=== PATIENT | female | born 1940 | race Caucasian/White ===

== ENCOUNTER 2018-10-18 13:24 | Outpatient (REF) | payer MEDICARE, OTHER, SELFPAY ==
[2018-10-18 19:55] LABS: Anion Gap 10.1 mmol/L (3-11); BUN 14 mg/dL (7-18); CO2 25.9 mmol/L (21.0-32.0); CREATININE 0.93 mg/dL (0.55-1.02); Calcium 9.2 mg/dL (8.5-10.1); Chloride 104 mmol/L (98-107); Estimated GFR 58.61 (mL/min/1.73m2); Glucose 128 mg/dL (70-100); Potassium 4.9 mmol/L (3.5-5.1); Sodium 140 mmol/L (136-145)
== END 2018-10-18 13:44 ==
LOC: NCHCN 13:24
PROVIDERS: PCP Physician Assistant Medical; Visit Provider Physician Assistant Medical
DX: E11.9 Type 2 diabetes mellitus without complications (principal); I10 Essential (primary) hypertension
CPT/HCPCS: 80048

== ENCOUNTER 2019-06-13 08:47 | Outpatient (CLI) | payer MEDICARE, OTHER, SELFPAY | END 2019-06-13 09:07 | PROVIDERS: PCP Physician Assistant Medical; Visit Provider Internal Medicine Cardiovascular Disease | DX: I48.19 Other persistent atrial fibrillation (principal); I10 Essential (primary) hypertension; Z79.01 Long term (current) use of anticoagulants; E11.9 Type 2 diabetes mellitus without complications; Z79.84 Long term (current) use of oral hypoglycemic drugs | CPT/HCPCS: 99204; 93005; 93010 ==

== ENCOUNTER 2019-06-27 07:52 | Day surgery (SDC) | payer MEDICARE, OTHER, SELFPAY ==
[2019-06-27 08:00] VITALS: BP 121/72; PULSE 79; RESP 18; TEMP 36.5; O2SAT 97
[2019-06-27] MEDS: Normal Saline 1,000 ML 30 ML IV (08:33)
--- NOTE | 2019-06-27 10:25 | W.CARDVER ---
Date of service: 06/27/19 Time of Service: 10:26 Cardioversion The patient was brought into the operating room in preparation for cardioversion. ?Atrial fibrillation was confirmed prior to attempted cardioversion ?Patient was sedated with the help of anesthesia ?Patient was cardioverted x1 with 200 J. ?Confirmation of normal sinus rhythm was done with twelve-lead EKG ?There were no complications and patient went to recovery.
--- NOTE | 2019-06-27 10:54 | W.PM.DSUDISC ---
Discharge Plan Disposition Patient Disposition: HOME Condition: Good Discharge Details Reason For Visit: cardioversion Attending Provider: Shoaib Evans Primary Care Provider: Karley Blandon [place] Meds and New Rx's Prescriptions: No Action Xarelto 20 mg tablet 20 mg PO DAILY RF: 0 metoprolol succinate [Toprol XL] 50 mg tablet extended release 24 hr 75 mg PO DAILY RF: 0 celecoxib [Celebrex] 200 MG capsule 200 mg PO DAILY RF: 0 citalopram 20 MG tablet 20 mg PO DAILY RF: 0 metformin 1,000 MG tablet 1,000 mg PO BID RF: 0 lisinopril 10 MG tablet 10 mg PO DAILY RF: 0 lorazepam 1 MG tablet 1 mg PO TID PRN PRNRF: 0 rosuvastatin [Crestor] 20 MG tablet 20 mg PO DAILY RF: 0 Discharge Instructions Activity:: Activity as Tolerated Diet:: As Tolerated Discharge Data Discharge Date/Time-TO BE ENTERED AT DEPARTURE: 06/27/19 10:56 DS: Diagnosis Discharge Diagnosis (1) Atrial fibrillation: Status: Chronic
[2019-06-27 11:08] VITALS: BP 104/64; PULSE 57; RESP 16; TEMP 36.5; O2SAT 99
== END 2019-06-27 11:30 | disposition home or self-care (01) ==
LOC: SUR 07:53
PROVIDERS: PCP Physician Assistant Medical; Visit Provider Internal Medicine Cardiovascular Disease
PROC: 5A2204Z Restoration of Cardiac Rhythm, Single (ICD-10-PCS; CPT 92960; principal; 2019-06-27 09:30)
DX: I48.91 Unspecified atrial fibrillation (principal); I10 Essential (primary) hypertension; E78.5 Hyperlipidemia, unspecified; Z79.01 Long term (current) use of anticoagulants
CPT/HCPCS: 92960

== ENCOUNTER 2019-07-18 15:22 | Outpatient (REF) | payer MEDICARE, OTHER, SELFPAY ==
[2019-07-20 11:03] LABS: Campylobacter PCR Negative (Negative); Salmonella PCR Negative (Negative); Shiga Toxin PCR Negative (Negative); Shigella/Enteroinvasive Ecoli Negative (Negative)
== END 2019-07-18 15:42 ==
LOC: NCHCN 15:22
PROVIDERS: PCP Physician Assistant Medical; Visit Provider Nurse Practitioner Family
DX: R19.7 Diarrhea, unspecified (principal)
CPT/HCPCS: 87329; 87505; 87230; 87324

== ENCOUNTER 2019-09-23 08:22 | Outpatient (CLI) | payer MEDICARE, OTHER, SELFPAY | END 2019-09-23 08:42 | PROVIDERS: PCP Physician Assistant Medical; Visit Provider Internal Medicine Cardiovascular Disease | DX: I48.0 Paroxysmal atrial fibrillation (principal); Z79.899 Other long term (current) drug therapy; Z76.89 Persons encountering health services in other specified circumstances; I10 Essential (primary) hypertension; E11.9 Type 2 diabetes mellitus without complications | CPT/HCPCS: 36415; 80053; 99214; 84443; 93005; 93010 ==

== ENCOUNTER 2019-09-23 11:45 | Outpatient (CLI) | payer MEDICARE, OTHER, SELFPAY ==
[2019-09-23 13:50] LABS: ALT 25 U/L (14-59); AST 20 U/L (15-37); Albumin 3.8 g/dL (3.4-5.0); Alkaline Phosphatase 66 U/L (46-116); Anion Gap 10.1 mmol/L (3-11); BUN 14 mg/dL (7-18); Bilirubin, Total 0.3 mg/dL (0.2-1.0); CO2 26.9 mmol/L (21.0-32.0); CREATININE 1.06 mg/dL (0.55-1.02); Calcium 9.2 mg/dL (8.5-10.1); Chloride 104 mmol/L (98-107); Estimated GFR 50.27 (mL/min/1.73m2); Glucose 96 mg/dL (74-106); Potassium 4.5 mmol/L (3.5-5.1); Sodium 141 mmol/L (136-145); TSH 2.88 uIU/mL (0.36-3.74); Total Protein 6.7 g/dL (6.4-8.2)
== END 2019-09-23 12:05 ==
PROVIDERS: PCP Physician Assistant Medical; Visit Provider Internal Medicine Cardiovascular Disease
DX: I48.91 Unspecified atrial fibrillation (principal); I10 Essential (primary) hypertension; Z79.899 Other long term (current) drug therapy
CPT/HCPCS: 36415; 80053; 84443

== ENCOUNTER 2019-09-27 01:05 | Outpatient (CLI) | payer MEDICARE, OTHER, SELFPAY ==
--- NOTE | 2019-09-27 12:51 | PFT_ITS ---
PULMONARY FUNCTION TEST REPORT DATE OF SERVICE: September 27, 2019 REQUESTING PROVIDER: Dr. Evans Spirometry shows no evidence of obstructive airways disease, no bronchodilator response. Lung volumes show mild restriction. Diffusion capacity severely reduced, which is mildly reduced when corrected to alveolar volume. Airways resistance normal. IMPRESSION: Mild restrictive lung disease associated with severe diffusion defect. Differential diagnosis of this constellation of findings includes developing interstitial lung disease or pulmonary hypertension. Therefore clinical correlation and possible further workup is recommended. WILBER/chris D/
[2019-09-27] MEDS: Inhaler, Assist Device 1 EACH MC (14:07)
[2019-09-27] MEDS: Albuterol HFA 18 GM 200 PUFF INH IH (14:08)
== END 2019-09-27 01:25 ==
PROVIDERS: PCP Physician Assistant Medical; Visit Provider Internal Medicine Cardiovascular Disease
DX: R06.09 Other forms of dyspnea (principal); R06.02 Shortness of breath; J98.8 Other specified respiratory disorders; I48.91 Unspecified atrial fibrillation; Z79.899 Other long term (current) drug therapy
CPT/HCPCS: 94060; 94726; 94729; 93005; 93010

== ENCOUNTER → 2019-10-10 09:59 | Outpatient (BNVA) | payer MEDICARE, OTHER, SELFPAY | PROVIDERS: PCP Physician Assistant Medical; Referring Provider Physician Assistant Medical; Visit Provider Internal Medicine Cardiovascular Disease | DX: I48.92 Unspecified atrial flutter (principal); R06.02 Shortness of breath; I48.91 Unspecified atrial fibrillation; E11.9 Type 2 diabetes mellitus without complications; I10 Essential (primary) hypertension | CPT/HCPCS: 99214 ==

== ENCOUNTER 2019-10-10 10:02 | Outpatient (CLI) | payer MEDICARE, OTHER, SELFPAY | END 2019-10-10 10:22 | PROVIDERS: PCP Physician Assistant Medical; Visit Provider Internal Medicine Cardiovascular Disease | DX: I48.91 Unspecified atrial fibrillation (principal); I10 Essential (primary) hypertension; R06.02 Shortness of breath; I48.92 Unspecified atrial flutter; E11.9 Type 2 diabetes mellitus without complications | CPT/HCPCS: 99214; 93005; 93010 ==

== ENCOUNTER 2020-01-07 18:43 | Outpatient (REF) | payer MEDICARE, OTHER, SELFPAY ==
[2020-01-07 19:52] LABS: Abs Immature Grans 0.02 k/cumm (0.0-0.09); Absolute Basophil Count 0.02 k/cumm (0.0-0.2); Absolute Eosinophil Count 0.37 k/cumm (0.0-0.7); Absolute Monocyte Count 0.79 k/cumm (0.11-0.7); Absolute Neutrophil Count 5.31 k/cumm (1.2-6.7); Basophils % 0.2; Eosinophils % 4.3; HCT 41.4 % (36.0-46.0); HGB 13.6 g/dL (12.0-15.5); Immature Grans % 0.2 %; Lymphocytes % 23.5; Mean Corp. HGB Concentration 32.9 g/dL (32.0-36.0); Mean Corpuscular Hemoglobin 28.9 pg (27.0-33.0); Mean Corpuscular Volume 88.1 fL (80-95); Mean Platelet Volume 11.4 fL (8.0-11.0); Monocytes % 9.3; Neutrophils % 62.5; Platelet Count 255 x1000/uL (130-400); RBC Distribution Width 16.8 % (11.7-14.6); White Blood Cell Count 8.51 k/cumm (4.4-10.8)
[2020-01-07 20:07] LABS: ALT 39 U/L (14-59); AST 27 U/L (15-37); Albumin 3.9 g/dL (3.4-5.0); Alkaline Phosphatase 73 U/L (46-116); Anion Gap 7.5 mmol/L (3-11); BUN 20 mg/dL (7-18); Bilirubin, Total 0.2 mg/dL (0.2-1.0); CO2 28.5 mmol/L (21.0-32.0); CREATININE 1.63 mg/dL (0.55-1.02); Calcium 9.1 mg/dL (8.5-10.1); Chloride 100 mmol/L (98-107); Estimated GFR 30.59 (mL/min/1.73m2); Glucose 99 mg/dL (74-106); Potassium 4.2 mmol/L (3.5-5.1); Sodium 136 mmol/L (136-145); Total Protein 6.8 g/dL (6.4-8.2)
[2020-01-07 20:37] LABS: Hemoglobin A1C 6.3 % (3.8-5.6)
== END 2020-01-07 19:03 ==
LOC: NCHCN 18:43
PROVIDERS: PCP Physician Assistant Medical; Visit Provider Internal Medicine
DX: E11.9 Type 2 diabetes mellitus without complications (principal); C50.411 Malignant neoplasm of upper-outer quadrant of right female breast; Z17.0 Estrogen receptor positive status [ER+]
CPT/HCPCS: 80053; 83036; 85025

== ENCOUNTER 2020-03-25 04:32 | Outpatient (CLI) | payer MEDICARE, OTHER, SELFPAY ==
--- NOTE | 2020-03-25 10:29 | DI.US_ITS ---
APPROVED REPORT EXAM: Comprehensive 2D, Doppler, and color-flow Echocardiogram Patient Location: Out-Patient Recovery Specialist: Stephanie Almazan RDCS (AE) Indications: SOB, A Fib Other Information Study Quality: Adequate Conclusion Normal left ventricular chamber size and wall thickness. Estimated ejection fraction is 55 to 60%. There are no segmental wall motion abnormalities Normal right ventricular size and function Left atrium is moderately to severely dilated. The right atrium is mildly dilated. The aortic valve is trileaflet and sclerotic. There is no aortic stenosis. There is mild aortic reg urgitation Structurally normal mitral valve with moderate regurgitation Structurally normal tricuspid valve with moderate regurgitation. Estimated right ventricular systoli c pressure is 36 mmHg The pulmonic valve is structurally normal with trace to mild regurgitation Wall motion Left Ventricle The left ventricle is normal size. The left ventricular systolic function is normal. The left ventric ular ejection fraction is within the normal range. There is normal left ventricular wall thickness. T here is normal LV segmental wall motion. There is no ventricular septal defect visualized. LVEF is 55 -60%. Right Ventricle The right ventricle is normal size. The right ventricular systolic function is normal. The RVSP is 36 .1 mmHg. Atria Left atrium is moderately to severely dilated. Right atrium is mildly dilated. The interatrial septum is intact with no evidence for an atrial septal defect. Aortic Valve The Aortic valve is sclerotic. Aortic valve is trileaflet. There is no aortic valvular stenosis. Mild aortic regurgitation. Mitral Valve The mitral valve is normal in structure. No evidence of mitral valve stenosis. Moderate mitral regurg itation. Tricuspid Valve The tricuspid valve is normal in structure. There is no tricuspid valve stenosis. Moderate tricuspid regurgitation. Pulmonic Valve The pulmonary valve is normal in structure. There is no pulmonic valvular stenosis. Trace to mild pul melissa regurgitation. Great Vessels The aortic root is normal in size. The ascending aorta is mildly dilated. IVC is normal in size and c ollapses >50% with inspiration. Pericardium There is no pericardial effusion. 2D Dimensions IVSD d PLAX 0.93 cm F: 0.6-1.0 LV Vol A2C d MOD 86.2 mL LVPW d PLAX 0.94 cm F: 0.6 - 1.0 LV Vol A4C d MOD 95.0 mL LVID d PLAX 5.17 cm F: 3.8 - 5.2 LA vol/ BSA A2C s A-L 73.1 mL/m2 LVDs 3.55 cm F: 2.2 - 3.5 LA vol/ BSA A4C s A-L 69.1 mL/m2 Ao Root d 3.01 cm F: 2.7 - 3.3 LA Vol/ BSA Biplane s A-L 73.3 mL/m2 RA Area A4C 20.18 cm2 LA Area A4C s MOD 31.37 cm2 RA Vol/ BSA A4C s A-L 31.1 mL/m2 LA Area A2C s MOD 31.29 cm2 Ao Asc Diam d 3.43 cm F: 2.3 - 3.1 LV EF A4C MOD 53.0 % LV EF Teichholz 57.4 % LV EF A2C MOD 59.9 % LVEF (Sheppard's) 57.75 % F: 54 - 74 LV EF Biplane MOD 57.8 % LV Volume 73.06 mL F: 46 - 106 SV 53.70 mL LV Volume Index 41.74 mL/m2 F: 29 - 61 SV Index 30.69 mL/m2 LV Vol Biplane MOD 93.0 mL FS 30.35 % M-Mode TAPSE 2.56 cm (M/F) >1.7 LV Diastology MV E' medial 0.030 (>0.07 m/s) MV E Vmax 0.76 (0.4-1.3 m/s) LV E/e MED 25.10 (<14) MV E' lateral 0.035 (>0.1 m/s) LV E/e LAT 21.60 (<14) MV E/E' medial 25.14 MV E/E' lateral 21.63 Aortic Valve LVOT Area 3.04 cm2 AoV Area Vmax 1.82 cm2 LVOT Vmax 0.79 m/s AoV Area/ BSA (Vmax) 1.04 cm2/m2 LVOT Mean Fabian. 0.49 m/s FARTUN Mean Fabian. 1.74 cm2 LVOT Peak Grad 2.5 mmHg FARTUN Mean Fabian. Index 1.00 cm2/m2 LVOT Mean Grad 1.2 mmHg AR DT 2744 msec LVOT VTI 0.188 m AR PHT 796 msec LVOT Diam s 1.95 cm AoV Vmax 1.32 m/s Velocity Ratio 0.59 AoV Mean Fabian. 0.86 m/s AoV Peak Grad 7.0 mmHg LVOT SV 57.24 mL AoV Mean Grad 3.4 mmHg AoV VTI 0.318 m AoV Area VTI 1.80 cm2 AoV Area/ BSA (VTI) 1.03 cm/m2 Mitral Valve MV DT 118 (160-240 msec) MR Vmax 5.62 m/s MV PHT 34 msec MR VTI 2.142 m MV Area PHT 6.41 cm2 MR Peak Grad 126.4 mmHg MV VTI 0.164 m MR Mean Grad 88.6 mmHg MV VTI Annulus 0.177 m MR PISA Radius 0.42 cm MV Area VTI 3.77 (4.0-6.0 cm2) MR EROA 0.07 cm2 MR Aliasing Velocity 0.35 m/s MR PISA 1.08 cm2 Pulmonary Valve PV Vmax 0.80 (0.5-1.5 m/s) RVOT Peak Gr. 1.44 mmHg PV Peak Grad 2.6 mmHg RVOT Mean Gr. 0.75 mmHg PV Mean Grad 1.3 mmHg RVOT VTI 0.157 m PV VTI 0.195 m RVOT Vmax 0.60 m/s Tricuspid Valve TR Peak Grad 33.0 mmHg TR Vmax 2.87 m/s RA Pressure 3.00 mmHg RVSP (TR) 36.1 mmHg
== END 2020-03-25 04:52 ==
PROVIDERS: PCP Physician Assistant Medical; Visit Provider Internal Medicine Cardiovascular Disease
DX: I48.92 Unspecified atrial flutter (principal); I08.3 Combined rheumatic disorders of mitral, aortic and tricuspid valves
CPT/HCPCS: 93306

== ENCOUNTER → 2020-04-10 10:54 | Outpatient (BNVA) | payer MEDICARE, OTHER, SELFPAY | PROVIDERS: PCP Physician Assistant Medical; Referring Provider Physician Assistant Medical; Visit Provider Internal Medicine Cardiovascular Disease | DX: I48.91 Unspecified atrial fibrillation (principal); R06.02 Shortness of breath; E11.9 Type 2 diabetes mellitus without complications; I10 Essential (primary) hypertension; Z79.84 Long term (current) use of oral hypoglycemic drugs | CPT/HCPCS: 99214 ==

== ENCOUNTER → 2020-05-01 11:52 | Outpatient (BNVA) | payer MEDICARE, OTHER, SELFPAY | PROVIDERS: PCP Physician Assistant Medical; Referring Provider Physician Assistant Medical; Visit Provider Internal Medicine Cardiovascular Disease | DX: I49.3 Ventricular premature depolarization (principal); I48.92 Unspecified atrial flutter; I10 Essential (primary) hypertension; E11.9 Type 2 diabetes mellitus without complications; R53.82 Chronic fatigue, unspecified; R29.6 Repeated falls | CPT/HCPCS: 99214 ==

== ENCOUNTER 2020-05-01 13:11 | Emergency (ER) | payer MEDICARE, OTHER, SELFPAY ==
[2020-05-01] VITALS (21 sets, daily range): BP systolic 109–173; BP diastolic 66–99; PULSE 58–80; RESP 14–19; TEMP 36.8; O2SAT 96–100
--- NOTE | 2020-05-01 13:30 | RT.EKG_ITS ---
APPROVED REPORT Exam: Resting ECG Patient Location: E HR:57 bpm ECG Measurements Heart Rate 57 AXIS MA 219 P 85 QRSd 94 QRS 50 QT 475 T 57 QTc 465 Conclusion Sinus bradycardia...rate< 60 Borderline prolonged MA interval...MA >212, V-rate 50- 90 I have reviewed and interpreted ECG and agree with software generated interpretation.
--- NOTE | 2020-05-01 13:45 | DI.CT_ITS ---
EXAM: CT HEAD WO CLINICAL HISTORY: confusion, diff walking, writing, r/o acute cva TECHNIQUE: COMPARISON: No exams were available for comparison FINDINGS: Noncontrast cranial CT was performed. There is moderate generalized cerebral atrophy. There are pat karla areas of decreased attenuation in periventricular white matter consistent with microvascular isch emic change. There is no evidence of acute intracranial hemorrhage, mass effect, midline shift. The orbital and temporal bone structures appear intact. Visualized mastoid air cells paranasal sinuses appear clear. IMPRESSION: No evidence of acute intracranial process. RADIATION DOSE DELIVERED: 659.37mGy.cm Total DLP
[2020-05-01 14:04] LABS: Abs Immature Grans 0.02 10^3/uL (0.0-0.06); Absolute Basophil Count 0.03 10^3/uL (0.0-0.2); Absolute Eosinophil Count 0.07 10^3/uL (0.0-0.7); Absolute Lymphocyte Count 1.09 10^3/uL (1.2-3.4); Absolute Monocyte Count 0.48 10^3/uL (0.1-0.8); Absolute Neutrophil Count 4.39 10^3/uL (1.2-6.7); Basophils % 0.5; Eosinophils % 1.2; HGB 12.6 g/dL (11.2-15.7); Immature Grans % 0.3; Lymphocytes % 17.9; MCH 29.5 pg (27.0-33.0); MCHC 32.3 % (32.0-36.0); MCV 91.3 fL (80-95); MPV 10.3 fL (8.0-11.0); Monocytes % 7.9; Neutrophils % 72.2; Nucleated RBC 0 %; Platelet Count 209 10^3/uL (130-400); RBC 4.27 10^6/uL (3.93-5.22); RDW 13.9 % (11.7-14.6); RDW-SD 47.2 fL; WBC 6.08 10^3/uL (4.4-10.8)
--- NOTE | 2020-05-01 14:08 | ED.GENADUL_ITS ---
Discharge Plan Disposition Patient Disposition: HOME Condition: Stable Discharge Details Clinical Impression: Generalized weakness, Frequent falls, Confusion Primary Care Provider: Karley Blandon ED Provider: Brandi Laird Home Meds and New Rx's Prescriptions: Continued amiodarone 400 mg tablet 200 mg PO DAILY RF: 0 amiodarone 200 mg tablet 200 mg PO DAILY Qty: 90 RF: 6 Xarelto 20 mg tablet 20 mg PO DAILY RF: 0 celecoxib [Celebrex] 200 MG capsule 200 mg PO DAILY RF: 0 citalopram 20 MG tablet 20 mg PO DAILY RF: 0 metformin 1,000 MG tablet 1,000 mg PO BID RF: 0 lisinopril 10 MG tablet 10 mg PO DAILY RF: 0 lorazepam 1 MG tablet 1 mg PO TID PRN PRNRF: 0 rosuvastatin [Crestor] 20 MG tablet 20 mg PO DAILY RF: 0 Discharge Instructions Instructions: Fall Prevention for Older Adults (ED), Weakness (ED) Additional Instructions: Drink plenty of fluids and get plenty of rest. Be sure to go over your medication list to confirm that you are taking the correct medication as directed. Be careful upon standing. Be sure to stand up slowly and remain standing for a few minutes before you begin walking. You will be evaluated by home health this weekend, possibly as early as tomorrow. Call your primary care doctor's office on Monday to schedule a follow-up appointment for reevaluation. Return immediately to the emergency department if you develop any worsening or new concerning symptoms. Discharge Data Discharge Physician: Brandi Laird Medical Decision Making 79-year-old female with a history of anxiety, hypertension, hyperlipidemia, diabetes, breast cancer sent from hand tool filer Dr. Evans's office for confusion, difficulty walking and frequent falls over the last month. She lives alone and is normally independent with normal gait. There is concern about possible medication overdosing or CVA. Vitals within normal limits. We will send patient to CT for stat CT head. Also discussed with radiology and they have a small window open to obtain an MRI brain right after CT head to rule out any acute process. CT/MRI/MRA brain and neck negative for acute findings. Labs reviewed and unremarkable. Magnesium 1.5. Urinalysis negative. Patient reassessed and she feels like she would prefer to go home. Discussed with son in room and he feels that he is concerned about patient's medications and concern for another fall at home. Patient was able to ambulate around the ED without assistance. Son feels comfortable with patient going home and his other brother will be watching her tonight and his sister will be checking on her tomorrow to go over her medications. Discussed with care management who agree that there is no acute indication for admission. Plan will be for home health to evaluate as early as tomorrow to assess home safety, to review her medications, and for a physical therapy evaluation as she may need some strength training at home. Advised to follow up with the primary care doctor for re-evaluation. Usual and customary return precautions given prior to discharge. Medical Records Medical records reviewed: Yes I reviewed the patient's medical records. Imaging Data Radiologic Study: Radiologist's impression: XR CHEST 2V PA LATERAL CLINICAL HISTORY: increasing weakness, r/o acute disease TECHNIQUE: COMPARISON: No exams were available for comparison FINDINGS: Heart is enlarged. Lungs are grossly clear. No pleural effusion seen. Calcified left axillary lymph nodes and probable left intrathoracic calcification are noted. Findings are consistent with healed granulomatous disease. Mediastinal contour is grossly unremarkable. IMPRESSION: Cardiomegaly. No evidence of acute process. CT HEAD WO CLINICAL HISTORY: confusion, diff walking, writing, r/o acute cva TECHNIQUE: COMPARISON: No exams were available for comparison FINDINGS: Noncontrast cranial CT was performed. There is moderate generalized cerebral atrophy. There are patchy areas of decreased attenuation in periventricular white matter consistent with microvascular ischemic change. There is no evidence of acute intracranial hemorrhage, mass effect, midline shift. The orbital and temporal bone structures appear intact. Visualized mastoid air cells paranasal sinuses appear clear. IMPRESSION: No evidence of acute intracranial process. ECG Data Attestation: I personally reviewed and interpreted this ECG (s) as follows: Interpretation: Rate of 57, sinus, no acute ST elevation or depression. CA 219. QRS 94. QTc 465. HPI General Mode of arrival: ambulatory . Date/Time Provider Initiated Documentation: 05/01/20 13:42 . Limitations to Documentation: no limitations . Information obtained by: patient . HPI Narrative: Patient is a 79-year-old female with a history of anxiety, diabetes, hypertension, hyperlipidemia and breast cancer with right mastectomy who presents for concern for confusion, difficulty walking and frequent falls recently. Patient was sent from Dr. Guaman's office upstairs where she was seen for regular evaluation and was noted to have some confusion and son there admitted to patient's recent frequent falls and is concerned that she is not taking her medications properly. Dr. Machado had change the dose of her amiodarone and DC'd her metoprolol last month and son believes that she may be taking 2 different doses of amiodarone and may still be taking the metoprolol. He states that he thinks patient may be getting up quickly and then losing her balance possibly due to low blood pressure and then falling. He states patient also can seem confused at times but he is unclear if this may be due to her hearing. Patient states she does admit to feeling weak at times and does admit to falling when she is having difficulty getting up or stand up too quickly. She states she has been eating and sleeping normally. She denies any fever, chest pain, shortness of breath, abdominal pain, vomiting, diarrhea, urinary symptoms. Patient lives alone but son states that his other brother is staying with her this weekend. Related Data Home Medications Medication Instructions Recorded Confirmed celecoxib [Celebrex] 200 mg PO DAILY 10/03/17 05/01/20 citalopram 20 mg PO DAILY 10/03/17 05/01/20 lisinopril 10 mg PO DAILY 10/03/17 05/01/20 lorazepam 1 mg PO TID PRN PRN 10/03/17 05/01/20 metformin 1,000 mg PO BID 10/03/17 05/01/20 rosuvastatin [Crestor] 20 mg PO DAILY 10/03/17 05/01/20 rivaroxaban 20 mg tablet 20 mg PO DAILY 04/29/19 05/01/20 amiodarone 200 mg tablet 200 mg PO DAILY #90 tab 10/10/19 05/01/20 amiodarone 400 mg tablet 200 mg PO DAILY tab 10/10/19 05/01/20 Previous Rx's Medication Instructions Recorded amiodarone 200 mg tablet 200 mg PO DAILY #90 tab 10/10/19 Allergies Allergy/AdvReac Type Severity Reaction Status Date / Time No Known Allergies Allergy Verified 05/01/20 13:35 General Stated Complaint: GenMedical REKHA: 3 Review of Systems All systems reviewed & are unremarkable except as noted in HPI and below Constitutional Constitutional: Reports as per HPI, Denies chills, Denies fever(s) and Reports weakness Eyes Eyes: Denies blurry vision ENT Ears, Nose, Mouth, and Throat: Denies dizziness, Denies sore throat and Denies throat swelling Cardiovascular Cardiovascular: Denies chest pain and Denies dyspnea Respiratory Respiratory: Denies cough and Denies dyspnea Gastrointestinal Gastrointestinal: Denies abdominal pain, Denies diarrhea and Denies vomiting Genitourinary Genitourinary: Denies hematuria and Denies dysuria Musculoskeletal Musculoskeletal: Denies back pain and Denies numbness Integumentary/Breasts Skin/Breast: Denies lesions and Denies rash Neurologic Neurologic: Reports confusion, Denies dizziness, Denies localized weakness, Denies numbness and Reports weakness Psychiatric Psychiatric: Reports confusion Allergic/Immunologic Allergic/Immunologic: Denies throat swelling [facility] Medical History (Updated 05/01/20 @ 18:14 by Brandi Laird DO) Anxiety Atrial flutter Cataract Dyspnea on exertion Endometrial carcinoma Hyperlipidemia Hypertension Type 2 diabetes mellitus Ventricular ectopic activity Surgical History H/O: hysterectomy History of cataract surgery History of cholecystectomy History of colonoscopy Hx of appendectomy Social History Smoking/Tobacco Use Status: Former Tobacco Use Quit Date: 07/24/69 Tobacco: How many years used: 10 Alcohol Intake: never Drug use: Never Substance use type: does not use What type of physical activity do you participate in: none and independent ambulation Do you feel safe at home: Yes Exam Const General: cooperative and no acute distress Orientation: alert, awake and oriented x3 HENMT Head: normal to inspection Face and sinus: normal facial exam Mouth: mucous membranes dry Eyes General: appearance normal, both eyes and all related structures Pupils: PERRL EOM: EOM intact bilaterally Neck Neck: normal visual inspection and No submandibular swelling Lymphatic: no lymphadenopathy noted Chest Chest: normal inspection of the chest and no tenderness Resp Effort & Inspection: normal respiratory effort and able to speak in complete sentences Auscultation: clear to auscultation bilaterally Cardio Rate: regular rate Rhythm: regular rhythm GI Inspection: normal to inspection Palpation: soft, not firm, not rigid and nontender Auscultation: normal bowel sounds Back/Spine/Pelvis Thoracic/Lumbar Spine: thoracic and lumbar spine normal to inspection Pelvis: no pain with anterior-posterior compression Skin General skin exam: no rashes or lesions noted Neuro General: patient alert, patient awake and patient oriented x3 Cranial Nerves: CN's II-XI intact bilaterally Cognition: normal cognition Speech: speech normal Motor: muscle tone normal throughout and strength 5/5 throughout Sensory Exam: no sensory deficits noted Other: Noted to have mild shaking when moving from supine to sitting position while trying to pull herself up. Extrem General: normal to inspection, full ROM, capillary refill normal, no calf tenderness bilaterally and no edema Psych Appearance: grossly normal Mental Status: mental status grossly normal Speech and Movement: speech and movement normal Affect: normal affect Course Vital Signs Vital signs: Vital Signs Temperature 98.2 F 05/01/20 13:23 Pulse 59 L 05/01/20 13:23 Respiratory Rate 17 05/01/20 13:23 Blood Pressure 148/66 H 05/01/20 13:23 Pulse Oximetry 97 05/01/20 13:23 Temperature 98.2 F 05/01/20 13:23 Temperature Source Oral 05/01/20 13:23 Pulse 59 L 05/01/20 13:23 Respiratory Rate 17 05/01/20 13:23 Respiratory Effort Non-Labored 05/01/20 13:32 Blood Pressure 148/66 H 05/01/20 13:23 Blood Pressure Position Supine 05/01/20 13:23 Pulse Oximetry 97 05/01/20 13:23 Oxygen Delivery Method Room Air 05/01/20 13:23 Oxygen Flow Rate 0 05/01/20 13:23 Lab/Test Results Lab/Test Results: Laboratory Tests Range/Units 05/01/20 13:55 WBC (4.4-10.8) 10^3/uL 6.08 RBC (3.93-5.22) 10^6/uL 4.27 Hgb (11.2-15.7) g/dL 12.6 Hct (36.0-46.0) % 39.0 MCV (80-95) fL 91.3 MCH (27.0-33.0) pg 29.5 MCHC (32.0-36.0) % 32.3 RDW (11.7-14.6) % 13.9 Plt Count (130-400) 10^3/uL 209 MPV (8.0-11.0) fL 10.3 Immature Gran % 0.3 Neutrophils % 72.2 Lymphocytes % 17.9 Monocytes % 7.9 Eosinophils % 1.2 Basophils % 0.5 Nucleated RBC % % 0 Absolute Neutrophils (1.2-6.7) 10^3/uL 4.39 Absolute Lymphocytes (1.2-3.4) 10^3/uL 1.09 L Absolute Monocytes (0.1-0.8) 10^3/uL 0.48 Absolute Eosinophils (0.0-0.7) 10^3/uL 0.07 Absolute Basophils (0.0-0.2) 10^3/uL 0.03
--- NOTE | 2020-05-01 14:08 | DI.RAD_ITS ---
EXAM: XR CHEST 2V PA LATERAL CLINICAL HISTORY: increasing weakness, r/o acute disease TECHNIQUE: COMPARISON: No exams were available for comparison FINDINGS: Heart is enlarged. Lungs are grossly clear. No pleural effusion seen. Calcified left axillary lymp h nodes and probable left intrathoracic calcification are noted. Findings are consistent with healed granulomatous disease. Mediastinal contour is grossly unremarkable. IMPRESSION: Cardiomegaly. No evidence of acute process. RADIATION DOSE DELIVERED: Total DLP
--- NOTE | 2020-05-01 14:20 | DI.MRI_ITS ---
EXAM: MR BRAIN WO CLINICAL HISTORY: confusion, weakness, falls, r/o acute cva TECHNIQUE: Multiplanar multisequence MRI of the brain was performed. COMPARISON: No exams were available for comparison FINDINGS: The ventricular system is normal in appearance. There are predominantly periventricular white matter signal abnormalities sparing the corpus callosum consistent with microvascular ischemic change. No other significant signal abnormality identified i n the brain. The orbital and temporal bone structures appear intact as does the pituitary. Diffusion weighted imaging shows no evidence of infarction. Susceptibility weighted imaging is nondiagnostic due to motion. There is normal flow void in the [place] of [place] vasculature. IMPRESSION: Typical microvascular ischemic changes are noted, no other significant abnormality. No evidence of i nfarction. DATA REPOSITORY:
[2020-05-01 14:23] LABS: INR 1.5 (0.9-1.1); Prothrombin Time 15.3 sec (9.3-11.0)
[2020-05-01 14:34] LABS: ALT 35 U/L (14-59); AST 29 U/L (15-37); Albumin 3.8 g/dL (3.4-5.0); Alkaline Phosphatase 54 U/L (46-116); Anion Gap 9.3 mmol/L (3-11); BUN 12 mg/dL (7-18); Bilirubin, Total 0.4 mg/dL (0.2-1.0); CO2 25.7 mmol/L (21.0-32.0); CREATININE 1.02 mg/dL (0.55-1.02); Calcium 9.2 mg/dL (8.5-10.1); Chloride 105 mmol/L (98-107); Estimated GFR 52.55 (mL/min/1.73m2); Glucose 99 mg/dL (74-106); Magnesium 1.5 mg/dL (1.8-2.4); Potassium 4.2 mmol/L (3.5-5.1); Sodium 140 mmol/L (136-145); Troponin I < 0.05 ng/mL (<0.06)
--- NOTE | 2020-05-01 14:35 | DI.MRI_ITS ---
EXAM: MR ANGIO BRAIN WO INDICATION: confusion, diff walking, writing, r/o cva. COMPARISON: No exams were available for comparison TECHNIQUE: MR angiography of the [id number] region was performed utilizing 3D [id number]-wg-wymqlu i maging. FINDINGS: The visualized internal carotid arteries appear intact, no aneurysm, stenosis, or dissection. Visualized vertebral arteries appear intact, no aneurysm, stenosis or dissection. Basilar artery appears normal, no aneurysm, stenosis, or dissection. The anterior cerebral arteries and major branch vessels appear intact. No aneurysm, stenosis, or dis section. The middle cerebral arteries and major branch vessels appear intact. No aneurysm, stenosis, or disse ction. The posterior cerebral arteries and major branch vessels appear intact. No aneurysm, stenosis, or di ssection. IMPRESSION: Negative MR angiography, [id number] region.
--- NOTE | 2020-05-01 14:36 | NUR.NOTE ---
Nursing Note:Patients son requesting to talk with Case Management . Case Management here talking with son now.
--- NOTE | 2020-05-01 15:00 | DI.MRI_ITS ---
EXAM: MR ANGIO NECK WO CLINICAL HISTORY: confusion, diff writing/walking,r/o cva/dissection. TECHNIQUE: Multiplanar multisequence MRI was performed. COMPARISON: No exams were available for comparison FINDINGS: MR angiography the cervical region was performed utilizing 2D and 3D [id number] imaging. There i s right dominant vertebral circulation with unremarkable appearance of right vertebral arteries as vi sualized. The common and internal carotid arteries in the cervical region are unremarkable as visual ized not ideally seen. No major stenosis identified. IMPRESSION: Examination is somewhat limited technically but shows no significant lesion common or internal caroti d arteries. Right dominant unremarkable vertebral artery circulation noted. DATA REPOSITORY:
[2020-05-01 16:04] LABS: Bilirubin Negative (Negative); Blood Negative (Negative); Clarity Sl Cloudy (Clear); Glucose Negative (Negative); Ketones Trace mg/dL (Negative); Leukocyte Esterase Negative (Negative); Nitrite Negative (Negative); Specific Gravity >= 1.030 (1.005-1.025); Urobilinogen 0.2 EU/dL (Up TO 0.2); pH 5.5 (5-8)
[2020-05-01 16:21] LABS: WBC Negative HPF (0-5)
[2020-05-01 16:22] LABS: Bacteria Negative HPF (Negative); C & S Indicated? No; Casts 0-2 Hyaline LPF (Negative); Crystals Negative HPF (Negative); Epithelial Cells Moderate HPF (Negative); Mucus Moderate (Negative); RBC 0-2 HPF (0-2)
[2020-05-01] MEDS: Normal Saline 250 ML IV (18:07)
== END 2020-05-01 18:55 | disposition home or self-care (01) ==
PROVIDERS: Emergency Provider Physician Assistant; PCP Physician Assistant Medical
DX: R53.1 Weakness (principal); R41.0 Disorientation, unspecified; R26.2 Difficulty in walking, not elsewhere classified; R29.6 Repeated falls; E11.9 Type 2 diabetes mellitus without complications; Z79.84 Long term (current) use of oral hypoglycemic drugs; I10 Essential (primary) hypertension; Z60.2 Problems related to living alone
CPT/HCPCS: 36415; 51702; 70544; 70547; 80053; 93005; 96360; 99214; 99285; 70450; 70551; 71046; 81003; 81015; 83735; 84484; 85025; 85610; 85730; 93010

== ENCOUNTER 2020-06-16 15:06 | Outpatient (REF) | payer MEDICARE, OTHER, SELFPAY ==
[2020-06-16 20:50] LABS: Abs Immature Grans 0.02 10^3/uL (0.0-0.06); Absolute Basophil Count 0.04 10^3/uL (0.0-0.2); Absolute Eosinophil Count 0.12 10^3/uL (0.0-0.7); Absolute Monocyte Count 0.49 10^3/uL (0.1-0.8); Absolute Neutrophil Count 4.62 10^3/uL (1.2-6.7); Basophils % 0.6; Eosinophils % 1.9; HCT 40.9 % (36.0-46.0); HGB 12.9 g/dL (11.2-15.7); Immature Grans % 0.3; Lymphocytes % 17.2; MCH 28.7 pg (27.0-33.0); MCHC 31.5 % (32.0-36.0); MCV 90.9 fL (80-95); MPV 11.8 fL (8.0-11.0); Monocytes % 7.7; Neutrophils % 72.3; Nucleated RBC 0 %; Platelet Count 248 10^3/uL (130-400); RDW-SD 46.8 fL; WBC 6.39 10^3/uL (4.4-10.8)
[2020-06-16 21:05] LABS: ALT 49 U/L (14-59); AST 38 U/L (15-37); Alkaline Phosphatase 60 U/L (46-116); Anion Gap 6.7 mmol/L (3-11); BUN 15 mg/dL (7-18); Bilirubin, Total 0.4 mg/dL (0.2-1.0); CO2 30.3 mmol/L (21.0-32.0); CREATININE 1.17 mg/dL (0.55-1.02); Calcium 9.4 mg/dL (8.5-10.1); Chloride 103 mmol/L (98-107); Estimated GFR 44.85 (mL/min/1.73m2); Glucose 145 mg/dL (74-106); Potassium 4.5 mmol/L (3.5-5.1); Sodium 140 mmol/L (136-145); Total Protein 7.3 g/dL (6.4-8.2)
== END 2020-06-16 15:26 ==
LOC: LBN 15:06
PROVIDERS: PCP Physician Assistant Medical; Visit Provider Internal Medicine
DX: C50.411 Malignant neoplasm of upper-outer quadrant of right female breast (principal); Z17.0 Estrogen receptor positive status [ER+]
CPT/HCPCS: 80053; 85025

== ENCOUNTER → 2020-09-04 09:20 | Outpatient (BNVA) | payer MEDICARE, OTHER, SELFPAY | PROVIDERS: PCP Physician Assistant Medical; Referring Provider Physician Assistant Medical; Visit Provider Internal Medicine Cardiovascular Disease | DX: I48.91 Unspecified atrial fibrillation (principal); E11.9 Type 2 diabetes mellitus without complications | CPT/HCPCS: 99214; 99213 ==

== ENCOUNTER 2020-09-04 10:04 | Outpatient (REF) | payer MEDICARE, OTHER, SELFPAY ==
[2020-09-04 10:36] LABS: Abs Immature Grans 0.01 10^3/uL (0.0-0.06); Absolute Basophil Count 0.04 10^3/uL (0.0-0.2); Absolute Eosinophil Count 0.13 10^3/uL (0.0-0.7); Absolute Lymphocyte Count 1.28 10^3/uL (1.2-3.4); Absolute Monocyte Count 0.48 10^3/uL (0.1-0.8); Absolute Neutrophil Count 4.38 10^3/uL (1.2-6.7); Basophils % 0.6; Eosinophils % 2.1; HCT 39.6 % (36.0-46.0); HGB 12.3 g/dL (11.2-15.7); Immature Grans % 0.2; Lymphocytes % 20.3; MCH 27.7 pg (27.0-33.0); MCHC 31.1 % (32.0-36.0); MCV 89.2 fL (80-95); MPV 10.6 fL (8.0-11.0); Monocytes % 7.6; Neutrophils % 69.2; Nucleated RBC 0 %; Platelet Count 199 10^3/uL (130-400); RBC 4.44 10^6/uL (3.93-5.22); RDW 15.3 % (11.7-14.6); RDW-SD 50.5 fL; WBC 6.32 10^3/uL (4.4-10.8)
[2020-09-04 10:46] LABS: ALT 40 U/L (14-59); AST 41 U/L (15-37); Albumin 3.8 g/dL (3.4-5.0); Alkaline Phosphatase 56 U/L (46-116); Anion Gap 7.5 mmol/L (3-11); BUN 14 mg/dL (7-18); Bilirubin, Total 0.3 mg/dL (0.2-1.0); CO2 28.5 mmol/L (21.0-32.0); CREATININE 1.2 mg/dL (0.55-1.02); Calcium 9.5 mg/dL (8.5-10.1); Chloride 105 mmol/L (98-107); Estimated GFR 43.45 (mL/min/1.73m2); Glucose 149 mg/dL (74-106); Potassium 4.7 mmol/L (3.5-5.1); Sodium 141 mmol/L (136-145); Total Protein 7.4 g/dL (6.4-8.2)
== END 2020-09-04 10:05 | disposition home or self-care (01) ==
LOC: LBN 10:04
PROVIDERS: PCP Physician Assistant Medical; Visit Provider Internal Medicine
DX: C50.411 Malignant neoplasm of upper-outer quadrant of right female breast (principal); Z17.0 Estrogen receptor positive status [ER+]
CPT/HCPCS: 80053; 85025

== ENCOUNTER → 2021-03-11 11:10 | Outpatient (BNVA) | payer MEDICARE, OTHER, SELFPAY | PROVIDERS: PCP Internal Medicine; Referring Provider Physician Assistant Medical; Visit Provider Internal Medicine Cardiovascular Disease | DX: I48.91 Unspecified atrial fibrillation (principal); I10 Essential (primary) hypertension; E11.9 Type 2 diabetes mellitus without complications | CPT/HCPCS: 99213 ==

== ENCOUNTER 2021-03-31 14:39 | Outpatient (REF) | payer MEDICARE, OTHER, SELFPAY ==
[2021-03-31 20:39] LABS: Abs Immature Grans 0.01 10^3/uL (0.0-0.06); Absolute Basophil Count 0.04 10^3/uL (0.0-0.2); Absolute Eosinophil Count 0.26 10^3/uL (0.0-0.7); Absolute Lymphocyte Count 1.25 10^3/uL (1.2-3.4); Absolute Monocyte Count 0.54 10^3/uL (0.1-0.8); Absolute Neutrophil Count 3.31 10^3/uL (1.2-6.7); Basophils % 0.7; Eosinophils % 4.8; HCT 38.3 % (36.0-46.0); HGB 11.7 g/dL (11.2-15.7); Immature Grans % 0.2; Lymphocytes % 23.1; MCH 26.1 pg (27.0-33.0); MCHC 30.5 % (32.0-36.0); MCV 85.3 fL (80-95); MPV 11.8 fL (8.0-11.0); Neutrophils % 61.2; Nucleated RBC 0 %; Platelet Count 225 10^3/uL (130-400); RBC 4.49 10^6/uL (3.93-5.22); WBC 5.41 10^3/uL (4.4-10.8)
[2021-03-31 21:14] LABS: Hemoglobin A1C 6.4 % (<5.7)
== END 2021-03-31 14:40 | disposition home or self-care (01) ==
LOC: NCHCN 14:39
PROVIDERS: Referring Provider Physician Assistant; Visit Provider Physician Assistant
DX: C50.411 Malignant neoplasm of upper-outer quadrant of right female breast (principal); Z17.0 Estrogen receptor positive status [ER+]; E11.9 Type 2 diabetes mellitus without complications
CPT/HCPCS: 83036; 85025

== ENCOUNTER 2021-04-13 13:50 | Outpatient (RCR) | payer MEDICARE, OTHER, SELFPAY ==
[2021-04-13 14:36] LABS: Abs Immature Grans 0.03 10^3/uL (0.0-0.06); Absolute Basophil Count 0.03 10^3/uL (0.0-0.2); Absolute Eosinophil Count 0.22 10^3/uL (0.0-0.7); Absolute Lymphocyte Count 1.27 10^3/uL (1.2-3.4); Absolute Monocyte Count 0.66 10^3/uL (0.1-0.8); Absolute Neutrophil Count 4.28 10^3/uL (1.2-6.7); Basophils % 0.5; Eosinophils % 3.4; HCT 36.3 % (36.0-46.0); HGB 11.4 g/dL (11.2-15.7); Immature Grans % 0.5; Lymphocytes % 19.6; MCH 26.6 pg (27.0-33.0); MCHC 31.4 % (32.0-36.0); MCV 84.8 fL (80-95); MPV 10.9 fL (8.0-11.0); Monocytes % 10.2; Neutrophils % 65.8; Nucleated RBC 0 %; Platelet Count 247 10^3/uL (130-400); RBC 4.28 10^6/uL (3.93-5.22); RDW 15.1 % (11.7-14.6); RDW-SD 46.5 fL; WBC 6.49 10^3/uL (4.4-10.8)
[2021-04-13 14:56] LABS: ALT 46 U/L (14-59); AST 49 U/L (15-37); Albumin 3.6 g/dL (3.4-5.0); Alkaline Phosphatase 69 U/L (46-116); Anion Gap 8.8 mmol/L (3-11); BUN 16 mg/dL (7-18); Bilirubin, Total 0.2 mg/dL (0.2-1.0); CO2 27.2 mmol/L (21.0-32.0); CREATININE 1.1 mg/dL (0.55-1.02); Calcium 8.8 mg/dL (8.5-10.1); Chloride 105 mmol/L (98-107); Estimated GFR 48.04 (mL/min/1.73m2); Glucose 99 mg/dL (74-106); Potassium 4.6 mmol/L (3.5-5.1); Sodium 141 mmol/L (136-145); Total Protein 7.1 g/dL (6.4-8.2)
== END 2021-04-22 23:59 | disposition home or self-care (01) ==
LOC: INF 13:50
PROVIDERS: Visit Provider Internal Medicine
DX: C50.411 Malignant neoplasm of upper-outer quadrant of right female breast (principal); Z17.0 Estrogen receptor positive status [ER+]
CPT/HCPCS: 36415; 80053; 85025

== ENCOUNTER 2021-09-09 11:14 | Outpatient (CLI) | payer MEDICARE, OTHER, SELFPAY ==
--- NOTE | 2021-09-09 11:15 | RT.EKG_ITS ---
APPROVED REPORT Exam: Resting ECG Reason for Exam: checking QT interval due to medication Patient Location: O HR:64 bpm ECG Measurements Heart Rate 64 AXIS AR 53 P 57 QRSd 99 QRS 47 QT 412 T 91 QTc 425 Conclusion Sinus rhythm...normal P axis, V-rate 50- 99
== END 2021-09-09 11:15 | disposition home or self-care (01) ==
LOC: DI.CARD 11:19
PROVIDERS: PCP Internal Medicine; Referring Provider Internal Medicine; Visit Provider Internal Medicine Cardiovascular Disease
DX: I48.92 Unspecified atrial flutter (principal); R06.02 Shortness of breath
CPT/HCPCS: 93010

== ENCOUNTER → 2021-09-09 11:14 | Outpatient (BNVA) | payer MEDICARE, OTHER, SELFPAY | PROVIDERS: PCP Internal Medicine; Referring Provider Internal Medicine; Visit Provider Internal Medicine Cardiovascular Disease | DX: I48.91 Unspecified atrial fibrillation (principal); I48.92 Unspecified atrial flutter; R06.02 Shortness of breath; E78.5 Hyperlipidemia, unspecified; I10 Essential (primary) hypertension | CPT/HCPCS: 93005; 99214 ==

== ENCOUNTER 2021-10-19 02:45 | Outpatient (CLI) | payer MEDICARE, OTHER, SELFPAY ==
[2021-10-19 13:55] LABS: Abs Immature Grans 0.04 10^3/uL (0.0-0.06); Absolute Basophil Count 0.05 10^3/uL (0.0-0.2); Absolute Eosinophil Count 0.12 10^3/uL (0.0-0.7); Absolute Lymphocyte Count 1.33 10^3/uL (1.2-3.4); Absolute Monocyte Count 0.72 10^3/uL (0.1-0.8); Absolute Neutrophil Count 6.27 10^3/uL (1.2-6.7); Basophils % 0.6; Eosinophils % 1.4; HGB 10.2 g/dL (11.2-15.7); Immature Grans % 0.5; Lymphocytes % 15.6; MCH 24.5 pg (27.0-33.0); MCV 81.7 fL (80-95); MPV 10.5 fL (8.0-11.0); Monocytes % 8.4; Neutrophils % 73.5; Nucleated RBC 0 %; Platelet Count 304 10^3/uL (130-400); RBC 4.16 10^6/uL (3.93-5.22); RDW 16.9 % (11.7-14.6); RDW-SD 50.2 fL; WBC 8.53 10^3/uL (4.4-10.8)
[2021-10-19 14:08] LABS: ALT 54 U/L (14-59); AST 51 U/L (15-37); Albumin 3.7 g/dL (3.4-5.0); Alkaline Phosphatase 87 U/L (46-116); Anion Gap 10.5 mmol/L (3-11); BUN 13 mg/dL (7-18); Bilirubin, Total 0.3 mg/dL (0.2-1.0); CO2 22.5 mmol/L (21.0-32.0); CREATININE 1.3 mg/dL (0.55-1.02); Calcium 9.1 mg/dL (8.5-10.1); Chloride 107 mmol/L (98-107); Estimated GFR 39.51 (mL/min/1.73m2); Glucose 122 mg/dL (74-106); Potassium 4.6 mmol/L (3.5-5.1); Sodium 140 mmol/L (136-145); Total Protein 7.2 g/dL (6.4-8.2)
[2021-10-19 15:00] LABS: ALT 58 U/L (14-59); AST 58 U/L (15-37); Albumin 3.7 g/dL (3.4-5.0); Alkaline Phosphatase 86 U/L (46-116); Bilirubin, Direct 0.1 mg/dL (0.0-0.2); Bilirubin, Total 0.3 mg/dL (0.2-1.0); FREE T4 1.39 ng/dL (0.76-1.46); TSH (W/Ref FT4) 3.82 uIU/mL (0.36-3.74); Total Protein 6.9 g/dL (6.4-8.2)
[2021-10-19 17:27] LABS: Ferritin 15 ng/mL (8-252)
== END 2021-10-19 02:46 | disposition home or self-care (01) ==
LOC: LBO 02:45
PROVIDERS: Internal Medicine Cardiovascular Disease; Nurse Practitioner Adult Health; PCP Internal Medicine; Visit Provider Internal Medicine
DX: I10 Essential (primary) hypertension (principal); E78.5 Hyperlipidemia, unspecified; I48.91 Unspecified atrial fibrillation; R06.02 Shortness of breath; Z79.899 Other long term (current) drug therapy
CPT/HCPCS: 36415; 80053; 80076; 82728; 84439; 84443; 85025

== ENCOUNTER 2021-11-16 21:16 | Outpatient (REF) | payer MEDICARE, OTHER, SELFPAY ==
[2021-11-16 19:47] LABS: HCT 32.7 % (36.0-46.0); HGB 9.7 g/dL (11.2-15.7); MCH 23.8 pg (27.0-33.0); MCHC 29.7 % (32.0-36.0); MCV 80.3 fL (80-95); MPV 11.4 fL (8.0-11.0); Platelet Count 277 10^3/uL (130-400); RBC 4.07 10^6/uL (3.93-5.22); RDW 17.5 % (11.7-14.6); RDW-SD 51.1 fL; WBC 5.61 10^3/uL (4.4-10.8)
[2021-11-16 20:09] LABS: Iron 28 ug/dL (50-170); Total Iron Binding Capacity 458 ug/dL (250-450); Transferrin Sat 6 % (15-50)
== END 2021-11-16 21:17 | disposition home or self-care (01) ==
LOC: NCHCN 21:16
PROVIDERS: PCP Physician Assistant; Visit Provider Physician Assistant
DX: D64.9 Anemia, unspecified (principal); K92.1 Melena
CPT/HCPCS: 85027; 83540; 83550

== ENCOUNTER → 2021-11-29 13:57 | Outpatient (BNVA) | payer MEDICARE, OTHER, SELFPAY | PROVIDERS: PCP Physician Assistant; Referring Provider Physician Assistant; Visit Provider Surgery | DX: K92.1 Melena (principal); D64.9 Anemia, unspecified; K64.9 Unspecified hemorrhoids; I48.91 Unspecified atrial fibrillation; E11.9 Type 2 diabetes mellitus without complications; I49.3 Ventricular premature depolarization; I10 Essential (primary) hypertension; I48.92 Unspecified atrial flutter; C50.911 Malignant neoplasm of unspecified site of right female breast; C54.1 Malignant neoplasm of endometrium; M85.89 Other specified disorders of bone density and structure, multiple sites; E78.5 Hyperlipidemia, unspecified | CPT/HCPCS: 99214; 99243 ==

== ENCOUNTER 2021-12-14 07:13 | Day surgery (SDC) | payer MEDICARE, OTHER, SELFPAY ==
--- NOTE | 2021-12-13 16:53 | W.COLOREPORT ---
Colonoscopy Report Date of procedure: 12/14/21 Pre-op diagnosis general: rectal bleeding and anemia Post-op diagnosis procedure note: other (Severe diverticula confined to the sigmoid colon internal and external hemorrhoids//incomplete mucosal prolapse) Surgeon: Sada Castellano Anesthesia Type: General:No Airway Estimated blood loss (mL): 2 Pathology: none sent Complications: None Disposition: same day Prep: Miralax/Dulcolax Retraction Time: 8 Procedure Description: After informed consent was obtained the patient was taken to the procedure room and placed in a left decubitous position. Monitors were applied and a time out was done. The patients name, date of , procedure, allergies to medications and metal in their body was reviewed. The patient was then sedated. Once sedated and comfortable a rectal exam was done. She has external hemorrhoids that are not thrombosed. She has grade 1 internal hemorrhoids x2. She has also has prolapsing mucosa, incomplete. This appears very friable and irritated. She has a very patulant sphincter and poor rectal tone. The scope was then introduced and retrofelexed. The scope was then advanced to the cecum without difficulty. The TI and appendiceal orifice were identified. The prep was BB PS 3 in all segments for a total of 9. the scope was then slowly retracted over 9 minutes back into the rectum. There were no polyps or AVMs visualized today. She has severe diverticular disease confined to the sigmoid colon. There is no signs of active bleeding or infection. Mucosa appears pink and healthy with a normal vascular pattern, except as previously stated in the rectum. We did band 1 internal hemorrhoid today. I also did band the area of prolapse- maybe we can get this to scar up and stay in the rectum. the patient was woken up and taken back to Same day surgery in stable condition. The patient tolerated the procedure well and there were no immediate complications. Follow up: The patient does not require any further colonoscopies, unless they develop changes in bowel habits or other new gastrointestinal complaints.
--- NOTE | 2021-12-13 16:54 | PDOC.DSDIS_ITS ---
Discharge Plan Disposition Patient Disposition: HOME Condition: Good Discharge Details Reason For Visit: colon scope Attending Provider: Sada Castellano Primary Care Provider: Marilou Bass Home Meds and New Rx's Prescriptions: Continued lisinopril 10 mg tablet 10 mg PO DAILY letrozole [Femara] 2.5 mg tablet 2.5 mg PO DAILY acetaminophen [Tylenol Extra Strength] 500 mg tablet 500 mg PO Q6H PRN cholecalciferol (vitamin D3) 25 mcg (1,000 unit) capsule 25 mcg PO DAILY calcium carbonate-vitamin D3 [Calcium 600 with Vitamin D3] 600 mg(1,500mg) - 500 unit capsule 1 cap PO DAILY Xarelto 20 mg tablet 20 mg PO DAILY amiodarone 400 mg tablet 200 mg PO DAILY Qty: 90 3RF Prolia 60 mg/mL syringe 60 mg subcut [id number] citalopram 20 MG tablet 20 mg PO DAILY lorazepam 1 MG tablet 1 mg PO TID PRN PRN rosuvastatin [Crestor] 20 MG tablet 20 mg PO DAILY Discontinued polyethylene glycol 3350 17 gram/dose powder 238 g PO ONCE Qty: 238 0RF Rx Instructions: take per colonoscopy instructions bisacodyl [Dulcolax (bisacodyl)] 5 mg tablet,delayed release (DR/EC) 5 mg PO ONCE Qty: 4 0RF Rx Instructions: take per colonoscopy instructions Discharge Instructions Additional Instructions: [facility] Colonoscopy Post- Op Instructions Instructions for Everyone who is given Anesthesia: For your safety, please do the following for the next twenty-four (24) hours: *Do Not operate a motor vehicle (car, truck, motorcycle, etc.) *Do Not drink alcoholic beverages or use any recreational drugs for the first 24 hours or while taking pain medications. The medications in your body may have a reaction that can be dangerous. *Do Not make any important decisions or sign any important papers. Findings: Severe diverticular Dx Internal/external hemorrhoids Incomplete mucosal prolapse Follow up: 2wks No elliquis x 1 wk NO ibuprofen or ASA for 2 wks. Celebrex is fine. 1. No lifting over 20 pounds or strenuous activity for the first 24 hours after your procedure. After 24 hours there are no restrictions on your activity but you may feel fatigued for a few days. 2. After you arrive home you may have a light meal and return to your normal diet as you can tolerate it without feeling sick to your stomach. 3. You may have a bloated, gaseous feeling in your belly (abdomen) after a colonoscopy. Passing gas and belching will help. Walking or lying down on your left side with your knees flexed may relieve the discomfort. Call the office at [phone] (Office) or [phone] (Hospital) right away if you notice any of the following: a.Vomiting of blood or ?coffee ground stools?. b.Rectal bleeding 1Tbsp, blood clots or continuous bleeding. c.Severe belly (abdominal) pain. d.A hard distended belly (abdomen) and an inability to pass gas. 4. Please don?t expect to have a normal BM (bowel movement) for 2-3 days after your procedure. 5. If there are questions regarding the findings of your procedure, please contact your doctor 6. If you are unable to contact your doctor with a problem, contact the hospital at [phone]. 7. Continue all your regular medications unless directed otherwise. I understand the above instructions and have no questions. Signature of Patient or Adult Escort Name of Responsible Adult Escort Signature of Nurse Date/Time Stand Alone Forms: [facility] Post PHARMACY INTAKE TECHNICIAN Surgery Activity:: See above Diet:: See above Discharge Orders Discharge Orders: Discharge Order (Routine); Ordered 12/13/21 Ordered By: Sada Castellano
--- NOTE | 2021-12-14 07:07 | W.ANESPRE ---
General Info Date of Service Date Performed: 12/14/21 Height: 5 ft 6 in Weight: 73.936 kg Body Mass Index (BMI): 26.3 Surgical Procedure: Operation Date: 12/14/21 08:20 Proposed Procedure Side Surgeon p Colonoscopy Possible Hemorrhoid Banding Sada Castellano, DO Meds Allergies and Home Medications Allergies Allergy/AdvReac Type Severity Reaction Status Date / Time No Known Allergies Allergy Verified 12/14/21 07:35 Home Medication Medication Instructions Recorded citalopram 20 mg tablet 20 mg PO DAILY 10/03/17 lorazepam 1 mg tablet 1 mg PO TID PRN PRN 10/03/17 rosuvastatin 20 mg tablet (Crestor) 20 mg PO DAILY 10/03/17 rivaroxaban 20 mg tablet (Xarelto) 20 mg PO DAILY 04/29/19 lisinopril 10 mg tablet 10 mg PO DAILY 05/05/20 acetaminophen 500 mg tablet 500 mg PO Q6H PRN 09/04/20 (Tylenol Extra Strength) calcium carbonate 600 mg-vitamin 1 cap PO DAILY 09/04/20 D3 12.5 mcg (500 unit) capsule (Calcium 600 with Vitamin D3) cholecalciferol (vitamin D3) 25 25 mcg PO DAILY 09/04/20 mcg (1,000 unit) capsule letrozole 2.5 mg tablet (Femara) 2.5 mg PO DAILY 09/04/20 amiodarone 400 mg tablet 200 mg PO DAILY #90 tabs 11/01/21 denosumab 60 mg/mL subcutaneous 60 mg subcut [id number] 11/18/21 syringe (Prolia) Current Visit Medications: Current Medications Generic Name Dose Route Start Last Admin Trade Name Cristian PRN Reason Stop Dose Admin Hyoscyamine Sulfate 0.125 mg 12/13/21 16:52 Hyoscyamine 0.125 Mg Sl/Oral/Chew SL DIRECTED PRN Ringer's Solution 1,000 mls @ 80 mls/hr 12/14/21 06:00 IV 01/12/22 23:59 INFUSION SUGEY Iron Sucrose 200 mg/ Sodium 110 mls @ 440 mls/hr 12/14/21 06:00 Chloride IVPB 12/14/21 23:59 TODAY SUGEY IV Miscellaneous Supplies 1 each 12/14/21 06:00 Iv Access IV 01/12/22 23:59 DIRECTED SUGEY Ondansetron HCl 4 mg 12/13/21 16:52 Ondansetron 4 Mg/2 Ml Vial IVP Q4H PRN PRN Nausea / Vomiting Sodium Chloride 0 ml 12/14/21 06:00 Normal Saline Flush 10 Ml Syr IV 01/12/22 23:59 PRN PRN Sodium Chloride 0 ml 12/14/21 06:00 Normal Saline 10 Ml Vial IJ 01/12/22 23:59 DIRECTED PRN Sterile Water 0 ml 12/14/21 06:00 Water,Injection,Sterile 10 Ml Vial IJ 01/12/22 23:59 DIRECTED PRN PFSH Active Problems Active Problems: Problem Status Onset Code Atrial flutter I48.92 Hypertension I10 Hyperlipidemia E78.5 Ventricular ectopic activity I49.3 Cataract H26.9 Type 2 diabetes mellitus E11.9 Sleep disturbance G47.9 Dyspnea on exertion R06.09 Anxiety F41.9 Atrial fibrillation I48.91 Shortness of breath R06.02 High risk medication use Z79.899 Hematochezia K92.1 Anemia D64.9 Medical History Medical History Adenocarcinoma of right breast Endometrial carcinoma Osteopenia Surgical History Surgical History (Updated 12/10/21 @ 13:59 by Kwaku Murillo) H/O: hysterectomy History of cataract surgery History of cholecystectomy History of colonoscopy History of mastectomy (~12/22/20) (R) Hx of appendectomy Tobacco Smoking/Tobacco Use Status: Former Tobacco Use Alcohol Alcohol Intake: never Substance Use Substance use: Never Substance use type: does not use Vital Signs and Lab Results Lab Results Blood Type / Crossmatch: No Data to Display Complete Blood Count: White Blood Count 5.61 10^3/uL (4.4-10.8) 11/16/21 16:00 Red Blood Count 4.07 10^6/uL (3.93-5.22) 11/16/21 16:00 Hemoglobin 9.7 g/dL (11.2-15.7) L 11/16/21 16:00 Hematocrit 32.7 % (36.0-46.0) L 11/16/21 16:00 Platelet Count 277 10^3/uL (130-400) 11/16/21 16:00 Complete Metabolic Panel: No Data to Display Liver Function Panel: No Data to Display Coagulation Panel: No Data to Display Cardiac Panel: No Data to Display Arterial Blood Gas: No Data to Display Venous Blood Gas: No Data to Display Pancreas Panel: No Data to Display Thyroid Panel: No Data to Display Infectious Disease: No Data to Display Blood Cultures: No Data to Display Toxicology Panel: No Data to Display Imaging and Studies Imaging and Studies Study information below may be from another EMR and interpreted by another provider. Please see original notes in EMR for more complete details. EKG Summary: Conclusion Sinus rhythm...normal P axis, V-rate 50- 99 Echocardiogram Summary: Conclusion Normal left ventricular chamber size and wall thickness. Estimated ejection fraction is 55 to 60%. There are no segmental wall motion abnormalities Normal right ventricular size and function Left atrium is moderately to severely dilated. The right atrium is mildly dilated. The aortic valve is trileaflet and sclerotic. There is no aortic stenosis. There is mild aortic regurgitation Structurally normal mitral valve with moderate regurgitation Structurally normal tricuspid valve with moderate regurgitation. Estimated right ventricular systolic pressure is 36 mmHg The pulmonic valve is structurally normal with trace to mild regurgitation Pulmonary Function Summary: IMPRESSION: Mild restrictive lung disease associated with severe diffusion defect. Differential diagnosis of this constellation of findings includes developing interstitial lung disease or pulmonary hypertension. Therefore clinical correlation and possible further workup is recommended. Anesthesia Assessment and Plan Anesthesia History Personal History: No History of Anesthesia Complications Family History: No Family History of Anesthesia Complications Exercise Tolerance Exercise Tolerance: Metabolic Equivalents>4 Pertinent Negatives Pertinent Negatives: No Symptoms of GERD Cardiac & Pulmonary Exam Cardiac Exam: Normal S1/S2 Heart Sounds Pulmonary Exam: Clear Bilateral Breath Sounds Implantable Cardiac Device Does patient have a Pacemaker or an ICD?: No Airway Exam Known Difficult Airway: No Mallampati Class: 2 Mouth Opening: Normal (> 3cm) Thyromental Distance: Greater than 3 cm Neck Range of Motion: Full ROM Neck Circumference: Normal Teeth Condition: Removable Dentures/Plates Upper ASA Classification ASA Score: ASA 3 Emergency Case?: No NPO Status NPO Status: NPO Clears >2 hours, Solids >8 hours Anesthesia Plan Resuscitation Status: Full Code Anesthesia Technique: General Anesthesia Airway Planned: Natural Airway Monitors Used: Standard Monitors
[2021-12-14 07:08] VITALS: BMI 26.3
[2021-12-14 07:43] VITALS: BP 188/78; PULSE 60; RESP 17; TEMP 36.7; O2SAT 100
[2021-12-14] MEDS: Lactated Ringers 1,000 ML 80 ML IV (08:03)
[2021-12-14] MEDS: Normal Saline Flush 10 ML SYR IV ×2 (08:25→09:51)
[2021-12-14 08:26] LABS: HCT 32.6 % (36.0-46.0); HGB 9.9 g/dL (11.2-15.7)
[2021-12-14 09:28] VITALS: BP 161/81; PULSE 55; RESP 17; TEMP 36.4; O2SAT 97
[2021-12-14] MEDS: IRON SUCROSE COMPLEX 200 MG in Normal Saline 100 ML 440 MG IVPB (09:31)
--- NOTE | 2021-12-14 09:39 | W.ANESPOSTOP ---
Postoperative Evaluation Date, Time and Location Date Performed: 12/14/21 Time Performed: 08:39 Patient Location: Day Surgery Unit Vital Signs Most Recent Imported Vital Signs: Most Recent Vital Signs Temp Pulse Resp BP Pulse Ox 36.4 C L 55 L 17 161/81 H 97 12/14/21 09:28 12/14/21 09:28 12/14/21 09:28 12/14/21 09:28 12/14/21 09:28 Assessment Mental Status: Arousable with meaningful communication Airway and Respiratory Function: Patent airway with normal (patient baseline) respiratory exam Cardiovascular Function: Hemodynamically Stable Hydration Status: Adequately Hydrated Nausea & Vomiting: No Nausea or Vomiting Pain: Pt. Denies Any Pain Peripheral Nerve Block: Patient did not receive a nerve block
[2021-12-14 09:58] VITALS: BP 179/80; PULSE 57; RESP 17; TEMP 36.7; O2SAT 98
== END 2021-12-14 10:30 | disposition home or self-care (01) ==
PROVIDERS: PCP Physician Assistant; Visit Provider Surgery
PROC: 0DJD8ZZ Inspection of Lower Intestinal Tract, Via Natural or Artificial Opening Endoscopic (ICD-10-PCS; CPT 45378; principal; 2021-12-14 08:15)
DX: K62.5 Hemorrhage of anus and rectum (principal); D64.9 Anemia, unspecified; K57.30 Diverticulosis of large intestine without perforation or abscess without bleeding; K64.0 First degree hemorrhoids; K64.4 Residual hemorrhoidal skin tags; K62.2 Anal prolapse
CPT/HCPCS: 45378; 46221; 36415; 96365; 85014; 85018; J1756

== ENCOUNTER → 2022-01-06 08:49 | Outpatient (BNVA) | payer MEDICARE, OTHER, SELFPAY | PROVIDERS: PCP Physician Assistant; Referring Provider Physician Assistant; Visit Provider Surgery | DX: K62.3 Rectal prolapse (principal); K57.30 Diverticulosis of large intestine without perforation or abscess without bleeding | CPT/HCPCS: 99212 ==

== ENCOUNTER 2022-01-31 17:05 | Outpatient (REF) | payer MEDICARE, OTHER, SELFPAY ==
[2022-01-31 19:16] LABS: HCT 40.7 % (36.0-46.0); HGB 12.8 g/dL (11.2-15.7); MCH 27.1 pg (27.0-33.0); MCHC 31.4 % (32.0-36.0); MCV 86 fL (80-95); MPV 11.6 fL (8.0-11.0); Platelet Count 182 10^3/uL (130-400); RBC 4.72 10^6/uL (3.93-5.22); RDW 22.1 % (11.7-14.6); RDW-SD 68.4 fL; WBC 5.11 10^3/uL (4.4-10.8)
[2022-01-31 19:46] LABS: Ferritin 76 ng/mL (8-252)
== END 2022-01-31 17:06 | disposition home or self-care (01) ==
LOC: NCHCN 17:05
PROVIDERS: PCP Physician Assistant; Visit Provider Physician Assistant
DX: D64.9 Anemia, unspecified (principal)
CPT/HCPCS: 85027; 82728; 83540; 83550

== ENCOUNTER → 2022-03-10 10:53 | Outpatient (BNVA) | payer MEDICARE, OTHER, SELFPAY | PROVIDERS: PCP Physician Assistant; Visit Provider Internal Medicine Cardiovascular Disease | DX: I48.0 Paroxysmal atrial fibrillation (principal); I48.92 Unspecified atrial flutter; R06.02 Shortness of breath; I10 Essential (primary) hypertension; E78.5 Hyperlipidemia, unspecified; R07.9 Chest pain, unspecified; Z79.899 Other long term (current) drug therapy | CPT/HCPCS: 99214 ==

== ENCOUNTER 2022-03-14 04:14 | Outpatient (CLI) | payer MEDICARE, OTHER, SELFPAY ==
[2022-03-14] MEDS: Inhaler, Assist Device 1 EACH MC (14:21)
[2022-03-14] MEDS: Albuterol HFA 18 GM 200 PUFF INH IH (14:21)
--- NOTE | 2022-03-16 15:52 | W.PFT ---
Date of service: 03/14/22 Time of Service: 12:59 Pulmonary Function Test Result Requesting Provider Jenna Elaine Indications: Amiodarone Monitoring Interpretation Spirometry: There is restrictive appearing spirometry with a low FVC. There is not a significant bronchodilator response. Lung Volumes: There is mild restrictive lung disease. Diffusion Capacity: The diffusion is normal. Airway Pressure: Normal airways resistance. Impression Mild restrictive lung disease with a normal diffusion. Note: When compared to 09/27/19, the total lung capacity and diffusion are both improved. Clinical Correlation therefore is recommended.
== END 2022-03-14 04:15 | disposition home or self-care (01) ==
LOC: RT 04:14
PROVIDERS: PCP Physician Assistant; Visit Provider Internal Medicine Cardiovascular Disease
DX: R94.2 Abnormal results of pulmonary function studies (principal); R06.09 Other forms of dyspnea; R05.9 Cough, unspecified; Z87.891 Personal history of nicotine dependence
CPT/HCPCS: 94060; 94726; 94729

== ENCOUNTER 2022-06-23 16:59 | Outpatient (REF) | payer MEDICARE, OTHER, SELFPAY ==
[2022-06-23 19:19] LABS: ALT 69 U/L (14-59); AST 101 U/L (15-37); Albumin 3.5 g/dL (3.4-5.0); Alkaline Phosphatase 123 U/L (46-116); Anion Gap 5.4 mmol/L (3-11); BUN 17 mg/dL (7-18); Bilirubin, Total 0.5 mg/dL (0.2-1.0); CO2 28.6 mmol/L (21.0-32.0); CREATININE 1.3 mg/dL (0.55-1.02); Chloride 103 mmol/L (98-107); Estimated GFR 41.83 (mL/min/1.73m2); Glucose 169 mg/dL (74-106); Sodium 137 mmol/L (136-145); Total Protein 7.3 g/dL (6.4-8.2)
== END 2022-06-23 17:00 | disposition home or self-care (01) ==
LOC: NCHCN 16:59
PROVIDERS: PCP Physician Assistant; Visit Provider Physician Assistant
DX: D64.9 Anemia, unspecified (principal); Z79.811 Long term (current) use of aromatase inhibitors
CPT/HCPCS: 80053

== ENCOUNTER 2022-07-01 16:33 | Outpatient (REF) | payer MEDICARE, OTHER, SELFPAY | END 2022-07-01 16:34 | disposition home or self-care (01) | LOC: NCHCN 16:33 | PROVIDERS: PCP Physician Assistant; Visit Provider Physician Assistant | DX: N39.0 Urinary tract infection, site not specified (principal) | CPT/HCPCS: 87077; 87086; 87186 ==

== ENCOUNTER 2022-07-14 16:48 | Outpatient (REF) | payer MEDICARE, OTHER, SELFPAY ==
[2022-07-14 20:30] LABS: ALT 78 U/L (14-59); AST 97 U/L (15-37); Albumin 3.3 g/dL (3.4-5.0); Alkaline Phosphatase 130 U/L (46-116); Anion Gap 7.1 mmol/L (3-11); BUN 18 mg/dL (7-18); Bilirubin, Total 0.4 mg/dL (0.2-1.0); CO2 26.9 mmol/L (21.0-32.0); CREATININE 1.3 mg/dL (0.55-1.02); Chloride 106 mmol/L (98-107); Estimated GFR 41.83 (mL/min/1.73m2); Glucose 133 mg/dL (74-106); Potassium 4.3 mmol/L (3.5-5.1); Sodium 140 mmol/L (136-145); Total Protein 6.9 g/dL (6.4-8.2)
== END 2022-07-14 16:49 | disposition home or self-care (01) ==
LOC: LBN 16:48
PROVIDERS: PCP Physician Assistant; Visit Provider Nurse Practitioner Adult Health
DX: D64.9 Anemia, unspecified (principal); Z79.811 Long term (current) use of aromatase inhibitors
CPT/HCPCS: 80053

== ENCOUNTER 2022-07-29 16:54 | Outpatient (REF) | payer MEDICARE, OTHER, SELFPAY ==
[2022-07-29 19:07] LABS: Abs Immature Grans 0.02 10^3/uL (0.0-0.06); Absolute Basophil Count 0.06 10^3/uL (0.0-0.2); Absolute Eosinophil Count 0.13 10^3/uL (0.0-0.7); Absolute Lymphocyte Count 1.06 10^3/uL (1.2-3.4); Absolute Monocyte Count 0.62 10^3/uL (0.1-0.8); Absolute Neutrophil Count 4.68 10^3/uL (1.2-6.7); Basophils % 0.9; HCT 43.2 % (36.0-46.0); Immature Grans % 0.3; Lymphocytes % 16.1; MCH 30.2 pg (27.0-33.0); MCHC 32.4 % (32.0-36.0); MCV 93 fL (80-95); MPV 11.3 fL (8.0-11.0); Monocytes % 9.4; Neutrophils % 71.3; Platelet Count 194 10^3/uL (130-400); RBC 4.63 10^6/uL (3.93-5.22); RDW-SD 48.2 fL; WBC 6.57 10^3/uL (4.4-10.8)
[2022-07-29 19:25] LABS: ALT 64 U/L (14-59); AST 92 U/L (15-37); Albumin 3.5 g/dL (3.4-5.0); Alkaline Phosphatase 130 U/L (46-116); Anion Gap 7.1 mmol/L (3-11); BUN 17 mg/dL (7-18); Bilirubin, Total 0.6 mg/dL (0.2-1.0); CO2 28.9 mmol/L (21.0-32.0); CREATININE 1.3 mg/dL (0.55-1.02); Calcium 9.2 mg/dL (8.5-10.1); Chloride 103 mmol/L (98-107); Estimated GFR 41.83 (mL/min/1.73m2); Glucose 254 mg/dL (74-106); Potassium 4.4 mmol/L (3.5-5.1); Sodium 139 mmol/L (136-145); Total Protein 7.3 g/dL (6.4-8.2)
== END 2022-07-29 16:55 | disposition home or self-care (01) ==
LOC: NCHCN 16:54
PROVIDERS: PCP Physician Assistant; Visit Provider Physician Assistant
DX: D64.9 Anemia, unspecified (principal); Z17.0 Estrogen receptor positive status [ER+]; Z79.811 Long term (current) use of aromatase inhibitors; C50.411 Malignant neoplasm of upper-outer quadrant of right female breast
CPT/HCPCS: 80053; 85025

== ENCOUNTER 2022-11-21 10:40 | Observation (INO) | payer MEDICARE, OTHER, SELFPAY ==
[2022-11-21] VITALS (14 sets, daily range): BP systolic 130–193; BP diastolic 65–91; PULSE 52–65; RESP 16–20; TEMP 36.7; O2SAT 93–97
[2022-11-21] MEDS: HYDROmorphone 2 MG/ML SYR 0.5 MG IVP (11:39)
[2022-11-21] MEDS: Ketorolac 30 MG/ML VIAL IVP (11:39)
[2022-11-21 11:40] LABS: Abs Immature Grans 0.07 10^3/uL (0.0-0.06); Absolute Basophil Count 0.01 10^3/uL (0.0-0.2); Absolute Lymphocyte Count 0.62 10^3/uL (1.2-3.4); Absolute Monocyte Count 0.48 10^3/uL (0.1-0.8); Absolute Neutrophil Count 8.59 10^3/uL (1.2-6.7); Basophils % 0.1; HCT 42.3 % (36.0-46.0); Immature Grans % 0.7; Lymphocytes % 6.3; MCH 28.9 pg (27.0-33.0); MCHC 33.1 % (32.0-36.0); MCV 87 fL (80-95); MPV 10.8 fL (8.0-11.0); Monocytes % 4.9; Platelet Count 202 10^3/uL (130-400); RBC 4.85 10^6/uL (3.93-5.22); RDW 15.4 % (11.7-14.6); RDW-SD 49.2 fL; WBC 9.77 10^3/uL (4.4-10.8)
--- NOTE | 2022-11-21 11:45 | DI.MRI_ITS ---
Exam(s) MR LOWER JOINT LT WO EXAM: MR LOWER JOINT LT WO CLINICAL HISTORY: left hip pain, h/o breast ca TECHNIQUE: Multiplanar multisequence MRI of hip was performed COMPARISON: CR XR HIP LT MIN 2V AND PELVIS from 10/12/2022 FINDINGS: Bones: There is no evidence of a fracture or avascular necrosis. There is narrowing of the joint sp dulce maria. The labrum appears grossly unremarkable on this noncontrast examination. No bone marrow edema is seen. The SI joints and symphysis pubis are well maintained. Musculotendinous structures: There is hyperintense signal seen adjacent to the greater tuberosity. The muscles show normal signal and size. Intrapelvic structures demonstrate no significant abnormali ty. IMPRESSION: 1. No evidence to suggest metastatic disease. 2. Hyperintense signal seen adjacent to greater tuberosity in the region of the gluteus medius tendon suspicious for strain/trochanteric bursitis. 3. Findings were discussed with Dr. Moreau at 2:20 p.m. on 11/21/2022. DATA REPOSITORY:
--- NOTE | 2022-11-21 11:45 | DI.MRI_ITS ---
Exam(s) MR LUMBAR SPINE WO EXAM: MR LUMBAR SPINE WO CLINICAL HISTORY: low back pain, urinary incontinence, h/o breast ca. TECHNIQUE: Multiplanar multisequence MRI of the Lumbar spine was performed. COMPARISON: No exams were available for comparison FINDINGS: The examination is limited due to patient motion artifact. Bones: The last intervertebral disc space is designated the L5/S1 level for the numbering purpose of this examination. The vertebral body heights are well maintained. There is grade 1 spondylolisthesi s of L4 on L5. Mild degenerative endplate signal changes are noted in the lumbar spine. Cord: The conus tip ends at the L1 level. It is of normal size and signal intensity. T12-L1: No disc herniations or bulges are present. No central spinal canal or neural foraminal stenos is. L1-2: No disc herniations or bulges are present. No central spinal canal or neural foraminal stenosis . L2-3: There is a diffuse disc bulge. There is a small central disc herniation. Facet hypertrophy is present. There is very mild narrowing of the central spinal canal. No significant neural foraminal stenosis is present. L3-4: There are degenerative changes of the facets seen. There is a diffuse disc bulge. The finding s cause [id number] central spinal canal stenosis. No significant neural foraminal stenosis is present. L4-5: There are degenerative changes of the facets and hypertrophy of the ligamentum flavum. There i s a diffuse disc bulge. These all contribute to cause moderately severe central spinal canal stenosi s. No significant neural foraminal stenosis is present. L5-S1: No disc herniations or bulges are present. No central spinal canal or neural foraminal stenosi s. Soft tissues: The visualized SI joints and sacrum are well maintained. The paraspinal soft tissues ar e unremarkable. IMPRESSION: 1. Examination limited by patient motion artifact. 2. 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 3. Degenerative changes seen at L2-3 and L3-L4 resulting in central spinal canal stenosis. 4. Findings were discussed with Dr. Moreau at 2:20 p.m. on 10/22/2022. DATA REPOSITORY:
--- NOTE | 2022-11-21 11:47 | ED.GENADUL_ITS ---
Discharge Plan Disposition Patient Disposition: Admit to [facility] Condition: Stable Discharge Details Clinical Impression: Trochanteric bursitis, left hip, Central stenosis of spinal canal Admit Date/Time: 11/21/22 15:49 Admit Provider: Andrew Lara Attending Provider: Andrew Lara Primary Care Provider: Marilou Bass ED Provider: Gallo Moreau Discharge Data Discharge Date/Time-TO BE ENTERED AT DEPARTURE: 11/21/22 16:35 Medical Decision Making 82-year-old female here with 6 weeks of low back pain, also with left hip pain, incontinence of urine trying to get to the bathroom last night. Symptoms persistent despite Tylenol and steroid course. Patient not able to ambulate at home secondary to pain today. Patient initially very uncomfortable, writhing in pain with any movement. Patient received Dilaudid 0.5 mg IV. Toradol 30 mg IV. Patient received 1 mg IV pre-MRI for anxiety. Patient was unable to hold still secondary to pain and MRI. Additional Dilaudid 1 mg IV was given for pain. MRI of the lumbar spine interpreted by radiology:1. Examination limited by patient motion artifact. 2. Degenerative changes and spondylolisthesis at L4-5 resulting in moderately severe central spinal canal stenosis. 3. Degenerative changes seen at L2-3 and L3-L4 resulting in central spinal canal stenosis. 4. Findings were discussed with Dr. Moreau at 2:20 p.m. on 10/22/2022. MRI of the left hip interpreted by radiology: 1. No evidence to suggest metastatic disease. 2. Hyperintense signal seen adjacent to greater tuberosity in the region of the gluteus medius tendon suspicious for strain/trochanteric bursitis.? 3. Findings were discussed with Dr. Moreau at 2:20 p.m. on 11/21/2022.? Given ambulatory dysfunction and significant pain, plan to hospitalize for pain management. Concern for potential urinary tract infection given 5-10 white blood cells, many bacteria. Will initiate coverage with Keflex. -- Of note, after initial dose of Dilaudid, patient required 2 person full assist to transition to the commode. Pain has improved since second Dilaudid but I am concerned with ongoing pain needs. Lab Data Lab results reviewed: Yes I reviewed the patient's lab results. Labs: Laboratory Tests Range/Units 11/21/22 11/21/2211/21/23 11:25 11:25 14:38 WBC (4.4-10.8) 10^3/uL 9.77 RBC (3.93-5.22) 10^6/uL 4.85 Hgb (11.2-15.7) g/dL 14.0 Hct (36.0-46.0) % 42.3 MCV (80-95) fL 87 MCH (27.0-33.0) pg 28.9 MCHC (32.0-36.0) % 33.1 RDW (11.7-14.6) % 15.4 H Plt Count (130-400) 10^3/uL 202 MPV (8.0-11.0) fL 10.8 Immature Gran % 0.7 Neutrophils % 88.0 Lymphocytes % 6.3 Monocytes % 4.9 Eosinophils % 0.0 Basophils % 0.1 Nucleated RBC % (0.0-0.3) % 0.0 Absolute Neutrophils (1.2-6.7) 10^3/uL 8.59 H Absolute Lymphocytes (1.2-3.4) 10^3/uL 0.62 L Absolute Monocytes (0.1-0.8) 10^3/uL 0.48 Absolute Eosinophils (0.0-0.7) 10^3/uL 0.00 Absolute Basophils (0.0-0.2) 10^3/uL 0.01 Sodium (136-145) mmol/L 137 Potassium (3.5-5.1) mmol/L 4.5 Chloride (98-107) mmol/L 102 Carbon Dioxide (21.0-32.0) mmol/L 27.7 Anion Gap (3-11) mmol/L 7.3 BUN (7-18) mg/dL 15 Creatinine (0.55-1.02) mg/dL 1.1 H Est GFR (CKD-EPI 2020) (mL/min/1.73m2) 50.80 Glucose (74-106) mg/dL 317 H Calcium (8.5-10.1) mg/dL 9.2 Magnesium (1.8-2.4) mg/dL 1.8 Total Bilirubin (0.2-1.0) mg/dL 0.8 AST (15-37) U/L 86 H ALT (14-59) U/L 115 H Alkaline Phosphatase (46-116) U/L 136 H Total Protein (6.4-8.2) g/dL 7.4 Albumin (3.4-5.0) g/dL 3.5 Urine Color (Yellow) Yellow Urine Clarity (Clear) Cloudy Urine pH (5-8) 6.5 Ur Specific [place] (1.005-1.025) 1.025 Urine Protein (Negative) mg/dL 100 H Urine Ketones (Negative) mg/dL Negative Urine Blood (Negative) Negative Urine Nitrite (Negative) Negative Urine Bilirubin (Negative) Negative Urine Urobilinogen (Up to 0.2) mg/dL 0.2 Ur Leukocyte Esterase (Negative) Negative Urine Glucose (Negative) mg/dL 500 H HPI General Date/Time Provider Initiated Documentation: 11/21/22 11:12 . Limitations to Documentation: no limitations . Information obtained by: patient . HPI Narrative: 82-year-old female here with 6 weeks of low back pain, also with left hip pain, now with incontinence of urine trying to get to the bathroom last night. Pain is severe and persistent despite Tylenol and steroid course. Patient not able to ambulate at home secondary to pain today. Symptoms worese with movement. No known trauma. Related Data Home Medications Medication Instructions Recorded Confirmed citalopram 20 mg tablet 20 mg PO DAILY 10/03/17 11/21/22 rosuvastatin 20 mg tablet (Crestor) 20 mg PO DAILY 10/03/17 11/21/22 rivaroxaban 20 mg tablet (Xarelto) 20 mg PO DAILY 04/29/19 11/21/22 lisinopril 10 mg tablet 10 mg PO DAILY 05/05/20 11/21/22 acetaminophen 500 mg tablet 500 mg PO Q6H PRN 09/04/20 11/21/22 (Tylenol Extra Strength) calcium carbonate 600 mg-vitamin 1 cap PO DAILY 09/04/20 11/21/22 D3 12.5 mcg (500 unit) capsule (Calcium 600 with Vitamin D3) cholecalciferol (vitamin D3) 25 25 mcg PO DAILY 09/04/20 11/21/22 mcg (1,000 unit) capsule letrozole 2.5 mg tablet (Femara) 2.5 mg PO DAILY 09/04/20 11/21/22 amiodarone 400 mg tablet 200 mg PO DAILY #90 tabs 11/01/21 11/21/22 denosumab 60 mg/mL subcutaneous 60 mg subcut [id number] 11/18/21 11/21/22 syringe (Prolia) ferrous sulfate 325 mg (65 mg 325 mg PO DAILY 01/06/22 11/21/22 iron) tablet meloxicam 7.5 mg tablet 7.5 mg PO DAILY 11/02/22 11/21/22 lorazepam 0.5 mg tablet 0.5 mg PO TID PRN 11/23/22 11/23/22 Previous Rx's Medication Instructions Recorded amiodarone 400 mg tablet 200 mg PO DAILY #90 tabs 11/01/21 Allergies Allergy/AdvReac Type Severity Reaction Status Date / Time No Known Allergies Allergy Verified 12/14/21 07:35 General Stated Complaint: Nk/Back Pain REKHA: 3 Review of Systems All systems reviewed & are unremarkable except as noted in HPI and below Constitutional Constitutional: Denies fever(s) PFSH All Active Problems Lumbar spinal stenosis (Acute) Trochanteric bursitis, left hip (Acute) Central stenosis of spinal canal (Acute) Chest pain at rest (Acute) Diverticula of colon (Acute) Incomplete rectal prolapse (Acute) Normal colonoscopy (Acute ~12/14/21) hemorrhoid banding severe diverticula Atrial flutter (Acute) Hypertension (Chronic) Hyperlipidemia (Acute) Ventricular ectopic activity (Acute) Cataract (Chronic) Type 2 diabetes mellitus (Acute) Sleep disturbance (Acute) Dyspnea on exertion (Acute) Anxiety (Chronic) Atrial fibrillation (Chronic) Shortness of breath (Acute) High risk medication use (Acute) Hematochezia (Acute) Anemia (Chronic) Medical History Adenocarcinoma of right breast Endometrial carcinoma History of diverticulitis Osteopenia Urinary incontinence Urinary tract infection Surgical History H/O: hysterectomy History of cataract surgery History of cholecystectomy History of colonoscopy (~12/14/21) History of mastectomy (~12/22/20) (R) Hx of appendectomy Social History Smoking/Tobacco Use Status: Former Tobacco Use Quit Date: 03/31/69 Tobacco: How many years used: 10 Smoking risk assessment performed?: Yes Alcohol Intake: never Drug use: Never Substance use type: does not use What type of physical activity do you participate in: none and independent ambulation Do you feel safe at home: Yes Do you feel safe in your relationship?: Yes Exam Const General: cooperative [facility] Head: normocephalic and atraumatic Mouth: moist mucous membranes Eyes Conjunctivae: normal conjunctivae Sclera: normal sclerae Resp Auscultation: clear to auscultation bilaterally, no rales, no rhonchi and no wheezes Cardio Rate: regular rate and not tachycardic Rhythm: regular rhythm GI Palpation: soft, not firm, no guarding, no masses, not rigid and nontender Back/Spine/Pelvis Back: No erythema, No warmth and No ecchymosis Thoracic/Lumbar Spine: paraspinal tenderness, No thoracic spinal tenderness and lumbar spinal tenderness Skin General skin exam: no rashes or lesions noted Neuro General: patient alert, patient awake and tone normal Speech: speech normal Motor: strength not 5/5 throughout Other: no saddle anesth, 3-4/5 strength all extremities Extrem General: no edema Left lower extremity: hip/thigh (ttp posterio hip and gluteus, able to range hip with pain on ext rotation) Details: tenderness; no swelling, no ecchymosis and no unusual warmth Course Vital Signs Vital signs: Vital Signs Pulse 65 11/21/22 10:48 Respiratory Rate 20 11/21/22 10:48 Blood Pressure 141/91 H 11/21/22 10:48 Pulse Oximetry 96 11/21/22 10:48 Pulse 61 11/21/22 11:45 Respiratory Rate 20 11/21/22 11:45 Blood Pressure 193/72 H 11/21/22 11:45 Blood Pressure Position Sitting 11/21/22 10:48 Pulse Oximetry 96 11/21/22 11:45 Oxygen Delivery Method Room Air 11/21/22 11:45 Oxygen Flow Rate 0 11/21/22 11:45 Pain Level 9 11/21/22 11:39 Lab/Test Results Lab/Test Results: Laboratory Tests Range/Units 11/21/22 11:25 WBC (4.4-10.8) 10^3/uL 9.77 RBC (3.93-5.22) 10^6/uL 4.85 Hgb (11.2-15.7) g/dL 14.0 Hct (36.0-46.0) % 42.3 MCV (80-95) fL 87 MCH (27.0-33.0) pg 28.9 MCHC (32.0-36.0) % 33.1 RDW (11.7-14.6) % 15.4 H Plt Count (130-400) 10^3/uL 202 MPV (8.0-11.0) fL 10.8 Immature Gran % 0.7 Neutrophils % 88.0 Lymphocytes % 6.3 Monocytes % 4.9 Eosinophils % 0.0 Basophils % 0.1 Nucleated RBC % (0.0-0.3) % 0.0 Absolute Neutrophils (1.2-6.7) 10^3/uL 8.59 H Absolute Lymphocytes (1.2-3.4) 10^3/uL 0.62 L Absolute Monocytes (0.1-0.8) 10^3/uL 0.48 Absolute Eosinophils (0.0-0.7) 10^3/uL 0.00 Absolute Basophils (0.0-0.2) 10^3/uL 0.01
[2022-11-21 11:55] LABS: ALT 115 U/L (14-59); AST 86 U/L (15-37); Albumin 3.5 g/dL (3.4-5.0); Alkaline Phosphatase 136 U/L (46-116); Anion Gap 7.3 mmol/L (3-11); BUN 15 mg/dL (7-18); Bilirubin, Total 0.8 mg/dL (0.2-1.0); CO2 27.7 mmol/L (21.0-32.0); CREATININE 1.1 mg/dL (0.55-1.02); Calcium 9.2 mg/dL (8.5-10.1); Chloride 102 mmol/L (98-107); Glucose 317 mg/dL (74-106); Magnesium 1.8 mg/dL (1.8-2.4); Potassium 4.5 mmol/L (3.5-5.1); Sodium 137 mmol/L (136-145); Total Protein 7.4 g/dL (6.4-8.2)
[2022-11-21] MEDS: LORazepam 2 MG/ML VIAL (12:22)
[2022-11-21] MEDS: HYDROmorphone 2 MG/ML SYR 1 MG IVP (12:58)
[2022-11-21 15:11] LABS: Bilirubin Negative (Negative); Blood Negative (Negative); Clarity Cloudy (Clear); Glucose 500 mg/dL (Negative); Ketones Negative (Negative); Leukocyte Esterase Negative (Negative); Nitrite Negative (Negative); Specific Gravity 1.025 (1.005-1.025); Urobilinogen 0.2 mg/dL (Up to 0.2); pH 6.5 (5-8)
[2022-11-21 15:23] LABS: RBC 0-2 HPF (0-2)
[2022-11-21 15:24] LABS: Bacteria Many HPF (Negative); C & S Indicated? Yes; Casts Negative LPF (Negative); Crystals Negative HPF (Negative); Epithelial Cells Few HPF (Negative); Mucus Trace (Negative)
--- NOTE | 2022-11-21 15:52 | W.PM.HP.N ---
Date of service: 11/21/22 Time of Service: 15:52 Assessment and Plan Assessment and plan (1) Trochanteric bursitis, left hip: Status: Acute Assessment and plan: referred to observation for pain management schedule apap, short course of toradol prn, lidocaine patch, oxycodone prn awaiting ortho consult outpatient scheduled in january, will place consult here. had seen pcp who placed her on a prednsione taper which ended today. she was off her meloxicam while on prednisone (thinks this contributed to her worsening pain) will place on famotidine for gi prophylaxis as she is anticoagulated and recent steroid use PT consult (2) Central stenosis of spinal canal: Status: Acute Assessment and plan: with no evidence of cord compression. continue pain management, PT consulted. (3) Hypertension: Status: Chronic Assessment and plan: blood pressure controlled with lisinopril. continue home dosing, adjust as needed. (4) Type 2 diabetes mellitus: Status: Acute Assessment and plan: poorly controlled on admission with bs in the 300, last A1C mar 2021 was 6.4. she completed a prednisone taper for her pain which ended today, so likely why elevated will check blood sugars and give ss insulin while hospitalized. recheck A1C\ carb controlled diet (5) Atrial fibrillation: Status: Chronic Assessment and plan: rate controlled on amiodarone anticoagulated on xarelto continue home medicaiton (6) Urinary tract infection: Status: Acute Assessment and plan: suspected to be causing her urinary incontinence started on keflex while cultures pending. bladder scan for retention. (7) Sleep disturbance: Status: Acute Assessment and plan: secondary to uncontrolled pain for past 6 weeks, will add melatonin, she takes lorazapam prn please no interruptions of sleep discussed with DR Lara History of Present Illness History of Present Illness Chief Complaint: hip and back pain Narrative: this is an 82 year old female who has had 6 weeks of left hip and low back pain. previously she suffered from right hip shingles, which left her sleeping on left side only, now left sided hip hurting significantly. she saw her pcp who scheduled an outpatient MRI and orthopedic consult (scheduled in January) and placed her on a steroid taper which she completed today. she presents to the ED today for worsening symptoms and now urinary incontinence. her work up in the ED included an MRI to rule out cord compression with urinary symptoms. it showed left hip bursitis and no evidence of cord compression. she was positive for UTI, which is likely etiology for her incontinence. she was started on keflex. she was unable to be safely re-ambulated so hospitalist services requested to observer her overnight. Review of Systems All systems reviewed & are unremarkable except as noted in HPI and below Constitutional Constitutional: Denies chills, Denies fever(s) and Reports weakness Gastrointestinal Gastrointestinal: Denies abdominal pain Musculoskeletal Musculoskeletal: Denies back pain and Denies numbness Integumentary/Breasts Skin/Breast: Denies lesions and Denies rash Neurologic Neurologic: Denies localized weakness, Denies numbness and Reports weakness PFSH All Active Problems (Updated 11/21/22 @ 16:07 by Kathia Claros NP) Urinary tract infection (Acute) Trochanteric bursitis, left hip (Acute) Central stenosis of spinal canal (Acute) Chest pain at rest (Acute) Diverticula of colon (Acute) Incomplete rectal prolapse (Acute) Normal colonoscopy (Acute ~12/14/21) hemorrhoid banding severe diverticula Atrial flutter (Acute) Hypertension (Chronic) Hyperlipidemia (Acute) Ventricular ectopic activity (Acute) Cataract (Chronic) Type 2 diabetes mellitus (Acute) Sleep disturbance (Acute) Dyspnea on exertion (Acute) Anxiety (Chronic) Atrial fibrillation (Chronic) Shortness of breath (Acute) High risk medication use (Acute) Hematochezia (Acute) Anemia (Chronic) Medical History (Updated 11/21/22 @ 16:07 by Kathia Claros NP) Adenocarcinoma of right breast Endometrial carcinoma History of diverticulitis Osteopenia Urinary incontinence Surgical History H/O: hysterectomy History of cataract surgery History of cholecystectomy History of colonoscopy (~12/14/21) History of mastectomy (~12/22/20) (R) Hx of appendectomy Social History Smoking/Tobacco Use Status: Former Tobacco Use Quit Date: 03/31/69 Tobacco: How many years used: 10 Smoking risk assessment performed?: Yes Alcohol Intake: never Drug use: Never Substance use type: does not use What type of physical activity do you participate in: none and independent ambulation Do you feel safe at home: Yes Do you feel safe in your relationship?: Yes Meds Allergies and Home Medications Allergies Allergy/AdvReac Type Severity Reaction Status Date / Time No Known Allergies Allergy Verified 12/14/21 07:35 Home Medications Medication Instructions Recorded Confirmed Type citalopram 20 mg tablet 20 mg PO DAILY 10/03/17 11/21/22 History lorazepam 1 mg tablet 1 mg PO TID PRN PRN 10/03/17 11/21/22 History rosuvastatin 20 mg tablet (Crestor) 20 mg PO DAILY 10/03/17 11/21/22 History rivaroxaban 20 mg tablet (Xarelto) 20 mg PO DAILY 04/29/19 11/21/22 History lisinopril 10 mg tablet 10 mg PO DAILY 05/05/20 11/21/22 History acetaminophen 500 mg tablet 500 mg PO Q6H PRN 09/04/20 11/21/22 History (Tylenol Extra Strength) calcium carbonate 600 mg-vitamin 1 cap PO DAILY 09/04/20 11/21/22 History D3 12.5 mcg (500 unit) capsule (Calcium 600 with Vitamin D3) cholecalciferol (vitamin D3) 25 25 mcg PO DAILY 09/04/20 11/21/22 History mcg (1,000 unit) capsule letrozole 2.5 mg tablet (Femara) 2.5 mg PO DAILY 09/04/20 11/21/22 History amiodarone 400 mg tablet 200 mg PO DAILY #90 tabs 11/01/21 11/21/22 Rx denosumab 60 mg/mL subcutaneous 60 mg subcut [id number] 11/18/21 11/21/22 History syringe (Prolia) ferrous sulfate 325 mg (65 mg 325 mg PO DAILY 01/06/22 11/21/22 History iron) tablet meloxicam 7.5 mg tablet 7.5 mg PO DAILY 11/02/22 11/21/22 History Exam Const General: cooperative, comfortable and no acute distress Nutritional Appearance: average body habitus Orientation: alert, awake and oriented x3 HENMT Head: normal to inspection, normocephalic and atraumatic Mouth: oral mucosae normal Neck Neck: normal visual inspection and full ROM Chest Chest: normal inspection of the chest Resp Effort & Inspection: normal respiratory effort Cardio Rate: regular rate Back/Spine/Pelvis Back: no CVA tenderness Cervical Spine: normal cervical lordosis Skin General skin exam: no rashes or lesions noted Neuro General: patient alert, patient awake, patient oriented x3 and no focal motor deficits Extrem General: normal to inspection Left lower extremity: hip/thigh Details: normal to inspection and tenderness Psych Appearance: grossly normal Mental Status: mental status grossly normal Results Labs 11/21/22 11:25 11/21/22 11:25 Labs: Laboratory Results - last 24 hr 11/21/22 11/21/22 11/21/22 11:25 11:25 14:38 WBC 9.77 RBC 4.85 Hgb 14.0 Hct 42.3 MCV 87 MCH 28.9 MCHC 33.1 RDW 15.4 H Plt Count 202 MPV 10.8 Immature Gran % 0.7 Neutrophils % 88.0 Lymphocytes % 6.3 Monocytes % 4.9 Eosinophils % 0.0 Basophils % 0.1 Nucleated RBC % 0.0 Absolute Neutrophils 8.59 H Absolute Lymphocytes 0.62 L Absolute Monocytes 0.48 Absolute Eosinophils 0.00 Absolute Basophils 0.01 Sodium 137 Potassium 4.5 Chloride 102 Carbon Dioxide 27.7 Anion Gap 7.3 BUN 15 Creatinine 1.1 H Est GFR (CKD-EPI 2020) 50.80 Glucose 317 H Calcium 9.2 Magnesium 1.8 Total Bilirubin 0.8 AST 86 H ALT 115 H Alkaline Phosphatase 136 H Total Protein 7.4 Albumin 3.5 Urine Color Yellow Urine Clarity Cloudy Urine pH 6.5 Ur Specific [place] 1.025 Urine Protein 100 H Urine Ketones Negative Urine Blood Negative Urine Nitrite Negative Urine Bilirubin Negative Urine Urobilinogen 0.2 Ur Leukocyte Esterase Negative Urine RBC 0-2 Urine WBC 5-10 Ur Epithelial Cells Few Urine Crystals Negative Urine Bacteria Many Urine Casts Negative Urine Mucus Trace Ur Culture Indicated? Yes Urine Glucose 500 H Last Vital Signs Pulse 61 11/21/22 11:45 Resp 20 11/21/22 11:45 BP 193/72 H 11/21/22 11:45 Pulse Ox 96 11/21/22 11:45 Time Spent Time spent with Patient: 40-54 minutes Time was spent: preparing to see the patient(eg.review tests), obtaining and/or reviewing separately otained hiistory, ordering medications,tests, procedures, referring, communicating with other health childcare center director and indepentently interpreting results
--- NOTE | 2022-11-21 15:55 | NUR.NOTE ---
Nursing Note: Patient was heavy 2 assist transfer to commode after pain medication. Difficulty bearing weight without significant pain. unable to transfer more than one step.
[2022-11-21 16:27] LABS: Hemoglobin A1C 7.8 % (<5.7)
[2022-11-21] MEDS: Acetaminophen 325 MG TAB 650 MG PO ×2 (17:14→19:39)
[2022-11-21] MEDS: Cephalexin 500 MG CAP PO ×2 (17:14→19:39)
[2022-11-21] MEDS: Famotidine 20 MG TAB PO (19:39)
[2022-11-21] MEDS: LORazepam 1 MG TAB PO (21:49)
[2022-11-21] MEDS: Melatonin 3 MG TAB PO (21:49)
--- NOTE | 2022-11-22 05:41 | OCONE_ITS ---
Date of service: 11/22/22 Time of Service: 07:20 History of Present Illness History of Present Illness Chief Complaint: Low back and left hip pain Narrative: Drea is an 82-year-old female who presented to the emergency department yesterda y for debilitating pain about the low back and left hip. She reports having a history of shingles affecting the right hip which resulted in her sleeping on the left side, about 6 to 8 weeks ago. During that time she also was diagnosed with urinary tract infection which did cause some urinary incontinence which improved with antibiotic treatment. However, now she reports increasing left hip pain such that she has difficulty with any ambulation without significant pain. Pain is worse with any weightbearing activity. It is worse with trying to lay on the left side. She points to an area about the posterior lateral left hip. Occasion she also has reported debilitating pain down the lateral aspect of the left leg towards the lateral aspect of the left knee. She does report numbness and tingling of her toes. She is unable to truly state that she has heaviness to her legs when she walks that improves with leaning forward however, she does have significant limitation with any ambulatory distance. She denies any radicular type symptoms although she does vaguely report numbness from the thigh down towards the foot but is unable to demonstrate a particular dermatomal pattern. She completed a steroid taper yesterday with minimal improvements. She also once again developed increasing urinary incontinence throughout the day today and presented to the emergency department. She did have an MRI of the lumbar spine as well as the left hip performed. She is on rivaroxaban for atrial fibrillation. She has a history of osteoporosis.? She uses a walker at baseline. Consults Consult date: 11/21/22 Requesting physician: Kathia Claros Consult Reason Low back and left hip pain Assessment and Plan Assessment and plan (1) Trochanteric bursitis, left hip: Status: Acute Assessment and plan: Drea is an 82-year-old who symptomatically has trochanteric bursitis about the left hip. The severity of her symptoms seem to be somewhat out of proportion to the examination today. While she does have trochanteric bursitis on exam she does not seem to be terribly limited. My suspicion is that it portion of her pain is coming from spinal stenosis. However, she is very clear that this pain that is limiting her ability to ambulate is the posterior lateral hip. Therefore, I offered an injection to the left hip, trochanteric bursa. I am hopeful that this will decrease some of the pain. Physical therapy will be beneficial. This injection will likely raise her glucose levels and with an A1c of 7.8 is imperative that her diabetes is managed more aggressively. I recommend physical therapy to start today with hopeful discharge to home with home health services after the injection. (2) Lumbar spinal stenosis: Status: Acute Assessment and plan: Some of her symptoms seem to be coming from lumbar spinal stenosis. She does have severe stenosis at the L4-5 segment, seen on the MRI today. However, I do not think this is a cauda equina syndrome. She does not have perineal anes thesia and her urinary incontinence seems to happen with UTIs. She is also aware that she needs to urinate but she is unable to get to the bathroom in time. I do think urgent referral to the pain clinic could be beneficial for lumbar epidural steroid injection. If her weakness with ambulation worsens then a referral to the spine surgical team. Continuing physical therapy will be essential. Review of Systems All systems reviewed & are unremarkable except as noted in HPI and below PFSH All Active Problems (Updated 11/22/22 @ 12:47 by Ashlie Duenas NP) Discharge planning issues (Acute) Lumbar spinal stenosis (Acute) Urinary tract infection (Acute) Trochanteric bursitis, left hip (Acute) Central stenosis of spinal canal (Acute) Chest pain at rest (Acute) Diverticula of colon (Acute) Incomplete rectal prolapse (Acute) Normal colonoscopy (Acute ~12/14/21) hemorrhoid banding severe diverticula Atrial flutter (Acute) Hypertension (Chronic) Hyperlipidemia (Acute) Ventricular ectopic activity (Acute) Cataract (Chronic) Type 2 diabetes mellitus (Acute) Sleep disturbance (Acute) Dyspnea on exertion (Acute) Anxiety (Chronic) Atrial fibrillation (Chronic) Shortness of breath (Acute) High risk medication use (Acute) Hematochezia (Acute) Anemia (Chronic) Medical History Adenocarcinoma of right breast Endometrial carcinoma History of diverticulitis Osteopenia Urinary incontinence Surgical History H/O: hysterectomy History of cataract surgery History of cholecystectomy History of colonoscopy (~12/14/21) History of mastectomy (~12/22/20) (R) Hx of appendectomy Social History Smoking/Tobacco Use Status: Former Tobacco Use Quit Date: 03/31/69 Tobacco: How many years used: 10 Smoking risk assessment performed?: Yes Alcohol Intake: never Drug use: Never Substance use type: does not use What type of physical activity do you participate in: none and independent ambulation Do you feel safe at home: Yes Do you feel safe in your relationship?: Yes Exam Const General: cooperative, healthy appearing, comfortable and no acute distress Nutritional Appearance: average body habitus Orientation: alert, awake and oriented x3 Extrem Other: Resting in the bed. Sleeping soundly upon entrance into the room. Awakens with appropriate stimuli. Alert and oriented x3. Bilateral lower extremities show minimal edema. She endorses some decrease sensation to the tips of the toes. However, she denies any particular decree sensation in any dermatomal pattern, L3-S1. And gross examination of the lower extremities the left foot has a slightly plantarflexed resting position when compared to the right side. She is able to actively demonstrate ankle dorsiflexion and great toe extension on the left side but there is weakness when compared to the right side, 4 out of 5. Palpable DP and PT pulse. Medial thigh and perineal sensation is reported to be intact. Evaluation the left lower extremity shows grossly normal appearance. She is able to straight leg raise without significant limitation. She has some very mild pain with resisted straight leg raise test, globally around the hip, mostly posterior. She has pain to palpation of the greater trochanter, particular is posterior edge. She has pain along the IT band. No significant pain about the medial joint line. Pain along the lateral aspect of the knee, overlying the iliotibial band and its insertion. Range of motion of the left hip shows flexion to 95 degrees, internal rotation of 25 degrees and external rotation of 45 degrees. Some recreation of posterior pain with maximal internal rotation of the left hip. Results Last Vital Signs Temp 36.7 C 11/21/22 17:03 Pulse 60 11/21/22 17:03 Resp 16 11/21/22 17:03 BP 172/77 H 11/21/22 17:03 Pulse Ox 96 11/21/22 17:03 Labs 11/21/22 11:25 11/21/22 11:25 Labs: Laboratory Results - last 24 hr 11/21/22 11/21/22 11/21/22 11:25 11:25 11:25 WBC 9.77 RBC 4.85 Hgb 14.0 Hct 42.3 MCV 87 MCH 28.9 MCHC 33.1 RDW 15.4 H Plt Count 202 MPV 10.8 Immature Gran % 0.7 Neutrophils % 88.0 Lymphocytes % 6.3 Monocytes % 4.9 Eosinophils % 0.0 Basophils % 0.1 Nucleated RBC % 0.0 Absolute Neutrophils 8.59 H Absolute Lymphocytes 0.62 L Absolute Monocytes 0.48 Absolute Eosinophils 0.00 Absolute Basophils 0.01 Sodium 137 Potassium 4.5 Chloride 102 Carbon Dioxide 27.7 Anion Gap 7.3 BUN 15 Creatinine 1.1 H Est GFR (CKD-EPI 2020) 50.80 Glucose 317 H Hemoglobin A1c 7.8 H Calcium 9.2 Magnesium 1.8 Total Bilirubin 0.8 AST 86 H ALT 115 H Alkaline Phosphatase 136 H Total Protein 7.4 Albumin 3.5 Urine Color Urine Clarity Urine pH Ur Specific [place] Urine Protein Urine Ketones Urine Blood Urine Nitrite Urine Bilirubin Urine Urobilinogen Ur Leukocyte Esterase Urine RBC Urine WBC Ur Epithelial Cells Urine Crystals Urine Bacteria Urine Casts Urine Mucus Ur Culture Indicated? Urine Glucose 11/21/22 14:38 WBC RBC Hgb Hct MCV MCH MCHC RDW Plt Count MPV Immature Gran % Neutrophils % Lymphocytes % Monocytes % Eosinophils % Basophils % Nucleated RBC % Absolute Neutrophils Absolute Lymphocytes Absolute Monocytes Absolute Eosinophils Absolute Basophils Sodium Potassium Chloride Carbon Dioxide Anion Gap BUN Creatinine Est GFR (CKD-EPI 2020) Glucose Hemoglobin A1c Calcium Magnesium Total Bilirubin AST ALT Alkaline Phosphatase Total Protein Albumin Urine Color Yellow Urine Clarity Cloudy Urine pH 6.5 Ur Specific [place] 1.025 Urine Protein 100 H Urine Ketones Negative Urine Blood Negative Urine Nitrite Negative Urine Bilirubin Negative Urine Urobilinogen 0.2 Ur Leukocyte Esterase Negative Urine RBC 0-2 Urine WBC 5-10 Ur Epithelial Cells Few Urine Crystals Negative Urine Bacteria Many Urine Casts Negative Urine Mucus Trace Ur Culture Indicated? Yes Urine Glucose 500 H Imaging Imaging Studies: MRI of the lumbar spine performed yesterday was reviewed. This image quality is somewhat subpar due to patient motion. However, essential elements of the MRI are appreciable. Of note, there is severe stenosis at the L4-5 segment. This does nearly completely obliterate any spinal fluid within that space. However, there still seems to be some slight room for the nerve roots at this level, thus making it severe rather than critical. There is a slightly eccentric posturing of the disc elements at the L4-5 level which may be affecting the left side slightly more than the right. There is a slight disc bulge eccentric to the left side at the L3-4 segment which may be causing some mild lateral recess stenosis but no significant foraminal stenosis is appreciable at either level. Facet arthropathy is notable at the L4-5 segment. MRI of the left hip was also reviewed. This shows notable fluid around the greater trochanter, primarily on the left side. There is some signal seen within the distal aspect of the gluteus medius tendon which could represent either partial tearing or insertional tendinitis. There are some similar findings on the right side although not quite as severe. There is generalized thinning of the cartilage surface about the femoral head and acetabulum. No significant effusion. No bone marrow edema appreciable within the left hip joint. 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 There is also some calcific disease seen adjacent to the ischium, likely associated with the hamstring insertion. Mild arthritic change of the left SI joint. Procedures Bursa Procedures Site of procedure: trochanteric bursa Antisepsis used: Chlorhexidine Local anesthetic used: other anesthetic (Ethyl chloride) Amount of anesthesia used (ml): 8 Medication injected: methylprednisolone acetate Amount of medication used (mg): 80 Patient tolerated procedure: well
[2022-11-22 06:21] VITALS: BP 160/89; PULSE 85; RESP 16; TEMP 36.7; O2SAT 97
[2022-11-22] MEDS: Amiodarone 200 MG TAB PO (08:00)
[2022-11-22] MEDS: Cephalexin 500 MG CAP PO ×2 (08:01→20:26)
[2022-11-22] MEDS: MELOXICAM 7.5 MG TAB PO (08:01)
[2022-11-22] MEDS: Lisinopril 10 MG TAB PO (08:01)
[2022-11-22] MEDS: Acetaminophen 325 MG TAB 650 MG PO ×4 (08:01→20:26)
[2022-11-22] MEDS: Ferrous Sulfate 325 MG TAB PO (08:01)
[2022-11-22] MEDS: Citalopram 20 MG TAB PO (08:01)
[2022-11-22] MEDS: Famotidine 20 MG TAB PO ×2 (08:01→20:27)
--- NOTE | 2022-11-22 10:08 | PGE_ITS ---
Date of Service Date of service: 11/22/22 Time of Service: 10:08 Assessment and Plan Assessment and plan (1) Trochanteric bursitis, left hip: Status: Acute Assessment and plan: referred to observation for pain management schedule apap, short course of toradol prn, lidocaine patch, oxycodone prn ortho consult - seen by Dr Winkler today - he is going to do a trochanteric bu rsa injection to the left hip she was off her meloxicam while on prednisone (thinks this contributed to her worsening pain) will place on famotidine for gi prophylaxis as she is anticoagulated and recent steroid use PT consult (2) Central stenosis of spinal canal: Status: Acute Assessment and plan: with no evidence of cord compression. continue pain management, PT consulted. (3) Hypertension: Status: Chronic Assessment and plan: blood pressure controlled with lisinopril. continue home dosing, adjust as needed. (4) Type 2 diabetes mellitus: Status: Acute Assessment and plan: poorly controlled on admission with bs in the 300, last A1C mar 2021 was 6.4. she completed a prednisone taper for her pain which ended today, so likely why elevated will check blood sugars and give ss insulin while hospitalized. recheck A1C 7.8 up from 6.4 03/2021 carb controlled diet (5) Atrial fibrillation: Status: Chronic Assessment and plan: rate controlled on amiodarone anticoagulated on xarelto continue home medicaiton (6) Urinary tract infection: Status: Acute Assessment and plan: suspected to be causing her urinary incontinence started on keflex while cultures pending. bladder scan for retention. (7) Sleep disturbance: Status: Acute Assessment and plan: secondary to uncontrolled pain for past 6 weeks, will add melatonin, she takes lorazapam prn please no interruptions of sleep discussed with dr Gonzalez (8) Discharge planning issues: Status: Acute Assessment and plan: Home with PT when stable Subjective Subjective Patient reports: no new complaints, feels better and afebrile; denies diarrhea, nausea or vomiting Interval history since last seen: Alert, sitting in bed stating Exam Const General: cooperative, comfortable and no acute distress Nutritional Appearance: average body habitus Orientation: alert, awake and oriented x3 HENMT Head: normal to inspection, normocephalic and atraumatic Mouth: oral mucosae normal Neck Neck: normal visual inspection and full ROM Chest Chest: normal inspection of the chest Resp Effort & Inspection: normal respiratory effort Cardio Rate: regular rate Back/Spine/Pelvis Back: no CVA tenderness Cervical Spine: normal cervical lordosis Skin General skin exam: no rashes or lesions noted Neuro General: patient alert, patient awake, patient oriented x3 and no focal motor deficits Extrem General: normal to inspection Left lower extremity: hip/thigh Details: normal to inspection and tenderness Psych Appearance: grossly normal Mental Status: mental status grossly normal Objective Last Vital Signs Temp 36.7 C 11/22/22 06:21 Pulse 85 11/22/22 06:21 Resp 16 11/22/22 06:21 BP 160/89 H 11/22/22 06:21 Pulse Ox 97 11/22/22 06:21 Laboratory Results - last 24 hr 11/21/22 11/21/22 11/21/22 11:25 11:25 11:25 WBC 9.77 RBC 4.85 Hgb 14.0 Hct 42.3 MCV 87 MCH 28.9 MCHC 33.1 RDW 15.4 H Plt Count 202 MPV 10.8 Immature Gran % 0.7 Neutrophils % 88.0 Lymphocytes % 6.3 Monocytes % 4.9 Eosinophils % 0.0 Basophils % 0.1 Nucleated RBC % 0.0 Absolute Neutrophils 8.59 H Absolute Lymphocytes 0.62 L Absolute Monocytes 0.48 Absolute Eosinophils 0.00 Absolute Basophils 0.01 Sodium 137 Potassium 4.5 Chloride 102 Carbon Dioxide 27.7 Anion Gap 7.3 BUN 15 Creatinine 1.1 H Est GFR (CKD-EPI 2020) 50.80 Glucose 317 H Hemoglobin A1c 7.8 H Calcium 9.2 Magnesium 1.8 Total Bilirubin 0.8 AST 86 H ALT 115 H Alkaline Phosphatase 136 H Total Protein 7.4 Albumin 3.5 Urine Color Urine Clarity Urine pH Ur Specific [place] Urine Protein Urine Ketones Urine Blood Urine Nitrite Urine Bilirubin Urine Urobilinogen Ur Leukocyte Esterase Urine RBC Urine WBC Ur Epithelial Cells Urine Crystals Urine Bacteria Urine Casts Urine Mucus Ur Culture Indicated? Urine Glucose 11/21/22 14:38 WBC RBC Hgb Hct MCV MCH MCHC RDW Plt Count MPV Immature Gran % Neutrophils % Lymphocytes % Monocytes % Eosinophils % Basophils % Nucleated RBC % Absolute Neutrophils Absolute Lymphocytes Absolute Monocytes Absolute Eosinophils Absolute Basophils Sodium Potassium Chloride Carbon Dioxide Anion Gap BUN Creatinine Est GFR (CKD-EPI 2020) Glucose Hemoglobin A1c Calcium Magnesium Total Bilirubin AST ALT Alkaline Phosphatase Total Protein Albumin Urine Color Yellow Urine Clarity Cloudy Urine pH 6.5 Ur Specific [place] 1.025 Urine Protein 100 H Urine Ketones Negative Urine Blood Negative Urine Nitrite Negative Urine Bilirubin Negative Urine Urobilinogen 0.2 Ur Leukocyte Esterase Negative Urine RBC 0-2 Urine WBC 5-10 Ur Epithelial Cells Few Urine Crystals Negative Urine Bacteria Many Urine Casts Negative Urine Mucus Trace Ur Culture Indicated? Yes Urine Glucose 500 H Time Spent with Patient Time Spent with Patient: 25-34 minutes Time was spent: preparing to see the patient(eg.review tests), ordering medications,tests, procedures, referring, communicating with other health care provider, indepentently interpreting results, counseling the patient and care coordination
--- NOTE | 2022-11-22 10:16 | INITIAL_ITS ---
- If Service Date Differs Date of service: 11/22/22 Time of Service: 10:16 Care Management Initial Assess REASON FOR HOSPITALIZATION:: trochanteric bursitis PAST MEDICAL HISTORY/PAST SURGICAL HISTORY:: All Active Problems (Updated 11/21/22 @ 16:07 by Kathia Claros NP). Urinary tract infection (Acute). Trochanteric bursitis, left hip (Acute). Central stenosis of spinal canal (Acute). Chest pain at rest (Acute). Diverticula of colon (Acute). Incomplete rectal prolapse (Acute). Normal colonoscopy (Acute ~12/14/21). hemorrhoid banding. severe diverticula. Atrial flutter (Acute). Hypertension (Chronic). Hyperlipidemia (Acute). Ventricular ectopic activity (Acute). Cataract (Chronic). Type 2 diabetes mellitus (Acute). Sleep disturbance (Acute). Dyspnea on exertion (Acute). Anxiety (Chronic). Atrial fibrillation (Chronic). Shortness of breath (Acute). High risk medication use (Acute). Hematochezia (Acute). Anemia (Chronic). Medical History (Updated 11/21/22 @ 16:07 by Kathia Claros NP). Adenocarcinoma of right breast. Endometrial carcinoma. History of diverticulitis. Osteopenia. Urinary incontinence. Surgical History . H/O: hysterectomy. History of cataract surgery. History of cholecystectomy. History of colonoscopy (~12/14/21). History of mastectomy (~12/22/20). (R). Hx of appendectomy PREVIOUS FUNCTIONAL STATUS/SOCIAL/FAMILY SUPPORTS:: Drea lives alone in a single family home in [place], [place]. She has 3 children who all live in different parts of [facility] [place]note 2[place] and are about 100 miles away from her. 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 She is and cared for her for 3 years before he . Drea is independent with ADLs and was independent with ambulation until she began having problems with her back about 6 weeks ago. CURRENT FUNCTIONAL STATUS:: Drea was sitting up in bed when CM met with her. She was pleasnat and agreeable to conversation. Drea talked about her work as a caregiver and the many settings she was able to work in. She currently does not receive any community services. She did share that she used to enjoy going to the meal sites and visiting with others during mealtimes. ADVANCE DIRECTIVES:: On file. Patti Harris [facility] Has patient been provided with info about the portal/API?: Yes Did the patient sign up for the portal?: No CODE STATUS:: DNR/DNI INSURANCE COVERAGE / FINANCIAL ISSUES:: Devonte Vernon (not [facility] secondary) PRIMARY CARE PHYSICIAN:: Marilou Bass POTENTIAL DISCHARGE NEEDS:: follow up with PCP an plan of care PATIENT/FAMILY EDUCATION NEEDS:: Review of discharge instructions, activity, limitations, follow up plan, discuss [employer] TRANSPORTATION:: via private vehicle with family PLAN:: Anticipate Drea will discharge home with new home health services for PT. She will follow up with her community providers and plan of care as prrescribed and transport with family. CM will follow and assess for discharge needs.
[2022-11-22] MEDS: Bupivacaine 0.5% Pres-Free 10 ML VIAL IJ (12:53)
[2022-11-22] MEDS: methylPREDNISolone ACETATE 80 MG/ML VIAL IJ (12:54)
[2022-11-22 15:31] VITALS: BP 128/73; PULSE 55; RESP 16; TEMP 36.7; O2SAT 97
--- NOTE | 2022-11-22 16:04 | IN_ITS ---
PT Notes Visit Reasons: Low Back Pain Physical Therapy Inpatient Initial Evaluation Date: 11/22/2022 Referring Doctor: Yasmany Winkler MD PT Orders: PT CONSULT: Safety consult for D/C. Left troch bursitis s/p injection, severe spinal stenosis. Precautions: Fall. Standard. Activity as tolerated. Patient Profile/Admitting Diagnosis: Drea is an 82-year-old female who presented to the ED with 6 week's worth of worsening low back pain left hip pain, incontinence of urine, and inability to ambulate secondary to pain. Patient is admitted for management of trochanteric bursitis of left hip, lumbar spinal stenosis at L4-L5, hypertension, type 2 diabetes mellitus, atrial fibrillation, UTI, and sleep disturbance. PMHX: All Active Problems?(Updated 11/21/22 @ 16:07 by Kathia Claros NP) Urinary tract infection (Acute) Trochanteric bursitis, left hip (Acute) Central stenosis of spinal canal (Acute) Chest pain at rest (Acute) Diverticula of colon (Acute) Incomplete rectal prolapse (Acute) Normal colonoscopy (Acute ~12/14/21) hemorrhoid banding severe diverticulaAtrial flutter (Acute) Hypertension (Chronic) Hyperlipidemia (Acute) Ventricular ectopic activity (Acute) Cataract (Chronic) Type 2 diabetes mellitus (Acute) Sleep disturbance (Acute) Dyspnea on exertion (Acute) Anxiety (Chronic) Atrial fibrillation (Chronic) Shortness of breath (Acute) High risk medication use (Acute) Hematochezia (Acute) Anemia (Chronic) Medical History?(Updated 11/21/22 @ 16:07 by Kathia Claros NP) Adenocarcinoma of right breast Endometrial carcinoma History of diverticulitis Osteopenia Urinary incontinence Surgical History? H/O: hysterectomy History of cataract surgery History of cholecystectomy History of colonoscopy (~12/14/21) History of mastectomy (~12/22/20) (R) Hx of appendectomy Social History/Home Situation: Lives alone in a private home with 2-3 steps to enter with rails on both sides. Daughter and son live very far from her. Independent with all aspects of ADLs prior to surgery. Still drives. Equipment Owned/DME: [facility] Subjective: Continues to report of pain in her low back area in the left hip but too much lesser intensity. Also reports pain in the L knee of same intensity. Thankful for the injections she just got which helped with her ability to move a lot better and with less pain. Reports aggravation of pain with sit to stand movement transition to about 4-5/10. Preferred to sit on the R edge of bed. Objective: General Observation: Supine in bed. Cautious about moving. Flexion bias in trunk while walking. Mental Status: Alert and oriented as to person, place, time, and purpose. Able to pay attention, focus, and respond appropriately. Pain: 4-5/10 in low back and the L hip Vital Signs: WNL as closley monitored by nursing staff ROM: Trunk: Able to assume neutral position while seated but assumes a bent position for comfort in standing. Able to laterally bend about 10 degrees on each side before onset of pain. Unable to extend past 20 degrees while in standing. Right Lower Extremity: Hip flexion WFL. Hip abduction WFL. Knee flexion WFL. Ankle dorsiflexion WFL. Ankle plantarflexion WFL. Left Lower Extremity: Hip flexion lacks the last 75% of available AROM. Hip abduction about 10 degrees. Knee flexion lacks 50% of available range. Ankle dorsiflexion WFL. Ankle plantarflexion WFL. SLR only up to 25 deg due to pain and weakness. Strength: Right Lower Extremity: Hip flexors 4/5. Hip abductors 4/5. Knee flexors 4/5. Knee extensors 4/5. Ankle dorsiflexors 44/5. Ankle plantarflexors /5. Left Lower Extremity: Hip flexors 3-/5. Hip abductors 3-/5. Knee flexors 3-/5. Knee extensors 4-/5. Ankle dorsiflexors 4/5. Ankle plantarflexors 4/5. Bed Mobility/Transfers: Supine to sit with contact guard assist with HOB at 30 degrees Sit to stand with contact guard assist Stand to sit with contact guard assist Bed to reclining chair contact guard assist Sensation: Denies numbness in B LE; Intact as to pain and light pressure in B LE Gait: Instructed patient with level surface ambulation of 40 feet requiring conatct guard assist. Gait antalgic. Lavern decreased. Steps cautious. Step height decreased. Step length decreased. Needed to sit down due to increasing pain in back, resolved with seated rest. Balance: Static Sitting: Normal Dynamic Sitting: Normal Static Standing: Fair Dynamic Standing: Fair Special Tests: Mobility Limitations Standardized Measure [facility] AM-PAC 6 clicks Basic Mobility Inpatient Short Form: Raw Score: 18 CMS Score: 47% deficit SLR: L SLR Painful beginning at about 25 degrees; R SLR WNL FABERE: Painful on the L Trunk flexion bias: Positive Informed Consent/Education: Patient was instructed in purpose of PT consult and plan of care. Agreeable to proceed with established PT POC to achieve personal goals. Assessment: Improved functional performance for today's evalaution. may go home with resumptiotn of PT for continued back rehab, functional mobility program, and B LE strengthening. Sit<>stand movement transitions can aggravate pain level. Patient presents with clinical signs and symptoms consistent with current/admitting diagnoses that have resulted to mobility limitations, gait instability, generalized weakness, and overall ADL decline as demonstrated by the following impairment level findings: 1. Decreased strength to L LE major muscle groups 2. Impaired sitting/standing balance 3. Impaired activity tolerance 4. Limitation of joint range of motion in trunk and L LE Impairments are contributing to the following functional limitations: 1. Decline in bed mobility skills 2. Decline in transfer skills 3. Difficulty with ambulation without assistive device and physical assistance 4. Increased completion time for mobility ADL performance 5. Increased risk for falls 6. Difficulty with managing steps alone safely Patient is assessed as a 39231 moderate complexity based on the following: History: 82-year-old female with past medical history as indicated above Examination: Demonstrable impairment in strength, balance, and mobility level with underlying impairments and functional limitations as exhibited above as well as deficit score of 47% utilizing the [facility] Mobility Inpatient Short Form Presentation: Evolving Decision Makin moderate complexity Goals: Goals X1 week 1. Supine-Sit independent 2. Sit-Supine independent 3. Sit-Stand independent 4. Stand-Sit independent with FWW 5. Bed-Chair independent with FWW 6. Chair-Bed independent with FWW 7. Independent gait on level surface with use FWW for at least 300 feet without report of pain nor dyspnea 8. Independent stair negotiation while holding onto B rails for at least 5 steps without report of pain nor dyspnea 9. Independent with home exercise program 10. Good static and dynamic standing balance/tolerance PLAN OF CARE/TREATMENT PLAN: 1-2x/day, 7 days/week x 1 week. Plan of care has been reviewed with the LUMBER CHAIN OFFBEARER providing the service under Physical Therapy direction. Pre-medicate for pain. Initiate Physical Therapy intervention for pain management as needed, strengthening, bed mobility, transfers, gait, stairs, balance training, and use of assistive device. DISCHARGE RECOMMENDATIONS: [] Home with no services [] [X] Home with services. Patient will benefit from home health PT services in order to progress mobility level using least restrictive assistive ambulatory device, assess home safety, identify additional equipment needs, and establish a functional maintenance program that will increase ability of patient to remain at home. [] Home with outpatient PT [] [] SNF for continued rehabilitation [] [] Custodial Care [] [] SNF versus LTC based on ability to participate and progress [] TREATMENT CODE/TIME: 09269 x 20 minutes, 75572 x 28 minutes beginning at 16:15 PM. Thank you for the opportunity to participate in the care of this patient. Marie Swartz PT, DPT, CLT [facility] [place], [place]
--- NOTE | 2022-11-22 17:01 | CHAPLAIN ---
Drea was in bed when I visited. She was very pleasant. She told me that she is from [place] and may be discharged today and is worried about getting a ride home as no family members are available to pick her up and drive her home. I told her I would let her Maintenance Scheduler know that she had a concern about transportation and I spoke with Marcy Garcia.
[2022-11-22] MEDS: Rivaroxaban 10 MG TABLET 20 MG PO (17:23)
[2022-11-22] MEDS: Insulin Aspart 300 UNITS/3 ML PEN SC (17:23)
[2022-11-22] MEDS: Rosuvastatin 10 MG TAB 20 MG PO (20:26)
[2022-11-22] MEDS: Melatonin 3 MG TAB PO (21:35)
[2022-11-22] MEDS: LORazepam 1 MG TAB PO (21:35)
[2022-11-23 04:20] VITALS: BP 152/78; PULSE 56; RESP 16; TEMP 36.8; O2SAT 98
[2022-11-23 07:11] LABS: Abs Immature Grans 0.04 10^3/uL (0.0-0.06); Absolute Basophil Count 0.01 10^3/uL (0.0-0.2); Absolute Eosinophil Count 0.01 10^3/uL (0.0-0.7); Absolute Lymphocyte Count 0.64 10^3/uL (1.2-3.4); Absolute Monocyte Count 0.42 10^3/uL (0.1-0.8); Absolute Neutrophil Count 7.87 10^3/uL (1.2-6.7); Basophils % 0.1; Eosinophils % 0.1; HGB 13.7 g/dL (11.2-15.7); Immature Grans % 0.4; Lymphocytes % 7.1; MCH 28.9 pg (27.0-33.0); MCHC 33.4 % (32.0-36.0); MCV 87 fL (80-95); MPV 11.3 fL (8.0-11.0); Monocytes % 4.7; Neutrophils % 87.6; Platelet Count 171 10^3/uL (130-400); RBC 4.74 10^6/uL (3.93-5.22); RDW 15.5 % (11.7-14.6); RDW-SD 49.1 fL; WBC 8.99 10^3/uL (4.4-10.8)
[2022-11-23 07:30] LABS: Anion Gap 7.7 mmol/L (3-11); BUN 23 mg/dL (7-18); C-Reactive Protein 0.39 mg/dL (0.0-0.3); CO2 28.3 mmol/L (21.0-32.0); CREATININE 1.3 mg/dL (0.55-1.02); Calcium 9.2 mg/dL (8.5-10.1); Chloride 105 mmol/L (98-107); Estimated GFR 41.57 (mL/min/1.73m2); Glucose 214 mg/dL (74-106); Magnesium 1.8 mg/dL (1.8-2.4); Potassium 4.2 mmol/L (3.5-5.1); Sodium 141 mmol/L (136-145)
[2022-11-23 08:45] VITALS: BP 185/87; PULSE 55; RESP 16; TEMP 35.7; O2SAT 95
[2022-11-23] MEDS: Amiodarone 200 MG TAB PO (09:04)
[2022-11-23] MEDS: Famotidine 20 MG TAB PO (09:04)
[2022-11-23] MEDS: MELOXICAM 7.5 MG TAB PO (09:05)
[2022-11-23] MEDS: Acetaminophen 325 MG TAB 650 MG PO ×2 (09:05→12:20)
[2022-11-23] MEDS: Cephalexin 500 MG CAP PO (09:05)
[2022-11-23] MEDS: Lisinopril 10 MG TAB PO (09:06)
[2022-11-23] MEDS: Ferrous Sulfate 325 MG TAB PO (09:06)
[2022-11-23] MEDS: Insulin Aspart 300 UNITS/3 ML PEN SC ×2 (09:07→12:15)
[2022-11-23] MEDS: Citalopram 20 MG TAB PO (09:07)
[2022-11-23] MEDS: Normal Saline Flush 10 ML SYR IVP (09:08)
[2022-11-23 10:25] VITALS: BP 173/95; PULSE 53; RESP 16; O2SAT 98
--- NOTE | 2022-11-23 10:42 | PDOC.CMPRO ---
- If Service Date Differs Date of service: 11/23/22 Time of Service: 10:42 Care Management Progress Note S/O: A: Drea is an 82 year old woman admitted on 11/21/22 with low back pain P:Anticipate Drea will discharge home with new home health services for PT. She will follow up with her community providers and plan of care as prescribed and transport with family. CM will follow and assess for discharge needs.
--- NOTE | 2022-11-23 12:26 | W.PM.DS.N ---
Date of service: 11/23/22 Time of Service: 12:26 DS: Diagnosis Discharge Diagnosis (1) Trochanteric bursitis, left hip: Status: Acute (2) Lumbar spinal stenosis: Status: Acute Discharge Plan Disposition Patient Disposition: Home W/Home Health Services Condition: Improving Discharge Details Reason For Visit: Low Back Pain Admit Date/Time: 11/21/22 15:49 Admit Provider: Andrew Lara Attending Provider: Andrew Lara Primary Care Provider: Marilou Bass Hospital Course Hospital Course: This is an 82-year-old female who presented to the [facility] emergency department on 11/21/2022 for urinary incontinence and debilitating pain about the low back and left hip.? She reported having a history of shingles affecting the right hip which resulted in her sleeping on the left side, about 6 to 8 weeks ago.? During that time she also was diagnosed with urinary tract infection which did cause some urinary incontinence which improved with antibiotic treatment.? However, now she reports increasing left hip pain such that she has difficulty with any ambulation without significant pain.? Pain is worse with any weight bearing activity.? It is worse with trying to lay on the left side.? She points to an area about the posterior lateral left hip.? Occasion she also has reported debilitating pain down the lateral aspect of the left leg towards the lateral aspect of the left knee.? She does report numbness and tingling of her toes.? She completed a steroid taper 11/20/22 with minimal improvements.?She did have an MRI of the lumbar spine as well as the left hip performed.? Hyperintense signal seen adjacent to greater tuberosity in the region of the gluteus medius tendon suspicious for strain/trochanteric bursitis.?Orthopedics was consulted and she received an injection on 11/22/2022 with moderate success.? She was evaluated by PT and did well. They are recommending she is discharged with home health PT. She agrees with this plan and is motivated to go home. She is also being referred to the Pain clinic per recommendation of orthopedics. Her blood pressure has been elevated, but at her baseline and should be evaluated by her PCP. We are told on discharge her daughter, who lives elsewhere has Drea?s medications in her possession.? We will send her home with three days worth of medications until her daughter can bring her medications to her on Monday.? She is discharged to home, stable with home health PT ordered. Discussed with Dr Gonzalez Home Meds and New Rx's Prescriptions: Continued lisinopril 10 mg tablet 10 mg PO DAILY letrozole [Femara] 2.5 mg tablet 2.5 mg PO DAILY acetaminophen [Tylenol Extra Strength] 500 mg tablet 500 mg PO Q6H PRN cholecalciferol (vitamin D3) 25 mcg (1,000 unit) capsule 25 mcg PO DAILY calcium carbonate-vitamin D3 [Calcium 600 with Vitamin D3] 600 mg(1,500mg) -500 unit capsule 1 cap PO DAILY ferrous sulfate 325 mg (65 mg iron) tablet 325 mg PO DAILY Xarelto 20 mg tablet 20 mg PO DAILY amiodarone 400 mg tablet 200 mg PO DAILY Qty: 90 3RF Prolia 60 mg/mL syringe 60 mg subcut [id number] meloxicam 7.5 mg tablet 7.5 mg PO DAILY citalopram 20 MG tablet 20 mg PO DAILY rosuvastatin [Crestor] 20 MG tablet 20 mg PO DAILY Discontinued lorazepam 1 MG tablet 1 mg PO TID PRN PRN No Action lorazepam 0.5 mg Tablet 0.5 mg PO TID PRN Discharge Instructions Instructions: Hip Bursitis (GEN) Stand Alone Forms: Nursing Discharge Form Referrals: Shoaib Way DO [OSTEOPATHIC DOCTOR] - (Please call the pain clinic to make an appointment in 1-2 weeks) Yasmany Winkler MD [ [facility] STAFF PHYSICIAN] - 01/02/23 2:15 pm () Marilou Bass [Primary Care Provider] - 12/02/22 8:15 am Activity:: Activity as Tolerated Equipment/Supplies:: No Equipment Needed Diet:: As Tolerated Discharge Orders Discharge Orders: Discharge Order (Routine); Ordered 11/23/22 Ordered By: Ashlie Duenas DS: Summary Time Spent with Patient providing and/or coordinating discharge services: Greater than 30 minutes Status at Discharge Functional status at discharge: uses cane/walker Overall status at discharge: patient is progressing back to baseline Mental Status: mental status grossly normal Speech and Movement: speech and movement normal Mood: congruent mood Affect: normal affect Exam Const General: cooperative, comfortable and no acute distress Nutritional Appearance: average body habitus Orientation: alert, awake and oriented x3 HENMT Head: normal to inspection, normocephalic and atraumatic Mouth: oral mucosae normal Neck Neck: normal visual inspection and full ROM Chest Chest: normal inspection of the chest Resp Effort & Inspection: normal respiratory effort Cardio Rate: regular rate Back/Spine/Pelvis Back: no CVA tenderness Cervical Spine: normal cervical lordosis Skin General skin exam: no rashes or lesions noted Neuro General: patient alert, patient awake, patient oriented x3 and no focal motor deficits Extrem General: normal to inspection Left lower extremity: hip/thigh Details: normal to inspection and tenderness Psych Appearance: grossly normal Mental Status: mental status grossly normal Speech and Movement: speech and movement normal Mood: congruent mood Affect: normal affect DS: Data Vitals/I&O Vitals and I&O: Vital Signs Temperature 35.7 C L 11/23/22 08:45 Temperature Source Tympanic 11/23/22 08:45 Pulse 53 L 11/23/22 10:25 Pulse Rhythm Regular 11/22/22 23:31 Respiratory Rate 16 11/23/22 10:25 Respiratory Effort Normal 11/23/22 10:40 Respiratory Depth Normal 11/23/22 10:40 Respiratory Pattern Normal 11/23/22 10:40 Blood Pressure 173/95 H 11/23/22 10:25 Blood Pressure Mean 87 11/21/22 16:16 Blood Pressure Position Sitting 11/21/22 10:48 Pulse Oximetry 98 11/23/22 10:25 Oxygen Delivery Method Room Air 11/23/22 10:25 Oxygen Flow Rate 0 11/23/22 10:25 Pain Level 2 11/23/22 08:45 Intake & Output 11/22/22 11/23/22 11/23/22 23:59 11:59 23:59 Intake Total 120 / 120 Output Total 200 / 450 200 / 200 Balance -200 / -210 -80 / -80 Intake: Oral 120 / 120 Output: Urine 200 / 450 200 / 200 Other: Urine Color Yellow Yellow Urine Appearance Clear Clear Urine Odor Normal Normal Comment unclear amount or color, didn't make it in hat. Voiding Methods Bedside Commode Bedside Commode Data Completed and Pending Labs on day of discharge: Labs from last 24 hours 11/23/22 11/23/22 06:23 06:23 WBC 8.99 RBC 4.74 Hgb 13.7 Hct 41.0 MCV 87 MCH 28.9 MCHC 33.4 RDW 15.5 H Plt Count 171 MPV 11.3 H Immature Gran % 0.4 Neutrophils % 87.6 Lymphocytes % 7.1 Monocytes % 4.7 Eosinophils % 0.1 Basophils % 0.1 Nucleated RBC % 0.0 Absolute Neutrophils 7.87 H Absolute Lymphocytes 0.64 L Absolute Monocytes 0.42 Absolute Eosinophils 0.01 Absolute Basophils 0.01 Sodium 141 Potassium 4.2 Chloride 105 Carbon Dioxide 28.3 Anion Gap 7.7 BUN 23 H Creatinine 1.3 H Est GFR (CKD-EPI 2020) 41.57 Glucose 214 H Calcium 9.2 Magnesium 1.8 C-Reactive Protein 0.39 H PFSH All Active Problems (Updated 11/22/22 @ 12:47 by Ashlie Duenas NP) Discharge planning issues (Acute) Lumbar spinal stenosis (Acute) Urinary tract infection (Acute) Trochanteric bursitis, left hip (Acute) Central stenosis of spinal canal (Acute) Chest pain at rest (Acute) Diverticula of colon (Acute) Incomplete rectal prolapse (Acute) Normal colonoscopy (Acute ~12/14/21) hemorrhoid banding severe diverticula Atrial flutter (Acute) Hypertension (Chronic) Hyperlipidemia (Acute) Ventricular ectopic activity (Acute) Cataract (Chronic) Type 2 diabetes mellitus (Acute) Sleep disturbance (Acute) Dyspnea on exertion (Acute) Anxiety (Chronic) Atrial fibrillation (Chronic) Shortness of breath (Acute) High risk medication use (Acute) Hematochezia (Acute) Anemia (Chronic) Medical History Adenocarcinoma of right breast Endometrial carcinoma History of diverticulitis Osteopenia Urinary incontinence Surgical History H/O: hysterectomy History of cataract surgery History of cholecystectomy History of colonoscopy (~12/14/21) History of mastectomy (~12/22/20) (R) Hx of appendectomy Social History Smoking/Tobacco Use Status: Former Tobacco Use Quit Date: 03/31/69 Tobacco: How many years used: 10 Smoking risk assessment performed?: Yes Alcohol Intake: never Drug use: Never Substance use type: does not use What type of physical activity do you participate in: none and independent ambulation Do you feel safe at home: Yes Do you feel safe in your relationship?: Yes Time Spent with Patient Time Spent with Patient: 45-69 minutes Time was spent: preparing to see the patient(eg.review tests), ordering medications,tests, procedures, referring, communicating with other health acute care occupational therapist, indepentently interpreting results, counseling the patient and care coordination
--- NOTE | 2022-11-23 13:59 | PDOC.HHF2F_ITS ---
Home Health Referral Home Health Orders Clinical synopsis of why skilled professionals are needed: This is an 82-year-old female who presented to the [facility] emergency department on 11/21/2022 for urinary incontinence and debilitating pain about the low back and left hip.? She reported having a history of shingles affecting the right hip which resulted in her sleeping on the left side, about 6 to 8 weeks ago.? During that time she also was diagnosed with urinary tract infection which did cause some urinary incontinence which improved with antibiotic treatment.? However, now she reports increasing left hip pain such that she has difficulty with any ambulation without significant pain.? Pain is worse with any weight bearing activity.? It is worse with trying to lay on the left side.? She points to an area about the posterior lateral left hip.? Occasion she also has reported debilitating pain down the lateral aspect of the left leg towards the lateral aspect of the left knee.? She does report numbness and tingling of her toes.? She completed a steroid taper 11/20/22 with minimal improvements.?She did have an MRI of the lumbar spine as well as the left hip performed.? Hyperintense signal seen adjacent to greater tuberosity in the region of the gluteus medius tendon suspicious for strain/trochanteric bursitis.?Orthopedics was consulted and she received an injection on 11/22/2022 with moderate success.? She was evaluated by PT and did well. They are recommending she is discharged with home health PT. She agrees with this plan and is motivated to go home. She is also being referred to the Pain clinic per recommendation of orthopedics. We are told on discharge her daughter, who lives elsewhere has Drea?s medications in her possession.? We will send her home with three days worth of medications until her daughter can bring her medications to her on Monday.? She is discharged to home, stable with home health PT ordered. Medical diagnosis necessitation home health referral: Trochanteric bursitis Registered Nurse: Check all that apply Instruct on new or changed medication(s)/assess compliance: Ordered Other: Hypertensive in hospital; recommend trending and follow up with PCP for medication recommendations. Physical Therapist: Check all that apply Increase strength & endurance for safe mobility at home: Ordered To design/establish home maintenance program: Ordered Fall reduction therapy program for patient with history of frequent falls: Ordered Home safety evaluation and teaching/gait training including stair management (if applicable): Ordered Quencher Operator: Assist with community resources: Ordered Assist with retirement care planning: Ordered Other: Daughter would like assistance finder her retirement care. Home Bound Status Requires the aid of supportive device (check all that apply): Walker Assistance of another person (Describe assistance and medical necessity): Drea needs supervision of at least one person or a walker to safely ambulate. Describe why leaving home would require a considerable and taxing effort: Requires frequent rest periods, Incontinence and Safety Concerns: describe (uneven ground) Encounter Date and Reason: I certify that a FTF encounter for this patient was performed on November 23, 2022 and that such encounter was related to the primary reason the patient requires home health services. The encounter was conducted in the following manner: * By me as the certifying physician, LIVESTOCK EXHIBITOR, PA or * By an inpatient physician, LIVESTOCK EXHIBITOR or PA during an inpatient stay who communicated findings to me, Certification And Authentication I certify that I composed the above information based on my clinical judgment relating to this patient's medical condition and, if applicable, clinical findings communicated to me by the NPP or inpatient physician who performed the FTF encounter. Name of Provider that will be monitoring home health services: Marilou Bass
--- NOTE | 2022-11-23 16:03 | CMDISCH_ITS ---
- If Service Date Differs Date of service: 11/23/22 Time of Service: 16:03 LACE Index Scoring Tool - Questions: Length of Stay (in days): 2 Acuity (Admit via E.D.?): Yes Comorbidities: Diabetes w/o Complication E.D. Visits: 1 - Answers: Total Score: 7 Risk of Readmission: Low Risk Care Management Discharge Reason for Hospitalization: trochanteric bursitis Discharge Plan: Drea will discharge home with a resumption of home health services for PT, RN and ot with new REALTY LOAN SPECIALIST. She will follow up with her community providers and plan of care as prescribed and transport via [facility] coordinated by CM. Patient/Family Education Needs: Review of discharge instructions, activity, limitations, follow up plan, discuss Ask Me Three Services Needed at Discharge: Home Health Care Services, Transportation
--- NOTE | 2022-11-26 12:27 | PT.INDS ---
Date of service: 11/22/22 PT Notes Visit Reasons: Low Back Pain Physical Therapy Inpatient Discharge Summary Date: 11/22/2022 Dates of service: 11/22/2022 only This is a clinical summary of care provided for the duration of dates listed above. No charge was made in the completion of this documentation. Referring Doctor: Yasmany Winkler MD PT Orders: PT CONSULT: Safety consult for D/C.? Left troch bursitis s/p injection, severe spinal stenosis. Precautions: Fall. Standard. Activity as tolerated. Patient Profile/Admitting Diagnosis:? Drea is an 82-year-old female who presented to the ED with 6 week's worth of worsening low back pain left hip pain, incontinence of urine, and inability to ambulate secondary to pain.? Patient is admitted for management of trochanteric bursitis of left hip, lumbar spinal stenosis at L4-L5, hypertension, type 2 diabetes mellitus, atrial fibrillation, UTI, and sleep disturbance. PMHX: All Active Problems?(Updated 11/21/22 @ 16:07 by Kathia Claros NP) Urinary tract infection (Acute) Trochanteric bursitis, left hip (Acute) Central stenosis of spinal canal (Acute) Chest pain at rest (Acute) Diverticula of colon (Acute) Incomplete rectal prolapse (Acute) Normal colonoscopy (Acute ~12/14/21) hemorrhoid banding severe diverticulaAtrial flutter (Acute) Hypertension (Chronic) Hyperlipidemia (Acute) Ventricular ectopic activity (Acute) Cataract (Chronic) Type 2 diabetes mellitus (Acute) Sleep disturbance (Acute) Dyspnea on exertion (Acute) Anxiety (Chronic) Atrial fibrillation (Chronic) Shortness of breath (Acute) High risk medication use (Acute) Hematochezia (Acute) Anemia (Chronic) Medical History?(Updated 11/21/22 @ 16:07 by Kathia Claros NP) Adenocarcinoma of right breast Endometrial carcinoma History of diverticulitis Osteopenia Urinary incontinence Surgical History? H/O: hysterectomy History of cataract surgery History of cholecystectomy History of colonoscopy (~12/14/21) History of mastectomy (~12/22/20) (R) Hx of appendectomy Social History/Home Situation: Lives alone in a private home with 2-3 steps to enter with rails on both sides.? Daughter and son live very far from her.? Independent with all aspects of ADLs prior to surgery.? Still drives. Equipment Owned/DME: FWW Subjective: NT. See most recent PROJECT MANAGEMENT SPECIALIST notes. Objective: General Observation: NT. See most recent PROJECT MANAGEMENT SPECIALIST notes. Mental Status: NT. See most recent PROJECT MANAGEMENT SPECIALIST notes. Pain: NT. See most recent PROJECT MANAGEMENT SPECIALIST notes. Vital Signs: NT. See most recent PROJECT MANAGEMENT SPECIALIST notes. ROM: Trunk:? Able to assume neutral position while seated but assumes a bent position for comfort in standing.? Able to laterally bend about 10 degrees on each side before onset of pain.? Unable to extend past 20 degrees while in standing. Right Lower Extremity: Hip flexion WFL. Hip abduction WFL. Knee flexion WFL. Ankle dorsiflexion WFL. Ankle plantarflexion WFL. Left Lower Extremity: Hip flexion lacks the last 75% of available AROM. Hip abduction about 10 degrees. Knee flexion lacks 50% of available range. Ankle dorsiflexion WFL. Ankle plantarflexion WFL.? SLR only up to 25 deg due to pain and weakness. Strength: Right Lower Extremity: Hip flexors 4/5. Hip abductors 4/5. Knee flexors 4/5. Knee extensors 4/5. Ankle dorsiflexors 44/5. Ankle plantarflexors /5. Left Lower Extremity: Hip flexors 3-/5. Hip abductors 3-/5. Knee flexors 3-/5. Knee extensors 4-/5. Ankle dorsiflexors 4/5. Ankle plantarflexors 4/5. Bed Mobility/Transfers: Supine to sit with contact guard assist with HOB at 30 degrees Sit to stand with contact guard assist Stand to sit with contact guard assist Bed to reclining chair contact guard assist Sensation: Denies numbness in B LE;? Intact as to pain and light pressure in B LE Gait: Instructed patient with level surface ambulation of 40 feet requiring contact guard assist.? Gait antalgic.? Lavern decreased.? Steps cautious. Step height decreased. Step length decreased. Needed to sit down due to increasing pain in back,? resolved with seated rest. Balance: Static Sitting: Normal Dynamic Sitting: Normal Static Standing: Fair Dynamic Standing: Fair Special Tests: Mobility Limitations Standardized Measure [facility] 6 clicks Basic Mobility Inpatient Short Form: Raw Score: 18? CMS Score: 47% deficit? ? ? SLR:? L SLR Painful beginning at about 25 degrees;? R SLR WNL FABERE: Painful on the L Trunk flexion bias: Positive Assessment: Improved functional performance for today's evalaution.? may go home with resumptiotn of PT for continued back rehab,? functional mobility program,? and B LE strengthening.? Sit<>stand movement transitions can aggravate pain level.? Patient presents with clinical signs and symptoms consistent with current/admitting diagnoses that have resulted to mobility limitations, gait instability, generalized weakness, and overall ADL decline as demonstrated by the following impairment level findings: 1.? Decreased strength to L LE major muscle groups 2.? Impaired sitting/standing balance 3.? Impaired activity tolerance 4.? Limitation of joint range of motion in trunk and L LE Impairments are contributing to the following functional limitations: 1.? Decline in bed mobility skills 2.? Decline in transfer skills 3.? Difficulty with ambulation without assistive device and physical assistance 4.? Increased completion time for mobility ADL performance 5.? Increased risk for falls 6.? Difficulty with managing steps alone safely Goals: Goals X1 week 1. Supine-Sit independent NOT MET 2. Sit-Supine independent NOT MET 3. Sit-Stand independent NOT MET 4. Stand-Sit independent with FWW NOT MET 5. Bed-Chair independent with FWW NOT MET 6. Chair-Bed independent with FWW NOT MET 7. Independent gait on level surface with use FWW for at least 300 feet without report of pain nor dyspnea NOT MET 8. Independent stair negotiation while holding onto B rails for at least 5 steps without report of pain nor dyspnea NOT MET 9. Independent with home exercise program NOT MET 10. Good static and dynamic standing balance/tolerance NOT MET PLAN OF CARE/TREATMENT PLAN: 1-2x/day, 7 days/week x 1 week. Plan of care has been reviewed with the PROJECT MANAGEMENT SPECIALIST providing the service under Physical Therapy direction. Pre-medicate for pain. Initiate Physical Therapy intervention for pain management as needed, strengthening, bed mobility, transfers, gait, stairs, balance training, and use of assistive device. DISCHARGE RECOMMENDATIONS: [] ? Home with no services [] [X] ? Home with services. ? Patient will benefit from home health PT services in order to progress mobility level using least restrictive assistive ambulatory device, assess home safety, identify additional equipment needs, and establish a functional maintenance program that will increase ability of patient to remain at home. [] ? Home with outpatient PT [] [] ? SNF for continued rehabilitation [] [] ? Agency Director Care [] [] ? SNF versus LTC based on ability to participate and progress [] TREATMENT CODE/TIME: NC Thank you for the opportunity to participate in the care of this patient. Marie Swartz PT, DPT, CLT [facility] [place], [place]
== END 2022-11-23 14:06 | disposition home health service (06) ==
LOC: ER 15:51 → MS 16:45
PROVIDERS: Nurse Practitioner Acute Care; Nurse Practitioner Family; Admitting Provider Internal Medicine; Emergency Provider Student in an Organized Health Care Education/Training Program; PCP Physician Assistant; Visit Provider Internal Medicine
DX: M70.62 Trochanteric bursitis, left hip (principal); N39.0 Urinary tract infection, site not specified; M48.061 Spinal stenosis, lumbar region without neurogenic claudication; I10 Essential (primary) hypertension; E11.65 Type 2 diabetes mellitus with hyperglycemia; I48.20 Chronic atrial fibrillation, unspecified; R32 Unspecified urinary incontinence; M54.50 Low back pain, unspecified; I48.92 Unspecified atrial flutter; E78.5 Hyperlipidemia, unspecified; K57.30 Diverticulosis of large intestine without perforation or abscess without bleeding; G47.8 Other sleep disorders; F41.9 Anxiety disorder, unspecified; D64.9 Anemia, unspecified; Z79.899 Other long term (current) drug therapy; Z85.3 Personal history of malignant neoplasm of breast; Z85.42 Personal history of malignant neoplasm of other parts of uterus; M81.0 Age-related osteoporosis without current pathological fracture; B96.20 Unspecified Escherichia coli [E. coli] as the cause of diseases classified elsewhere
CPT/HCPCS: 20610; 36415; 73721; 80048; 80053; 87077; 96372; 96374; 96375; 96376; 97162; 97530; 99223; 99285; 72148; 81003; 81015; 83036; 83735; 85025; 86140; 87086; 87186; 99232; 99239; G0378; J1040; J1170; J1885; J2060

== ENCOUNTER → 2023-01-02 14:02 | Outpatient (BNVA) | payer MEDICARE, OTHER, SELFPAY | PROVIDERS: PCP Physician Assistant; Referring Provider Physician Assistant; Visit Provider Student in an Organized Health Care Education/Training Program | DX: M70.62 Trochanteric bursitis, left hip (principal) | CPT/HCPCS: 99213 ==

== ENCOUNTER 2023-01-03 17:52 | Outpatient (REF) | payer MEDICARE, OTHER, SELFPAY ==
[2023-01-03 20:01] LABS: COMMENT (LAB VIEW ONLY) 131.06 mg/dL; Microalb ug/mg Crea 32.3 ug/mg Cr
== END 2023-01-03 17:53 | disposition home or self-care (01) ==
LOC: NCHCN 17:52
PROVIDERS: PCP Physician Assistant; Visit Provider Physician Assistant
DX: E11.9 Type 2 diabetes mellitus without complications (principal)
CPT/HCPCS: 82043; 82570

== ENCOUNTER 2023-02-01 17:03 | Outpatient (REF) | payer MEDICARE, OTHER, SELFPAY ==
[2023-02-01 20:09] LABS: Abs Immature Grans 0.02 10^3/uL (0.0-0.06); Absolute Basophil Count 0.06 10^3/uL (0.0-0.2); Absolute Eosinophil Count 0.09 10^3/uL (0.0-0.7); Absolute Lymphocyte Count 1.03 10^3/uL (1.2-3.4); Absolute Monocyte Count 0.65 10^3/uL (0.1-0.8); Basophils % 0.8; Eosinophils % 1.2; HCT 41.3 % (36.0-46.0); HGB 13.3 g/dL (11.2-15.7); Immature Grans % 0.3; Lymphocytes % 13.6; MCH 29.4 pg (27.0-33.0); MCHC 32.2 % (32.0-36.0); MCV 91 fL (80-95); MPV 11.8 fL (8.0-11.0); Monocytes % 8.6; Neutrophils % 75.5; Platelet Count 206 10^3/uL (130-400); RBC 4.53 10^6/uL (3.93-5.22); RDW 15.4 % (11.7-14.6); RDW-SD 51.8 fL; WBC 7.55 10^3/uL (4.4-10.8)
[2023-02-01 20:42] LABS: ALT 48 U/L (14-59); AST 61 U/L (15-37); Albumin 3.4 g/dL (3.4-5.0); Alkaline Phosphatase 140 U/L (46-116); Anion Gap 5.6 mmol/L (3-11); BUN 15 mg/dL (7-18); Bilirubin, Total 0.6 mg/dL (0.2-1.0); CO2 29.4 mmol/L (21.0-32.0); CREATININE 1.4 mg/dL (0.55-1.02); Calcium 9.4 mg/dL (8.5-10.1); Chloride 106 mmol/L (98-107); Estimated GFR 38.03 (mL/min/1.73m2); Glucose 242 mg/dL (74-106); Potassium 4.6 mmol/L (3.5-5.1); Sodium 141 mmol/L (136-145); Total Protein 6.9 g/dL (6.4-8.2)
== END 2023-02-01 17:04 | disposition home or self-care (01) ==
LOC: LBN 17:03
PROVIDERS: PCP Physician Assistant; Visit Provider Nurse Practitioner Adult Health
DX: D64.9 Anemia, unspecified (principal); Z17.0 Estrogen receptor positive status [ER+]; Z79.811 Long term (current) use of aromatase inhibitors; Z85.3 Personal history of malignant neoplasm of breast
CPT/HCPCS: 80053; 85025

== ENCOUNTER 2023-02-20 13:49 | Outpatient (CLI) | payer MEDICARE, OTHER, SELFPAY ==
--- NOTE | 2023-02-20 13:45 | RT.EKG_ITS ---
APPROVED REPORT Exam: Resting ECG Reason for Exam: medication monitoring amio Patient Location: O HR:63 bpm ECG Measurements Heart Rate 63 AXIS IN [id number] P [id number] QRSd 97 QRS 28 QT 584 T 63 QTc 599 Conclusion Junctional rhythm...absent P waves, slow V-rate Prolonged QT interval...QTc >500mS Baseline wander in lead(s) V1
== END 2023-02-20 13:50 | disposition home or self-care (01) ==
LOC: DI.CARD 13:50
PROVIDERS: PCP Physician Assistant; Referring Provider Physician Assistant; Visit Provider Internal Medicine Cardiovascular Disease
DX: I48.92 Unspecified atrial flutter (principal); Z51.81 Encounter for therapeutic drug level monitoring
CPT/HCPCS: 93010

== ENCOUNTER → 2023-02-20 13:49 | Outpatient (BNVA) | payer MEDICARE, OTHER, SELFPAY | PROVIDERS: PCP Physician Assistant; Referring Provider Physician Assistant; Visit Provider Internal Medicine Cardiovascular Disease | DX: Z79.01 Long term (current) use of anticoagulants (principal); I48.91 Unspecified atrial fibrillation | CPT/HCPCS: 93005; 99214 ==

== ENCOUNTER 2023-05-01 08:54 | Outpatient (CLI) | payer MEDICARE, OTHER, SELFPAY ==
--- NOTE | 2023-05-01 08:45 | RT.EKG_ITS ---
APPROVED REPORT Exam: Resting ECG Reason for Exam: afib Patient Location: O HR:61 bpm ECG Measurements Heart Rate 61 AXIS PA 192 P 69 QRSd 94 QRS 33 QT 583 T 60 QTc 588 Conclusion Sinus rhythm...normal P axis, V-rate 50- 99 Prolonged QT interval...QTc >500mS Baseline wander in lead(s) V2
== END 2023-05-01 08:55 | disposition home or self-care (01) ==
LOC: DI.CARD 08:54
PROVIDERS: PCP Physician Assistant; Visit Provider Internal Medicine Cardiovascular Disease
DX: I48.91 Unspecified atrial fibrillation (principal)
CPT/HCPCS: 93010

== ENCOUNTER → 2023-05-01 13:47 | Outpatient (BNVA) | payer MEDICARE, OTHER, SELFPAY | PROVIDERS: PCP Physician Assistant; Referring Provider Physician Assistant; Visit Provider Internal Medicine Cardiovascular Disease | DX: Z79.01 Long term (current) use of anticoagulants (principal); I10 Essential (primary) hypertension; E11.9 Type 2 diabetes mellitus without complications; I48.91 Unspecified atrial fibrillation | CPT/HCPCS: 93005; 99214 ==

== ENCOUNTER 2023-06-06 19:26 | Outpatient (REF) | payer MEDICARE, OTHER, SELFPAY | END 2023-06-06 19:27 | disposition home or self-care (01) | LOC: NCHCN 19:26 | PROVIDERS: PCP Physician Assistant; Visit Provider Physician Assistant | DX: R35.0 Frequency of micturition (principal) | CPT/HCPCS: 87077; 87086; 87186 ==

== ENCOUNTER 2023-07-27 11:49 | Outpatient (REF) | payer MEDICARE, OTHER, SELFPAY ==
[2023-07-27 18:53] LABS: Abs Immature Grans 0.01 10^3/uL (0.0-0.06); Absolute Basophil Count 0.07 10^3/uL (0.0-0.2); Absolute Eosinophil Count 0.14 10^3/uL (0.0-0.7); Absolute Lymphocyte Count 1.19 10^3/uL (1.2-3.4); Absolute Monocyte Count 0.57 10^3/uL (0.1-0.8); Absolute Neutrophil Count 5.14 10^3/uL (1.2-6.7); HCT 40.2 % (36.0-46.0); HGB 12.7 g/dL (11.2-15.7); Immature Grans % 0.1; Lymphocytes % 16.7; MCHC 31.6 % (32.0-36.0); MCV 89 fL (80-95); MPV 10.8 fL (8.0-11.0); Neutrophils % 72.2; Platelet Count 186 10^3/uL (130-400); RBC 4.54 10^6/uL (3.93-5.22); RDW 15.8 % (11.7-14.6); RDW-SD 51.6 fL; WBC 7.12 10^3/uL (4.4-10.8)
[2023-07-27 19:14] LABS: ALT 40 U/L (14-59); AST 37 U/L (15-37); Albumin 3.4 g/dL (3.4-5.0); Alkaline Phosphatase 128 U/L (46-116); Anion Gap 9.5 mmol/L (3-11); BUN 18 mg/dL (7-18); Bilirubin, Total 0.6 mg/dL (0.2-1.0); CO2 25.5 mmol/L (21.0-32.0); CREATININE 1.4 mg/dL (0.55-1.02); Calcium 9.3 mg/dL (8.5-10.1); Chloride 106 mmol/L (98-107); Estimated GFR 38.03 (mL/min/1.73m2); Glucose 243 mg/dL (74-106); Sodium 141 mmol/L (136-145); Total Protein 7.3 g/dL (6.4-8.2)
== END 2023-07-27 11:50 | disposition home or self-care (01) ==
LOC: LBN 11:49
PROVIDERS: PCP Physician Assistant; Visit Provider Internal Medicine
DX: C50.411 Malignant neoplasm of upper-outer quadrant of right female breast (principal); Z17.0 Estrogen receptor positive status [ER+]
CPT/HCPCS: 80053; 85025

== ENCOUNTER 2023-10-06 14:58 | Outpatient (CLI) | payer MEDICARE, OTHER, SELFPAY | END 2023-10-06 14:59 | disposition home or self-care (01) | PROVIDERS: PCP Physician Assistant; Visit Provider Nurse Practitioner Family | DX: I48.91 Unspecified atrial fibrillation (principal) | CPT/HCPCS: 93246 ==

== ENCOUNTER 2023-10-30 08:23 | Outpatient (CLI) | payer MEDICARE, OTHER, SELFPAY ==
--- NOTE | 2023-10-30 10:17 | CER_ITS ---
Date of service: 10/30/23 Time of Service: 10:17 Cardiac Event Recorder Referring Provider:: Jana Pandey Indications:: Atrial fibrillation Cardiac Event Note: This is a cardiac event monitor. Patient was monitored for 13 days and 1 hour Predominant rhythm was sinus with an average heart rate of 62. Minimum was 34, maximum 143 There were rare ventricular ectopic beats Atrial premature beats were noted. There was possibly atrial flutter rate 1 25- 1 35, though sinus tachycardia could not be excluded. Poor baseline with artifact made rhythm determination difficult. The majority of patient's symptoms seem to be related to artifact, sometimes to sinus rhythm Longest pause was 3.1 seconds
== END 2023-10-30 08:24 | disposition home or self-care (01) ==
LOC: CARDOPNVT 08:23
PROVIDERS: PCP Physician Assistant; Visit Provider Internal Medicine Cardiovascular Disease
DX: I48.91 Unspecified atrial fibrillation (principal); I49.1 Atrial premature depolarization
CPT/HCPCS: 93248

== ENCOUNTER 2023-11-09 20:12 | Inpatient (IN) | payer MEDICARE, OTHER, SELFPAY ==
[2023-11-09] VITALS (55 sets, daily range): BP systolic 85–130; BP diastolic 37–91; PULSE 48–150; RESP 12–28; TEMP 36.4–37; O2SAT 92–98
--- NOTE | 2023-11-09 20:00 | RT.EKG_ITS ---
APPROVED REPORT Exam: Resting ECG Reason for Exam: sob Patient Location: E HR:151 bpm ECG Measurements Heart Rate 151 AXIS MT 77 P 0 QRSd 93 QRS 42 QT 314 T 255 QTc 496 Conclusion Supraventricular tachycardia...V-rate>(220-age), QRSd<120 Probable LVH with secondary repol abnrm...multiple LVH criteria
--- NOTE | 2023-11-09 20:29 | ED.GENADUL_ITS ---
Discharge Plan Disposition Patient Disposition: Admit to [facility] Condition: Stable Discharge Details Clinical Impression: Atrial fibrillation with rapid ventricular response Primary Care Provider: Marilou Bass ED Provider: Hemanth Swain [place] Meds and New Rx's Prescriptions: No Action lisinopril 10 mg tablet 10 mg PO DAILY letrozole [Femara] 2.5 mg tablet 2.5 mg PO DAILY Hold Instructions: Changed by Provider acetaminophen [Tylenol Extra Strength] 500 mg tablet 500 mg PO Q6H PRN cholecalciferol (vitamin D3) 25 mcg (1,000 unit) capsule 25 mcg PO DAILY calcium carbonate-vitamin D3 [Calcium 600 with Vitamin D3] 600 mg(1,500mg) - 500 unit capsule 1 cap PO DAILY Januvia 50 mg tablet 50 mg PO DAILY Xarelto 20 mg tablet 20 mg PO DAILY Prolia 60 mg/mL syringe 60 mg subcut [id number] meloxicam 7.5 mg tablet 7.5 mg PO DAILY lorazepam 1 mg tablet 1 mg PO QHS PRN Rx Instructions: take 1-2 hs prn citalopram 20 MG tablet 20 mg PO DAILY rosuvastatin [Crestor] 20 MG tablet 20 mg PO DAILY metoprolol succinate 50 mg tablet extended release 24 hr 50 mg PO DAILY HPI General Mode of arrival: ambulatory . Date/Time Provider Initiated Documentation: 11/09/23 20:15 . Limitations to Documentation: no limitations . Information obtained by: patient . History of Present Illness 83 year old F presents to the emergency department with the chief complaint of General weakness, described as moderate, Patient started experiencing this day(s) (2 days) and it has been constant. No relieving factors improve symptom(s), No exacerbating factors reported . Patient notes cough and fever/chills; denies chest pain. Patient did receive the following treatments prior to arr ival, none Related Data Home Medications Medication Instructions Recorded Confirmed citalopram 20 mg tablet 20 mg PO DAILY 10/03/17 11/09/23 rosuvastatin 20 mg tablet (Crestor) 20 mg PO DAILY 10/03/17 11/09/23 rivaroxaban 20 mg tablet (Xarelto) 20 mg PO DAILY 04/29/19 11/09/23 lisinopril 10 mg tablet 10 mg PO DAILY 05/05/20 11/09/23 acetaminophen 500 mg tablet 500 mg PO Q6H PRN 09/04/20 11/09/23 (Tylenol Extra Strength) calcium carbonate 600 mg-vitamin 1 cap PO DAILY 09/04/20 11/09/23 D3 12.5 mcg (500 unit) capsule (Calcium 600 with Vitamin D3) cholecalciferol (vitamin D3) 25 25 mcg PO DAILY 09/04/20 11/09/23 mcg (1,000 unit) capsule letrozole 2.5 mg tablet (Femara) 2.5 mg PO DAILY 09/04/20 11/09/23 denosumab 60 mg/mL subcutaneous 60 mg subcut [id number] 11/18/21 11/09/23 syringe (Prolia) meloxicam 7.5 mg tablet 7.5 mg PO DAILY 11/02/22 11/09/23 lorazepam 1 mg tablet 1 mg PO QHS PRN 04/03/23 11/09/23 sitagliptin phosphate 50 mg tablet 50 mg PO DAILY 05/01/23 11/09/23 (Januvia) metoprolol succinate 50 mg 50 mg PO DAILY 11/09/23 11/09/23 tablet,extended release 24 hr Allergies Allergy/AdvReac Type Severity Reaction Status Date / Time No Known Allergies Allergy Verified 11/09/23 20:24 General Stated Complaint: Arrhythmia REKHA: 2 Review of Systems All systems reviewed & are unremarkable except as noted in HPI and below Constitutional Constitutional: Reports chills, Reports fever(s) and Reports weakness ENT Ears, Nose, Mouth, and Throat: Denies change in voice Cardiovascular Cardiovascular: Denies chest pain and Denies dyspnea Respiratory Respiratory: Denies dyspnea Gastrointestinal Gastrointestinal: Denies abdominal pain, Denies nausea and Denies vomiting Musculoskeletal Musculoskeletal: Denies joint swelling Integumentary/Breasts Skin/Breast: Denies rash Neurologic Neurologic: Reports weakness Exam Const General: frail appearing Orientation: alert Course Vital Signs Vital signs: Vital Signs Temperature 36.4 C 11/09/23 20:15 Pulse 121 H 11/09/23 20:15 Respiratory Rate 11/09/23 20:15 Blood Pressure 130/91 H 11/09/23 20:15 Temperature 36.4 C 11/09/23 20:15 Temperature Source Oral 11/09/23 20:15 Pulse 121 H 11/09/23 20:15 Respiratory Rate 18 11/09/23 20:15 Respiratory Effort Normal 04/18/24 20:23 Blood Pressure 130/91 H 11/09/23 20:15 Pain Level 10 11/09/23 20:15 Medical Decision Making 3-year-old female who has a history of hypertension, hyperlipidemia, A- fib/flutter on rivaroxaban, who comes in with her daughter with 2 days of general malaise, cough and today her heart rates have been elevated. She also had a low-grade fever earlier with home health nursing per the daughter. Patient arrives with a heart rate of 150 and suspect she is in a flutter with 2 1 conduction, is alert but does appear fatigued. She has clear lungs, no murmur, no JVD, no leg swelling or calf tenderness. Given her elevated heart rate will initiate IV diltiazem, given her complaints of cough and general malaise can obtain Fluvid, chest x-ray, CBC, CMP, EKG/troponin. Labs show mildly low mag, renal function at baseline, no significant concerning other findings. mild increase in her bilirubin, has no abdominal tenderness on exam so do not feel acute imaging of her liver/gallbladder indicated. She feels much better now that her heart rate in the 90s and low 100s on a dilt drip, Fluvid pending, x-ray negative. Will discuss with hospitalist about admission for continued rate control. Differential Diagnosis Differential Diagnosis: Pneumonia, A-fib with RVR, COVID, electrolyte abnormality Medical Records Medical records reviewed: Yes I reviewed the patient's medical records. Imaging Data Radiologic Study: Attestation: I personally reviewed and interpreted this imaging study as follows: Imaging: X-Ray Radiologist's impression: IMPRESSION: 1. No acute findings. 2. No lung consolidation. 3. No acute pleural change. 4. Degenerative thoracic spine and bilateral shoulders. 5. Mild cardiomegaly. Lab Data Lab results reviewed: Yes I reviewed the patient's lab results. ECG Data Attestation: I personally reviewed and interpreted this ECG (s) as follows: Prior ECG tracings: available for review Interpretation: Suspect a flutter with 2-1 conduction, rate of 151, RI 77, no STEMI Quality:SDOH Health Related Social Needs: No Data to Display Critical Care Time Critical Care Time Critical Care Time: Yes Total Critical Care Time: 45 (minutes) Attestation: Time spent administering IV diazepam in a patient with A-fib with rapid ventricular response with the potential to deteriorate at any time, frequent reassessments and hemodynamic monitoring, lab review. PFSH All Active Problems (Updated 11/09/23 @ 21:13 by Hemanth Swain MD) Atrial fibrillation with rapid ventricular response (Acute) Encounter for medication monitoring (Acute) Lumbar spinal stenosis (Acute) Trochanteric bursitis, left hip (Acute) Central stenosis of spinal canal (Acute) Chest pain at rest (Acute) Diverticula of colon (Acute) Incomplete rectal prolapse (Acute) Normal colonoscopy (Acute ~12/14/21) hemorrhoid banding severe diverticula Atrial flutter (Acute) Hypertension (Chronic) Hyperlipidemia (Acute) Ventricular ectopic activity (Acute) Cataract (Chronic) Type 2 diabetes mellitus (Acute) Sleep disturbance (Acute) Dyspnea on exertion (Acute) Anxiety (Chronic) Atrial fibrillation (Chronic) Shortness of breath (Acute) High risk medication use (Acute) Hematochezia (Acute) Anemia (Chronic) Medical History Adenocarcinoma of right breast Adenocarcinoma, breast Cataracts, bilateral Diverticular disease Endometrial carcinoma Gait disturbance, post-stroke History of diverticulitis HX: anticoagulation Osteoarthritis Osteopenia Recurrent UTI Sinus bradycardia Tremor Urinary incontinence Urinary tract infection Surgical History H/O: hysterectomy History of cataract surgery History of cholecystectomy History of colonoscopy (~12/14/21) History of mastectomy (~12/22/20) (R) Hx of appendectomy Family History Maternal Aunt Breast cancer Niece Breast cancer Niece Lung cancer Social History Smoking/Tobacco Use Status: Former Tobacco Use Quit Date: 03/31/69 Tobacco: How many years used: 10 Smoking risk assessment performed?: Yes Alcohol Intake: never Drug use: Never Substance use type: does not use What type of physical activity do you participate in: none and independent ambulation Do you feel safe at home: Yes Do you feel safe in your relationship?: Yes
[2023-11-09] MEDS: dilTIAZem 25 MG/5 ML VIAL 15 MG IVP (20:30)
[2023-11-09] MEDS: dilTIAZem 125 MG in Normal Saline 100 ML IV (20:31)
[2023-11-09] MEDS: Normal Saline 1,000 ML 125 ML IV (20:34)
--- NOTE | 2023-11-09 20:39 | DI.RAD_ITS ---
Exam(s) XR PORTABLE CHEST AP EXAM: XR PORTABLE CHEST AP CLINICAL HISTORY: ?pneumonia TECHNIQUE: 2D digital imaging was performed. COMPARISON: No exams were available for comparison FINDINGS: LUNGS: Clear. No pleural abnormality seen. HEART: Mildly enlarged. AORTA: Normal diameter. Mild calcification. BONES: Degenerative changes in the spine and shoulders. Soft tissues: Unremarkable. IMPRESSION: No acute findings. DATA REPOSITORY: RADIATION DOSE DELIVERED:
[2023-11-09 20:47] LABS: Abs Immature Grans 0.06 10^3/uL (0.0-0.06); Absolute Basophil Count 0.05 10^3/uL (0.0-0.2); Absolute Eosinophil Count 0.02 10^3/uL (0.0-0.7); Absolute Lymphocyte Count 1.34 10^3/uL (1.2-3.4); Absolute Monocyte Count 1.68 10^3/uL (0.1-0.8); Absolute Neutrophil Count 8.84 10^3/uL (1.2-6.7); Basophils % 0.4; Eosinophils % 0.2; HCT 37.5 % (36.0-46.0); HGB 12.3 g/dL (11.2-15.7); Immature Grans % 0.5; Lymphocytes % 11.2; MCH 28.4 pg (27.0-33.0); MCHC 32.8 % (32.0-36.0); MCV 87 fL (80-95); MPV 11.4 fL (8.0-11.0); Neutrophils % 73.7; Platelet Count 224 10^3/uL (130-400); RBC 4.33 10^6/uL (3.93-5.22); RDW 14.7 % (11.7-14.6); RDW-SD 46.7 fL; WBC 11.99 10^3/uL (4.4-10.8)
[2023-11-09 20:52] LABS: INR 1.5 (0.9-1.1); PTT Activated 37.2 sec (23.6-32.8); Prothrombin Time 14.9 sec (9.1-11.1)
--- NOTE | 2023-11-09 20:59 | DI.VRAD_ITS ---
PROCEDURE INFORMATION: Exam: XR Chest Exam date and time: 11/09/2023 8:34 PM Age: 83 years old Clinical indication: Other: ? Pneumonia TECHNIQUE: Imaging protocol: Radiologic exam of the chest. Views: 1 view. COMPARISON: CR XR CHEST 1 VW 08/07/2023 8:10 PM FINDINGS: Lungs: Nonspecific bilateral [id number] hyperinflation. No consolidation. Pleural spaces: Unremarkable. No pleural effusion. No pneumothorax. Heart/Mediastinum: Mild cardiomegaly. Bones/joints: Degenerative thoracic spine and bilateral shoulder changes.. IMPRESSION: 1. No acute findings. 2. No lung consolidation. 3. No acute pleural change. 4. Degenerative thoracic spine and bilateral shoulders. 5. Mild cardiomegaly. Dictated and Authenticated by: Bharathi Collado MD. Ordering:ZANDER Saxena MD
[2023-11-09 21:03] LABS: Diff Comment Diff Reviewed; RBC Morphology Normal
[2023-11-09 21:04] LABS: ALT 39 U/L (14-59); AST 48 U/L (15-37); Albumin 3.4 g/dL (3.4-5.0); Alkaline Phosphatase 130 U/L (46-116); Anion Gap 11.9 mmol/L (3-11); BUN 22 mg/dL (7-18); Bilirubin, Total 1.2 mg/dL (0.2-1.0); CO2 24.1 mmol/L (21.0-32.0); CREATININE 1.2 mg/dL (0.55-1.02); Calcium 9.2 mg/dL (8.5-10.1); Chloride 101 mmol/L (98-107); Estimated GFR 45.48 (mL/min/1.73m2); Glucose 222 mg/dL (74-106); Magnesium 1.7 mg/dL (1.8-2.4); NT-proBNP 6117 pg/mL (<300); Potassium 4.1 mmol/L (3.5-5.1); Sodium 137 mmol/L (136-145); Total Protein 7.4 g/dL (6.4-8.2); Troponin I < 50 ng/L (< or =60)
[2023-11-09 21:11] LABS: Procalcitonin 0.1 ng/mL
[2023-11-09 21:17] LABS: COVID-19 PCR Negative (Negative); Influenza A PCR Negative (Negative); Influenza B PCR Negative (Negative); RSV PCR Negative (Negative)
[2023-11-09 21:19] LABS: Source NASOPHARYNX
--- NOTE | 2023-11-09 21:24 | W.PM.HP.N ---
Date of service: 11/09/23 Time of Service: 21:24 Assessment and Plan Assessment and plan (1) Atrial fibrillation with rapid ventricular response: Start date: 11/09/23 Status: Acute Assessment and plan: This is an 83-year-old lady with a history of chronic atrial fibrillation having been off her metoprolol in the fall 2022 because of patient reporting bradycardia and was in sinus rhythm at the time with a recorded heart rate just above 65 review of cardiology notes. She was on amiodarone previously having been discontinued before April when metoprolol was discontinued. Patient had a fall with right hip fracture in July 2023 when she was found to be in atrial fibrillation again and metoprolol succinate 50 mg daily was initiated. She never stopped her Xarelto treatment. He appears to have a chronically elevated PT/INR with some liver function abnormalities. She has a history of diabetes with CKD with slight hyperglycemia upon presentation this hospitalization. She recently has had cough with fever and chills and has been uncomfortable with palpitations and racing heart. This prompted her visit to the ED where she was initiated on IV diltiazem with better rate control. Her heart rate continues to have intermittent tachycardia especially with coughing and activity. Her blood pressure was slightly low but the MAP was always above 65. The patient received IV fluids in the ED and for short time in the ICU. This was discontinued with concerns for fluid overload. She does have CKD chronically and this appears stable. Her BNP was slightly elevated she will have an updated echocardiogram with reevaluation of medical therapy for her atrial fibrillation with rapid ventricular response. She appears uncomfortable from her acute upper respiratory infection which may have prompted some of her tachycardia. She does have left jaw pain which appears to be separate from the cardiac issue. She gives a history of a fall with bruising over her left jaw but she is vague about the timing of this injury and did not seem to associate with her fall right hip fracture July 2023. Patient is a DNR/DNI. (2) TMJ arthritis: Start date: 11/09/23 Status: Acute Assessment and plan: Patient reports a remote injury with bruising over her left had exquisite pain. She also may have some dental pathology according to the ED physician and has difficulty opening her mouth for me to examine her teeth. I will cover her with Unasyn with her fever and image the TMJ because of possible trauma. Does have a history of breast cancer but no history of metastases. 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 Symptomatic treatment and as stated will start Unasyn with blood cultures performed because of fever and exquisite pain over left jaw. (4) Hypomagnesemia: Start date: 11/09/23 Status: Acute Assessment and plan: Mildly decreased the patient receiving magnesium IV repletion in the ED. Follow-up magnesium daily (5) Type 2 diabetes mellitus: Status: Chronic Assessment and plan: Not on insulin at home but elevated glucose measurements in the ED. Patient will have glucometer measurements before meals and bedtime with moderate sliding scale short acting insulin coverage. Qualifiers: Chronic kidney disease stage: stage 3 (moderate) Chronic kidney disease stage 3 subtype: stage 3a (GFR 45-59) Diabetes mellitus complication detail: with chronic kidney disease Diabetes mellitus complication status: with kidney complications Diabetes mellitus automobile mechanic assistant insulin use: without automobile mechanic assistant use Qualified Code(s): E11.22 - Type 2 diabetes mellitus with diabetic chronic kidney disease; N18.31 - Chronic kidney disease, stage 3a (6) Hypertension: Status: Chronic Assessment and plan: Slightly low blood pressure with lisinopril held for now but metoprolol will be reinitiated at 12.5 mg every 6 hours for tachycardia with her atrial fibrillation. Her blood pressure did respond to IV fluids. Qualifiers: Hypertension type: primary hypertension Qualified Code(s): I10 - Essential (primary) hypertension (7) Hyperlipidemia: Status: Chronic Assessment and plan: Continue statin without change. Qualifiers: Hyperlipidemia type: mixed hyperlipidemia Qualified Code(s): E78.2 - Mixed hyperlipidemia (8) Acquired hypoprothrombinemia: Status: Chronic Assessment and plan: Reviewing chart, patient has elevated INR chronically with slightly elevated liver function test and elevated bilirubin today. Consider imaging liver or DUMAS. I am unsure whether her PT/INR elevation is associate with Xarelto. This will be reviewed with pharmacy. History of Present Illness History of Present Illness Chief Complaint: Palpitations with malaise and cough with low-grade fever for 2 days Narrative: This is an 83-year-old female patient who reported to the ED with a 2-day history of generalized malaise, cough and fast heart rate with palpitations. She denies any chest pain but did have some jaw pain with some dental abnormalities seen in the ED. she also has a history of falling and having bruising over her left jaw and TMJ area with the patient vague as to when this occurred. She did fall in July fracturing her right hip which did require repair. She had been off metoprolol since the fall 2022 because of bradycardia. She never stopped her Xarelto. She does see Dr. Elaine locally. She does have a slightly elevated WBC as well. She was noted to be an atrial fibrillation with rapid ventricular response which has responded to IV diltiazem infusion. As stated she had been off her metoprolol but this was restarted at a low dose after her surgery and this year. In the ED she was also found to be in a 2:1 flutter. Her heart rate was around 150 and as stated, she did respond to IV diltiazem which will be continued. Her initial troponins are negative though her BNP is elevated and her last echocardiogram was in 2019 which showed preserved left ventricular ejection fraction with moderately dilated left atrium. She is on Xarelto and has no signs or symptoms of DVT. Her PT/INR is chronically elevated on Xarelto but she also appears to have some underlying liver disease with elevated liver function test chronically and elevated bilirubin today. During my interview the patient was continued to have paroxysms of a slightly moist cough and appeared uncomfortable with her left TMJ pain. This has been the area which was bruised previously and was not x-rayed in the ED. She states she does have some decreased hearing on that side as well. She did have blood cultures x 2 and I think did report some fever and chills before presentation. Imaging of the chest and viral screening was negative in the ED. Patient denies any production of purulent sputum. She had no measured fever in the ED or in the ICU and her procalcitonin was negative though she did have slightly elevated WBC. She was not initiated on IV antibiotics and thought to have a possible viral URI. As stated she appears very uncomfortable with her cough. She denies any chest pain. She is status post right mastectomy for breast cancer which history is not active on treatment. Patient is a DNR/DNI. Review of Systems Narrative: 13 point review of systems otherwise unrevealing or stable. PFSH All Active Problems (Updated 11/10/23 @ 05:50 by Shoaib Dozier) Hypomagnesemia (Acute) URI, acute (Acute) TMJ arthritis (Acute) Acquired hypoprothrombinemia (Chronic) Atrial fibrillation with rapid ventricular response (Acute) Encounter for medication monitoring (Acute) Lumbar spinal stenosis (Acute) Trochanteric bursitis, left hip (Acute) Central stenosis of spinal canal (Acute) Chest pain at rest (Acute) Diverticula of colon (Acute) Incomplete rectal prolapse (Acute) Normal colonoscopy (Acute ~12/14/21) hemorrhoid banding severe diverticula Atrial flutter (Acute) Hypertension (Chronic) Hyperlipidemia (Chronic) Ventricular ectopic activity (Acute) Cataract (Chronic) Type 2 diabetes mellitus (Chronic) Sleep disturbance (Acute) Dyspnea on exertion (Acute) Anxiety (Chronic) Atrial fibrillation (Chronic) Shortness of breath (Acute) High risk medication use (Acute) Hematochezia (Acute) Anemia (Chronic) Medical History (Updated 11/10/23 @ 05:50 by Shoaib Dozier) Cataracts, bilateral Adenocarcinoma, breast HX: anticoagulation Diverticular disease Recurrent UTI Sinus bradycardia Osteoarthritis Tremor Gait disturbance, post-stroke Urinary tract infection History of diverticulitis Urinary incontinence Adenocarcinoma of right breast Osteopenia Endometrial carcinoma Surgical History History of mastectomy (~12/22/20) (R) History of colonoscopy (~12/14/21) History of cataract surgery History of cholecystectomy Hx of appendectomy H/O: hysterectomy Family History Maternal Aunt Breast cancer Niece Breast cancer Niece Lung cancer Social History Smoking/Tobacco Use Status: Former Tobacco Use Quit Date: 03/31/69 Tobacco: How many years used: 10 Smoking risk assessment performed?: Yes Alcohol Intake: never Drug use: Never Substance use type: does not use Housing: house What type of physical activity do you participate in: none and independent ambulation Do you feel safe at home: Yes Do you feel safe in your relationship?: Yes Meds Allergies and Home Medications Allergies Allergy/AdvReac Type Severity Reaction Status Date / Time No Known Allergies Allergy Verified 11/09/23 20:24 Home Medications Medication Instructions Recorded Confirmed Type citalopram 20 mg tablet 20 mg PO DAILY 10/03/17 11/09/23 History rosuvastatin 20 mg tablet (Crestor) 20 mg PO DAILY 10/03/17 11/09/23 History rivaroxaban 20 mg tablet (Xarelto) 20 mg PO DAILY 04/29/19 11/09/23 History lisinopril 10 mg tablet 10 mg PO DAILY 05/05/20 11/09/23 History acetaminophen 500 mg tablet 500 mg PO Q6H PRN 09/04/20 11/09/23 History (Tylenol Extra Strength) calcium carbonate 600 mg-vitamin 1 cap PO DAILY 09/04/20 11/09/23 History D3 12.5 mcg (500 unit) capsule (Calcium 600 with Vitamin D3) cholecalciferol (vitamin D3) 25 25 mcg PO DAILY 09/04/20 11/09/23 History mcg (1,000 unit) capsule letrozole 2.5 mg tablet (Femara) 2.5 mg PO DAILY 09/04/20 11/09/23 History denosumab 60 mg/mL subcutaneous 60 mg subcut [id number] 11/18/21 11/09/23 History syringe (Prolia) meloxicam 7.5 mg tablet 7.5 mg PO DAILY 11/02/22 11/09/23 History lorazepam 1 mg tablet 1 mg PO QHS PRN 04/03/23 11/09/23 History sitagliptin phosphate 50 mg tablet 50 mg PO DAILY 05/01/23 11/09/23 History (Januvia) metoprolol succinate 50 mg 50 mg PO DAILY 11/09/23 11/09/23 History tablet,extended release 24 hr Exam Narrative Exam Narrative: General: Patient appears older than stated age, alert and oriented x 3 but wanders in conversation and appears uncomfortable with paroxysms of cough which is moist and slightly productive. She is uncomfortable with her left jaw pain. HEENT: Normocephalic, eyes with pupils equal and reactive to light symmetrically, extraocular movement intact and sclera anicteric. Oropharynx with poor dentition of the left but no swelling, exquisitely tender over left TMJ with some crepitus but no bruising or swelling. No swelling of left ear. Neck: Supple without JVD. Back: Kyphotic without CVA tenderness. Lungs: Decreased aeration right base without focalizing rales or rhonchi, otherwise fair aeration with normal expiratory phase with no expiratory wheeze. Occasional coarse rhonchi with cough. This appears to be high upper airways. Breast: Status post right mastectomy with left breast without gross masses. Heart: Irregularly irregular rhythm with tachycardia intermittently, no murmurs or gallops appreciated. Abdomen: Obese contour, soft and nontender to palpation with no palpable hepatosplenomegaly. Bowel sounds positive all quadrants. Genitalia/rectal: Exam deferred. Extremities: Without clubbing, cyanosis or grossly pitting edema with patient having SCDs in place of her legs. Fair capillary refill. Skin: Normal color, warm and dry. Neuro: Cranial nerves II through XII grossly intact, no focalizing motor deficits. No tremor. Psych: Flattened affect with depressed mood. Patient appears uncomfortable. No abnormal thought processes. Remote and recent memory grossly intact. Results Imaging Imaging Studies: Exam: XR Chest Exam date and time: 11/09/2023 8:34 PM Age: 83 years old Clinical indication: Other: ? Pneumonia TECHNIQUE: Imaging protocol: Radiologic exam of the chest. Views: 1 view. COMPARISON: CR XR CHEST 1 VW 08/07/2023 8:10 PM FINDINGS: Lungs: Nonspecific bilateral [id number] hyperinflation. No consolidation. Pleural spaces: Unremarkable. No pleural effusion. No pneumothorax. Heart/Mediastinum: Mild cardiomegaly. Bones/joints: Degenerative thoracic spine and bilateral shoulder changes.. IMPRESSION: 1. No acute findings. 2. No lung consolidation. 3. No acute pleural change. 4. Degenerative thoracic spine and bilateral shoulders. 5. Mild cardiomegaly. Labs 11/09/23 20:30 11/09/23 20:30 Labs: Laboratory Results - last 24 hr 11/09/23 20:30 WBC 11.99 H RBC 4.33 Hgb 12.3 Hct 37.5 MCV 87 MCH 28.4 MCHC 32.8 RDW 14.7 H Plt Count 224 MPV 11.4 H Immature Gran % 0.5 Neutrophils % 73.7 Lymphocytes % 11.2 Monocytes % 14.0 Eosinophils % 0.2 Basophils % 0.4 Nucleated RBC % 0.0 Absolute Neutrophils 8.84 H Absolute Lymphocytes 1.34 Absolute Monocytes 1.68 H Absolute Eosinophils 0.02 Absolute Basophils 0.05 RBC Morphology Normal PT 14.9 H INR 1.5 H APTT 37.2 H Sodium 137 Potassium 4.1 Chloride 101 Carbon Dioxide 24.1 Anion Gap 11.9 H BUN 22 H Creatinine 1.2 H Est GFR (CKD-EPI 2020) 45.48 Glucose 222 H Calcium 9.2 Magnesium 1.7 L Total Bilirubin 1.2 H AST 48 H ALT 39 Alkaline Phosphatase 130 H Troponin I < 50 NT-Pro-B Natriuret Pep 6117 H Total Protein 7.4 Albumin 3.4 Procalcitonin 0.1 COVID-19 Source NASOPHARYNX SARS-CoV-2 (PCR) Negative Influenza Type A (PCR) Negative Influenza Type B (PCR) Negative RSV (PCR) Negative Last Vital Signs Temp 36.4 C 11/09/23 20:15 Pulse 93 H 11/09/23 21:11 Resp 16 11/09/23 21:11 BP 99/76 L 11/09/23 21:11 Pulse Ox 97 11/09/23 21:11 Time Spent Time spent with Patient: >75 minutes Time was spent: preparing to see the patient(eg.review tests), obtaining and/or reviewing separately otained hiistory, ordering medications,tests, procedures, referring, communicating with other health care professional, indepentently interpreting results and care coordination
[2023-11-09] MEDS: MAGNESIUM SULFATE 1 GM/100 ML BAG IVINF (21:31)
[2023-11-09 22:25] LABS: TSH 2.13 uIU/Ml (0.36-3.74)
--- NOTE | 2023-11-09 22:57 | W.PC.ACHO ---
Registration Status: REG ER Primary Language: Preferred Language: Korean ED Information & Data Chief Complaint Arrhythmia 11/09/23 20:30 Triage Note Pt c/o afib w HR 150s, fever 11/09/23 20:15 , SOB, nasal congestion, clogged ears, L jaw pain. Pt received Mucinex sinus at 1800. 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 Pt has partial R hip replacement. Daughter states pt is not really eating or drinking. Pt is seen by home health. Denies urinary s/s but states she had a UTI 6 weeks ago. Medical / Surgical History (Last Reviewed 11/09/23 @ 21:30 by Shoaib Dozier) Cataracts, bilateral Adenocarcinoma, breast HX: anticoagulation Diverticular disease Recurrent UTI Sinus bradycardia Osteoarthritis Tremor Gait disturbance, post-stroke Urinary tract infection History of diverticulitis Urinary incontinence Adenocarcinoma of right breast Osteopenia Endometrial carcinoma (Last Reviewed 11/09/23 @ 21:30 by Shoaib Dozier) History of mastectomy (~12/22/20) History of colonoscopy (~12/14/21) History of cataract surgery History of cholecystectomy Hx of appendectomy H/O: hysterectomy Most Recent Vital Signs Temperature 36.4 C 11/09/23 20:15 Temperature Source Oral 11/09/23 20:15 Pulse 75 11/09/23 22:51 Pulse 92 H 11/09/23 22:51 Respiratory Rate 23 11/09/23 22:51 Respiratory Effort Normal 11/09/23 20:23 Blood Pressure 85/57 L 11/09/23 22:51 Blood Pressure Mean 60 11/09/23 22:51 Pulse Oximetry 96 11/09/23 22:51 Pain Level 10 11/09/23 20:15 Allergies No Known Allergies Allergy (Verified 11/09/23 20:24) Active Medications Generic Name Dose Route Start Last Admin Trade Name Freq PRN Reason Stop Dose Admin Diltiazem HCl 125 mg/ Sodium 125 mls @ 5 mls/hr 11/09/23 20:30 11/09/23 20:31 Chloride IV 5 mg/hr INFUSION SUGEY 5 mls/hr Administration Protocol 5 MG/HR Sodium Chloride 1,000 mls @ 125 mls/hr 11/09/23 20:30 11/09/23 20:34 Saline 1000ml Bag IV 125 mls/hr INFUSION SUGEY Administration IV IV Catheter Type [Left Saline Lock Antecubital] IV Catheter Gauge [Left 18 Antecubital] Diet Orders Category Date Time Status Diabetes Consistent CHO/Heart Healthy [DIET] Nutrition 11/10/23 Breakfast Ordered Diagnostics 11/09/23 11/09/23 Range/Units 23:17 20:30 WBC 11.99 H (4.4-10.8) 10^3/uL RBC 4.33 (3.93-5.22) 10^6/uL Hgb 12.3 (11.2-15.7) g/dL Hct 37.5 (36.0-46.0) % MCV 87 (80-95) fL MCH 28.4 (27.0-33.0) pg MCHC 32.8 (32.0-36.0) % RDW 14.7 H (11.7-14.6) % Plt Count 224 (130-400) 10^3/uL MPV 11.4 H (8.0-11.0) fL Immature Gran % 0.5 Neutrophils % 73.7 Lymphocytes % 11.2 Monocytes % 14.0 Eosinophils % 0.2 Basophils % 0.4 Nucleated RBC % 0.0 (0.0-0.3) % Absolute Neutrophils 8.84 H (1.2-6.7) 10^3/uL Absolute Lymphocytes 1.34 (1.2-3.4) 10^3/uL Absolute Monocytes 1.68 H (0.1-0.8) 10^3/uL Absolute Eosinophils 0.02 (0.0-0.7) 10^3/uL Absolute Basophils 0.05 (0.0-0.2) 10^3/uL RBC Morphology Normal PT 14.9 H (9.1-11.1) sec INR 1.5 H (0.9-1.1) APTT 37.2 H (23.6-32.8) sec Sodium 137 (136-145) mmol/L Potassium 4.1 (3.5-5.1) mmol/L Chloride 101 (98-107) mmol/L Carbon Dioxide 24.1 (21.0-32.0) mmol/L Anion Gap 11.9 H (3-11) mmol/L BUN 22 H (7-18) mg/dL Creatinine 1.2 H (0.55-1.02) mg/dL Est GFR (CKD-EPI 2020) 45.48 (mL/min/1.73m2) Glucose 222 H (74-106) mg/dL Calcium 9.2 (8.5-10.1) mg/dL Magnesium 1.7 L (1.8-2.4) mg/dL Total Bilirubin 1.2 H (0.2-1.0) mg/dL AST 48 H (15-37) U/L ALT 39 (14-59) U/L Alkaline Phosphatase 130 H (46-116) U/L Troponin I Pending < 50 (< or =60) ng/L NT-Pro-B Natriuret Pep 6117 H (<300) pg/mL Total Protein 7.4 (6.4-8.2) g/dL Albumin 3.4 (3.4-5.0) g/dL Procalcitonin 0.1 ng/mL TSH 2.13 (0.36-3.74) uIU/Ml COVID-19 Source NASOPHARYNX SARS-CoV-2 (PCR) Negative (Negative) Influenza Type A (PCR) Negative (Negative) Influenza Type B (PCR) Negative (Negative) RSV (PCR) Negative (Negative) 11/09/23 21:52 Blood Culture - Pending Blood 11/09/23 20:30 Blood Culture - Pending Blood Intake and Output - 24 Hour Total 11/09/23 20:12 thru 11/09/23 22:36 Intake Total 100 Balance 100 Weight 718.944 kg Intake: IV 100 Falls Risk Assessment History of Falls Previous History 11/09/23 20:23 Contributing Factors Unstable,Impairments 11/09/23 20:23 Ambulatory Aids Uses ambulatory device + 11/09/23 20:23 Tubes/Lines With any additional score 11/09/23 20:23 Gait Evaluation W/any additional score 11/09/23 20:23 Cognition No cognitive impairment 11/09/23 20:23 Fall Total Score 91 11/09/23 20:23 Level of Risk Maximum Risk 11/09/23 20:23 Problems (Last Reviewed 11/09/23 @ 21:30 by Shoaib Dozier) Acquired hypoprothrombinemia (Acute) Atrial fibrillation with rapid ventricular response (Acute) Hypertension (Chronic) Hyperlipidemia (Acute) Type 2 diabetes mellitus (Acute) v v v v v v v v v Sending and/or Receiving Nurses: Please use comment section below to note any information pertinent to the patient hand-off not included above. Information / Comments: Report received from: Rohan davidson RN
[2023-11-10] VITALS (174 sets, daily range): BP systolic 89–142; BP diastolic 55–129; PULSE 64–156; RESP 15–40; TEMP 36.7–37.6; O2SAT 85–98
--- NOTE | 2023-11-10 | DI.CT_ITS ---
Exam(s) CT FACIAL WO EXAM: CT FACIAL WO CLINICAL HISTORY: TMJ. TECHNIQUE: Imaging Protocol: Axial computed tomography images with coronal and sagittal reformatted images were created and reviewed CONTRAST MATERIAL: Intravenous: Omnipaque 350 Contrast volume:100 ml contrast route:IV - COMPARISON: CT CT FACIAL BONES WO CONTRAST from 08/07/[address] HEAD/BRAIN WO CONTRAST from 08/07/2023 FINDINGS: Facial Bones: No fracture is noted in the facial bones. Sinuses and Mastoids: Mild ethmoid sinus mucosal thickening. Globes, extraocular muscles, optic nerves and retrobulbar fat: Normal. Upper aerodigestive tract: Normal. Mandible and bilateral temporomandibular joints: Degenerative changes of the temporomandibular joint s. There is flattening of the mandibular condyles bilaterally. Some bony fragmentation is noted adj acent to the mandibular condyles which was present previously. The left temporomandibular joint spac es now widened. There is an interposed bony fragment which is previously noted posterior to the long ibular condyle. The right temporomandibular joint space is not widened. There are adjacent bony fra gments. The appearance is unchanged from the prior exam. Cerumen is noted in the left external danyel tory canal. Soft tissues: Normal. IMPRESSION: No evidence of fracture/dislocation in facial bones. Severe degenerative changes of both temporomandibular joints with flattening of the mandibular condyl es and adjacent bony fragments. There is now mild widening of the left temporomandibular joint but n o luis dislocation. RADIATION DOSE DELIVERED: 301.38mGy.cm Total DLP DATA REPOSITORY: All CT scans at this facility are submitted to the National Radiology Data Registry (NRDR) Dose Index Registry (DIR) with the [employer] ([employer]). RADIATION OPTIMIZATION: All CT scans at this facility use at least one of these dose optimization te chniques: automated exposure control; mA and/or kV adjustment per patient size (includes targeted exa ms where dose is matched to clinical indication); or iterative reconstruction.
[2023-11-10 01:20] LABS: Troponin I < 50 ng/L (< or =60)
[2023-11-10] MEDS: Metoprolol 12.5 MG TAB PO ×2 (06:05→11:46)
[2023-11-10] MEDS: Normal Saline Flush 10 ML SYR IVP ×2 (06:11→20:31)
[2023-11-10] MEDS: AMPICILLIN/SULBACTAM 1.5 GM in Normal Saline 50 ML IVPB ×3 (06:28→18:55)
[2023-11-10 06:40] LABS: HCT 36.2 % (36.0-46.0); HGB 11.6 g/dL (11.2-15.7); MCV 87 fL (80-95); MPV 11.7 fL (8.0-11.0); Platelet Count 178 10^3/uL (130-400); RBC 4.14 10^6/uL (3.93-5.22); RDW 14.9 % (11.7-14.6); RDW-SD 47.2 fL; WBC 10.48 10^3/uL (4.4-10.8)
[2023-11-10 06:51] LABS: INR 1.3 (0.9-1.1); Prothrombin Time 12.7 sec (9.1-11.1)
[2023-11-10 06:52] LABS: Magnesium 1.8 mg/dL (1.8-2.4)
[2023-11-10 07:02] LABS: ALT 34 U/L (14-59); AST 30 U/L (15-37); Albumin 3.1 g/dL (3.4-5.0); Alkaline Phosphatase 115 U/L (46-116); Anion Gap 12.9 mmol/L (3-11); BUN 20 mg/dL (7-18); CO2 23.1 mmol/L (21.0-32.0); Calcium 8.7 mg/dL (8.5-10.1); Chloride 103 mmol/L (98-107); Glucose 173 mg/dL (74-106); Sodium 139 mmol/L (136-145); Total Protein 6.9 g/dL (6.4-8.2); Troponin I < 50 ng/L (< or =60)
[2023-11-10] MEDS: Meloxicam 15 MG TAB 7.5 MG PO (07:35)
[2023-11-10] MEDS: Calcium 600mg/Vit D 200U TAB 1 TAB PO (07:35)
[2023-11-10] MEDS: Citalopram 20 MG TAB PO (07:35)
[2023-11-10] MEDS: Rivaroxaban 10 MG TABLET 20 MG PO (07:35)
[2023-11-10] MEDS: Rosuvastatin 20 MG TAB PO (07:35)
[2023-11-10] MEDS: Cholecalciferol (Vitamin D3) 1,000 UNIT TAB 1000 UNITS PO (07:36)
[2023-11-10] MEDS: Insulin Aspart 300 UNITS/3 ML PEN SC ×4 (07:36→21:56)
--- NOTE | 2023-11-10 08:40 | PDOC.CMIN ---
Date of service: 11/10/23 Care Management Initial Assmt Initial Assessment REASON FOR HOSPITALIZATION:: Atrial fibrillation with rapid ventricular PREVIOUS FUNCTIONAL STATUS/SOCIAL/FAMILY SUPPORTS:: Drea lives alone in [place]. She is independent at baseline and is able to perform all of her ADLs on her own. CURRENT FUNCTIONAL STATUS:: Drea was lying in bed talking with CM. Drea reports feeling out of sorts and remembers she had jaw pain yesterday and then was in the hospital. Today she reports her jaw still does hurt, her ears are plugged, and her eyes are sticking together making it hard to open them. She has reported this to RN. Drea was looking forward to a visit from her daughter. ADVANCE DIRECTIVES:: None on file with [facility] Has patient been provided with info about the portal/API?: Yes Did the patient sign up for the portal?: No CODE STATUS:: DNR/DNI INSURANCE COVERAGE / FINANCIAL ISSUES:: [place] [employer] CURRENT HOME/COMMUNITY SERVICES/EQUIPMENT:: [facility] services- RN,PT,OT,SEAFOOD PROCESS WORKER PRIMARY CARE PHYSICIAN:: Marilou Bass POTENTIAL DISCHARGE NEEDS:: Follow up providers PATIENT/FAMILY EDUCATION NEEDS:: Discussion of discharge instructions, discussion of Ask Me Three ANTICIPATED BARRIERS TO DISCHARGE:: None identified TRANSPORTATION:: Via RCT coordinated from RADHIKA DANGELO PLAN:: Drea will discharge home when medically cleared. She will transport via RCT coordinated by RADHIKA AA. She will follow up with her PCP and discharge plan of care. She will attend her scheduled cardiac appointment 11/15/23 at [facility]. CM following. [facility] All Active Problems (Updated 11/10/23 @ 05:50 by Shoaib Dozier) Hypomagnesemia (Acute) URI, acute (Acute) TMJ arthritis (Acute) Acquired hypoprothrombinemia (Chronic) Atrial fibrillation with rapid ventricular response (Acute) Encounter for medication monitoring (Acute) Lumbar spinal stenosis (Acute) Trochanteric bursitis, left hip (Acute) Central stenosis of spinal canal (Acute) Chest pain at rest (Acute) Diverticula of colon (Acute) Incomplete rectal prolapse (Acute) Normal colonoscopy (Acute ~12/14/21) hemorrhoid banding severe diverticula Atrial flutter (Acute) Hypertension (Chronic) Hyperlipidemia (Chronic) Ventricular ectopic activity (Acute) Cataract (Chronic) Type 2 diabetes mellitus (Chronic) Sleep disturbance (Acute) Dyspnea on exertion (Acute) Anxiety (Chronic) Atrial fibrillation (Chronic) Shortness of breath (Acute) High risk medication use (Acute) Hematochezia (Acute) Anemia (Chronic) Medical History (Updated 11/10/23 @ 05:50 by Shoaib Dozier) Cataracts, bilateral Adenocarcinoma, breast HX: anticoagulation Diverticular disease Recurrent UTI Sinus bradycardia Osteoarthritis Tremor Gait disturbance, post-stroke Urinary tract infection History of diverticulitis Urinary incontinence Adenocarcinoma of right breast Osteopenia Endometrial carcinoma Surgical History History of mastectomy (~12/22/20) (R) History of colonoscopy (~12/14/21) History of cataract surgery History of cholecystectomy Hx of appendectomy H/O: hysterectomy Family History Maternal Aunt Breast cancer Niece Breast cancer Niece Lung cancer Social History Smoking/Tobacco Use Status: Former Tobacco Use Quit Date: 03/31/69 Tobacco: How many years used: 10 Smoking risk assessment performed?: Yes Alcohol Intake: never Drug use: Never Substance use type: does not use Housing: house What type of physical activity do you participate in: none and independent ambulation Do you feel safe at home: Yes Do you feel safe in your relationship?: Yes SDOH(Care Management) Screening Will the Patient Participate in the Screening?: Yes Do you worry about having a steady place to live?: yes In the past 12 months, have you had to go without electric, gas, oil or water in your home?: no Have you or anyone in your house had to go without enough food to eat?: no Has lack of transportation kept you from medical appointments or from doing things needed for daily living?: no Has anyone in your support network made you feel unsafe for any reason?: no Health Related Social Needs Health related social needs: housing instability, housed, with risk of homelessness(Z59.811)
--- NOTE | 2023-11-10 09:23 | PHA.REVIEW2 ---
Pharmacy Admission Review Admission Clinical Review Admission Pharmacy Review: Hypomagnesemia (Acute) URI, acute (Acute) TMJ arthritis (Acute) Atrial fibrillation with rapid ventricular response (Acute) No Known Allergies Allergy (Verified 11/09/23 20:24) Resuscitation Status DNR/DNI Height 5 ft 7 in Weight 69.2 kg Comments Comments/Follow Ups: A-fib, Chest Xray negative for Pneumonia, some oral/dental/jaw pain-treating w/Unasyn, BC pending, Afebrile Will get an updated EKG Pharmacy Admission Review Renal Dosing Renal Dosing: BUN 20 mg/dL (7-18) H 11/10/23 06:00 Creatinine 1.0 mg/dL (0.55-1.02) 11/10/23 06:00 CrCl~47ml/min Anticoagulation Anticoagulation: Hgb 11.6 g/dL (11.2-15.7) 11/10/23 06:00 Hct 36.2 % (36.0-46.0) 11/10/23 06:00 Plt Count 178 10^3/uL (130-400) 11/10/23 06:00 INR 1.3 (0.9-1.1) H 11/10/23 06:00 Creatinine 1.0 mg/dL (0.55-1.02) 11/10/23 06:00 Therapeutic Anticoagulation: Reviewed Medications: Rivaroxaban Relevant Labs Relevant Labs: Sodium 139 mmol/L (136-145) 11/10/23 06:00 Potassium 4.0 mmol/L (3.5-5.1) 11/10/23 06:00 Chloride 103 mmol/L (98-107) 11/10/23 06:00 Magnesium 1.8 mg/dL (1.8-2.4) 11/10/23 06:00 Probnp elevated (6117) DM Control DM Control: Reviewed (HgA1c 7.8 (11/2022), Aspart scale ordered, FSBS 192, BG 173) Cardiac Review Cardiac Review: Troponin I < 50 ng/L (< or =60) 11/10/23 06:00 NT-Pro-B Natriuret Pep 6117 pg/mL (<300) H 11/09/23 20:30 Diltiazem, Metoprolol BP, HR, EF%: Reviewed (BP 131/58 currently;varies, HR 70-120's) QTc Review QTc: N/A (no EKG) IV to PO Switch IV Medications: Reviewed (Diltiazem infusion, IV Anbx) Home Meds Home Med List reviewed: Reviewed (Combination of Xarelto, Meloxicam and Citalopram increases risk of bleeding, Xarelto ADR does mention potential increased Liver transaminases > 3x UNL) Relevent Home Meds Not ordered & why?: Toprol XL-currently on IR Metoprolol tartrate, Letrozole-states not taking, on hold, Lisinopril not ordered at this time Current Meds Current Medication Order Review: Reviewed Comments: Watch for transition to oral Diltiazem Pharmacy Antibiotic Review Relevant Labs: Relevant Labs 11/09/23 20:30 Procalcitonin 0.1 Pharmacy Antibiotic Activity: C/S review (Blood cultures pending) and Reviewed, no change (Empiric Unasyn for oral/jaw pain) Comments Comments/Follow Ups: A-fib, Chest Xray negative for Pneumonia, some oral/dental/jaw pain-treating w/Unasyn, BC pending, Afebrile Will get an updated EKG
[2023-11-10] MEDS: Acetaminophen 325 MG TAB PO ×3 (10:17→22:12)
--- NOTE | 2023-11-10 11:31 | PGE_ITS ---
Date of Service Date of service: 11/10/23 Time of Service: 11:32 Assessment and Plan Assessment and plan (1) Atrial fibrillation with rapid ventricular response: Start date: 11/09/23 Status: Acute Assessment and plan: -was on amiodarone previously having been discontinued before April when metoprolol was discontinued. -Patient had a fall with right hip fracture in July 2023 when she was found to be in atrial fibrillation again and metoprolol succinate 50 mg daily was initiated. -She never stopped her Xarelto treatment. -in ED was initiated on IV diltiazem with better rate control, remains tachy especially when coughing -also started on PO metoprolol 12.5mg Q6h -dilt drip off late AM 11/09, changed metoprolol to 25mg BID -could potentially be discharged AM 11/10 if remains rate controlled on PO metoprolol overnight (2) TMJ arthritis: Start date: 11/09/23 Status: Acute Assessment and plan: Patient reports a remote injury with bruising over her left had exquisite pain. She also may have some dental pathology according to the ED physician and has difficulty opening her mouth for me to examine her teeth. I will cover her with Unasyn with her fever and image the TMJ because of possible trauma. Does have a history of breast cancer but no history of metastases. 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 Symptomatic treatment and as stated will start Unasyn with blood cultures performed because of fever and exquisite pain over left jaw. (4) Hypomagnesemia: Start date: 11/09/23 Status: Acute Assessment and plan: -Mildly decreased the patient receiving magnesium IV repletion in the ED. -Follow-up magnesium daily (5) Type 2 diabetes mellitus: Status: Chronic Assessment and plan: Not on insulin at home but elevated glucose measurements in the ED. Patient will have glucometer measurements before meals and bedtime with moderate sliding scale short acting insulin coverage. Qualifiers: Chronic kidney disease stage: stage 3 (moderate) Chronic kidney disease stage 3 subtype: stage 3a (GFR 45-59) Diabetes mellitus complication detail: with chronic kidney disease Diabetes mellitus complication status: with kidney complications Diabetes mellitus mcfp insulin use: without training development specialist use Qualified Code(s): E11.22 - Type 2 diabetes mellitus with diabetic chronic kidney disease; N18.31 - Chronic kidney disease, stage 3a (6) Hypertension: Status: Chronic Assessment and plan: Slightly low blood pressure with lisinopril held for now but metoprolol will be reinitiated at 12.5 mg every 6 hours for tachycardia with her atrial fibrillation. Her blood pressure did respond to IV fluids. Qualifiers: Hypertension type: primary hypertension Qualified Code(s): I10 - Essential (primary) hypertension (7) Hyperlipidemia: Status: Chronic Assessment and plan: Continue statin without change. Qualifiers: Hyperlipidemia type: mixed hyperlipidemia Qualified Code(s): E78.2 - Mixed hyperlipidemia (8) Acquired hypoprothrombinemia: Status: Chronic Assessment and plan: Reviewing chart, patient has elevated INR chronically with slightly elevated liver function test and elevated bilirubin today. Consider imaging liver or DUMAS. I am unsure whether her PT/INR elevation is associate with Xarelto. This will be reviewed with pharmacy. Subjective Subjective Interval history since last seen: Patient states that she is doing well this morning. She was encouraged by the fact that she is no longer on her diltiazem drip and is being transitioned to p.o. Lopressor. She also understands again plan to monitor her heart rate overnight with likely discharge tomorrow morning assuming that she remains rate controlled. She has no other complaints or concerns at this time. Exam Narrative Exam Narrative: Well-appearing older female laying in bed in no acute distress, ANO x 4, heart irregularly irregular rate controlled about 80, lungs clear to auscultation jonnathan aterally, abdomen soft, nontender, nondistended Objective Last Vital Signs Temp 99.3 F 11/10/23 07:48 Pulse 76 11/10/23 07:46 Resp 21 11/10/23 07:50 BP 130/58 L 11/10/23 07:46 Pulse Ox 93 11/10/23 08:57 Laboratory Results - last 24 hr 11/09/23 11/10/23 11/10/23 20:30 00:51 06:00 WBC 11.99 H 10.48 RBC 4.33 4.14 Hgb 12.3 11.6 Hct 37.5 36.2 MCV 87 87 MCH 28.4 28.0 MCHC 32.8 32.0 RDW 14.7 H 14.9 H Plt Count 224 178 MPV 11.4 H 11.7 H Immature Gran % 0.5 Neutrophils % 73.7 Lymphocytes % 11.2 Monocytes % 14.0 Eosinophils % 0.2 Basophils % 0.4 Nucleated RBC % 0.0 Absolute Neutrophils 8.84 H Absolute Lymphocytes 1.34 Absolute Monocytes 1.68 H Absolute Eosinophils 0.02 Absolute Basophils 0.05 RBC Morphology Normal PT 14.9 H 12.7 H INR 1.5 H 1.3 H APTT 37.2 H Sodium 137 139 Potassium 4.1 4.0 Chloride 101 103 Carbon Dioxide 24.1 23.1 Anion Gap 11.9 H 12.9 H BUN 22 H 20 H Creatinine 1.2 H 1.0 Est GFR (CKD-EPI 2020) 45.48 56.60 Glucose 222 H 173 H Calcium 9.2 8.7 Magnesium 1.7 L 1.8 Total Bilirubin 1.2 H 1.0 AST 48 H 30 ALT 39 34 Alkaline Phosphatase 130 H 115 Troponin I < 50 < 50 < 50 NT-Pro-B Natriuret Pep 6117 H Total Protein 7.4 6.9 Albumin 3.4 3.1 L Procalcitonin 0.1 TSH 2.13 COVID-19 Source NASOPHARYNX SARS-CoV-2 (PCR) Negative Influenza Type A (PCR) Negative Influenza Type B (PCR) Negative RSV (PCR) Negative Time Spent with Patient Time Spent with Patient: >50 minutes Time was spent: preparing to see the patient(eg.review tests), obtaining and/or reviewing separately otained hiistory, ordering medications,tests, procedures, referring, communicating with other health grounds caretaker, indepentently interpreting results, counseling the patient and care coordination
[2023-11-10] MEDS: Metoprolol 25 MG TAB PO (18:55)
[2023-11-10] MEDS: LORazepam 1 MG TAB PO (21:44)
[2023-11-11] VITALS (43 sets, daily range): BP systolic 85–141; BP diastolic 56–114; PULSE 73–156; RESP 16–34; TEMP 36.9–37.5; O2SAT 92–97
[2023-11-11] MEDS: AMPICILLIN/SULBACTAM 1.5 GM in Normal Saline 50 ML IVPB ×5 (00:39→23:48)
[2023-11-11] MEDS: Normal Saline Flush 10 ML SYR IVP ×2 (05:23→19:08)
[2023-11-11] MEDS: Metoprolol 25 MG TAB PO ×3 (06:25→19:08)
[2023-11-11 06:52] LABS: Anion Gap 10.3 mmol/L (3-11); BUN 21 mg/dL (7-18); CO2 22.7 mmol/L (21.0-32.0); CREATININE 0.9 mg/dL (0.55-1.02); Calcium 8.6 mg/dL (8.5-10.1); Chloride 102 mmol/L (98-107); Estimated GFR 64.23 (mL/min/1.73m2); Glucose 151 mg/dL (74-106); Potassium 3.8 mmol/L (3.5-5.1); Sodium 135 mmol/L (136-145)
[2023-11-11 06:53] LABS: Magnesium 1.7 mg/dL (1.8-2.4)
[2023-11-11] MEDS: Meloxicam 15 MG TAB 7.5 MG PO (08:23)
[2023-11-11] MEDS: Rosuvastatin 20 MG TAB PO (08:24)
[2023-11-11] MEDS: Citalopram 20 MG TAB PO (08:25)
[2023-11-11] MEDS: Rivaroxaban 10 MG TABLET 20 MG PO (08:25)
[2023-11-11] MEDS: Calcium 600mg/Vit D 200U TAB 1 TAB PO (08:25)
[2023-11-11] MEDS: Insulin Aspart 300 UNITS/3 ML PEN SC ×3 (08:32→20:52)
[2023-11-11] MEDS: Cholecalciferol (Vitamin D3) 1,000 UNIT TAB 1000 UNITS PO (09:00)
--- NOTE | 2023-11-11 10:20 | PGE_ITS ---
Date of Service Date of service: 11/11/23 Time of Service: 10:20 Assessment and Plan Assessment and plan (1) Atrial fibrillation with rapid ventricular response: Status: Acute Assessment and plan: -was on amiodarone previously having been discontinued before April when metoprolol was discontinued. -Patient had a fall with right hip fracture in July 2023 when she was found to be in atrial fibrillation again and metoprolol succinate 50 mg daily was re- initiated. This was being held, however, due to some concern for low blood pressures perior to this admission, we still need to clarfiy this history. -She never stopped her Xarelto treatment. -in ED was initiated on IV diltiazem with better rate control -also started on PO metoprolol 12.5mg Q6h -dilt drip off late AM 11/09, changed metoprolol to 25mg BID -echocardiogram 11/09 showed LVEF 55-60%, normal function. Moderate TR and MR, RVSP 28, dilated LA -Rate high this morning so given another dose of 25mg metoprolol tartrate, changed to q6 and will titrate. -Home once rate controlled. -consider digoxin as another option if metoprolol not sufficient. (2) TMJ arthritis: Status: Acute Assessment and plan: Patient reports a remote injury, pain on admission, no change in XR. Improved today. Qualifiers: Laterality: left Qualified Code(s): M26.642 - Arthritis of left t emporomandibular joint (3) Pneumonia: Status: Acute Assessment and plan: Fever and new thick sputum with cough on admission. Seems to be responding to Amp/sulbactam, so I think she had a community acquired pneumonia on admission that contributed to her afib with RVR, even though the admission CXR was negative. Sputum culture still pending. - continue amp/sulbactam day #3 Qualifiers: Lung location: unspecified part of lung (4) Hypomagnesemia: Status: Acute Assessment and plan: -Mildly decreased the patient receiving magnesium IV repletion in the ED. -slightly low again today, give additional 1g IV (5) Type 2 diabetes mellitus: Status: Chronic Assessment and plan: Not on insulin at home but elevated glucose measurements in the ED. - monitoring fingersticks before meals and bedtime with moderate sliding scale short acting insulin coverage. Qualifiers: Diabetes mellitus remote computer terminal operator insulin use: without remote computer terminal operator use Diabetes mellitus complication status: with kidney complications Diabetes mellitus complication detail: with chronic kidney disease Chronic kidney disease stage: stage 3 (moderate) Chronic kidney disease stage 3 subtype: stage 3a (GFR 45-59) Qualified Code(s): E11.22 - Type 2 diabetes mellitus with diabetic chronic kidney disease; N18.31 - Chronic kidney disease, stage 3a (6) Hypertension: Status: Chronic Assessment and plan: - BP back in mildly elevated range this morning, room to titrate metoprolol - consider resuming lisinopril once metoprolol dose at target Qualifiers: Hypertension type: primary hypertension Qualified Code(s): I10 - Essential (primary) hypertension (7) Hyperlipidemia: Status: Chronic Assessment and plan: Continue statin without change. Qualifiers: Hyperlipidemia type: mixed hyperlipidemia Qualified Code(s): E78.2 - Mixed hyperlipidemia (8) Acquired hypoprothrombinemia: Status: Chronic Assessment and plan: Reviewing chart, patient has elevated INR chronically with slightly elevated, at these levels this is likely the rivaroxaban. However she has some chronic borderline albumin and AST elevation raising concern for liver dysfunction and fibrosis. This doesn't seem to be evolving so can be addressed as an outpatient. Subjective Subjective Interval history since last seen: Drea is anxious to go home, states her daughter and son can help take care of her. She admits she is still short of breath and a little lightheaded, can feel her heart going fast. She denies chest pain. She has been eating some but less than usual. Exam Narrative Exam Narrative: Well-appearing older female sitting on bed in no acute distress, ANO x 4, stands up with walker and walks to chair to sit down, some purse-lipped breathing after this effor. heart irregularly irregular rate about 120, lungs clear to auscultation bilaterally, abdomen soft, nontender, nondistended. Legs not tender and without edema. Objective Last Vital Signs Temp 37.5 C 11/11/23 08:43 Pulse 73 11/11/23 08:01 Resp 22 11/11/23 08:01 BP 141/94 H 11/11/23 08:01 Pulse Ox 95 11/11/23 08:01 Laboratory Results - last 24 hr 11/11/23 05:55 Sodium 135 L Potassium 3.8 Chloride 102 Carbon Dioxide 22.7 Anion Gap 10.3 BUN 21 H Creatinine 0.9 Est GFR (CKD-EPI 2020) 64.23 Glucose 151 H Calcium 8.6 Magnesium 1.7 L Reviewed Pertinent PMH: Yes Objective Narrative Objective Narrative: echocardiogram 11/09 showed LVEF 55-60%, normal function. Moderate TR and MR, RVSP 28, dilated LA Time Spent with Patient Time Spent with Patient: 35-49 minutes Time was spent: preparing to see the patient(eg.review tests), obtaining and/or reviewing separately otained hiistory, ordering medications,tests, procedures, referring, communicating with other health childcare attendant, indepentently interpreting results, counseling the patient and care coordination
[2023-11-11] MEDS: MAGNESIUM SULFATE 1 GM/100 ML BAG IVINF (11:57)
[2023-11-11] MEDS: Acetaminophen 325 MG TAB PO (19:08)
[2023-11-11] MEDS: LORazepam 1 MG TAB PO (20:52)
[2023-11-12] VITALS (29 sets, daily range): BP systolic 113–136; BP diastolic 71–92; PULSE 63–123; RESP 14–33; TEMP 36.3–37.1; O2SAT 83–97
[2023-11-12] MEDS: Normal Saline Flush 10 ML SYR IVP ×2 (00:24→23:54)
[2023-11-12] MEDS: Metoprolol 25 MG TAB PO (02:11)
--- NOTE | 2023-11-12 02:19 | NUR.NOTE ---
Nursing Note: Patient has scheduled oral Lopressor due at this time, noted to have increased heart rate into the 130's just paroxysmal prior to scheduled dose. Offered toileting and HOB elevated for patient to take medication.
[2023-11-12] MEDS: Acetaminophen 325 MG TAB PO (03:33)
[2023-11-12] MEDS: AMPICILLIN/SULBACTAM 1.5 GM in Normal Saline 50 ML IVPB ×4 (05:30→23:55)
[2023-11-12 07:06] LABS: Anion Gap 8.9 mmol/L (3-11); BUN 18 mg/dL (7-18); CO2 25.1 mmol/L (21.0-32.0); Calcium 8.7 mg/dL (8.5-10.1); Chloride 103 mmol/L (98-107); Glucose 150 mg/dL (74-106); Magnesium 1.9 mg/dL (1.8-2.4); Potassium 3.8 mmol/L (3.5-5.1); Sodium 137 mmol/L (136-145)
[2023-11-12] MEDS: Rivaroxaban 10 MG TABLET 20 MG PO (08:42)
[2023-11-12] MEDS: Calcium 600mg/Vit D 200U TAB 1 TAB PO (08:43)
[2023-11-12] MEDS: Citalopram 20 MG TAB PO (08:43)
[2023-11-12] MEDS: Cholecalciferol (Vitamin D3) 1,000 UNIT TAB 1000 UNITS PO (08:43)
[2023-11-12] MEDS: Meloxicam 15 MG TAB 7.5 MG PO (08:43)
[2023-11-12] MEDS: Rosuvastatin 20 MG TAB PO (08:43)
[2023-11-12] MEDS: Insulin Aspart 300 UNITS/3 ML PEN SC ×4 (08:44→21:13)
--- NOTE | 2023-11-12 10:04 | PGE_ITS ---
Date of Service Date of service: 11/12/23 Time of Service: 08:30 Assessment and Plan Assessment and plan (1) Atrial fibrillation with rapid ventricular response: Status: Acute Assessment and plan: -was on amiodarone previously having been discontinued before April when metoprolol was discontinued. -Patient had a fall with right hip fracture in July 2023 when she was found to be in atrial fibrillation again and metoprolol succinate 50 mg daily was re- initiated. Per outpatient record she felt better on this, but was getting HR into the 50s and this was being held at least some doses prior to this admission.. -She never stopped her Xarelto treatment. -in ED was initiated on IV diltiazem with better rate control -also started on PO metoprolol 12.5mg Q6h -dilt drip off late AM 11/09, changed metoprolol to 25mg BID -echocardiogram 11/09 showed LVEF 55-60%, normal function. Moderate TR and MR, RVSP 28, dilated LA -Rate high 11/10 morning so given another dose of 25mg metoprolol tartrate, changed to q6, but missed afternoon dose due to SBP <100 -HR has stablized in 80-110 range, will change to long acting metoprolol at 37.5mg dose (2) TMJ arthritis: Status: Acute Assessment and plan: Patient reports a remote injury, pain on admission, no change in XR. Improved. Qualifiers: Laterality: left Qualified Code(s): M26.642 - Arthritis of left temporomandibular joint (3) Pneumonia: Status: Acute Assessment and plan: Fever and new thick sputum with cough on admission. Seems to be responding to Amp/sulbactam, so I think she had a community acquired pneumonia on admission that contributed to her afib with RVR, even though the admission CXR was negative. Sputum culture pending. - continue amp/sulbactam day #4, plan 5 day course and stop tomorrow. Qualifiers: Lung location: unspecified part of lung (4) Hypomagnesemia: Status: Acute Assessment and plan: -Mildly decreased the patient received magnesium IV repletion in the ED and again 11/10. -normal today (5) Type 2 diabetes mellitus: Status: Chronic Assessment and plan: Not on insulin at home but elevated glucose measurements in the ED. - monitoring fingersticks before meals and bedtime with moderate sliding scale short acting insulin coverage, has been stable in mid 100s Qualifiers: Diabetes mellitus termite control technician insulin use: without termite control technician use Diabetes mellitus complication status: with kidney complications Diabetes mellitus complication detail: with chronic kidney disease Chronic kidney disease stage: stage 3 (moderate) Chronic kidney disease stage 3 subtype: stage 3a (GFR 45-59) Qualified Code(s): E11.22 - Type 2 diabetes mellitus with diabetic chronic kidney disease; N18.31 - Chronic kidney disease, stage 3a (6) Hypertension: Status: Chronic Assessment and plan: - At goal range this morning, transitioning to metoprolol succinate (long acting) - consider resuming lisinopril once metoprolol dose at target, even at very low dose like 2.5mg for renal protection Qualifiers: Hypertension type: primary hypertension Qualified Code(s): I10 - Essential (primary) hypertension (7) Hyperlipidemia: Status: Chronic Assessment and plan: Continue statin without change. Qualifiers: Hyperlipidemia type: mixed hyperlipidemia Qualified Code(s): E78.2 - Mixed hyperlipidemia (8) Acquired hypoprothrombinemia: Status: Chronic Assessment and plan: Reviewing chart, patient has elevated INR chronically with slightly elevated, at these levels this is likely the rivaroxaban. However she has some chronic borderline albumin and AST elevation raising concern for liver dysfunction and fibrosis. This doesn't seem to be evolving so can be addressed as an outpatient. (9) Discharge planning issues: Status: Acute Assessment and plan: To med/surg status today. Concern for deconditioning living along, get PT help to prepare for discharge. Plan to touch base with daughter today. Subjective Subjective Patient reports: tolerating a regular diet; denies diarrhea, nausea or vomiting Interval history since last seen: Events: Second dose of QID metoprolol held due to SBP <100. Got 75mg tartrate Feeling well this morning. No chest pain or shortness of breath. Not dizzy with standing, but she is a little tired. Jaw/face isn't hurting. Isn't coughing any more today or making sputum. Exam Narrative Exam Narrative: Well-appearing older female sitting on bed in no acute distress, ANO x 4. heart irregularly irregular rate about 80, lungs clear to auscultation bilaterally, abdomen soft, nontender, nondistended. Legs not tender and without edema. Objective Last Vital Signs Temp 37.1 C 11/12/23 03:38 Pulse 63 11/12/23 07:18 Resp 27 H 11/12/23 07:18 BP 127/72 11/12/23 07:18 Pulse Ox 83 L 11/12/23 07:18 Laboratory Results - last 24 hr 11/12/23 06:10 Sodium 137 Potassium 3.8 Chloride 103 Carbon Dioxide 25.1 Anion Gap 8.9 BUN 18 Creatinine 1.0 Est GFR (CKD-EPI 2020) 56.60 Glucose 150 H Calcium 8.7 Magnesium 1.9 Time Spent with Patient Time Spent with Patient: 35-49 minutes Time was spent: preparing to see the patient(eg.review tests), obtaining and/or reviewing separately otained hiistory, ordering medications,tests, procedures, referring, communicating with other health hospice care consultant, indepentently interpreting results and counseling the patient
[2023-11-12] MEDS: Metoprolol CR 25 MG TABCR 37.5 MG PO (11:02)
[2023-11-12] MEDS: LORazepam 1 MG TAB PO (21:12)
[2023-11-13] MEDS: Normal Saline Flush 10 ML SYR IVP ×2 (05:47→07:36)
[2023-11-13] MEDS: AMPICILLIN/SULBACTAM 1.5 GM in Normal Saline 50 ML IVPB ×2 (05:47→12:03)
[2023-11-13] MEDS: Cholecalciferol (Vitamin D3) 1,000 UNIT TAB 1000 UNITS PO (07:37)
[2023-11-13] MEDS: Meloxicam 15 MG TAB 7.5 MG PO (07:37)
[2023-11-13] MEDS: Metoprolol CR 25 MG TABCR 37.5 MG PO (07:37)
[2023-11-13] MEDS: Insulin Aspart 300 UNITS/3 ML PEN SC ×2 (07:37→12:11)
[2023-11-13] MEDS: Rosuvastatin 20 MG TAB PO (07:37)
[2023-11-13] MEDS: Calcium 600mg/Vit D 200U TAB 1 TAB PO (07:37)
[2023-11-13] MEDS: Rivaroxaban 10 MG TABLET 20 MG PO (07:38)
[2023-11-13] MEDS: Acetaminophen 325 MG TAB PO (07:38)
[2023-11-13] MEDS: Citalopram 20 MG TAB PO (07:38)
[2023-11-13 07:41] VITALS: BP 107/91; PULSE 100; RESP 14; TEMP 36.8; O2SAT 96
--- NOTE | 2023-11-13 11:33 | PT.INIE ---
PT Notes Visit Reasons: Atrial Fibrillation with Rapid Ventricular Respons Physical Therapy Inpatient Initial Evaluation Date: 11/13/2023 Referring Doctor: Wyatt Chatterjee MD PT Orders: PT CONSULT: Safety Consult for D/C. Lives alone, concern for mobility/fall risk, pending discharge 11/12 Precautions: Fall. Standard. Activity as tolerated. Patient Profile/Admitting Diagnosis: Drea is an 83-year-old female who presented to the ED on 11/08/2022 due to 2 days of progressive worsening generalized weakness, cough, and low-grade fever. Patient is admitted [facility] of care for management of AF with RVR, TMJ arthritis, URI, hypomagnesemia, and hyperlipidemia. PMHX: All Active Problems (Updated 11/10/23 @ 05:50 by Shoaib Dozier) Hypomagnesemia (Acute) URI, acute (Acute) TMJ arthritis (Acute) Acquired hypoprothrombinemia (Chronic) Atrial fibrillation with rapid ventricular response (Acute) Encounter for medication monitoring (Acute) Lumbar spinal stenosis (Acute) Trochanteric bursitis, left hip (Acute) Central stenosis of spinal canal (Acute) Chest pain at rest (Acute) Diverticula of colon (Acute) Incomplete rectal prolapse (Acute) Normal colonoscopy (Acute ~12/14/21) hemorrhoid banding severe diverticula Atrial flutter (Acute) Hypertension (Chronic) Hyperlipidemia (Chronic) Ventricular ectopic activity (Acute) Cataract (Chronic) Type 2 diabetes mellitus (Chronic) Sleep disturbance (Acute) Dyspnea on exertion (Acute) Anxiety (Chronic) Atrial fibrillation (Chronic) Shortness of breath (Acute) High risk medication use (Acute) Hematochezia (Acute) Anemia (Chronic) Medical History (Updated 11/10/23 @ 05:50 by Shoaib Dozier) Cataracts, bilateral Adenocarcinoma, breast HX: anticoagulation Diverticular disease Recurrent UTI Sinus bradycardia Osteoarthritis Tremor Gait disturbance, post-stroke Urinary tract infection History of diverticulitis Urinary incontinence Adenocarcinoma of right breast Osteopenia Endometrial carcinoma Surgical History History of mastectomy (~12/22/20) (R)History of colonoscopy (~12/14/21) History of cataract surgery History of cholecystectomy Hx of appendectomy H/O: hysterectomy Social History/Home Situation: Lives alone in a private home. Modified independent with mobility ADL performance using 4 wheeled walker. Son lives 2 hours away and is very much involved with patient's care. Other kids have been very good support offering help with housekeeping, grocery shopping, and laundry. Eddie passed 4 years ago. Equipment Owned/DME: [employer] Subjective: Did not sleep well last night as she needed to be woken up regularly for her pills. Does not feel unsafe with walking this morning. On arrival to hospital, patient was so week to do anything. Denied headache, chest pain, and lightheadedness throughout session. Added that she has already fallen three times in the past year because of a balance issue. Objective: General Observation: Genu vara. IV through L UE. mastetomy scar on R intact and well-healed. Mental Status: Alert and oriented as to person, place, time, and purpose. Able to pay attention, focus, and respond appropriately. Pain: None Vital Signs: BP 132/72 mmHg, SAO2 96% on RA, HR 78 bpm after waling about 125 feet ROM: Right Upper Extremity: Shoulder Flexion WFL. Shoulder abduction WFL. Elbow flexion WFL. Wrist flexion WFL. Functional opening and closing of hand WFL. Left Upper Extremity: Shoulder Flexion WFL. Shoulder abduction WFL. Elbow flexion WFL. Wrist flexion WFL. Functional opening and closing of hand WFL. Right Lower Extremity: Hip flexion WFL. Hip abduction WFL. Knee flexion WFL. Ankle dorsiflexion WFL. Ankle plantarflexion WFL. Left Lower Extremity: Hip flexion WFL. Hip abduction WFL. Knee flexion WFL. Ankle dorsiflexion WFL. Ankle plantarflexion WFL. Strength: Right Upper Extremity: Shoulder flexors 4-/5. Shoulder abductors 4-/5. Elbow flexors 4-/5. Elbow extensors 4-/5. Books Binder strong. Left Upper Extremity: Shoulder flexors 4-/5. Shoulder abductors 4-/5. Elbow flexors 4-/5. Elbow extensors 4-/5. Books Binder strong. Right Lower Extremity: Hip flexors 4-/5. Hip abductors 4-/5. Knee flexors 4-/5. Knee extensors 4-/5. Ankle dorsiflexors 4-/5. Ankle plantarflexors 4-/5. Left Lower Extremity: Hip flexors 4-/5. Hip abductors 4-/5. Knee flexors 4-/5. Knee extensors 4-/5. Ankle dorsiflexors 4-/5. Ankle plantarflexors 4-/5. Bed Mobility/Transfers: Minimal cueing provided for use of B hands as needed for support, movement sequence, AD management, and posture to reduce fall risk and minimize pain report Rolling independent Supine to sit stand by assist Sit to supine stand by assist Sit to stand stand by assist with FWW Stand to sit stand by assist with FWW Bed to toilet seat stand by assist with FWW Toilet seat to bedside chair stand by assist with FWW Gait: Facilitated safe and correct performance of level surface ambulation covering a distance of 150 feet +100 feet using front wheeled walker with decreased gait speed, step to gait pattern, and decreased B hip and knee extension as well as internal rotation due to pre-existing genu vara. Balance: Static Sitting: Normal Dynamic Sitting: Normal Static Standing: Fair Dynamic Standing: Fair Special Tests: Mobility Limitations Standardized Measure [facility] 6 clicks Basic Mobility Inpatient Short Form: Raw Score: 23 CMS Score: 11% deficit Informed Consent/Education: Patient was instructed in purpose of PT consult and plan of care. Agreeable to proceed with established PT POC to achieve personal goals. 4-Stage Balance Test: Feet together 10 seconds Semi-tandem <10 seconds Full tandem unable One-legged stance unable Assessment: Patient presents with clinical signs and symptoms consistent with current/admitting diagnoses that have resulted to mobility limitations, gait instability, generalized weakness, and overall ADL decline as demonstrated by the following impairment level findings: 1. Decreased strength to B UE/LE major muscle groups 2. Impaired standing balance 3. Impaired activity tolerance 4. 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 Decline in bed mobility skills 2. Decline in transfer skills 3. Difficulty with ambulation without assistive device 4. Increased completion time for mobility ADL performance 5. Increased risk for falls 6. Difficulty with managing steps alone safely Patient is assessed as a 9762 moderate complexity based on the following: History: 83-year-old femae with past medical history as indicated above Examination: Demonstrable impairment in strength, balance, and mobility level with underlying impairments and functional limitations as exhibited above as well as deficit score of 11% utilizing the [facility] Mobility Inpatient Short Form Presentation: Stable Decision Makin moderate complexity Goals: Goals X1 week 1. Supine-Sit independent 2. Sit-Supine independent 3. Sit-Stand independent 4. Stand-Sit independent with FWW 5. Bed-Chair independent with FWW 6. Chair-Bed independent with FWW 7. Independent gait on level surface with use of FWW for at least 300 feet without report of pain nor dyspnea 8. Independent stair negotiation while holding onto B rails for at least 2 steps without report of pain nor dyspnea 9. Independent with home exercise program 10. Good static and dynamic standing balance/tolerance Plan of Care/Treatment Plan: 1-2x/day, 7 days/week x 1 week. Plan of care has been reviewed with the POISON INFORMATION SPECIALIST providing the service under Physical Therapy direction. Initiate Physical Therapy intervention for pain management as needed, strengthening, bed mobility, transfers, gait, stairs, balance training, and use of assistive device. DISCHARGE RECOMMENDATIONS: Home with no services [] [X] Home with services. Patient will benefit from home health PT services in order to progress mobility level using least restrictive assistive ambulatory device, assess home safety, identify additional equipment needs, and establish a functional maintenance program that will increase ability of patient to remain at home. [] Home with outpatient PT [] [] SNF for continued rehabilitation [] [] [facility] Taker Care [] [] SNF versus LTC based on ability to participate and progress [] TREATMENT CODE/TIME: 9716 2 x 20 minutes for 1 unit, 9753 0 x 10 minutes for 1 unit (11:33-12:03). Thank you for the opportunity to participate in the care of this patient. Marie Swartz PT, DPT, CLT [facility] [place], [place]
--- NOTE | 2023-11-13 11:42 | CMPROGNOTE_ITS ---
Date of service: 11/13/23 Care Management Progress Note Progress Note Text Progress Note Text: S/O: Drea was sitting up in bed when talking with CM. Drea reported she would like to go home but she is still being monitored. Per MD anticipated discharge would be for 11/14/23. Drea shared her son has taken some time from work to see her and provide transportation when needed. She shares both her son and daughter are very supportive and visit often. She shares she has lives 40+ years in [facility] and likes it there very much. CM following. A: Drea is an 83 year old admitted to [facility] for atrial fibrillation with rapid ventricular. P: Drea will discharge home when medically cleared. She will transport via private vehicle by family. She will follow up with her PCP and discharge plan of care. She will attend her scheduled cardiac appointment 11/15/23 at [facility]. CM following. SDOH(Care Management) Screening Will the Patient Participate in the Screening?: Yes Do you worry about having a steady place to live?: yes In the past 12 months, have you had to go without electric, gas, oil or water in your home?: no Have you or anyone in your house had to go without enough food to eat?: no Has lack of transportation kept you from medical appointments or from doing things needed for daily living?: no Has anyone in your support network made you feel unsafe for any reason?: no Health Related Social Needs Health related social needs: housing instability, housed, with risk of homelessness(Z59.811)
[2023-11-13 12:05] VITALS: BP 130/88; PULSE 89; RESP 16; TEMP 36.5; O2SAT 98
--- NOTE | 2023-11-13 15:04 | PT.INTREAT ---
PT Notes Visit Reasons: Atrial Fibrillation with Rapid Ventricular Respons Physical Therapy Inpatient Treatment Note Date: 11/13/2023 Precautions: Fall. Standard. Activity as tolerated. Subjective: Happy about being able to go home home tomorrow morning. Agreeable to doing bed level and seated exercises before doing the walk. Objective: General Observation: Genu vara. IV through L UE. mastetomy scar on R intact and well-healed. Mental Status: Alert and oriented as to person, place, time, and purpose. Able to pay attention, focus, and respond appropriately. Pain: None Vital Signs: BP 132/72 mmHg, SAO2 96% on RA, HR 78 bpm after waling about 125 feet THERA EX: Trained patient with correct performance of exercises below to maximize motor control, joint flexibility, soft tissue extensibility of the B LE musculature to facilitate return to independent functional mobility performance. Access Code: [email or web address] URL: [email or web address] Date: 11/13/2023 Prepared by: Marie Swartz Exercises - Gluteal Sets - 1 x daily - 7 x weekly - 1 sets - 10 reps - 5 hold - Supine Heel Slide - 1 x daily - 7 x weekly - 1 sets - 10 reps - 5 hold - Supine Ankle Pumps - 1 x daily - 7 x weekly - 1 sets - 10 reps - 5 hold - Seated March - 1 x daily - 7 x weekly - 1 sets - 10 reps - 5 hold - Seated Long Arc Quad - 1 x daily - 7 x weekly - 1 sets - 10 reps - 5 hold Bed Mobility/Transfers: Minimal cueing provided for use of B hands as needed for support, movement sequence, AD management, and posture to reduce fall risk and minimize pain report Supine to sit stand by assist Sit to stand stand by assist with FWW Stand to sit stand by assist with FWW Bed to toilet seat stand by assist with FWW Toilet seat to bedside chair stand by assist with FWW Gait: Facilitated safe and correct performance of level surface ambulation covering a distance of 250 feet using front wheeled walker with increased gait speed compared to this morning. Stand by assist only. Balance: Static Sitting: Normal Dynamic Sitting: Normal Static Standing: Fair Dynamic Standing: Fair Assessment: Covered a longer distance without needing to sit down compared to this morning, just two brief 30 second standing rests for deeep breathing. No pain report nor chest discomfort. Performed safe bed level and seated exerecises without undue discomfort. Plan of Care/Treatment Plan: 1-2x/day, 7 days/week x 1 week. Plan of care has been reviewed with the SHUTTLE FINAL INSPECTOR providing the service under Physical Therapy direction. Initiate Physical Therapy intervention for pain management as needed, strengthening, bed mobility, transfers, gait, stairs, balance training, and use of assistive device. DISCHARGE RECOMMENDATIONS: Home with no services [] [X] Home with services. Patient will benefit from home health PT services in order to progress mobility level using least restrictive assistive ambulatory device, assess home safety, identify additional equipment needs, and establish a functional maintenance program that will increase ability of patient to remain at home. [] Home with outpatient PT [] [] SNF for continued rehabilitation [] [] Group Home Care [] [] SNF versus LTC based on ability to participate and progress [] TREATMENT CODE/TIME: 18997 x 14 minutes for 1 unit, 08614 x 10 minutes for 1 unit (11:33-12:03).
[2023-11-13 15:20] VITALS: BP 123/81; PULSE 78; RESP 17; TEMP 36.1; O2SAT 97
--- NOTE | 2023-11-13 15:59 | W.PM.DS.N ---
Date of service: 11/13/23 Time of Service: 03:30 DS: Diagnosis Discharge Diagnosis (1) Atrial fibrillation with rapid ventricular response: Status: Acute Asessment and Plan: -was on amiodarone previously having been discontinued before April when metoprolol was discontinued. -Patient had a fall with right hip fracture in July 2023 when she was found to be in atrial fibrillation again and metoprolol succinate 50 mg daily was re-initiated. Per outpatient record she felt better on this, but was getting HR into the 50s and this was being held at least some doses prior to this admission.. -She never stopped her Xarelto treatment. -in ED was initiated on IV diltiazem with better rate control -also started on PO metoprolol 12.5mg Q6h -dilt drip off late AM 11/09, changed metoprolol to 25mg BID -echocardiogram 11/09 showed LVEF 55-60%, normal function. Moderate TR and MR, RVSP 28, dilated LA -Rate high 11/10 morning so given another dose of 25mg metoprolol tartrate, changed to q6h, but missed afternoon dose due to SBP <100 so got total of 75mg tatrate. -HR has stablized in 80-110 range, will change to long acting metoprolol at 37.5mg dose. Tolerated this well with good exercise tolerance. (2) TMJ arthritis: Status: Acute Asessment and Plan: Patient reports a remote injury, pain on admission, no change in XR. Improved. (3) Pneumonia: Status: Acute Asessment and Plan: Fever and new thick sputum with cough on admission. Seems to be responding to Amp/sulbactam, so I think she had a community acquired pneumonia on admission that contributed to her afib with RVR, even though the admission CXR was negative. Sputum culture pending. - s/p amp/sulbactam day 5, can stop upon discharge (4) Hypomagnesemia: Status: Acute Asessment and Plan: normalized after IV mag (5) Type 2 diabetes mellitus: Status: Chronic Asessment and Plan: stable (6) Acquired hypoprothrombinemia: Status: Chronic Asessment and Plan: Reviewing chart, patient has elevated INR chronically with slightly elevated, at these levels this is likely the rivaroxaban. However she has some chronic borderline albumin and AST elevation raising concern for liver dysfunction and fibrosis. This doesn't seem to be evolving so can be addressed as an outpatient. Discharge Plan Disposition Patient Disposition: Home W/Home Health Services Condition: Improving Discharge Details Reason For Visit: Atrial Fibrillation with Rapid Ventricular Respons Admit Date/Time: 11/09/23 21:36 Admit Provider: Wyatt Chatterjee Attending Provider: Wyatt Chatterjee Primary Care Provider: Marilou Bass Hospital Course Hospital Course: 83 yo F with history of atrial fibrillation on rivaroxaban and metoprolol who presented with atrial fibrillation with RVR in the setting of cough and chest congestion. She was admitted and rate controlled with IV diltiazem, though BP was low on this medicatoin. She was transitioned back to metoprolol. Reviewing the record, she had difficult tolerating 50mg metoprolol succinate due to low pulses and some orthostatic symptoms. She ended up on 37.5mg metoprolol succinate daily with good rate control. She walked around the floor with PT without difficulty on day of discharge, recommendations for ongoing home health made by PT. She has follow up with cardiology. She had some dental/jaw pain on admission and had an XR of the TMJ which was unchanged from previous. She was started on amp/sulbactam intially over concern for dental vs sinsu infection with the facial pain. The pain resolved and her sputum cleared so this was continued. These symtpoms were improved x 48 hours by the time of discharge, so the antibiotic was stopped at discharge. Home Meds and New Rx's Prescriptions: New metoprolol succinate 25 mg Tablet Extended Release 24 Hr 37.5 mg PO DAILY Qty: 45 0RF Continued lisinopril 10 mg tablet 10 mg PO DAILY letrozole [Femara] 2.5 mg tablet 2.5 mg PO DAILY Hold Instructions: Changed by Provider acetaminophen [Tylenol Extra Strength] 500 mg tablet 500 mg PO Q6H PRN cholecalciferol (vitamin D3) 25 mcg (1,000 unit) capsule 25 mcg PO DAILY calcium carbonate-vitamin D3 [Calcium 600 with Vitamin D3] 600 mg(1,500mg) -500 unit capsule 1 cap PO DAILY Januvia 50 mg tablet 50 mg PO DAILY Xarelto 20 mg tablet 20 mg PO DAILY Prolia 60 mg/mL syringe 60 mg subcut [id number] meloxicam 7.5 mg tablet 7.5 mg PO DAILY lorazepam 1 mg tablet 1 mg PO QHS PRN Rx Instructions: take 1-2 hs prn citalopram 20 MG tablet 20 mg PO DAILY rosuvastatin [Crestor] 20 MG tablet 20 mg PO DAILY Discontinued metoprolol succinate 50 mg tablet extended release 24 hr 50 mg PO DAILY Discharge Instructions Instructions: A-fib (Atrial Fibrillation) (DC) Stand Alone Forms: Nursing Discharge Form Referrals: Marilou Bass [Primary Care Provider] - 11/22/23 11:00 am Activity:: Activity as Tolerated Equipment/Supplies:: Walker Diet:: As Tolerated Discharge Orders Discharge Orders: Discharge Order (Routine); Ordered 11/13/23 Ordered By: Wyatt Chatterjee DS: Summary Time Spent with Patient providing and/or coordinating discharge services: Greater than 30 minutes Status at Discharge Functional status at discharge: uses cane/walker Overall status at discharge: patient is back to baseline Mental Status: mental status grossly normal Speech and Movement: speech and movement normal Mood: congruent mood Affect: normal affect Quality:SDOH Health Related Social Needs: Health related social needs risk of homeless Exam Narrative Exam Narrative: Well-appearing older female sitting on bed in no acute distress, ANO x 4. heart irregularly irregular rate about 80, lungs clear to auscultation bilaterally, abdomen soft, nontender, nondistended. Legs not tender and without edema. Psych Mental Status: mental status grossly normal Speech and Movement: speech and movement normal Mood: congruent mood Affect: normal affect DS: Data Vitals/I&O Vitals and I&O: Vital Signs Temperature 36.1 C L 11/13/23 15:20 Temperature Source Tympanic 11/13/23 15:20 Pulse 78 11/13/23 15:20 Pulse Rhythm Irregular 11/13/23 07:40 Pulse 94 H 11/12/23 12:30 Respiratory Rate 17 11/13/23 15:20 Respiratory Effort Normal, Non-Labored 11/13/23 07:40 Respiratory Depth Normal 11/13/23 07:40 Respiratory Pattern Normal 11/13/23 07:40 Blood Pressure 123/81 11/13/23 15:20 Blood Pressure Mean 88 11/12/23 07:18 Blood Pressure Position Supine 11/12/23 03:49 Pulse Oximetry 97 11/13/23 15:20 Oxygen Delivery Method Room Air 11/13/23 15:20 Oxygen Flow Rate 0 11/13/23 15:20 Pain Level 0 11/13/23 15:20 Comment Scheduled Metoprolol given 25mg 11/12/23 02:14 Intake & Output 11/12/23 11/13/23 11/13/23 23:59 11:59 23:59 Intake Total 1367.5 / 1907.5 350 / 350 Output Total 300 / 1050 Balance 1067.5 / 857.5 350 / 350 Weight 66.27 kg Intake: IV 637.5 / 737.5 100 / 100 Oral 730 / 1170 250 / 250 Output: Urine 300 / 1050 Other: Urine Color Yellow Yellow Urine Appearance Clear Clear Urine Odor None Normal Comment Patient urinated in toilet pt voided, no hat. Stool Size Small Stool Characteristics Formed Hard Taylor Voiding Methods Bedside Commode Toilet Data Completed and Pending Labs on day of discharge: Preliminary micro results at discharge 11/11/23 17:00 Sputum Culture - Preliminary Sputum Gram Negative [place] 11/09/23 21:52 Blood Culture - Preliminary Blood NO GROWTH 72 HOURS 11/09/23 20:30 Blood Culture - Preliminary Blood NO GROWTH 72 HOURS PFSH All Active Problems (Updated 11/13/23 @ 15:27 by Wyatt Chatterjee) Discharge planning issues (Acute) Pneumonia (Acute) Hypomagnesemia (Acute) TMJ arthritis (Acute) Acquired hypoprothrombinemia (Chronic) Atrial fibrillation with rapid ventricular response (Acute) Encounter for medication monitoring (Acute) Lumbar spinal stenosis (Acute) Trochanteric bursitis, left hip (Acute) Central stenosis of spinal canal (Acute) Chest pain at rest (Acute) Diverticula of colon (Acute) Incomplete rectal prolapse (Acute) Normal colonoscopy (Acute ~12/14/21) hemorrhoid banding severe diverticula Atrial flutter (Acute) Hypertension (Chronic) Hyperlipidemia (Chronic) Ventricular ectopic activity (Acute) Cataract (Chronic) Type 2 diabetes mellitus (Chronic) Sleep disturbance (Acute) Dyspnea on exertion (Acute) Anxiety (Chronic) Atrial fibrillation (Chronic) Shortness of breath (Acute) High risk medication use (Acute) Hematochezia (Acute) Anemia (Chronic) Medical History (Updated 11/13/23 @ 15:27 by Wyatt Chatterjee) Cataracts, bilateral Adenocarcinoma, breast HX: anticoagulation Diverticular disease Recurrent UTI Sinus bradycardia Osteoarthritis Tremor Gait disturbance, post-stroke Urinary tract infection History of diverticulitis Urinary incontinence Adenocarcinoma of right breast Osteopenia Endometrial carcinoma Surgical History History of mastectomy (~12/22/20) (R) History of colonoscopy (~12/14/21) History of cataract surgery History of cholecystectomy Hx of appendectomy H/O: hysterectomy Family History Maternal Aunt Breast cancer Niece Breast cancer Niece Lung cancer Social History Smoking/Tobacco Use Status: Former Tobacco Use Quit Date: 03/31/69 Tobacco: How many years used: 10 Smoking risk assessment performed?: Yes Alcohol Intake: never Drug use: Never Substance use type: does not use Housing: house What type of physical activity do you participate in: none and independent ambulation Do you feel safe at home: Yes Do you feel safe in your relationship?: Yes Time Spent with Patient Time Spent with Patient: <45 minutes Time was spent: preparing to see the patient(eg.review tests), obtaining and/or reviewing separately otained hiistory, ordering medications,tests, procedures, referring, communicating with other health regular senior care provider, indepentently interpreting results, counseling the patient and care coordination
--- NOTE | 2023-11-13 16:02 | CCONE_ITS ---
Date of service: 11/13/23 Time of Service: 12:15 History of Present Illness Narrative: This is an 83-year-old woman who has atrial fibrillation/flutter. Her hospital course has been notable for elevated heart rates difficult to control. For quite some time she was on amiodarone but in the fall 2022 had junctional rhythm (asymptomatic) and amiodarone was discontinued. Apparently also her beta- clovis was discontinued that when she was hospitalized in July with a fractured hip she had recurrent atrial fibrillation My impression at this point is that if she remains tachycardic on metoprolol, to restart amiodarone 200 mg daily, and reduce the beta-clovis but not necessarily discontinue it. She has outpatient follow-up scheduled. At the time of my interview today she said she was able to walk around the halls without undue shortness of breath PFSH All Active Problems (Updated 11/13/23 @ 15:27 by Wyatt Chatterjee) Discharge planning issues (Acute) Pneumonia (Acute) Hypomagnesemia (Acute) TMJ arthritis (Acute) Acquired hypoprothrombinemia (Chronic) Atrial fibrillation with rapid ventricular response (Acute) Encounter for medication monitoring (Acute) Lumbar spinal stenosis (Acute) Trochanteric bursitis, left hip (Acute) Central stenosis of spinal canal (Acute) Chest pain at rest (Acute) Diverticula of colon (Acute) Incomplete rectal prolapse (Acute) Normal colonoscopy (Acute ~12/14/21) hemorrhoid banding severe diverticula Atrial flutter (Acute) Hypertension (Chronic) Hyperlipidemia (Chronic) Ventricular ectopic activity (Acute) Cataract (Chronic) Type 2 diabetes mellitus (Chronic) Sleep disturbance (Acute) Dyspnea on exertion (Acute) Anxiety (Chronic) Atrial fibrillation (Chronic) Shortness of breath (Acute) High risk medication use (Acute) Hematochezia (Acute) Anemia (Chronic) Medical History (Updated 11/13/23 @ 15:27 by Wyatt Chatterjee) Cataracts, bilateral Adenocarcinoma, breast HX: anticoagulation Diverticular disease Recurrent UTI Sinus bradycardia Osteoarthritis Tremor Gait disturbance, post-stroke Urinary tract infection History of diverticulitis Urinary incontinence Adenocarcinoma of right breast Osteopenia Endometrial carcinoma Surgical History History of mastectomy (~12/22/20) (R) History of colonoscopy (~12/14/21) History of cataract surgery History of cholecystectomy Hx of appendectomy H/O: hysterectomy Family History Maternal Aunt Breast cancer Niece Breast cancer Niece Lung cancer Social History Smoking/Tobacco Use Status: Former Tobacco Use Quit Date: 03/31/69 Tobacco: How many years used: 10 Smoking risk assessment performed?: Yes Alcohol Intake: never Drug use: Never Substance use type: does not use Housing: house What type of physical activity do you participate in: none and independent ambulation Do you feel safe at home: Yes Do you feel safe in your relationship?: Yes Results Last Vital Signs Temp 36.1 C L 11/13/23 15:20 Pulse 78 11/13/23 15:20 Resp 17 11/13/23 15:20 BP 123/81 11/13/23 15:20 Pulse Ox 97 11/13/23 15:20 Labs 11/10/23 06:00 11/12/23 06:10
--- NOTE | 2023-11-13 16:07 | PDOC.HHF2F ---
Home Health Referral Home Health Orders Clinical synopsis of why skilled professionals are needed: 83 yo F who lives alone, with history of lumbar stenosis, admitted with respiratory infection with atrial fibrillation. History of falls. Medical diagnosis necessitation home health referral: atrial fibrillation, pneumonia, fall risk Registered Nurse: Check all that apply Instruct on new or changed medication(s)/assess compliance: Ordered Other: Hypertensive in hospital; recommend trending and follow up with PCP for medication recommendations. Physical Therapist: Check all that apply Increase strength & endurance for safe mobility at home: Ordered To design/establish home maintenance program: Ordered Fall reduction therapy program for patient with history of frequent falls: Ordered Home safety evaluation and teaching/gait training including stair management (if applicable): Ordered Upset Operator: Assist with community resources: Ordered Assist with termite helper care planning: Ordered Other: Daughter would like assistance finder her residential care. Home Bound Status Requires the aid of supportive device (check all that apply): Walker Assistance of another person (Describe assistance and medical necessity): dependent on family for transportation Describe why leaving home would require a considerable and taxing effort: Requires frequent rest periods Encounter Date and Reason: I certify that a FTF encounter for this patient was performed on November 13, 2023 and that such encounter was related to the primary reason the patient requires home health services. The encounter was conducted in the following manner: By me as the certifying physician, SOAP DRIER OPERATOR, PA or By an inpatient physician, SOAP DRIER OPERATOR or PA during an inpatient stay who communicated findings to me, Certification And Authentication I certify that I composed the above information based on my clinical judgment relating to this patient's medical condition and, if applicable, clinical findings communicated to me by the NPP or inpatient physician who performed the FTF encounter. Name of Provider that will be monitoring home health services: Marilou Bass
== END 2023-11-13 20:15 | disposition home health service (06) | DRG 308 ==
LOC: ER 21:57 → ICU 23:29 → MS 11-12 12:57
PROVIDERS: Family Medicine; Admitting Provider Family Medicine; Emergency Provider Emergency Medicine; PCP Physician Assistant; Visit Provider Family Medicine
DX: I48.91 Unspecified atrial fibrillation (principal); J18.9 Pneumonia, unspecified organism; D68.4 Acquired coagulation factor deficiency; M26.642 Arthritis of left temporomandibular joint; E11.22 Type 2 diabetes mellitus with diabetic chronic kidney disease; E83.42 Hypomagnesemia; I12.9 Hypertensive chronic kidney disease with stage 1 through stage 4 chronic kidney disease, or unspecified chronic kidney disease; N18.31 Chronic kidney disease, stage 3a; E78.2 Mixed hyperlipidemia; I48.92 Unspecified atrial flutter; M48.00 Spinal stenosis, site unspecified; M70.62 Trochanteric bursitis, left hip; K57.30 Diverticulosis of large intestine without perforation or abscess without bleeding; D64.9 Anemia, unspecified; F41.9 Anxiety disorder, unspecified; Z79.899 Other long term (current) drug therapy; Z85.3 Personal history of malignant neoplasm of breast; Z66 Do not resuscitate; Z79.01 Long term (current) use of anticoagulants; E11.65 Type 2 diabetes mellitus with hyperglycemia
CPT/HCPCS: 00123; 36415; 80048; 80053; 84145; 85027; 87040; 87077; 87637; 93005; 96365; 96366; 96367; 97110; 97162; 97530; 99221; 99291; 70486; 71045; 83735; 83880; 84443; 84484; 85025; 85610; 85730; 87070; 87186; 87205; 93010; 93306; 99223; 99232; 99233; 99238; J0295; J1815; J3475; J3490

== ENCOUNTER → 2023-11-13 11:07 | Outpatient (BNVA) | payer MEDICARE, OTHER, SELFPAY | PROVIDERS: PCP Physician Assistant; Referring Provider Physician Assistant; Visit Provider Internal Medicine Cardiovascular Disease ==

== ENCOUNTER 2023-11-21 02:31 | Inpatient (IN) | payer MEDICARE, OTHER, SELFPAY ==
[2023-11-21] VITALS (93 sets, daily range): BP systolic 64–173; BP diastolic 17–146; PULSE 49–139; RESP 0–30; TEMP 36.8–37.8; O2SAT 90–100
--- NOTE | 2023-11-21 02:45 | DI.RAD_ITS ---
Exam(s) XR CHEST 2V PA LATERAL EXAM: XR CHEST 2V PA LATERAL CLINICAL HISTORY: short of breath TECHNIQUE: 2D digital imaging was performed. Two views. COMPARISON: CR,XR XR PORTABLE CHEST AP from 11/09/2023 FINDINGS: HEART: Enlarged, unchanged. Aorta: Not dilated. PULMONARY VASCULATURE: Normal. LUNGS: Clear. PLEURAL SPACE: No pleural effusion or pneumothorax. BONE:Unremarkable for age. Soft tissues: Unremarkable. IMPRESSION: No acute abnormality. DATA REPOSITORY: RADIATION DOSE DELIVERED:
--- NOTE | 2023-11-21 02:45 | RT.EKG_ITS ---
APPROVED REPORT Exam: Resting ECG Reason for Exam: short of breath Patient Location: E HR:57 bpm ECG Measurements Heart Rate 57 AXIS AZ 190 P 65 QRSd 90 QRS 58 QT 464 T 47 QTc 452 Conclusion Sinus bradycardia...rate< 60 Probable LVH with secondary repol abnrm...multiple LVH criteria appropriate intervals no st segment or t wave abnormalities to suggest occlusive mi
--- NOTE | 2023-11-21 03:29 | W.ED.GENAD ---
Discharge Plan Discharge Details Chief Complaint: SOB Primary Care Provider: Marilou Bass ED Provider: Brenda Bueno Home Meds and New Rx's Prescriptions: No Action lisinopril 10 mg tablet 10 mg PO DAILY letrozole [Femara] 2.5 mg tablet 2.5 mg PO DAILY Hold Instructions: Changed by Provider acetaminophen [Tylenol Extra Strength] 500 mg tablet 500 mg PO Q6H PRN cholecalciferol (vitamin D3) 25 mcg (1,000 unit) capsule 25 mcg PO DAILY calcium carbonate-vitamin D3 [Calcium 600 with Vitamin D3] 600 mg(1,500mg) -500 unit capsule 1 cap PO DAILY Januvia 50 mg tablet 50 mg PO DAILY Xarelto 20 mg tablet 20 mg PO DAILY Prolia 60 mg/mL syringe 60 mg subcut [id number] meloxicam 7.5 mg tablet 7.5 mg PO DAILY lorazepam 1 mg tablet 1 mg PO QHS PRN Rx Instructions: take 1-2 hs prn citalopram 20 MG tablet 20 mg PO DAILY rosuvastatin [Crestor] 20 MG tablet 20 mg PO DAILY metoprolol succinate 25 mg Tablet Extended Release 24 Hr 37.5 mg PO DAILY Qty: 45 0RF HPI General Mode of arrival: ambulatory. Date/Time Provider Initiated Documentation: 11/21/23 02:46. Limitations to Documentation: no limitations. Information obtained by: patient and old records reviewed. HPI Narrative: 83yo F with hx afib, T2DM, HTN, HLD, anemia, presenting for shortness of breath. Reports feeling chronically short of breath, intermittent, for many years. Recent [facility] admission for this with lots of tests but they never find anything. Also feels generally weak all over. Tonight when trying to get out of bed slid off the bed onto the floor and landed on her buttocks. Denies pain or injury from the fall. Did not strike her head. Required assistance from family to get back up. Shortness of breath not acutely worse today, she reports that her daughter is concerned that she might have pneumonia and so this prompted her presenation to the ED tonight. Does have a persistent cough x many weeks. Some mild nausea, no vomiting. No chest pain, abdominal pain, dysuria, hematuria, constipation, diarrhea, or melena. No fevers, chills, rash, lightheadedness, presycnope, vertigo, numbness, tingling, focal weakness, or other concerns. Related Data Home Medications Medication Instructions Recorded Confirmed citalopram 20 mg tablet 20 mg PO DAILY 10/03/17 11/21/23 rosuvastatin 20 mg tablet (Crestor) 20 mg PO DAILY 10/03/17 11/21/23 rivaroxaban 20 mg tablet (Xarelto) 20 mg PO DAILY 04/29/19 11/21/23 lisinopril 10 mg tablet 10 mg PO DAILY 05/05/20 11/21/23 acetaminophen 500 mg tablet 500 mg PO Q6H PRN 09/04/20 11/21/23 (Tylenol Extra Strength) calcium carbonate 600 mg-vitamin 1 cap PO DAILY 09/04/20 11/21/23 D3 12.5 mcg (500 unit) capsule (Calcium 600 with Vitamin D3) cholecalciferol (vitamin D3) 25 25 mcg PO DAILY 09/04/20 11/21/23 mcg (1,000 unit) capsule letrozole 2.5 mg tablet (Femara) 2.5 mg PO DAILY 09/04/20 11/21/23 denosumab 60 mg/mL subcutaneous 60 mg subcut [id number] 11/18/21 11/21/23 syringe (Prolia) meloxicam 7.5 mg tablet 7.5 mg PO DAILY 11/02/22 11/21/23 lorazepam 1 mg tablet 1 mg PO QHS PRN 04/03/23 11/21/23 sitagliptin phosphate 50 mg tablet 50 mg PO DAILY 05/01/23 11/21/23 (Januvia) metoprolol succinate 25 mg 37.5 mg (1.5 x 25 mg) PO DAILY #45 11/13/23 11/21/23 tablet,extended release 24 hr tabs Previous Rx's Medication Instructions Recorded metoprolol succinate 25 mg 37.5 mg (1.5 x 25 mg) PO DAILY #45 11/13/23 tablet,extended release 24 hr tabs Allergies Allergy/AdvReac Type Severity Reaction Status Date / Time No Known Allergies Allergy Verified 11/21/23 02:46 General Stated Complaint: SOB REKHA: 3 Review of Systems Narrative: see HPI Exam Narrative Exam Narrative: GENERAL: Alert, no acute distress. SKIN: Warm and well perfused. No rashes, bruises, discolorations or abrasions. HEAD: Atraumatic, normocephalic without edema, discoloration or evidence of trauma. EYES: PERRL. No scleral icterus or conjunctival injection. MOUTH: Moist mucus membranes without blood. NECK: Trachea midline. No discolorations or edema. CV: Regular rate and rhythm, Normal s1 and s2. No murmurs, rubs, or gallops. PV: Radial pulses 2+ bilaterally and symmetric. Dorsalis pedis pulses 2+ bilaterally and symmetric. 2+ capillary refill. Symmetric +1 pitting BLE. CHEST: No abrasions or ecchymosis. Chest symmetric with respirations. No chest wall tenderness. Lungs are clear to auscultation bilaterally. ABDOMEN: No ecchymosis or abrasions. Soft, nondistended, nontender. BACK: No abrasions, skin openings, or ecchymosis. Spine without bony tenderness, no step offs. PELVIC: Pelvis stable, nontender to lateral compression Brief in place. Blanchable erythema to low buttocks. MSK: No gross deformities or discolorations or lesions. Tolerates full range of motion of extremities without tenderness. Neuro: ? GCS 15.? PERRL.? EOMI.? Fluent speech, no dysarthria. Motor- 4+/5 strength symmetric bilateral upper and lower extremities Sensation- ?Intact to light touch and symmetric multiple dermatomes including upper and lower extremities Coordination- No dysmetria on finger to nose CRANIAL NERVES: II: Pupils equal and reactive, III, IV, : EOM intact, no gaze preference or deviation, no nystagmus. V: normal sensation in V1, V2, and V3 segments bilaterally VII: no asymmetry, no nasolabial fold flattening VIII: normal hearing to speech IX, X: normal palatal elevation, no uvular deviation XI: 5/5 head turn and 5/5 shoulder shrug bilaterally XII: midline tongue protrusion Course Vital Signs Vital signs: Vital Signs Temperature 36.8 C 11/21/23 02:40 Pulse 58 L 11/21/23 02:40 Respiratory Rate 18 11/21/23 02:40 Blood Pressure 108/67 11/21/23 02:40 Pulse Oximetry 98 11/21/23 02:40 Temperature 36.8 C 11/21/23 02:40 Pulse 58 L 11/21/23 02:40 Respiratory Rate 20 11/21/23 02:44 Respiratory Effort Normal, Non-Labored, Short of Breath 11/21/23 02:44 Blood Pressure 108/67 11/21/23 02:40 Pulse Oximetry 98 11/21/23 02:40 Oxygen Delivery Method Room Air 11/21/23 02:40 Oxygen Flow Rate 0 11/21/23 02:40 Pain Level 0 11/21/23 02:40 Medical Decision Making 83yo F with hx afib, T2DM, HTN, HLD, anemia, presenting for shortness of breath. Reports feeling chronically short of breath, intermittent, for many years. Cough x several weeks with no improvement. Tonight when trying to get out of bed slid off the bed onto the floor and landed on her buttocks; denies pain or injury from the fall. Shortness of breath not acutely worse today, she reports that her daughter is concerned that she might have pneumonia and so this prompted her presentation to the ED tonight. Recent hospital admission 11/08-11/12 for afib with RVR, treated for pneumonia at that time. Family subsequently to bedside, report that since her hospital admission she has not been acting like her usual self, 'out of it', sometimes talking to no-one. Vital signs reassuring on arrival, afebrile, no tachycardia, not septic. No pleuritic pain, hypoxia, or tachycardia to suggest pulmonary embolism; would not pursue further. Does not seem to have any significant new or acute symptoms on history; will evaluate broadly for shortness of breath with EKG, CXR, labs. - EKG sinus bradycardia, appropriate intervals, no ST segment or T wave abnormalities to suggest occlusive NM. -CXR independently reviewed, no focal pneumonia or pneumothorax on my view, agree with radiology read below. -Labs reviewed as below, CBC with marked leukocytes to 18 increased from 11 on hospital discharge, CMP with no actionable abnormalities (mildly elevated Cr at 1.3, not SHAILESH), BNP ~1000 (decreased from most recent prior of around ~6000), troponin negative, respiratory viral swab negative. -Attempted to get urine for UA however patient unable to successfully void into hat. Will give small fluid bolus to facilitate urine and plan for straight cath. - UA obtained and not suggestive of infection. On reassessment patient does report feeling improved. Exam remains non-toxic and reassuring with normal vital signs, clear lungs, and no abdominal tenderness and no complaints of pain or GI distress to suggest intrabdominal process or need for CT scan. I am unsure of the etiology however white count is somewhat concerning, though I have no indication or an infectious source on history or exam (may have stage 1 pressure ulcer vs contact dermatitis on buttocks bu does not explain white count). Repeat CBC after small fluid bolus earlier with white count decreased to 15; lactate normal at 0.9. No clear indication for admission. Unsteady on her feet here in the ED; PT consult placed. Attempted to reach family to further clarify their concerns/additional history however unsuccessful. If able to ambulate safely with walker (uses walker at baseline) would consider discharge home with family if they are able to take her back. Signed out to physician, plan to followup PT reccs. Medical Records Medical records reviewed: Yes I reviewed the patient's medical records. Medical records narrative: H&P and Discharge summary admission 11/08-11/12. Quality:SDOH Health Related Social Needs: Health related social needs risk of homeless PFSH All Active Problems (Updated 11/14/23 @ 00:08 by DOMINIC CARPENTER) TMJ arthritis (Acute) Acquired hypoprothrombinemia (Chronic) Atrial fibrillation with rapid ventricular response (Acute) Encounter for medication monitoring (Acute) Lumbar spinal stenosis (Acute) Trochanteric bursitis, left hip (Acute) Central stenosis of spinal canal (Acute) Chest pain at rest (Acute) Diverticula of colon (Acute) Incomplete rectal prolapse (Acute) Normal colonoscopy (Acute ~12/14/21) hemorrhoid banding severe diverticula Atrial flutter (Acute) Hypertension (Chronic) Hyperlipidemia (Chronic) Ventricular ectopic activity (Acute) Cataract (Chronic) Type 2 diabetes mellitus (Chronic) Sleep disturbance (Acute) Dyspnea on exertion (Acute) Anxiety (Chronic) Atrial fibrillation (Chronic) Shortness of breath (Acute) High risk medication use (Acute) Hematochezia (Acute) Anemia (Chronic) Medical History (Updated 11/14/23 @ 00:08 by DOMINIC CARPENTER) Cataracts, bilateral Adenocarcinoma, breast HX: anticoagulation Diverticular disease Recurrent UTI Sinus bradycardia Osteoarthritis Tremor Gait disturbance, post-stroke Urinary tract infection History of diverticulitis Urinary incontinence Adenocarcinoma of right breast Osteopenia Endometrial carcinoma Surgical History History of mastectomy (~12/22/20) (R) History of colonoscopy (~12/14/21) History of cataract surgery History of cholecystectomy Hx of appendectomy H/O: hysterectomy Family History Maternal Aunt Breast cancer Niece Breast cancer Niece Lung cancer Social History Smoking/Tobacco Use Status: Former Tobacco Use Quit Date: 03/31/69 Tobacco: How many years used: 10 Smoking risk assessment performed?: Yes Alcohol Intake: never Drug use: Never Substance use type: does not use Housing: house What type of physical activity do you participate in: none and independent ambulation Do you feel safe at home: Yes Do you feel safe in your relationship?: Yes
[2023-11-21 03:44] LABS: COVID-19 PCR Negative (Negative); Influenza A PCR Negative (Negative); Influenza B PCR Negative (Negative); RSV PCR Negative (Negative)
[2023-11-21 03:45] LABS: Source Nasopharynx
[2023-11-21 03:51] LABS: Absolute Basophil Count 0.02 10^3/uL (0.0-0.2); Absolute Monocyte Count 0.77 10^3/uL (0.1-0.8); Absolute Neutrophil Count 16.23 10^3/uL (1.2-6.7); Basophils % 0.1; HCT 36.8 % (36.0-46.0); HGB 11.8 g/dL (11.2-15.7); Immature Grans % 0.6; Lymphocytes % 3.9; MCH 28.4 pg (27.0-33.0); MCHC 32.1 % (32.0-36.0); MCV 89 fL (80-95); MPV 10.4 fL (8.0-11.0); Monocytes % 4.3; Neutrophils % 91.1; Platelet Count 215 10^3/uL (130-400); RBC 4.16 10^6/uL (3.93-5.22); RDW 15.7 % (11.7-14.6); RDW-SD 50.4 fL; WBC 17.82 10^3/uL (4.4-10.8)
[2023-11-21 03:53] LABS: Absolute Lymphocyte Count 0.69 10^3/uL (1.2-3.4)
[2023-11-21 04:14] LABS: ALT 29 U/L (14-59); AST 25 U/L (15-37); Albumin 3.2 g/dL (3.4-5.0); Alkaline Phosphatase 124 U/L (46-116); Anion Gap 12.3 mmol/L (3-11); BUN 14 mg/dL (7-18); Bilirubin, Total 0.7 mg/dL (0.2-1.0); CO2 23.7 mmol/L (21.0-32.0); CREATININE 1.3 mg/dL (0.55-1.02); Calcium 9.1 mg/dL (8.5-10.1); Chloride 99 mmol/L (98-107); Estimated GFR 41.31 (mL/min/1.73m2); Glucose 204 mg/dL (74-106); NT-proBNP 1039 pg/mL (<300); Potassium 4.7 mmol/L (3.5-5.1); Sodium 135 mmol/L (136-145); Total Protein 7.1 g/dL (6.4-8.2); Troponin I < 50 ng/L (< or =60)
[2023-11-21] MEDS: Normal Saline 250 ML 500 ML IV (05:01)
--- NOTE | 2023-11-21 05:21 | DI.VRAD_ITS ---
PROCEDURE INFORMATION: Exam: XR Chest Exam date and time: 11/21/2023 4:01 AM Age: 83 years old Clinical indication: Cough and shortness of breath; Patient HX: Cough, SOB TECHNIQUE: Imaging protocol: Radiologic exam of the chest. Views: 2 views. COMPARISON: CR XR PORTABLE CHEST AP 11/09/2023 8:34 PM FINDINGS: Lungs: Mildly hyperinflated lungs. Pleural spaces: No large pleural effusion seen. Heart/Mediastinum: Enlarged cardiac silhouette. Bones/joints: Grossly unremarkable. IMPRESSION: Enlarged cardiac silhouette. Dictated and Authenticated by: Eloisa Avelar MD. Ordering:RENETTA Gutierrez MD
--- NOTE | 2023-11-21 05:40 | NUR.NOTE ---
Pt went to the bathroom but missed the hat and we were unable to obtain urine, will try again post IV Fluids, WES
[2023-11-21 06:28] LABS: Bilirubin Negative (Negative); Blood Negative (Negative); Clarity Clear (Clear); Glucose Negative (Negative); Ketones Trace mg/dL (Negative); Leukocyte Esterase Negative (Negative); Nitrite Negative (Negative); Specific Gravity 1.015 (1.005-1.025); Urobilinogen 0.2 mg/dL (Up to 0.2); pH 5.5 (5-8)
[2023-11-21 06:58] LABS: Abs Immature Grans 0.08 10^3/uL (0.0-0.06); Absolute Lymphocyte Count 0.83 10^3/uL (1.2-3.4); Absolute Monocyte Count 0.71 10^3/uL (0.1-0.8); Basophils % 0.3; HCT 35.6 % (36.0-46.0); HGB 11.5 g/dL (11.2-15.7); Immature Grans % 0.5; Lymphocytes % 5.4; MCH 28.4 pg (27.0-33.0); MCHC 32.3 % (32.0-36.0); MCV 88 fL (80-95); MPV 10.1 fL (8.0-11.0); Monocytes % 4.6; Neutrophils % 89.2; Platelet Count 198 10^3/uL (130-400); RBC 4.05 10^6/uL (3.93-5.22); RDW 15.7 % (11.7-14.6); WBC 15.46 10^3/uL (4.4-10.8)
[2023-11-21 07:01] LABS: Absolute Basophil Count 0.05 10^3/uL (0.0-0.2); Absolute Neutrophil Count 13.79 10^3/uL (1.2-6.7); Lactate 0.9 mmol/L (0.9-1.7)
[2023-11-21 08:46] LABS: Procalcitonin 0.2 ng/mL
--- NOTE | 2023-11-21 09:00 | DI.CT_ITS ---
Exam(s) CT CHEST/ABD/PEL W EXAM: CT CHEST/ABD/PEL W CLINICAL HISTORY: high inflamitory markers, eval for chest/abd path. TECHNIQUE: Imaging Protocol: Axial computed tomography images with coronal and sagittal reformatted images were created and reviewed CONTRAST MATERIAL: Intravenous: Omnipaque 350 Contrast volume:100 ml Oral: / no COMPARISON: CR,XR XR CHEST 2V PA LATERAL from 11/21/2023 FINDINGS: CHEST: Tracheobronchial tree: Patent where visualized. Pulmonary parenchyma: Infiltrate seen in the right lower lobe. Bronchial thickening. Mild distal mu cous plugging. Pleura: No effusion or pneumothorax. Lymph nodes: Within normal limits. Aorta: Thoracic portion non-dilated. Heart: Enlarged. No pericardial effusion. Bones: Unremarkable for age. No lytic or blastic lesions mild T8 compression fracture. Soft tissues: Unremarkable. ABDOMEN and PELVIS: Liver: Normal density. No measurable mass. Gallbladder and biliary tract: Gallbladder not seen. No evidence of stones or wall thickening. No b iliary dilatation. Pancreas: Somewhat atrophic. No abnormal calcifications or inflammatory process. Spleen: Normal. Kidneys: Normal size, contour and axis. No radiodense stones. No obstructive uropathy. No suspicious masses seen. Adrenal glands: No masses seen. Aorta: Abdominal portion non-dilated. Lymph nodes: Within normal limits. Soft tissues: Small fatty containing lower anterior abdominal wall hernias. Bladder: Unremarkable. Bowel: No obstruction or bowel wall thickening. Diverticulosis. Normal quantity of stool. Peritoneal cavity: No ascites. No focal collection. No mesenteric inflammatory response. Bones: Right hip prosthesis. Reproductive organs: Status post hysterectomy IMPRESSION: Right lower lobe pneumonia with bronchial thickening and mild distal mucous plugging. No acute abnormality in the abdomen or pelvis.. RADIATION DOSE DELIVERED: 1,053.6mGy.cm Total DLP DATA REPOSITORY: All CT scans at this facility are submitted to the National Radiology Data Registry (NRDR) Dose Index Registry (DIR) with the [employer] (A[employer]). RADIATION OPTIMIZATION: All CT scans at this facility use at least one of these dose optimization te chniques: automated exposure control; mA and/or kV adjustment per patient size (includes targeted exa ms where dose is matched to clinical indication); or iterative reconstruction.
[2023-11-21] MEDS: Metoprolol 25 MG TAB PO (09:05)
[2023-11-21] MEDS: Normal Saline - Diluent 50 ML VIAL IJ (09:46)
[2023-11-21] MEDS: Normal Saline Flush 10 ML SYR IJ ×2 (09:47→21:05)
[2023-11-21] MEDS: Omnipaque 350 MG/ML 100 ML BTL IJ (09:48)
--- NOTE | 2023-11-21 10:06 | ED.PROG_ITS ---
Date of service: 11/21/23 Time of Service: 11:29 Medical Decision Making Patient was signed out pending PT OT eval. Please refer to HPI, physical exam, assessment and plan. Procalcitonin was ordered by myself, it was elevated at 0.2. Concern for potential underlying etiology. Decision was made to get a CT scan of the chest abdomen pelvis, chest CT scan shows evidence of right-sided lower lobe pneumonia. Suspect this is the source of the elevated white count. Ceftriaxone 2 g and doxycycline 100 mg were administered. Physical therapy came and assessed the patient and they recommend direct 1 person assist at minimum, and they do not feel that the patient is safe to go home at this time because she lives alone. With the patient's pneumonia and her weakness I do feel that she would benefit from admission. Discussed case with the hospitalist Dr. Lara, he agrees with the assessment and plan. I have extensively reviewed the treatment plan with the patient. I have addressed all patient concerns at this time. I have also discussed the plan with the admitting physician and they agree with the current assessment and plan and have agreed to assume responsibility for the patient. All parties demonstrate verbal understanding and agreement with our assessment and plan at this time. The documentation in this chart was dictated using [employer] dictation software. Please excuse any dictation errors. FINDINGS: CHEST: Tracheobronchial tree: Patent where visualized. Pulmonary parenchyma: Infiltrate seen in the right lower lobe. Bronchial thickening. Mild distal mucous plugging. Pleura: No effusion or pneumothorax. Lymph nodes: Within normal limits. Aorta: Thoracic portion non-dilated. Heart: Enlarged. No pericardial effusion. Bones: Unremarkable for age. No lytic or blastic lesions mild T8 compression fracture. Soft tissues: Unremarkable. ABDOMEN and PELVIS: Liver: Normal density. No measurable mass. Gallbladder and biliary tract: Gallbladder not seen. No evidence of stones or wall thickening. No biliary dilatation. Pancreas: Somewhat atrophic. No abnormal calcifications or inflammatory process. Spleen: Normal. Kidneys: Normal size, contour and axis. No radiodense stones. No obstructive uropathy. No suspicious masses seen. Adrenal glands: No masses seen. Aorta: Abdominal portion non-dilated. Lymph nodes: Within normal limits. Soft tissues: Small fatty containing lower anterior abdominal wall hernias. Bladder: Unremarkable. Bowel: No obstruction or bowel wall thickening. Diverticulosis. Normal quantity of stool. Peritoneal cavity: No ascites. No focal collection. No mesenteric inflammatory response. Bones: Right hip prosthesis. Reproductive organs: Status post hysterectomy IMPRESSION: Right lower lobe pneumonia with bronchial thickening and mild distal mucous plugging. No acute abnormality in the abdomen or pelvis.. Quality:SDOH Health Related Social Needs: Health related social needs risk of homeless Sign Out Sign Out Data: Sign Out Comment: Pending PT/OT Last updated by Brenda Bueno MD at 11/21/23 07:36 Discharge Plan Disposition Patient Disposition: Admit to [facility] Condition: Stable Discharge Details Chief Complaint: SOB Clinical Impression: Pneumonia involving right lung Primary Care Provider: Marilou Bass ED Provider: Hipolito Marcos Home Meds and New Rx's Prescriptions: No Action lisinopril 10 mg tablet 10 mg PO DAILY letrozole [Femara] 2.5 mg tablet 2.5 mg PO DAILY Hold Instructions: Changed by Provider acetaminophen [Tylenol Extra Strength] 500 mg tablet 500 mg PO Q6H PRN cholecalciferol (vitamin D3) 25 mcg (1,000 unit) capsule 25 mcg PO DAILY calcium carbonate-vitamin D3 [Calcium 600 with Vitamin D3] 600 mg(1,500mg) - 500 unit capsule 1 cap PO DAILY Januvia 50 mg tablet 50 mg PO DAILY Xarelto 20 mg tablet 20 mg PO DAILY Prolia 60 mg/mL syringe 60 mg subcut [id number] meloxicam 7.5 mg tablet 7.5 mg PO DAILY lorazepam 1 mg tablet 1 mg PO QHS PRN Rx Instructions: take 1-2 hs prn citalopram 20 MG tablet 20 mg PO DAILY rosuvastatin [Crestor] 20 MG tablet 20 mg PO DAILY metoprolol succinate 25 mg Tablet Extended Release 24 Hr 37.5 mg PO DAILY Qty: 45 0RF
--- NOTE | 2023-11-21 10:09 | IN_ITS ---
PT Notes Visit Reasons: septic? Physical Therapy Emergency Department Initial Evaluation Date: 11/21/2023 Referring Doctor: Brenda Bueno MD PT Orders: PT CONSULT: Safety Consult for D/C Precautions: Fall. Standard. Activity as tolerated. Patient Profile/Admitting Diagnosis: Drea is an 83-year-old female who recently was recently discharged from hospital who presented again to the ED today due to progressive worsening generalized weakness, cough, and sliding off bed onto floor. Referral to PT was sent to a ssess for safety and discharge recommendations. PMHX: All Active Problems (Updated 11/14/23 @ 00:08 by SwapdomSERGE) TMJ arthritis (Acute) Acquired hypoprothrombinemia (Chronic) Atrial fibrillation with rapid ventricular response (Acute) Encounter for medication monitoring (Acute) Lumbar spinal stenosis (Acute) Trochanteric bursitis, left hip (Acute) Central stenosis of spinal canal (Acute) Chest pain at rest (Acute) Diverticula of colon (Acute) Incomplete rectal prolapse (Acute) Normal colonoscopy (Acute ~12/14/21) hemorrhoid banding severe diverticulaAtrial flutter (Acute) Hypertension (Chronic) Hyperlipidemia (Chronic) Ventricular ectopic activity (Acute) Cataract (Chronic) Type 2 diabetes mellitus (Chronic) Sleep disturbance (Acute) Dyspnea on exertion (Acute) Anxiety (Chronic) Atrial fibrillation (Chronic) Shortness of breath (Acute) High risk medication use (Acute) Hematochezia (Acute) Anemia (Chronic) Medical History (Updated 11/14/23 @ 00:08 by C2 MicrosystemsChanda CARPENTER) Cataracts, bilateral Adenocarcinoma, breast HX: anticoagulation Diverticular disease Recurrent UTI Sinus bradycardia Osteoarthritis Tremor Gait disturbance, post-stroke Urinary tract infection History of diverticulitis Urinary incontinence Adenocarcinoma of right breast Osteopenia Endometrial carcinoma Surgical History History of mastectomy (~12/22/20) (R) History of colonoscopy (~12/14/21) History of cataract surgery History of cholecystectomy Hx of appendectomy H/O: hysterectomy Social History/Home Situation: Lives alone in a private home. Modified independent with mobility ADL performance using 4 wheeled walker. Son lives 2 hours away and is very much involved with patient's care. Other kids have been very good support offering help with housekeeping, grocery shopping, and laundry. Osmanbadn passed 4 years ago. Equipment Owned/DME: [employer] Subjective: Feels so weak. Only willing to walk a shirt distance as she did not feel up to it. Objective: General Observation: Genu vara. IV through L UE. Mastetomy scar on R intact and well-healed. On telemetry. Mental Status: Alert and oriented as to person, place, time, and purpose. Able to pay attention, focus, and respond appropriately. Pain: None Vital Signs: Closely monitored by nursing staff ROM: Right Upper Extremity: Shoulder Flexion WFL. Shoulder abduction WFL. Elbow flexion WFL. Wrist flexion WFL. Functional opening and closing of hand WFL. Left Upper Extremity: Shoulder Flexion WFL. Shoulder abduction WFL. Elbow flexion WFL. Wrist flexion WFL. Functional opening and closing of hand WFL. Right Lower Extremity: Hip flexion WFL. Hip abduction WFL. Knee flexion WFL. Ankle dorsiflexion WFL. Ankle plantarflexion WFL. Left Lower Extremity: Hip flexion WFL. Hip abduction WFL. Knee flexion WFL. Ankle dorsiflexion WFL. Ankle plantarflexion WFL. Strength: Right Upper Extremity: Shoulder flexors 4-/5. Shoulder abductors 4-/5. Elbow flexors 4-/5. Elbow extensors 4-/5. Fire Sprinkler Installer strong. Left Upper Extremity: Shoulder flexors 4-/5. Shoulder abductors 4-/5. Elbow flexors 4-/5. Elbow extensors 4-/5. Fire Sprinkler Installer strong. Right Lower Extremity: Hip flexors 4-/5. Hip abductors 4-/5. Knee flexors 4-/5. Knee extensors 4-/5. Ankle dorsiflexors 4-/5. Ankle plantarflexors 4-/5. Left Lower Extremity: Hip flexors 4-/5. Hip abductors 4-/5. Knee flexors 4-/5. Knee extensors 4-/5. Ankle dorsiflexors 4-/5. Ankle plantarflexors 4-/5. Bed Mobility/Transfers: Minimal cueing provided for use of B hands as needed for support, movement sequence, AD management, and posture to reduce fall risk and minimize pain report Rolling independent Supine to sit moderatel assist Sit to supine moderateassist with FWW Sit to stand minimal assist with FWW Stand to sit minimal assist with FWW Gait: Facilitated safe and correct performance of level surface ambulation covering a short distance of 20 feet using front wheeled walker with decreased gait speed, step to gait pattern, and decreased B hip and knee extension as well as internal rotation due to pre-existing genu vara. Unable to go farther due to weakness and fatigue. Patient had a coughing paroxysm after activity. Balance: Static Sitting: Normal Dynamic Sitting: Normal Static Standing: Fair Dynamic Standing: Fair Special Tests: Mobility Limitations Standardized Measure [facility] AM-PAC 6 clicks Basic Mobility Inpatient Short Form: Raw Score: 23 CMS Score: 11% deficit Informed Consent/Education: Patient was instructed in purpose of PT consult and plan of care. Agreeable to proceed with established PT POC to achieve personal goals. 4-Stage Balance Test: Feet together unable to test Semi-tandem unable to test Full tandem unable to test One-legged stance unable to test Assessment: Requires assiatnce of one for all mobility ADL performance due weakness and extreme fatigue. Unable to thrve safely alone at home at this time. Patient presents with clinical signs and symptoms consistent with current/admitting diagnoses that have resulted to mobility limitations, gait instability, generalized weakness, and overall ADL decline as demonstrated by the following impairment level findings: 1. Decreased strength to B UE/LE major muscle groups 2. Impaired standing balance 3. Impaired activity tolerance 4. 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 Decline in bed mobility skills 2. Decline in transfer skills 3. Difficulty with ambulation without assistive device 4. Increased completion time for mobility ADL performance 5. Increased risk for falls 6. Difficulty with managing steps alone safely Patient is assessed as a 9762 moderate complexity based on the following: History: 83-year-old femae with past medical history as indicated above Examination: Demonstrable impairment in strength, balance, and mobility level wi th underlying impairments and functional limitations as exhibited above as well as deficit score of 11% utilizing the [facility] Mobility Inpatient Short Form Presentation: Stable Decision Makin moderate complexity Goals: Should patient require med surg level of care, goals below are applicable Goals X1 week 1. Supine-Sit independent 2. Sit-Supine independent 3. Sit-Stand independent 4. Stand-Sit independent with FWW 5. Bed-Chair independent with FWW 6. Chair-Bed independent with FWW 7. Independent gait on level surface with use of FWW for at least 300 feet without report of pain nor dyspnea 8. Independent stair negotiation while holding onto B rails for at least 2 steps without report of pain nor dyspnea 9. Independent with home exercise program 10. Good static and dynamic standing balance/tolerance Plan of Care/Treatment Plan: Should patient require med surg level of care, goals below are applicable 1-2x/day, 7 days/week x 1 week. Plan of care has been reviewed with the HUSKER OPERATOR providing the service under Physical Therapy direction. Initiate Physical Therapy intervention for pain management as needed, strengthening, bed mobility, transfers, gait, stairs, balance training, and use of assistive device. DISCHARGE RECOMMENDATIONS: [] Home with no services [] [] Home with services [] Home with outpatient PT [] [] SNF for continued rehabilitation [] [] Sustainability Consultant Care [] [] SNF versus LTC based on ability to participate and progress [] [X] SNF vs Pt based on progress towards goals/trajectory of care TREATMENT CODE/TIME: 9716 2 x 21 minutes for 1 unit (10:09-10:40). Thank you for the opportunity to participate in the care of this patient. Please sign an return this page within 30 days if you agree with the above POC. Thank you! Physician Signature Date [facility] Marie Swartz PT, DPT, CLT [facility] [place], [place]
[2023-11-21] MEDS: DOXYCYCLINE 100 MG in Normal Saline 100 ML IVPB (10:54)
--- NOTE | 2023-11-21 11:48 | W.PM.HP.N ---
Date of service: 11/21/23 Time of Service: 11:48 Assessment and Plan Assessment and plan (1) Pneumonia involving right lung: Status: Acute Assessment and plan: continue ceftriaxone and doxycycline day 1/5 scheduled duonebs, albuterol prn mucinex acapella, I/S cultures pending. (2) Central stenosis of spinal canal: Status: Acute Assessment and plan: recent falls at home with no evidence of cord compression. continue pain management, PT consulted. (3) Hypertension: Status: Chronic Assessment and plan: blood pressure controlled with lisinopril. continue home dosing, adjust as needed. Qualifiers: Hypertension type: primary hypertension Qualified Code(s): I10 - Essential (primary) hypertension (4) Type 2 diabetes mellitus: Status: Chronic Assessment and plan: last A1C November 2022 was 7.8 will check blood sugars and give ss insulin while hospitalized. recheck A1C continue Januvia carb controlled diet Qualifiers: Chronic kidney disease stage: stage 3 (moderate) Chronic kidney disease stage 3 subtype: stage 3a (GFR 45-59) Diabetes mellitus complication detail: with chronic kidney disease Diabetes mellitus complication status: with kidney complications Diabetes mellitus regional intermodal truck driver insulin use: without detention use Qualified Code(s): E11.22 - Type 2 diabetes mellitus with diabetic chronic kidney disease; N18.31 - Chronic kidney disease, stage 3a (5) Atrial fibrillation: Status: Chronic Assessment and plan: rate controlled on metoprolol anticoagulated on xarelto continue home medication (6) Discharge planning issues: Status: Acute Assessment and plan: DVT prophylaxis: fully anticoagulated on rivaroxaban PT consultation, evaluate and treat. discussed with Dr Lara History of Present Illness History of Present Illness Chief Complaint: shortness of breath Narrative: This is an 83 year old with multiple chronic medical illness including afib anticoagulated on rivaroxaban, diabetes mellitus type 2, hypertension, anemia, dyslipidemia who presented to the ED after falling at home, rather sliding off the bed, there was no injury. Family reported that she has had persistent cough for many weeks and seems more short of breath than baseline. work up concerning for pneumonia, she was started on doxycycline and ceftriaxone and hospitalist admission requested. Review of Systems All systems reviewed & are unremarkable except as noted in HPI and below PFSH All Active Problems (Updated 11/21/23 @ 12:10 by Kathia Claros NP) Discharge planning issues (Acute) Pneumonia involving right lung (Acute) TMJ arthritis (Acute) Acquired hypoprothrombinemia (Chronic) Atrial fibrillation with rapid ventricular response (Acute) Encounter for medication monitoring (Acute) Lumbar spinal stenosis (Acute) Trochanteric bursitis, left hip (Acute) Central stenosis of spinal canal (Acute) Chest pain at rest (Acute) Diverticula of colon (Acute) Incomplete rectal prolapse (Acute) Normal colonoscopy (Acute ~12/14/21) hemorrhoid banding severe diverticula Atrial flutter (Acute) Hypertension (Chronic) Hyperlipidemia (Chronic) Ventricular ectopic activity (Acute) Cataract (Chronic) Type 2 diabetes mellitus (Chronic) Sleep disturbance (Acute) Dyspnea on exertion (Acute) Anxiety (Chronic) Atrial fibrillation (Chronic) Shortness of breath (Acute) High risk medication use (Acute) Hematochezia (Acute) Anemia (Chronic) Medical History (Updated 11/21/23 @ 12:10 by Kathia lCaros NP) Cataracts, bilateral Adenocarcinoma, breast HX: anticoagulation Diverticular disease Recurrent UTI Sinus bradycardia Osteoarthritis Tremor Gait disturbance, post-stroke Urinary tract infection History of diverticulitis Urinary incontinence Adenocarcinoma of right breast Osteopenia Endometrial carcinoma Surgical History History of mastectomy (~12/22/20) (R) History of colonoscopy (~12/14/21) History of cataract surgery History of cholecystectomy Hx of appendectomy H/O: hysterectomy Family History Maternal Aunt Breast cancer Niece Breast cancer Niece Lung cancer Social History Smoking/Tobacco Use Status: Former Tobacco Use Quit Date: 03/31/69 Tobacco: How many years used: 10 Smoking risk assessment performed?: Yes Alcohol Intake: never Drug use: Never Substance use type: does not use Housing: house What type of physical activity do you participate in: none and independent ambulation Do you feel safe at home: Yes Do you feel safe in your relationship?: Yes Meds Allergies and Home Medications Allergies Allergy/AdvReac Type Severity Reaction Status Date / Time No Known Allergies Allergy Verified 11/21/23 02:46 Home Medications Medication Instructions Recorded Confirmed Type citalopram 20 mg tablet 20 mg PO DAILY 10/03/17 11/21/23 History rosuvastatin 20 mg tablet (Crestor) 20 mg PO DAILY 10/03/17 11/21/23 History rivaroxaban 20 mg tablet (Xarelto) 20 mg PO DAILY 04/29/19 11/21/23 History lisinopril 10 mg tablet 10 mg PO DAILY 05/05/20 11/21/23 History acetaminophen 500 mg tablet 500 mg PO Q6H PRN 09/04/20 11/21/23 History (Tylenol Extra Strength) calcium carbonate 600 mg-vitamin 1 cap PO DAILY 09/04/20 11/21/23 History D3 12.5 mcg (500 unit) capsule (Calcium 600 with Vitamin D3) cholecalciferol (vitamin D3) 25 25 mcg PO DAILY 09/04/20 11/21/23 History mcg (1,000 unit) capsule letrozole 2.5 mg tablet (Femara) 2.5 mg PO DAILY 09/04/20 11/21/23 History denosumab 60 mg/mL subcutaneous 60 mg subcut [id number] 11/18/21 11/21/23 History syringe (Prolia) meloxicam 7.5 mg tablet 7.5 mg PO DAILY 11/02/22 11/21/23 History lorazepam 1 mg tablet 1 mg PO QHS PRN 04/03/23 11/21/23 History sitagliptin phosphate 50 mg tablet 50 mg PO DAILY 05/01/23 11/21/23 History (Januvia) metoprolol succinate 25 mg 37.5 mg (1.5 x 25 mg) PO DAILY #45 11/13/23 11/21/23 Rx tablet,extended release 24 hr tabs Exam Const General: cooperative, comfortable and no acute distress Nutritional Appearance: average body habitus Orientation: alert, awake and oriented x3 [facility] Head: normal to inspection, normocephalic and atraumatic Mouth: oral mucosae normal Neck Neck: normal visual inspection and full ROM Chest Chest: normal inspection of the chest Resp Effort & Inspection: normal respiratory effort Cardio Rate: regular rate Skin General skin exam: no rashes or lesions noted Neuro General: patient alert, patient awake, patient oriented x3 and no focal motor deficits Extrem General: normal to inspection Psych Appearance: grossly normal Mental Status: mental status grossly normal Results Labs 11/22/23 06:00 11/22/23 06:00 Labs: Laboratory Results - last 24 hr 0411/21/23 11/21/23 03:00 03:25 06:15 WBC 17.82 H RBC 4.16 Hgb 11.8 Hct 36.8 MCV 89 MCH 28.4 MCHC 32.1 RDW 15.7 H Plt Count 215 MPV 10.4 Immature Gran % 0.6 Neutrophils % 91.1 Lymphocytes % 3.9 Monocytes % 4.3 Eosinophils % 0.0 Basophils % 0.1 Nucleated RBC % 0.0 Absolute Neutrophils 16.23 H Absolute Lymphocytes 0.69 L Absolute Monocytes 0.77 Absolute Eosinophils 0.00 Absolute Basophils 0.02 VBG Lactate Sodium 135 L Potassium 4.7 Chloride 99 Carbon Dioxide 23.7 Anion Gap 12.3 H BUN 14 Creatinine 1.3 H Est GFR (CKD-EPI 2020) 41.31 Glucose 204 H Calcium 9.1 Total Bilirubin 0.7 AST 25 ALT 29 Alkaline Phosphatase 124 H Troponin I < 50 NT-Pro-B Natriuret Pep 1039 H Total Protein 7.1 Albumin 3.2 L Procalcitonin Urine Color Yellow Urine Clarity Clear Urine pH 5.5 Ur Specific [place] 1.015 Urine Protein Negative Urine Ketones Trace H Urine Blood Negative Urine Nitrite Negative Urine Bilirubin Negative Urine Urobilinogen 0.2 Ur Leukocyte Esterase Negative Urine Glucose Negative COVID-19 Source Nasopharynx SARS-CoV-2 (PCR) Negative Influenza Type A (PCR) Negative Influenza Type B (PCR) Negative RSV (PCR) Negative 11/21/23 06:50 WBC 15.46 H RBC 4.05 Hgb 11.5 Hct 35.6 L MCV 88 MCH 28.4 MCHC 32.3 RDW 15.7 H Plt Count 198 MPV 10.1 Immature Gran % 0.5 Neutrophils % 89.2 Lymphocytes % 5.4 Monocytes % 4.6 Eosinophils % 0.0 Basophils % 0.3 Nucleated RBC % 0.0 Absolute Neutrophils 13.79 H Absolute Lymphocytes 0.83 L Absolute Monocytes 0.71 Absolute Eosinophils 0.00 Absolute Basophils 0.05 VBG Lactate 0.9 Sodium Potassium Chloride Carbon Dioxide Anion Gap BUN Creatinine Est GFR (CKD-EPI 2020) Glucose Calcium Total Bilirubin AST ALT Alkaline Phosphatase Troponin I NT-Pro-B Natriuret Pep Total Protein Albumin Procalcitonin 0.2 Urine Color Urine Clarity Urine pH Ur Specific [place] Urine Protein Urine Ketones Urine Blood Urine Nitrite Urine Bilirubin Urine Urobilinogen Ur Leukocyte Esterase Urine Glucose COVID-19 Source SARS-CoV-2 (PCR) Influenza Type A (PCR) Influenza Type B (PCR) RSV (PCR) Last Vital Signs Temp 36.8 C 11/21/23 02:40 Pulse 58 L 11/21/23 09:31 Resp 26 H 11/21/23 09:31 BP 105/70 11/21/23 09:31 Pulse Ox 98 11/21/23 02:40 Time Spent Time spent with Patient: 40-54 minutes Time was spent: preparing to see the patient(eg.review tests), obtaining and/or reviewing separately otained hiistory, ordering medications,tests, procedures, indepentently interpreting results and counseling the patient
[2023-11-21] MEDS: cefTRIAXone 2 GM/50 ML BAG IVPB (12:03)
--- NOTE | 2023-11-21 12:09 | W.PC.ACHO ---
Registration Status: REG ER Primary Language: Preferred Language: Albanian ED Information & Data Chief Complaint SOB 11/21/23 03:31 Triage Note PT states that she has had 11/21/23 02:40 SOB, cough, and fever for 1 week. Medical / Surgical History (Last Updated 11/10/23 @ 05:48 by Shoaib Dozier) Cataracts, bilateral Adenocarcinoma, breast HX: anticoagulation Diverticular disease Recurrent UTI Sinus bradycardia Osteoarthritis Tremor Gait disturbance, post-stroke Urinary tract infection History of diverticulitis Urinary incontinence Adenocarcinoma of right breast Osteopenia Endometrial carcinoma (Last Reviewed 11/09/23 @ 21:30 by Shoaib Dozier) History of mastectomy (~12/22/20) History of colonoscopy (~12/14/21) History of cataract surgery History of cholecystectomy Hx of appendectomy H/O: hysterectomy Most Recent Vital Signs Temperature 36.8 C 11/21/23 02:40 Pulse 58 L 11/21/23 09:31 Pulse 108 H 11/21/23 09:31 Respiratory Rate 26 H 11/21/23 09:31 Respiratory Effort Normal, Non-Labored, Short of Breath 11/21/23 02:44 Blood Pressure 105/70 11/21/23 09:31 Blood Pressure Mean 79 11/21/23 09:31 Pulse Oximetry 98 11/21/23 02:40 Oxygen Delivery Method Room Air 11/21/23 02:40 Oxygen Flow Rate 0 11/21/23 02:40 Pain Level 0 11/21/23 02:40 Allergies No Known Allergies Allergy (Verified 11/21/23 02:46) Active Medications Generic Name Dose Route Start Last Admin Trade Name Freq PRN Reason Stop Dose Admin Ceftriaxone Sodium/Dextrose 2 gm in 50 mls @ 100 mls/hr 11/21/23 11:00 11/21/23 12:03 Rocephin IVPB 100 mls/hr Q24H SUGEY Administration Iohexol 100 ml 11/21/23 10:00 11/21/23 09:48 Omnipaque 350 Mg/Ml 100 Ml Btl IJ 12/21/23 23:59 100 ml DIRECTED SUGEY Administration Sodium Chloride 50 ml 11/21/23 10:00 11/21/23 09:46 Normal Saline - Diluent 50 Ml Vial IJ 50 ml .FOR DI USE SUGEY Administration Sodium Chloride 0 ml 11/21/23 09:47 11/21/23 09:47 Normal Saline Flush 10 Ml Syr IJ 10 ml PRN PRN Administration IV IV Catheter Type [Left Peripheral IV Antecubital] IV Catheter Gauge [Left 20 Antecubital] Diet Orders Category Date Time Status Regular/Normal [DIET] Nutrition 11/21/23 Lunch Active Diagnostics 11/21/23 11/21/23 11/21/23 Range/Units 07:05 06:50 06:15 WBC 15.46 H (4.4-10.8) 10^3/uL RBC 4.05 (3.93-5.22) 10^6/uL Hgb 11.5 (11.2-15.7) g/dL Hct 35.6 L (36.0-46.0) % MCV 88 (80-95) fL MCH 28.4 (27.0-33.0) pg MCHC 32.3 (32.0-36.0) % RDW 15.7 H (11.7-14.6) % Plt Count 198 (130-400) 10^3/uL MPV 10.1 (8.0-11.0) fL Immature Gran % 0.5 Neutrophils % 89.2 Lymphocytes % 5.4 Monocytes % 4.6 Eosinophils % 0.0 Basophils % 0.3 Nucleated RBC % 0.0 (0.0-0.3) % Absolute Neutrophils 13.79 H (1.2-6.7) 10^3/uL Absolute Lymphocytes 0.83 L (1.2-3.4) 10^3/uL Absolute Monocytes 0.71 (0.1-0.8) 10^3/uL Absolute Eosinophils 0.00 (0.0-0.7) 10^3/uL Absolute Basophils 0.05 (0.0-0.2) 10^3/uL VBG Lactate Pending 0.9 (0.9-1.7) mmol/L Sodium (136-145) mmol/L Potassium (3.5-5.1) mmol/L Chloride (98-107) mmol/L Carbon Dioxide (21.0-32.0) mmol/L Anion Gap (3-11) mmol/L BUN (7-18) mg/dL Creatinine (0.55-1.02) mg/dL Est GFR (CKD-EPI 2020) (mL/min/1.73m2) Glucose (74-106) mg/dL Calcium (8.5-10.1) mg/dL Total Bilirubin (0.2-1.0) mg/dL AST (15-37) U/L ALT (14-59) U/L Alkaline Phosphatase (46-116) U/L Troponin I (< or =60) ng/L NT-Pro-B Natriuret Pep (<300) pg/mL Total Protein (6.4-8.2) g/dL Albumin (3.4-5.0) g/dL Procalcitonin 0.2 ng/mL Urine Color Yellow (Yellow) Urine Clarity Clear (Clear) Urine pH 5.5 (5-8) Ur Specific [place] 1.015 (1.005-1.025) Urine Protein Negative (Neg-Trace) mg/dL Urine Ketones Trace H (Negative) mg/dL Urine Blood Negative (Negative) Urine Nitrite Negative (Negative) Urine Bilirubin Negative (Negative) Urine Urobilinogen 0.2 (Up to 0.2) mg/dL Ur Leukocyte Esterase Negative (Negative) Urine Glucose Negative (Negative) mg/dL COVID-19 Source SARS-CoV-2 (PCR) (Negative) Influenza Type A (PCR) (Negative) Influenza Type B (PCR) (Negative) RSV (PCR) (Negative) 11/21/23 11/21/23 Range/Units 03:25 03:00 WBC 17.82 H (4.4-10.8) 10^3/uL RBC 4.16 (3.93-5.22) 10^6/uL Hgb 11.8 (11.2-15.7) g/dL Hct 36.8 (36.0-46.0) % MCV 89 (80-95) fL MCH 28.4 (27.0-33.0) pg MCHC 32.1 (32.0-36.0) % RDW 15.7 H (11.7-14.6) % Plt Count 215 (130-400) 10^3/uL MPV 10.4 (8.0-11.0) fL Immature Gran % 0.6 Neutrophils % 91.1 Lymphocytes % 3.9 Monocytes % 4.3 Eosinophils % 0.0 Basophils % 0.1 Nucleated RBC % 0.0 (0.0-0.3) % Absolute Neutrophils 16.23 H (1.2-6.7) 10^3/uL Absolute Lymphocytes 0.69 L (1.2-3.4) 10^3/uL Absolute Monocytes 0.77 (0.1-0.8) 10^3/uL Absolute Eosinophils 0.00 (0.0-0.7) 10^3/uL Absolute Basophils 0.02 (0.0-0.2) 10^3/uL VBG Lactate (0.9-1.7) mmol/L Sodium 135 L (136-145) mmol/L Potassium 4.7 (3.5-5.1) mmol/L Chloride 99 (98-107) mmol/L Carbon Dioxide 23.7 (21.0-32.0) mmol/L Anion Gap 12.3 H (3-11) mmol/L BUN 14 (7-18) mg/dL Creatinine 1.3 H (0.55-1.02) mg/dL Est GFR (CKD-EPI 2020) 41.31 (mL/min/1.73m2) Glucose 204 H (74-106) mg/dL Calcium 9.1 (8.5-10.1) mg/dL Total Bilirubin 0.7 (0.2-1.0) mg/dL AST 25 (15-37) U/L ALT 29 (14-59) U/L Alkaline Phosphatase 124 H (46-116) U/L Troponin I < 50 (< or =60) ng/L NT-Pro-B Natriuret Pep 1039 H (<300) pg/mL Total Protein 7.1 (6.4-8.2) g/dL Albumin 3.2 L (3.4-5.0) g/dL Procalcitonin ng/mL Urine Color (Yellow) Urine Clarity (Clear) Urine pH (5-8) Ur Specific [place] (1.005-1.025) Urine Protein (Neg-Trace) mg/dL Urine Ketones (Negative) mg/dL Urine Blood (Negative) Urine Nitrite (Negative) Urine Bilirubin (Negative) Urine Urobilinogen (Up to 0.2) mg/dL Ur Leukocyte Esterase (Negative) Urine Glucose (Negative) mg/dL COVID-19 Source Nasopharynx SARS-CoV-2 (PCR) Negative (Negative) Influenza Type A (PCR) Negative (Negative) Influenza Type B (PCR) Negative (Negative) RSV (PCR) Negative (Negative) Intake and Output - 24 Hour Total 11/21/23 02:31 thru 11/21/23 06:20 Intake Total 250 Output Total 100 Balance 150 Weight 65.8 kg Intake: IV 250 Output: Urine 100 Other: Urine Color Yellow Urine Appearance Clear Notes 11/21/23 05:40 Nursing Notes by Quang Landrum Pt went to the bathroom but missed the hat and we were unable to obtain urine, will try again post IV Fluids, KERAJ Initialized on 11/21/23 05:40 - END OF NOTE v v v v v v v v v Sending and/or Receiving Nurses: Please use comment section below to note any information pertinent to the patient hand-off not included above. Information / Comments: Report received from: Elisabeth Joiner RN
[2023-11-21 12:19] LABS: Lab Add On Test DONE
[2023-11-21 12:34] LABS: Hemoglobin A1C 7.4 % (<5.7)
[2023-11-21] MEDS: Acetaminophen 500 MG TAB PO ×2 (13:30→20:44)
[2023-11-21] MEDS: Benzonatate 200 MG CAP PO ×2 (13:30→20:42)
[2023-11-21] MEDS: Normal Saline 1,000 ML 100 ML IV (14:57)
[2023-11-21] MEDS: Albuterol/Ipratropium 3 ML UPD VIAL UPD ×2 (15:35→20:10)
[2023-11-21] MEDS: Lactated Ringers 500 ML 1000 ML IV (16:32)
[2023-11-21] MEDS: Rivaroxaban 10 MG TABLET 20 MG PO (16:54)
[2023-11-21] MEDS: Insulin Aspart 300 UNITS/3 ML PEN SC (16:54)
[2023-11-21] MEDS: guaiFENesin 600 MG TABCR PO (20:43)
[2023-11-21] MEDS: LORazepam 1 MG TAB PO (20:47)
[2023-11-21] MEDS: Doxycycline Hyclate 100 MG CAP PO (20:48)
[2023-11-21] MEDS: Melatonin 3 MG TAB PO (21:04)
--- NOTE | 2023-11-21 22:50 | NUR.NOTE ---
Nursing Note: Pt received from ICU. Bedside report @ 1733 Tx from ICU via bed @ 1375. Pt oriented to room, call sanchez in reach, bed in lowest position. VSS prior to tx.
[2023-11-22] VITALS (11 sets, daily range): BP systolic 105–142; BP diastolic 73–91; PULSE 68–129; RESP 3–20; TEMP 36–37; O2SAT 93–100
[2023-11-22] MEDS: Albuterol 2.5 MG/3 ML INH SOLN VIAL UPD (03:05)
[2023-11-22 06:38] LABS: Abs Immature Grans 0.06 10^3/uL (0.0-0.06); Absolute Basophil Count 0.04 10^3/uL (0.0-0.2); Absolute Eosinophil Count 0.04 10^3/uL (0.0-0.7); Absolute Monocyte Count 0.91 10^3/uL (0.1-0.8); Basophils % 0.3 %; Eosinophils % 0.3 %; HCT 35.9 % (36.0-46.0); HGB 11.9 g/dL (11.2-15.7); Immature Grans % 0.4 %; MCH 28.5 pg (27.0-33.0); MCHC 33.1 % (32.0-36.0); MCV 86 fL (80-95); MPV 10.6 fL (8.0-11.0); Monocytes % 6.8 %; Neutrophils % 85.2 %; Platelet Count 178 10^3/uL (130-400); RBC 4.17 10^6/uL (3.93-5.22); RDW 15.7 % (11.7-14.6); RDW-SD 48.9 fL; WBC 13.35 10^3/uL (4.4-10.8)
[2023-11-22 06:39] LABS: Absolute Lymphocyte Count 0.93 10^3/uL (1.2-3.4); Absolute Neutrophil Count 11.37 10^3/uL (1.2-6.7)
[2023-11-22 06:51] LABS: Anion Gap 10.6 mmol/L (3-11); BUN 11 mg/dL (7-18); CO2 24.4 mmol/L (21.0-32.0); CREATININE 0.9 mg/dL (0.55-1.02); Calcium 8.7 mg/dL (8.5-10.1); Chloride 102 mmol/L (98-107); Estimated GFR 64.23 (mL/min/1.73m2); Glucose 158 mg/dL (74-106); Potassium 4.1 mmol/L (3.5-5.1); Sodium 137 mmol/L (136-145)
[2023-11-22] MEDS: Albuterol/Ipratropium 3 ML UPD VIAL UPD ×4 (08:18→20:05)
[2023-11-22] MEDS: Normal Saline Flush 10 ML SYR IJ (08:43)
[2023-11-22] MEDS: cefTRIAXone 2 GM/50 ML BAG IVPB (08:43)
[2023-11-22] MEDS: Letrozole 2.5 MG TAB PO (08:44)
[2023-11-22] MEDS: Doxycycline Hyclate 100 MG CAP PO ×2 (08:44→20:30)
[2023-11-22] MEDS: Meloxicam 15 MG TAB 7.5 MG PO (08:44)
[2023-11-22] MEDS: Citalopram 20 MG TAB PO (08:44)
[2023-11-22] MEDS: Benzonatate 200 MG CAP PO ×3 (08:44→20:30)
[2023-11-22] MEDS: Metoprolol CR 50 MG TABCR PO (08:45)
[2023-11-22] MEDS: guaiFENesin 600 MG TABCR PO ×2 (08:45→20:29)
[2023-11-22] MEDS: Cholecalciferol (Vitamin D3) 1,000 UNIT TAB 1000 UNITS PO (08:45)
[2023-11-22] MEDS: Lisinopril 10 MG TAB PO (08:45)
[2023-11-22] MEDS: Rosuvastatin 20 MG TAB PO (08:45)
[2023-11-22] MEDS: Calcium 600mg/Vit D 200U TAB 1 TAB PO (08:45)
--- NOTE | 2023-11-22 09:35 | PDOC.CMIN ---
Date of service: 11/22/23 Time of Service: 09:35 Care Management Initial Assmt Initial Assessment REASON FOR HOSPITALIZATION:: Pneumonia PREVIOUS FUNCTIONAL STATUS/SOCIAL/FAMILY SUPPORTS:: Alisia lives alone in a single family home in [place]. She has 2 sons and a daughter. her oldest son and daughter are very supportive and help with shopping, hazardous waste remover etc. Her other son is less involved and lives in [place] 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 She has started using a walker for ambulatory assistance but is independent with ADLs. Alisia is independent at baseline and is able to perform all of her ADLs on her own. She does receive home health services for RN weekly, PT twice a week and OT twice a week. CURRENT FUNCTIONAL STATUS:: Alisia was sitting up in bed when CM met with her. She was polite and agreeable to conversation. Alisia talked a bit about her children and their very different personalities. Her oldest son and daughter share similar manners, philosophy and values. Their brother, the middle child, is more conservative. Her oldest son and daughter spend a lot of time with her and continue to be helpful. ADVANCE DIRECTIVES:: none on file Has patient been provided with info about the portal/API?: Yes Did the patient sign up for the portal?: No CODE STATUS:: DNR/DNI INSURANCE COVERAGE / FINANCIAL ISSUES:: [employer] CURRENT HOME/COMMUNITY SERVICES/EQUIPMENT:: walker [facility] RN, OT and PT through [facility]. PRIMARY CARE PHYSICIAN:: Marilou Bass POTENTIAL DISCHARGE NEEDS:: follow up with PCP and plan of care PATIENT/FAMILY EDUCATION NEEDS:: Review of discharge instructions, activity, limitations, follow up plan discuss Ask Me Three TRANSPORTATION:: via private vehicle with family PLAN:: Anticipate Drea will be discharged home when medically stable. She will follow up with her PCP and plan of care and transport with family. CM will follow and continue to assess for discharge needs. [facility] Active Problems (Updated 11/21/23 @ 12:10 by Kathia Claros NP) Discharge planning issues (Acute) Pneumonia involving right lung (Acute) TMJ arthritis (Acute) Acquired hypoprothrombinemia (Chronic) Atrial fibrillation with rapid ventricular response (Acute) Encounter for medication monitoring (Acute) Lumbar spinal stenosis (Acute) Trochanteric bursitis, left hip (Acute) Central stenosis of spinal canal (Acute) Chest pain at rest (Acute) Diverticula of colon (Acute) Incomplete rectal prolapse (Acute) Normal colonoscopy (Acute ~12/14/21) hemorrhoid banding severe diverticula Atrial flutter (Acute) Hypertension (Chronic) Hyperlipidemia (Chronic) Ventricular ectopic activity (Acute) Cataract (Chronic) Type 2 diabetes mellitus (Chronic) Sleep disturbance (Acute) Dyspnea on exertion (Acute) Anxiety (Chronic) Atrial fibrillation (Chronic) Shortness of breath (Acute) High risk medication use (Acute) Hematochezia (Acute) Anemia (Chronic) Medical History (Updated 11/21/23 @ 12:10 by Kathia Claros NP) Cataracts, bilateral Adenocarcinoma, breast HX: anticoagulation Diverticular disease Recurrent UTI Sinus bradycardia Osteoarthritis Tremor Gait disturbance, post-stroke Urinary tract infection History of diverticulitis Urinary incontinence Adenocarcinoma of right breast Osteopenia Endometrial carcinoma Surgical History History of mastectomy (~12/22/20) (R) History of colonoscopy (~12/14/21) History of cataract surgery History of cholecystectomy Hx of appendectomy H/O: hysterectomy Family History Maternal Aunt Breast cancer Niece Breast cancer Niece Lung cancer Social History Smoking/Tobacco Use Status: Former Tobacco Use Quit Date: 03/31/69 Tobacco: How many years used: 10 Smoking risk assessment performed?: Yes Alcohol Intake: never Drug use: Never Substance use type: does not use Housing: house What type of physical activity do you participate in: none and independent ambulation Do you feel safe at home: Yes Do you feel safe in your relationship?: Yes Readmission Within the Past 30 Days Yes or No: Yes Date of First Admission Date of 1st Admission: 11/09/23 Date of this Admission Date of Admission: 11/21/23 This admission was: Through ED SDOH(Care Management) Screening Will the Patient Participate in the Screening?: Yes Do you worry about having a steady place to live?: no Problems where you live: no known problems In the past 12 months, have you had to go without electric, gas, oil or water in your home?: no Have you or anyone in your house had to go without enough food to eat?: no Has lack of transportation kept you from medical appointments or from doing things needed for daily living?: no Has anyone in your support network made you feel unsafe for any reason?: no
--- NOTE | 2023-11-22 10:25 | PTTR_ITS ---
PT Notes Visit Reasons: Pneumonia Physical Therapy Inpatient Treatment Note Date: 11/22/2023 Precautions: Fall. Standard. Activity as tolerated. Subjective: SESSION 1--Feels better compared to yesterday. Agreeable to walking farther as much as she is able to this morning. SESSION 2--Does not feel as out of breath and fatigued as she has been. Had a great lunch. Objective: General Observation: Genu vara. IV through L UE. Mastetomy scar on R intact and well-healed. Mental Status: Alert and oriented as to person, place, time, and purpose. Able to pay attention, focus, and respond appropriately. Pain: None Vital Signs: HR fluctuant from 75-138 bpm after walking 20 feet Bed Mobility/Transfers: Minimal cueing provided for use of B hands as needed for support, movement sequence, AD management, and posture to reduce fall risk and minimize pain report Rolling independent Supine to sit stand by assist Sit to supine contact guard assist with FWW Sit to stand contact guard with FWW Stand to sit contact guard assist with FWW Gait: SESSION 1: Facilitated safe and correct performance of level surface ambulation covering a short distance of 20 feet + 30 feet using front-wheeled walker with decreased gait speed, step to gait pattern, and decreased B hip and knee extension as well as internal rotation due to pre-existing genu vara. HR fluctaunt from 75-138 bpm. Advised patient to rest for 5-6 minutes before doing a second walk. Minimal assist and wheelchair follow provided for safety. SESSION 2: 30 feet using FWW with stand by assist only with HR stable at 110-115 mmHg throughout, BP at 100/70 mmHg, and O2 saturation at 97% on RA THERA EX DURING SESSION 2: Facilitated strengthening of B hips and B knees muscle groups performing seated marches x 10 and seated clam shells x 10 using red theraband with instructions given for deep breathing/diaphragmmatic exercises x 3 incorporated into chest expansions exercises. Balance: Static Sitting: Normal Dynamic Sitting: Normal Static Standing: Fair Dynamic Standing: Fair Assessment: Requires assistance of one for all mobility ADL performance due weakness and extreme fatigue. Unable to thrive safely alone at home at this time. Patient presents with clinical signs and symptoms consistent with current/admitting diagnoses that have resulted to mobility limitations, gait instability, generalized weakness, and overall ADL decline as demonstrated by the following impairment level findings: 1. Decreased strength to B UE/LE major muscle groups 2. Impaired standing balance 3. Impaired activity tolerance 4. 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 Decline in bed mobility skills 2. Decline in transfer skills 3. Difficulty with ambulation without assistive device 4. Increased completion time for mobility ADL performance 5. Increased risk for falls 6. Difficulty with managing steps alone safely Goals under inpatient/acute level of care: Goals X1 week 1. Supine-Sit independent 2. Sit-Supine independent 3. Sit-Stand independent 4. Stand-Sit independent with FWW 5. Bed-Chair independent with FWW 6. Chair-Bed independent with FWW 7. Independent gait on level surface with use of FWW for at least 300 feet without report of pain nor dyspnea 8. Independent stair negotiation while holding onto B rails for at least 2 steps without report of pain nor dyspnea 9. Independent with home exercise program 10. Good static and dynamic standing balance/tolerance Plan of Care/Treatment Plan under inpatient/acute level of care: 1-2x/day, 7 days/week x 1 week. Plan of care has been reviewed with the BUSINESS LINE MANAGER providing the service under Physical Therapy direction. Initiate Physical Therapy intervention for pain management as needed, strengthening, bed mobility, transfers, gait, stairs, balance training, and use of assistive device. DISCHARGE RECOMMENDATIONS: [] Home with no services [] [] Home with services [] Home with outpatient PT [] [] SNF for continued rehabilitation [] [] Group Home Care [] [] SNF versus LTC based on ability to participate and progress [] [X] SNF vs Pt based on progress towards goals/trajectory of care TREATMENT CODE/TIME: Session 1--33006 x 25 minutes for 2 units (10:25-10:50). Session 2--81902 x 15 minutes for 1 unit, 88711 x 18 minutes for 1 unit (14:17-14:50).
--- NOTE | 2023-11-22 11:53 | PHA.REVIEW2 ---
Pharmacy Admission Review Admission Clinical Review Admission Pharmacy Review: (Updated 11/21/23 @ 12:10 by Kathia Claros NP) Discharge planning issues (Acute) Pneumonia involving right lung (Acute) Central stenosis of spinal canal (Acute) No Known Allergies Allergy (Verified 11/21/23 02:46) Resuscitation Status DNR/DNI Height 5 ft 6 in Weight 64.7 kg Pharmacy Admission Review Renal Dosing Renal Dosing: BUN 11 mg/dL (7-18) 11/22/23 06:00 Creatinine 0.9 mg/dL (0.55-1.02) 11/22/23 06:00 Medications needing adjustments: Intervened (CrCl 45.05 mL/min, SCr decreased from 1.3 to 0.9) List of meds needing interventions: Changed Xarelto dose from 20mg to 15mg due to CrCl <50, provider aware of change Anticoagulation Anticoagulation: Hgb 11.9 g/dL (11.2-15.7) 11/22/23 06:00 Hct 35.9 % (36.0-46.0) L 11/22/23 06:00 Plt Count 178 10^3/uL (130-400) 11/22/23 06:00 Creatinine 0.9 mg/dL (0.55-1.02) 11/22/23 06:00 DVT Prophylaxis: Reviewed Medications: Rivaroxaban (15mg daily) Relevant Labs Relevant Labs: Sodium 137 mmol/L (136-145) 11/22/23 06:00 Potassium 4.1 mmol/L (3.5-5.1) 11/22/23 06:00 Chloride 102 mmol/L (98-107) 11/22/23 06:00 Electrolytes, C-Reactive P, ESR: Reviewed DM Control DM Control: Glucose 158 mg/dL (74-106) H 11/22/23 06:00 Hemoglobin A1c 7.4 % (<5.7) H 11/21/23 03:25 Finger Stick Blood Glucose 140 1146 Finger Stick Blood Glucose 140 1146 Finger Stick Blood Glucose 139 0942 Finger Stick Blood Glucose 139 0752 Finger Stick Blood Glucose 139 0752 DM Control: Reviewed Insulin Dosing, Diabetic Medication: Has order for SS insulin and Januvia Cardiac Review Cardiac Review: Troponin I < 50 ng/L (< or =60) 11/21/23 03:25 NT-Pro-B Natriuret Pep 1039 pg/mL (<300) H 11/21/23 03:25 BP, HR, EF%: Reviewed (HR 92 and BP 142/91) QTc Review QTc: Reviewed (452 from 11/20) IV to PO Switch IV Medications: Reviewed (ceftriaxone) Home Meds Home Med List reviewed: Reviewed Relevent Home Meds Not ordered & why?: Prolia (every 6 months) Current Meds Current Medication Order Review: Reviewed Pharmacy Antibiotic Review Relevant Labs: WBC 13.35 10^3/uL (4.4-10.8) H 11/22/23 06:00 Procalcitonin 0.2 ng/mL 11/21/23 06:50 Temperature 36.2 C 0753 Pharmacy Antibiotic Activity: C/S review and Reviewed, no change Comments: Patient is on ceftriaxone IV and doxycycline PO, day 2/5 for pneumonia. WBC decreased from 15.46 to 13.35. Elevated temperature of 37.7 at 2101 last night. Sputum culture positive for Klebsiella pneumoniae (resistant to ampicillin).
--- NOTE | 2023-11-22 15:54 | W.PM.PROGNOT ---
Date of Service Date of service: 11/22/23 Time of Service: 15:55 Assessment and Plan Assessment and plan (1) Pneumonia involving right lung: Status: Acute Assessment and plan: clinically improving continue ceftriaxone and doxycycline day 2/5 scheduled duonebs, albuterol prn mucinex acapella, I/S cultures pending. (2) Atrial fibrillation: Status: Chronic Assessment and plan: rate controlled to uncontrolled on metoprolol, will give gentle IV fluid bolus, lower lisinopril dose in anticipation of increasing lopressor if needed. anticoagulated on xarelto which was renally dosed yesterday, pharmacy to follow and adjust if needed now that kidney function improve. (3) Central stenosis of spinal canal: Status: Acute Assessment and plan: recent falls at home with no evidence of cord compression. continue pain management, PT consulted. (4) Hypertension: Status: Chronic Assessment and plan: blood pressure controlled with lisinopril but HR elevated so will reduce dose to 5 mg and consider increasing lopressor continue adjust as needed. Qualifiers: Hypertension type: primary hypertension Qualified Code(s): I10 - Essential (primary) hypertension (5) Type 2 diabetes mellitus: Status: Chronic Assessment and plan: A1C 7.4 blood sugars have been well controlled will discontinue blood sugars and ss insulin while hospitalized. continue Januvia carb controlled diet Qualifiers: Chronic kidney disease stage: stage 3 (moderate) Chronic kidney disease stage 3 subtype: stage 3a (GFR 45-59) Diabetes mellitus complication detail: with chronic kidney disease Diabetes mellitus complication status: with kidney complications Diabetes mellitus predatory animal exterminator insulin use: without skilled nursing use Qualified Code(s): E11.22 - Type 2 diabetes mellitus with diabetic chronic kidney disease; N18.31 - Chronic kidney disease, stage 3a (6) Discharge planning issues: Status: Acute Assessment and plan: DVT prophylaxis: fully anticoagulated on rivaroxaban PT consultation, evaluate and treat. anticipate a discharge to home 1-2 days if continues to improve, with services. discussed with Dr Hernadez Subjective Subjective Patient reports: no new complaints, feels better, tolerating liquids well, tolerating a regular diet and afebrile Interval history since last seen: continues to cough but improving. ambulated with PT and was OOB today. feels better today. Exam Const General: cooperative, comfortable and no acute distress Nutritional Appearance: average body habitus Orientation: alert, awake and oriented x3 HENMT Head: normal to inspection, normocephalic and atraumatic Mouth: oral mucosae normal Neck Neck: normal visual inspection and full ROM Chest Chest: normal inspection of the chest Resp Effort & Inspection: normal respiratory effort Cardio Rate: regular rate Skin General skin exam: no rashes or lesions noted Neuro General: patient alert, patient awake, patient oriented x3 and no focal motor deficits Extrem General: normal to inspection Psych Appearance: grossly normal Mental Status: mental status grossly normal Objective Last Vital Signs Temp 36.0 C L 11/22/23 15:17 Pulse 113 H 11/22/23 15:17 Resp 20 11/22/23 15:17 BP 105/73 11/22/23 15:17 Pulse Ox 97 11/22/23 15:17 Laboratory Results - last 24 hr 11/22/23 06:00 WBC 13.35 H RBC 4.17 Hgb 11.9 Hct 35.9 L MCV 86 MCH 28.5 MCHC 33.1 RDW 15.7 H Plt Count 178 MPV 10.6 Immature Gran % 0.4 Neutrophils % 85.2 Lymphocytes % 7.0 Monocytes % 6.8 Eosinophils % 0.3 Basophils % 0.3 Nucleated RBC % 0.0 Absolute Neutrophils 11.37 H Absolute Lymphocytes 0.93 L Absolute Monocytes 0.91 H Absolute Eosinophils 0.04 Absolute Basophils 0.04 Sodium 137 Potassium 4.1 Chloride 102 Carbon Dioxide 24.4 Anion Gap 10.6 BUN 11 Creatinine 0.9 Est GFR (CKD-EPI 2020) 64.23 Glucose 158 H Calcium 8.7 Time Spent with Patient Time Spent with Patient: 25-34 minutes Time was spent: preparing to see the patient(eg.review tests), obtaining and/or reviewing separately otained hiistory, ordering medications,tests, procedures, indepentently interpreting results and counseling the patient
[2023-11-22] MEDS: Rivaroxaban 15 MG TABLET PO (16:18)
[2023-11-22] MEDS: Normal Saline 500 ML 100 ML IV (16:20)
--- NOTE | 2023-11-22 17:03 | CHAPLAIN ---
Drea was resting in bed when I visited. She is from [place], moved there many years ago after she met her in [place] and he is from [place] and wanted to move home. Drea said none of his family members are there. Many have , including her . Her children live [place], but a distance, two of the three visit her and keep in touch. 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 She feel at home and then ended up in the hospital, not realizing she had pneumonia. Drea said she is starting to feel better.
--- NOTE | 2023-11-22 20:15 | RT.EKG_ITS ---
APPROVED REPORT Exam: Resting ECG Reason for Exam: tachycardia Patient Location: I HR:128 bpm ECG Measurements Heart Rate 128 AXIS LA [id number] P [id number] QRSd 92 QRS 54 QT 400 T 268 QTc 584 Conclusion Atrial flutter with predominant 2:1 AV block...A-rate 254, multiple Ps Repol abnrm suggests ischemia, inferior leads...ST dep, T neg, II III aVF Prolonged QT interval...QTc >500mS
[2023-11-22] MEDS: Normal Saline Flush 10 ML SYR IVP (20:30)
[2023-11-22] MEDS: Melatonin 3 MG TAB PO (20:30)
[2023-11-22] MEDS: LORazepam 1 MG TAB PO (20:55)
[2023-11-22] MEDS: Lactated Ringers 500 ML IV (21:02)
[2023-11-23] VITALS (11 sets, daily range): BP systolic 111–123; BP diastolic 70–91; PULSE 73–130; RESP 3–22; TEMP 36.1–37; O2SAT 94–98
[2023-11-23] MEDS: Metoprolol 5 MG/5 ML VIAL 2.5 MG IVP (01:21)
[2023-11-23] MEDS: Normal Saline Flush 10 ML SYR IVP (01:23)
[2023-11-23 06:26] LABS: Abs Immature Grans 0.03 10^3/uL (0.0-0.06); Absolute Basophil Count 0.03 10^3/uL (0.0-0.2); Absolute Eosinophil Count 0.05 10^3/uL (0.0-0.7); Absolute Lymphocyte Count 1.43 10^3/uL (1.2-3.4); Absolute Monocyte Count 0.73 10^3/uL (0.1-0.8); Absolute Neutrophil Count 6.61 10^3/uL (1.2-6.7); Basophils % 0.3 %; Eosinophils % 0.6 %; HCT 37.3 % (36.0-46.0); HGB 11.8 g/dL (11.2-15.7); Immature Grans % 0.3 %; Lymphocytes % 16.1 %; MCHC 31.6 % (32.0-36.0); MCV 88 fL (80-95); MPV 10.3 fL (8.0-11.0); Monocytes % 8.2 %; Neutrophils % 74.5 %; Platelet Count 188 10^3/uL (130-400); RBC 4.22 10^6/uL (3.93-5.22); RDW 15.6 % (11.7-14.6); RDW-SD 50.4 fL; WBC 8.88 10^3/uL (4.4-10.8)
[2023-11-23 06:40] LABS: Anion Gap 10.3 mmol/L (3-11); BUN 11 mg/dL (7-18); CO2 23.7 mmol/L (21.0-32.0); CREATININE 0.9 mg/dL (0.55-1.02); Calcium 8.9 mg/dL (8.5-10.1); Chloride 104 mmol/L (98-107); Estimated GFR 64.23 (mL/min/1.73m2); Glucose 123 mg/dL (74-106); Sodium 138 mmol/L (136-145)
[2023-11-23] MEDS: Meloxicam 15 MG TAB 7.5 MG PO (08:36)
[2023-11-23] MEDS: Lisinopril 10 MG TAB 5 MG PO (08:36)
[2023-11-23] MEDS: Doxycycline Hyclate 100 MG CAP PO ×2 (08:37→19:26)
[2023-11-23] MEDS: Calcium 600mg/Vit D 200U TAB 1 TAB PO (08:37)
[2023-11-23] MEDS: Rosuvastatin 20 MG TAB PO (08:37)
[2023-11-23] MEDS: Benzonatate 200 MG CAP PO ×3 (08:38→21:25)
[2023-11-23] MEDS: Letrozole 2.5 MG TAB PO (08:38)
[2023-11-23] MEDS: Cholecalciferol (Vitamin D3) 1,000 UNIT TAB 1000 UNITS PO (08:38)
[2023-11-23] MEDS: Citalopram 20 MG TAB PO (08:38)
[2023-11-23] MEDS: guaiFENesin 600 MG TABCR PO ×2 (08:38→19:26)
[2023-11-23] MEDS: Normal Saline Flush 10 ML SYR IJ (08:39)
[2023-11-23] MEDS: Metoprolol CR 50 MG TABCR PO (08:39)
[2023-11-23] MEDS: cefTRIAXone 2 GM/50 ML BAG IVPB (08:40)
[2023-11-23] MEDS: Albuterol/Ipratropium 3 ML UPD VIAL UPD ×4 (08:42→19:30)
--- NOTE | 2023-11-23 10:35 | PT.INTREAT ---
PT Notes Visit Reasons: Pneumonia Physical Therapy Inpatient Treatment Note Date: 11/23/2023 Precautions: Fall. Standard. Activity as tolerated. Subjective: Slept better last night. Cough now letting up a bit. Fatigue with activity seems to have diminished. Appetite getting better. 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 Mental Status: Alert and oriented as to person, place, time, and purpose. Able to pay attention, focus, and respond appropriately. Pain: None Vital Signs: HR range from 75-97 bpm throughout session; BP 117/73 mmHg; O2 sat 95-97% on RA Bed Mobility/Transfers: Minimal cueing provided for use of B hands as needed for support, movement sequence, AD management, and posture to reduce fall risk and minimize pain report Rolling independent Supine to sit stand by assist Sit to stand stand by assist with FWW Stand to sit stand by assist with FWW Gait: Facilitated safe and correct performance of level surface ambulation covering 40 feet + 50 feet using front-wheeled walker with increasing gait speed. B hip and knee extension as well as internal rotation are decreased due to pre-existing genu vara. Balance: Static Sitting: Normal Dynamic Sitting: Normal Static Standing: Fair Dynamic Standing: Fair Assessment: Activity tolerance improving with HR more stable and less fluctuant. Coughing fit with movement diminished compared to previous days. Will benefit from HH PT for continued functional mobility training, strengthening, and conditioning. Plan of Care/Treatment Plan under inpatient/acute level of care: 1-2x/day, 7 days/week x 1 week. Plan of care has been reviewed with the SALES RESEARCH ANALYST providing the service under Physical Therapy direction. Continue intervention for strengthening, bed mobility, transfers, gait, stairs, balance training, and use of assistive device. DISCHARGE RECOMMENDATIONS: [] Home with no services [] [X] Home with services. Patient will benefit from home health PT services in order to progress mobility level using FWW, assess home safety, identify additional equipment needs, and establish a functional maintenance program that will increase ability of patient to remain at home. [] Home with outpatient PT [] [] SNF for continued rehabilitation [] [] Security Intelligence Analyst Care [] [] SNF versus LTC based on ability to participate and progress [] TREATMENT CODE/TIME: 75871 x 35 minutes for 2 units (10:35-11:10).
--- NOTE | 2023-11-23 13:59 | PGE_ITS ---
Date of Service Date of service: 11/23/23 Time of Service: 14:00 Assessment and Plan Assessment and plan (1) Pneumonia involving right lung: Status: Acute Assessment and plan: No oxygen supplementation, afebrile, WBC 8 from 13 Was ceftriaxone and doxycycline day 09/25 completed; will transition to cefpodoxime scheduled duonebs, albuterol prn Continue mucinex Continue pulmonary toilet with acapella and I/S (2) Atrial fibrillation: Status: Chronic Assessment and plan: Was rate controlled to uncontrolled on metoprolol, if still uncontrolled on exertion will give additional 25 mg of metoprolol tartrate and adjust AM dose to 75mg of metorprolol succinate if tolerated PRN small IV bolus for hypotension On xarelto: Renal dose as of 11/20; pharmacy to follow and adjust if needed with that kidney function improve. (3) Central stenosis of spinal canal: Status: Acute Assessment and plan: recent falls at home with no evidence of cord compression. continue pain management, PT consulted. (4) Hypertension: Status: Chronic Assessment and plan: Controlled with lisinopril: dose reduce to allow adjustment of beta-colvis for rate control goal Continue lisinopril 5 mg continue adjust as needed. Qualifiers: Hypertension type: primary hypertension Qualified Code(s): I10 - Essential (primary) hypertension (5) Type 2 diabetes mellitus: Status: Chronic Assessment and plan: A1C 7.4 Controlled with diet and Januvia at home, will continue BMP in AM Qualifiers: Diabetes mellitus keno terminal operator insulin use: without keno terminal operator use Diabetes mellitus complication status: with kidney complications Diabetes mellitus complication detail: with chronic kidney disease Chronic kidney disease stage: stage 3 (moderate) Chronic kidney disease stage 3 subtype: stage 3a (GFR 45-59) Qualified Code(s): E11.22 - Type 2 diabetes mellitus with diabetic chronic kidney disease; N18.31 - Chronic kidney disease, stage 3a (6) Discharge planning issues: Status: Acute Assessment and plan: DVT prophylaxis: fully anticoagulated on rivaroxaban d/t A-Fib PT consultation in progress for treatment , eval for d/c completed Anticipate a discharge to home 1-2 days if continues to improve - PT and use of front-wheeled walker discussed with Dr Hernadez Subjective Subjective Patient reports: no new complaints, feels better, tolerating liquids well, tolerating a regular diet, voiding w/o difficulty and flatus; denies diarrhea, nausea, vomiting, shortness of breath or fever Exam Narrative Exam Narrative: Constitutional HENMT: Head is atraumatic, normocephalic, no lymphadenopathy. Facial structures with normal appearance Eyes: Well aligned, intact ROM Neuro:alert and oriented to self, person, place, time and situation. No neurological focal deficit Resp: Normal respiratory pattern, speaks in 3-5 -word sentences, coarse right based, diminished left base, no oxygen requirement Cardio: irrregular rhythm,HR 90's, S1, S2, no murmur, bilateral radial and dorsalis pedis pulses are positive GI: Abdomen is not distended, soft and non tender, bowel sounds are present : Negative Costovertebral angle tenderness Back/spine/Pelvis: No back tenderness, normal alignment Integumentary: No skin lesions or rash Extremities: strength 5/5 to bilateral lower and upper extremities Psych: RASS 0, congruent mood and normal affect. Objective Last Vital Signs Temp 36.1 C L 11/23/23 11:17 Pulse 83 11/23/23 11:17 Resp 15 11/23/23 11:17 BP 123/91 H 11/23/23 11:17 Pulse Ox 98 11/23/23 11:17 Laboratory Results - last 24 hr 11/23/23 06:10 WBC 8.88 RBC 4.22 Hgb 11.8 Hct 37.3 MCV 88 MCH 28.0 MCHC 31.6 L RDW 15.6 H Plt Count 188 MPV 10.3 Immature Gran % 0.3 Neutrophils % 74.5 Lymphocytes % 16.1 Monocytes % 8.2 Eosinophils % 0.6 Basophils % 0.3 Nucleated RBC % 0.0 Absolute Neutrophils 6.61 Absolute Lymphocytes 1.43 Absolute Monocytes 0.73 Absolute Eosinophils 0.05 Absolute Basophils 0.03 Sodium 138 Potassium 4.0 Chloride 104 Carbon Dioxide 23.7 Anion Gap 10.3 BUN 11 Creatinine 0.9 Est GFR (CKD-EPI 2020) 64.23 Glucose 123 H Calcium 8.9 Time Spent with Patient Time Spent with Patient: >50 minutes Time was spent: preparing to see the patient(eg.review tests), obtaining and/or reviewing separately otained hiistory, ordering medications,tests, procedures, referring, communicating with other health chronic care nurse, indepentently interpreting results, counseling the patient and care coordination
--- NOTE | 2023-11-23 15:12 | PT.INTREAT ---
PT Notes Visit Reasons: Pneumonia Date: 11/23/23 PRECAUTIONS: Fall. Standard. Activity as tolerated. SUBJECTIVE: pt in bed when approached for therapy this afternoon, pt having cough paroxism while transitioning from half lying to sitting EOB, also reports pain on the right hip when she moves her hip just the right way. Objective: Pt Sao2 stayed at high 90's during the entire duration of session, pt pulse going as high as 125bpm during activity able to go back down to 70bpm resting for 20secs Pain: yes on her right hip from previous fracture, occasionally Therapeutic Activities 79718: Direct one-on-one instruction in dynamic activities to improve functional performance. ?? BED MOBILITY/TRANSFERS? Rolling L/R: supervision Supine-sit: supervision? Sit-supine: ?supervision? Sit-stand: ? supervision ? Stand-sit: ?? supervision? Bed-Chair:? ? supervision? Chair-bed: supervision Provided skilled cues and instruction on performance and technique throughout. Gait Training 12012: Direct one-on-one instruction and skilled instruction in: Employing an assistive device Modified weight-bearing status Movement sequencing Turning and movement with proper form Provided verbal cues for equipment management and technique Provided instruction in gait pattern Patient education regarding pacing and breathing techniques to maximize activity tolerance? GAIT? Assistive Device: ?? FWW? Weight bearing: WBAT Assist: ?SBA? Distance:?? ?75'x2 seated rest break in between /WC follow ? Deviation: ? antalgic gait, Slow demetrius, low step height, short step length, stoop forward position ? Therapeutic Exercises 14695: Direct one-on-one instruction in therapeutic exercises to develop strength, endurance, range of motion and flexibility.? Provided skilled instruction in proper exercise performance Provided skilled manual cues to facilitate proper muscle recruitment and/or form: Exercises - Seated Hip Flexion - 1 x daily - 7 x weekly - 1 sets - 10 reps - Seated Long Arc Quad - 1 x daily - 7 x weekly - 1 sets - 10 reps - Seated Hip Abduction - 1 x daily - 7 x weekly - 1 sets - 10 reps - Seated Heel Raise - 1 x daily - 7 x weekly - 1 sets - 10 reps - Seated Toe Raise - 1 x daily - 7 x weekly - 1 sets - 10 reps - Sit to Stand - 1 x daily - 7 x weekly - 1 sets - 10 reps Assessment: pt susie to tolerate activity given enough time to rest in between task as well as time for DBE to help with MILAN. PLAN: Continue with balance training, global strengthening and general conditioning for improved safety, mobility and activity tolerance until pt is ready for DC. TREATMENT CODE/TIME: 88109s3 [id number] 30mins (1:30-2:00pm)
--- NOTE | 2023-11-23 15:59 | PDOC.CMPRO ---
Date of service: 11/23/23 Time of Service: 15:59 Care Management Progress Note Progress Note Text Progress Note Text: S/O: SWEEPER OPERATOR HIGHWAYS reports medical improvement, however Alisia is still requiring inpatient care. CM following. A: 83 year old female admitted for Pneumonia. P: Anticipate Drea will be discharged home when medically stable. She will follow up with her PCP and plan of care and transport with family. CM will follow and continue to assess for discharge needs. SDOH(Care Management) Screening Will the Patient Participate in the Screening?: Yes Do you worry about having a steady place to live?: no Problems where you live: no known problems In the past 12 months, have you had to go without electric, gas, oil or water in your home?: no Have you or anyone in your house had to go without enough food to eat?: no Has lack of transportation kept you from medical appointments or from doing things needed for daily living?: no Has anyone in your support network made you feel unsafe for any reason?: no
[2023-11-23] MEDS: Rivaroxaban 15 MG TABLET PO (17:08)
[2023-11-23] MEDS: Melatonin 3 MG TAB PO (19:26)
[2023-11-23] MEDS: Metoprolol 25 MG TAB PO (19:26)
[2023-11-23] MEDS: Cefpodoxime 200 MG TAB PO (21:25)
[2023-11-23] MEDS: LORazepam 1 MG TAB PO (21:30)
[2023-11-24] VITALS (8 sets, daily range): BP systolic 104–130; BP diastolic 58–93; PULSE 67–129; RESP 14–18; TEMP 35.7–37; O2SAT 93–98
[2023-11-24] MEDS: Metoprolol CR 50 MG TABCR 75 MG PO (06:23)
[2023-11-24] MEDS: Metoprolol CR 25 MG TABCR (06:28)
[2023-11-24] MEDS: Lisinopril 10 MG TAB 5 MG PO (08:31)
[2023-11-24] MEDS: Cholecalciferol (Vitamin D3) 1,000 UNIT TAB 1000 UNITS PO (08:32)
[2023-11-24] MEDS: Calcium 600mg/Vit D 200U TAB 1 TAB PO (08:32)
[2023-11-24] MEDS: Cefpodoxime 200 MG TAB PO ×2 (08:32→22:19)
[2023-11-24] MEDS: Benzonatate 200 MG CAP PO ×3 (08:32→20:32)
[2023-11-24] MEDS: Letrozole 2.5 MG TAB PO (08:33)
[2023-11-24] MEDS: Doxycycline Hyclate 100 MG CAP PO ×2 (08:33→20:32)
[2023-11-24] MEDS: guaiFENesin 600 MG TABCR PO ×2 (08:33→20:32)
[2023-11-24] MEDS: Rosuvastatin 20 MG TAB PO (08:33)
[2023-11-24] MEDS: Citalopram 20 MG TAB PO (08:33)
[2023-11-24] MEDS: Meloxicam 15 MG TAB 7.5 MG PO (08:33)
[2023-11-24] MEDS: Nystatin POWDER 15 GM JAR TP (08:35)
[2023-11-24 09:49] LABS: Abs Immature Grans 0.03 10^3/uL (0.0-0.06); Absolute Basophil Count 0.03 10^3/uL (0.0-0.2); Absolute Lymphocyte Count 1.05 10^3/uL (1.2-3.4); Absolute Monocyte Count 0.66 10^3/uL (0.1-0.8); Absolute Neutrophil Count 6.99 10^3/uL (1.2-6.7); Basophils % 0.3 %; Eosinophils % 1.1 %; HCT 36.8 % (36.0-46.0); HGB 11.8 g/dL (11.2-15.7); Immature Grans % 0.3 %; Lymphocytes % 11.9 %; MCH 28.1 pg (27.0-33.0); MCHC 32.1 % (32.0-36.0); MCV 88 fL (80-95); MPV 10.2 fL (8.0-11.0); Monocytes % 7.4 %; Platelet Count 217 10^3/uL (130-400); RDW 15.3 % (11.7-14.6); RDW-SD 49.1 fL; WBC 8.86 10^3/uL (4.4-10.8)
[2023-11-24 09:57] LABS: Anion Gap 10.3 mmol/L (3-11); BUN 12 mg/dL (7-18); CO2 23.7 mmol/L (21.0-32.0); CREATININE 0.9 mg/dL (0.55-1.02); Calcium 8.8 mg/dL (8.5-10.1); Chloride 103 mmol/L (98-107); Estimated GFR 64.23 (mL/min/1.73m2); Glucose 139 mg/dL (74-106); Potassium 4.2 mmol/L (3.5-5.1); Sodium 137 mmol/L (136-145)
[2023-11-24] MEDS: Metoprolol 25 MG TAB PO ×2 (09:58→18:58)
--- NOTE | 2023-11-24 10:01 | NUR.NOTE ---
Discussed possible undiagnosed restless leg with SPECIALIST ICU and pt, most likely d/t generalized restlessness, not just legs. Nursing Note:
--- NOTE | 2023-11-24 10:38 | PGE_ITS ---
Date of Service Date of service: 11/24/23 Time of Service: 10:44 Assessment and Plan Assessment and plan (1) Pneumonia involving right lung: Status: Acute Assessment and plan: No oxygen supplementation, afebrile, WBC 8 from 13 Was ceftriaxone and doxycycline day 09/25 completed; will transition to cefpodoxime scheduled duonebs, albuterol prn Continue mucinex Continue pulmonary toilet with acapella and I/S (2) Atrial fibrillation: Status: Chronic Assessment and plan: Goal for rate control: Adjusting metoprolol dosing Additional 25 mg of metoprolol tartrate PO on 11/22 in PM Am dose of metoprolol succinated up to 75 mg this AM Additional 25 mg of metoprolol tartrate PO to be ordered for sustained uncontrolled HR > 120 as tolerated by BP PRN small IV bolus for hypotension On Xarelto: Renal dose as of 11/20; pharmacy to follow and adjust if needed with that kidney function improve. 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 Continue pain management, will schedule acetaminophen PT consultation and recommendation to be discharged home with PT, this would be a resumption as patient already had HH at home . (4) Hypertension: Status: Chronic Assessment and plan: Continue reduced dose of lisinopril 5 mg PO daily to allow beta-clovis adjustment for rate control goal in A-fib continue adjust as needed. Qualifiers: Hypertension type: primary hypertension Qualified Code(s): I10 - Essential (primary) hypertension (5) Insomnia: Status: Acute Assessment and plan: Adding melatonin at bedtime to home regimen of lorazepam (6) Type 2 diabetes mellitus: Status: Chronic Assessment and plan: A1C 7.4, Gluc 139 this AM Controlled with diet and Januvia at home Continue home regimen BMP in AM Qualifiers: Diabetes mellitus personalization specialist insulin use: without personalization specialist use Diabetes mellitus complication status: with kidney complications Diabetes mellitus complication detail: with chronic kidney disease Chronic kidney disease stage: stage 3 (moderate) Chronic kidney disease stage 3 subtype: stage 3a (GFR 45-59) Qualified Code(s): E11.22 - Type 2 diabetes mellitus with diabetic chronic kidney disease; N18.31 - Chronic kidney disease, stage 3a (7) Discharge planning issues: Status: Acute Assessment and plan: DVT prophylaxis: The patient fully anticoagulated on rivaroxaban d/t A-Fib PT consultation in progress for treatment , eval for d/c completed Anticipate a discharge to home on oral antibiotics and increased dose od beta- clovis for rate control in atrial fibrillation in 1-2 days once the patient's HR is controlled - PT and use of front-wheeled walker -Resumption of services discussed with Dr Hernadez Subjective Subjective Patient reports: feels better, tolerating liquids well, tolerating a regular diet, flatus, bowel movement, diarrhea, nausea, afebrile (but reports chills and sore throat) and other (Restless last night despite home dose of lorazepam, agreeable to melatonin trial); denies voiding w/o difficulty, blood in stool, vomiting, shortness of breath or fever Exam Narrative Exam Narrative: Constitutional Appears tired this morning, somnolent HENMT: Facial structures with normal appearance Neuro:alert and oriented X 4. No neurological focal deficit Resp: speaks in 5-word sentences, diminished bases with ronchi, clearing with deep breathing and cough Cardio: irrregular rhythm, on telemetry heart rate 78 until 4 AM then HR 120s to 130s sustained, S1, S2, no murmur, positive pulses to all 4 extremities GI: Abdomen is not distended, soft and non tender, bowel sounds are present Back/spine/Pelvis: No back tenderness, normal alignment Integumentary: No skin lesions or rash Extremities: strength 5/5 to bilateral lower and upper extremities Psych: RASS 0, congruent mood and normal affect. Objective Last Vital Signs Temp 35.9 C L 11/24/23 07:55 Pulse 105 H 11/24/23 08:19 Resp 14 11/24/23 08:19 BP 130/93 H 11/24/23 07:55 Pulse Ox 98 11/24/23 08:19 Laboratory Results - last 24 hr 11/24/23 09:42 WBC 8.86 RBC 4.20 Hgb 11.8 Hct 36.8 MCV 88 MCH 28.1 MCHC 32.1 RDW 15.3 H Plt Count 217 MPV 10.2 Immature Gran % 0.3 Neutrophils % 79.0 Lymphocytes % 11.9 Monocytes % 7.4 Eosinophils % 1.1 Basophils % 0.3 Nucleated RBC % 0.0 Absolute Neutrophils 6.99 H Absolute Lymphocytes 1.05 L Absolute Monocytes 0.66 Absolute Eosinophils 0.10 Absolute Basophils 0.03 Sodium 137 Potassium 4.2 Chloride 103 Carbon Dioxide 23.7 Anion Gap 10.3 BUN 12 Creatinine 0.9 Est GFR (CKD-EPI 2020) 64.23 Glucose 139 H Calcium 8.8 Time Spent with Patient Time Spent with Patient: >50 minutes Time was spent: preparing to see the patient(eg.review tests), obtaining and/or reviewing separately otained hiistory, ordering medications,tests, procedures, referring, communicating with other health foster care worker, indepentently interpreting results, counseling the patient and care coordination
--- NOTE | 2023-11-24 11:18 | PDOC.CMPRO ---
Date of service: 11/24/23 Time of Service: 11:18 Care Management Progress Note Progress Note Text Progress Note Text: S/O: Alisia was sitting up in bed when CM met with her. She was alert and oriented and engaged well with CM. She shared that she is feeling better but that her persistent cough is bothersome. She stated it's killing me. She went on to explain that her coughing fits leave her exhausted. Objectively, Alisia is improving from a pulmonary standpoint. She is afebrile, her WBC has normalized and she is not requiring any oxygen to maintain her oxygen saturation in the mid to upper nineties. Alisia's main issue right now is her atrial fibrillation with RVR. Her beta clovis dose (metoprolol) has been increased but her heart rate remains over 100. At noontime today a check of her vital signs revealed that she was orthostatic. Her sitting BP was 104/78, however standing it dropped to 87/64. CM spoke with Alisia's daughter Patti who is a nurse and updated her about her mother's condition and answered her questions. A: 83 year old female admitted for Pneumonia. P: Anticipate Alisia will be discharged home when medically stable. Her home health services for nursing, PT and OT will resume through [facility]. She will follow up with her PCP and plan of care and transport with family. CM will follow and continue to assess for discharge needs. SDOH(Care Management) Screening Will the Patient Participate in the Screening?: Yes Do you worry about having a steady place to live?: no Problems where you live: no known problems In the past 12 months, have you had to go without electric, gas, oil or water in your home?: no Have you or anyone in your house had to go without enough food to eat?: no Has lack of transportation kept you from medical appointments or from doing things needed for daily living?: no Has anyone in your support network made you feel unsafe for any reason?: no
--- NOTE | 2023-11-24 11:34 | PT.INTREAT ---
PT Notes Visit Reasons: Pneumonia Date: 11/23/23 PRECAUTIONS: Fall. Standard. Activity as tolerated. SUBJECTIVE: pt in bed when approached for therapy this afternoon, pt having cough paroxism while transitioning from half lying to sitting EOB, also reports pain on the right hip when she moves her hip just the right way. Objective: Pt Sao2 stayed at high 90's during the entire duration of session, pt pulse going as high as 125bpm during activity able to go back down to 70bpm resting for 20secs Pain: yes on her right hip from previous fracture, occasionally Therapeutic Activities 78513: Direct one-on-one instruction in dynamic activities to improve functional performance. ?? BED MOBILITY/TRANSFERS? Rolling L/R: supervision Supine-sit: supervision? Sit-supine: ?supervision? Sit-stand: ?SBA ? Stand-sit: ?? SBA ? Bed-Chair:? ? SBA ? Chair-bed: SBA Provided skilled cues and instruction on performance and technique throughout. ? Therapeutic Exercises 42874: Direct one-on-one instruction in therapeutic exercises to develop strength, endurance, range of motion and flexibility.? Provided skilled instruction in proper exercise performance Provided skilled manual cues to facilitate proper muscle recruitment and/or form: Exercises - Seated Hip Flexion - 1 x daily - 7 x weekly - 1 sets - 10 reps - Seated Long Arc Quad - 1 x daily - 7 x weekly - 1 sets - 10 reps - Seated Hip Abduction - 1 x daily - 7 x weekly - 1 sets - 10 reps - Seated Heel Raise - 1 x daily - 7 x weekly - 1 sets - 10 reps - Seated Toe Raise - 1 x daily - 7 x weekly - 1 sets - 10 reps - Sit to Stand - 1 x daily - 7 x weekly - 1 sets - 10 reps - Marching in Place (standing) 1 x daily - 7 x weekly - 1 sets - 10 reps Assessment: Pt LA stayed at 125 while seated/resting, goes up as high as 131 during standing activity, pt reports feeling very dizzy after standing requiring DBE and rest in between activity for dizziness t resolve. Pt charge nurse(Carolyn) informed of pt response to treatment session. PLAN: Continue with balance training, global strengthening and general conditioning for improved safety, mobility and activity tolerance until pt is ready for DC. TREATMENT CODE/TIME: 85363e3 [id number] 30mins (10:50-11:20am)
[2023-11-24] MEDS: Acetaminophen 500 MG TAB PO ×2 (13:48→17:07)
[2023-11-24] MEDS: Lactobacillus Acidophilus CAP 1 CAP PO ×2 (13:49→20:32)
--- NOTE | 2023-11-24 14:08 | PT.INNT ---
PT Notes Visit Reasons: Pneumonia Patient dizzy and hypotensive with positional change. Hold PT until later this afternoon per PATO Medley
[2023-11-24] MEDS: Rivaroxaban 15 MG TABLET PO (17:08)
[2023-11-24] MEDS: Normal Saline 250 ML IV (17:08)
[2023-11-24] MEDS: Melatonin 3 MG TAB 6 MG PO (20:32)
[2023-11-24] MEDS: Normal Saline Flush 10 ML SYR IVP (20:37)
[2023-11-24] MEDS: LORazepam 1 MG TAB PO (22:19)
[2023-11-25] VITALS (9 sets, daily range): BP systolic 81–130; BP diastolic 59–84; PULSE 54–122; RESP 16–20; TEMP 35.5–36.6; O2SAT 94–98
[2023-11-25] MEDS: Acetaminophen 500 MG TAB PO ×3 (05:49→17:24)
[2023-11-25 06:46] LABS: Abs Immature Grans 0.02 10^3/uL (0.0-0.06); Absolute Basophil Count 0.04 10^3/uL (0.0-0.2); Absolute Eosinophil Count 0.14 10^3/uL (0.0-0.7); Absolute Lymphocyte Count 1.14 10^3/uL (1.2-3.4); Absolute Monocyte Count 0.61 10^3/uL (0.1-0.8); Absolute Neutrophil Count 5.36 10^3/uL (1.2-6.7); Basophils % 0.5 %; Eosinophils % 1.9 %; HCT 37.5 % (36.0-46.0); HGB 12.1 g/dL (11.2-15.7); Immature Grans % 0.3 %; Lymphocytes % 15.6 %; MCH 28.1 pg (27.0-33.0); MCHC 32.3 % (32.0-36.0); MCV 87 fL (80-95); MPV 10.6 fL (8.0-11.0); Monocytes % 8.3 %; Neutrophils % 73.4 %; Platelet Count 227 10^3/uL (130-400); RDW 15.5 % (11.7-14.6); RDW-SD 48.5 fL; WBC 7.31 10^3/uL (4.4-10.8)
[2023-11-25 07:01] LABS: Anion Gap 9.2 mmol/L (3-11); BUN 14 mg/dL (7-18); CO2 23.8 mmol/L (21.0-32.0); CREATININE 0.9 mg/dL (0.55-1.02); Chloride 105 mmol/L (98-107); Estimated GFR 64.23 (mL/min/1.73m2); Glucose 122 mg/dL (74-106); Potassium 4.1 mmol/L (3.5-5.1); Sodium 138 mmol/L (136-145)
[2023-11-25 07:03] LABS: Magnesium 1.5 mg/dL (1.8-2.4)
[2023-11-25] MEDS: Letrozole 2.5 MG TAB PO (08:04)
[2023-11-25] MEDS: Calcium 600mg/Vit D 200U TAB 1 TAB PO (08:04)
[2023-11-25] MEDS: guaiFENesin 600 MG TABCR PO ×2 (08:04→20:32)
[2023-11-25] MEDS: Lactobacillus Acidophilus CAP 1 CAP PO ×2 (08:04→20:31)
[2023-11-25] MEDS: Doxycycline Hyclate 100 MG CAP PO ×2 (08:04→20:32)
[2023-11-25] MEDS: Cholecalciferol (Vitamin D3) 1,000 UNIT TAB 1000 UNITS PO (08:05)
[2023-11-25] MEDS: Rosuvastatin 20 MG TAB PO (08:05)
[2023-11-25] MEDS: Benzonatate 200 MG CAP PO ×3 (08:05→20:31)
[2023-11-25] MEDS: Meloxicam 15 MG TAB 7.5 MG PO (08:06)
[2023-11-25] MEDS: Citalopram 20 MG TAB PO (08:07)
[2023-11-25] MEDS: Metoprolol CR 50 MG TABCR 75 MG PO (08:08)
[2023-11-25] MEDS: Normal Saline Flush 10 ML SYR IJ ×2 (08:10→20:32)
--- NOTE | 2023-11-25 09:17 | DSE_ITS ---
DS: Diagnosis Discharge Diagnosis (1) Pneumonia involving right lung: Status: Acute (2) Atrial fibrillation: Status: Chronic (3) Central stenosis of spinal canal: Status: Acute (4) Hypertension: Status: Chronic (5) Insomnia: Status: Acute (6) Type 2 diabetes mellitus: Status: Chronic (7) Discharge planning issues: Status: Acute Discharge Plan Disposition Condition: Stable Discharge Details Reason For Visit: Pneumonia Admit Date/Time: 11/21/23 10:55 Admit Provider: Andrew Lara Attending Provider: Andrew Lara Primary Care Provider: Marilou Bass Home Meds and New Rx's Prescriptions: No Action lisinopril 10 mg tablet 10 mg PO DAILY letrozole [Femara] 2.5 mg tablet 2.5 mg PO DAILY Hold Instructions: Changed by Provider acetaminophen [Tylenol Extra Strength] 500 mg tablet 500 mg PO Q6H PRN cholecalciferol (vitamin D3) 25 mcg (1,000 unit) capsule 25 mcg PO DAILY calcium carbonate-vitamin D3 [Calcium 600 with Vitamin D3] 600 mg(1,500mg) - 500 unit capsule 1 cap PO DAILY Januvia 50 mg tablet 50 mg PO DAILY Xarelto 20 mg tablet 20 mg PO DAILY Prolia 60 mg/mL syringe 60 mg subcut [id number] meloxicam 7.5 mg tablet 7.5 mg PO DAILY lorazepam 1 mg tablet 1 mg PO QHS PRN Rx Instructions: take 1-2 hs prn citalopram 20 MG tablet 20 mg PO DAILY rosuvastatin [Crestor] 20 MG tablet 20 mg PO DAILY metoprolol succinate 25 mg Tablet Extended Release 24 Hr 37.5 mg PO DAILY Qty: 45 0RF DS: Summary Quality:SDOH Health Related Social Needs: Health related social needs risk of homeless DS: Data Vitals/I&O Vitals and I&O: Vital Signs Temperature 36.6 C 11/25/23 08:04 Temperature Source Tympanic 11/25/23 08:04 Pulse 63 11/25/23 08:04 Pulse Rhythm Regular 11/25/23 08:17 Pulse 78 11/21/23 21:01 Respiratory Rate 18 11/25/23 08:04 Respiratory Effort Normal, Non-Labored 11/25/23 08:17 Respiratory Depth Normal 11/25/23 08:17 Respiratory Pattern Normal 11/25/23 08:17 Blood Pressure 128/84 11/25/23 08:04 Blood Pressure Mean 118 11/21/23 21:01 Blood Pressure Position Supine 11/21/23 12:44 Pulse Oximetry 94 11/25/23 08:04 Oxygen Delivery Method Room Air 11/25/23 08:04 Oxygen Flow Rate 0 11/25/23 08:04 Pain Level 0 11/25/23 08:04 Comment sittin/78, pulse 110 and reg; standin/64, 110 pulse irr 11/24/23 12:46 Intake & Output 11/24/23 11/24/23 11/25/23 11:59 23:59 11:59 Intake Total 200 / 500 300 / 500 250 / 250 Output Total 200 / 200 Balance 200 / 300 100 / 300 250 / 250 Weight 63.645 kg Intake: IV 250 / 250 Oral 200 / 500 300 / 500 Output: Urine 200 / 200 Other: Urine Color Yellow Yellow Yellow Urine Appearance Clear Clear Clear Urine Odor Normal Normal Comment Patient voided into toilet; unable to measure no hat in toilet; pT voided small amount 1 unknown void at toilet. Stool Size Smear Smear Stool Characteristics Brown Brown Voiding Methods Toilet Toilet Toilet Data Completed and Pending Labs on day of discharge: Labs from last 24 hours 11/25/23 11/24/23 06:10 09:42 WBC 7.31 8.86 RBC 4.30 4.20 Hgb 12.1 11.8 Hct 37.5 36.8 MCV 87 88 MCH 28.1 28.1 MCHC 32.3 32.1 RDW 15.5 H 15.3 H Plt Count 227 217 MPV 10.6 10.2 Immature Gran % 0.3 0.3 Neutrophils % 73.4 79.0 Lymphocytes % 15.6 11.9 Monocytes % 8.3 7.4 Eosinophils % 1.9 1.1 Basophils % 0.5 0.3 Nucleated RBC % 0.0 0.0 Absolute Neutrophils 5.36 6.99 H Absolute Lymphocytes 1.14 L 1.05 L Absolute Monocytes 0.61 0.66 Absolute Eosinophils 0.14 0.10 Absolute Basophils 0.04 0.03 Sodium 138 137 Potassium 4.1 4.2 Chloride 105 103 Carbon Dioxide 23.8 23.7 Anion Gap 9.2 10.3 BUN 14 12 Creatinine 0.9 0.9 Est GFR (CKD-EPI 2020) 64.23 64.23 Glucose 122 H 139 H Calcium 9.0 8.8 Magnesium 1.5 L PFSH All Active Problems (Updated 11/24/23 @ 11:07 by Yesenia Machado APRN) Insomnia (Acute) Discharge planning issues (Acute) Pneumonia involving right lung (Acute) TMJ arthritis (Acute) Acquired hypoprothrombinemia (Chronic) Atrial fibrillation with rapid ventricular response (Acute) Encounter for medication monitoring (Acute) Lumbar spinal stenosis (Acute) Trochanteric bursitis, left hip (Acute) Central stenosis of spinal canal (Acute) Chest pain at rest (Acute) Diverticula of colon (Acute) Incomplete rectal prolapse (Acute) Normal colonoscopy (Acute ~12/14/21) hemorrhoid banding severe diverticula Atrial flutter (Acute) Hypertension (Chronic) Hyperlipidemia (Chronic) Ventricular ectopic activity (Acute) Cataract (Chronic) Type 2 diabetes mellitus (Chronic) Sleep disturbance (Acute) Dyspnea on exertion (Acute) Anxiety (Chronic) Atrial fibrillation (Chronic) Shortness of breath (Acute) High risk medication use (Acute) Hematochezia (Acute) Anemia (Chronic) Medical History (Updated 11/24/23 @ 11:07 by Yesenia Machado APRN) Cataracts, bilateral Adenocarcinoma, breast HX: anticoagulation Diverticular disease Recurrent UTI Sinus bradycardia Osteoarthritis Tremor Gait disturbance, post-stroke Urinary tract infection History of diverticulitis Urinary incontinence Adenocarcinoma of right breast Osteopenia Endometrial carcinoma Surgical History History of mastectomy (~12/22/20) (R) History of colonoscopy (~12/14/21) History of cataract surgery History of cholecystectomy Hx of appendectomy H/O: hysterectomy Family History Maternal Aunt Breast cancer Niece Breast cancer Niece Lung cancer Social History Smoking/Tobacco Use Status: Former Tobacco Use Quit Date: 03/31/69 Tobacco: How many years used: 10 Smoking risk assessment performed?: Yes Alcohol Intake: never Drug use: Never Substance use type: does not use Housing: house What type of physical activity do you participate in: none and independent ambulation Do you feel safe at home: Yes Do you feel safe in your relationship?: Yes
--- NOTE | 2023-11-25 09:39 | PDOC.HHF2F ---
Home Health Referral Registered Nurse: Check all that apply Instruct on new or changed medication(s)/assess compliance: Ordered Other: Hypertensive in hospital; recommend trending and follow up with PCP for medication recommendations. Physical Therapist: Check all that apply Increase strength & endurance for safe mobility at home: Ordered To design/establish home maintenance program: Ordered Fall reduction therapy program for patient with history of frequent falls: Ordered Home safety evaluation and teaching/gait training including stair management (if applicable): Ordered Dolly Operator: Assist with community resources: Ordered Assist with rat exterminator care planning: Ordered Other: Daughter would like assistance finder her rat exterminator care. Home Bound Status Requires the aid of supportive device (check all that apply): Walker Encounter Date and Reason: I certify that a FTF encounter for this patient was performed on November 25, 2023 and that such encounter was related to the primary reason the patient requires home health services. The encounter was conducted in the following manner: By me as the certifying physician, [employer], [place] or By an inpatient physician, VICE PRESIDENT [employer] or PA during an inpatient stay who communicated findings to me, Certification And Authentication I certify that I composed the above information based on my clinical judgment relating to this patient's medical condition and, if applicable, clinical findings communicated to me by the NPP or inpatient physician who performed the FTF encounter. Name of Provider that will be monitoring home health services: pcp
--- NOTE | 2023-11-25 09:47 | PGE_ITS ---
Date of Service Date of service: 11/25/23 Time of Service: 09:47 Assessment and Plan Assessment and plan (1) Pneumonia involving right lung: Status: Acute Assessment and plan: No oxygen supplementation, afebrile, no leukocytosis Cefpodoxime and doxycycline day 10/26 completed; was on ceftriaxone PRN duonebs, Continue mucinex Continue pulmonary toilet with acapella and I/S (2) Atrial fibrillation: Status: Chronic Assessment and plan: Goal for rate control: Adjusting metoprolol dosing Additional 25 mg of metoprolol tartrate PO on 11/22 in PM Am dose of metoprolol succinated up to 75 mg this AM Additional 25 mg of metoprolol tartrate PO X2 given on 11/23 and control achieved on second dose and maintained this AM; total toprol dosing would be 125mg daily but d/t orthostasis aiming to give one additional dose of 25 mg of toprol XL and evaluate ; for a total dose of Toprol XL of 100 mg per day Positive orhtostasis w/o HR variation, small IV fluid bolus given PRN small IV bolus for hypotension On Xarelto: Renal dose as of 11/20; can resume home dosing at discharge as kidney function improved. 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 Continue pain management with schedule acetaminophen PT consultation and recommendation to be discharged home with PT, this would be a resumption as patient already had HH at home . (4) Hypertension: Status: Chronic Assessment and plan: Hold reduced dose of lisinopril 5 mg PO daily to allow beta-clovis adjustment for rate control goal in A-fib Might be resume as per PCP Qualifiers: Hypertension type: primary hypertension Qualified Code(s): I10 - Essential (primary) hypertension (5) Insomnia: Status: Acute Assessment and plan: Continue melatonin at bedtime to home regimen of lorazepam (6) Type 2 diabetes mellitus: Status: Chronic Assessment and plan: A1C 7.4, Gluc 122 this AM Controlled with diet and Januvia at home Continue home regimen BMP in AM Qualifiers: Chronic kidney disease stage: stage 3 (moderate) Chronic kidney disease stage 3 subtype: stage 3a (GFR 45-59) Diabetes mellitus complication detail: with chronic kidney disease Diabetes mellitus complication status: with kidney complications Diabetes mellitus [facility] insulin use: without terminal carman use Qualified Code(s): E11.22 - Type 2 diabetes mellitus with diabetic chronic kidney disease; N18.31 - Chronic kidney disease, stage 3a (7) Discharge planning issues: Status: Acute Assessment and plan: DVT prophylaxis: The patient fully anticoagulated on rivaroxaban d/t A-Fib PT consultation in progress for treatment , eval for d/c completed Anticipate a discharge to home on oral antibiotics and increased dose od beta- clovis for rate control in atrial fibrillation in 1 days once the patient's HR is controlled and dosing of BB adjusted -HH PT and use of front-wheeled walker -Resumption of HH services discussed with Dr Hernadez Subjective Subjective Patient reports: no new complaints, feels better, tolerating liquids well, tolerating a regular diet, voiding w/o difficulty, flatus and bowel movement (5/3); denies diarrhea, blood in stool, nausea, vomiting, shortness of breath or fever Exam Narrative Exam Narrative: Constitutional HENMT: Facial structures with normal appearance Neuro:alert and oriented X 4. No neurological focal deficit Resp: speaks in 5-word sentences, diminished bases with ronchi, clearing with deep breathing and cough Cardio: irrregular rhythm, on telemetry in A-flutter heart rate 75-85 over night , but low 100's with activity2, no murmur, positive pulses to all 4 extremities GI: Abdomen is not distended, soft and non tender, bowel sounds are present Back/spine/Pelvis: No back tenderness, normal alignment Integumentary: No skin lesions or rash Extremities: strength 5/5 to bilateral lower and upper extremities Psych: RASS 0, congruent mood and normal affect. Objective Last Vital Signs Temp 36.6 C 11/25/23 08:04 Pulse 70 11/25/23 09:19 Resp 18 11/25/23 08:04 BP 107/65 11/25/23 09:19 Pulse Ox 94 11/25/23 08:04 Laboratory Results - last 24 hr 11/24/23 11/25/23 09:42 06:10 WBC 8.86 7.31 RBC 4.20 4.30 Hgb 11.8 12.1 Hct 36.8 37.5 MCV 88 87 MCH 28.1 28.1 MCHC 32.1 32.3 RDW 15.3 H 15.5 H Plt Count 217 227 MPV 10.2 10.6 Immature Gran % 0.3 0.3 Neutrophils % 79.0 73.4 Lymphocytes % 11.9 15.6 Monocytes % 7.4 8.3 Eosinophils % 1.1 1.9 Basophils % 0.3 0.5 Nucleated RBC % 0.0 0.0 Absolute Neutrophils 6.99 H 5.36 Absolute Lymphocytes 1.05 L 1.14 L Absolute Monocytes 0.66 0.61 Absolute Eosinophils 0.10 0.14 Absolute Basophils 0.03 0.04 Sodium 137 138 Potassium 4.2 4.1 Chloride 103 105 Carbon Dioxide 23.7 23.8 Anion Gap 10.3 9.2 BUN 12 14 Creatinine 0.9 0.9 Est GFR (CKD-EPI 2020) 64.23 64.23 Glucose 139 H 122 H Calcium 8.8 9.0 Magnesium 1.5 L Time Spent with Patient Time Spent with Patient: >50 minutes Time was spent: preparing to see the patient(eg.review tests), obtaining and/or reviewing separately otained hiistory, ordering medications,tests, procedures, referring, communicating with other health respiratory care program director, indepentently interpreting results, counseling the patient and care coordination
[2023-11-25] MEDS: Normal Saline 250 ML IV (09:56)
[2023-11-25] MEDS: Cefpodoxime 200 MG TAB PO ×2 (09:56→22:04)
--- NOTE | 2023-11-25 11:11 | PT.INTREAT ---
PT Notes Visit Reasons: Pneumonia Inpatient Physical Therapy Treatment Note [facility] Date: 11/25/23 PRECAUTIONS:Standard SUBJECTIVE: Pt reports being tired and dizzy today. OBJECTIVE: VITALS: ? Pre-Treatment: 94/82 and 93/73 ? Therapeutic Activities (53166e[1]): Direct one-on-one instruction in dynamic activities to improve functional performance. ? BED MOBILITY/TRANSFERS? Supine-sit: Min assist to CGAx1? Sit-stand: CGA? Stand-sit: CGA ? Provided skilled cues and instruction on performance and technique throughout. e? GAIT? Assistive Device: FWW? Weight bearing: Full Assist: CGAx2 ? Distance:? Bed to chair ? Therapeutic Exercises (20391s[1]): Direct one-on-one instruction in therapeutic exercises to develop strength, endurance, range of motion and flexibility. ? Exercises ? Seated row x 10 Seated flex x 10 Seated horz abd x 10 Seated shoulder circles x 10 Hip abd x 10 Heel slides x 10 LAQ x 10 Ankle pumps x 10 ASSESSMENT:? Pt was dizzy and feeling weak during her session today. PLAN: Cont as per PT POC as per [place]. TREATMENT CODE/TIME: 10:40-11:10 TA TP (30) TA TP
[2023-11-25] MEDS: MAGNESIUM SULFATE 4 GM/100 ML BAG IVINF (12:35)
[2023-11-25] MEDS: Metoprolol CR 25 MG TABCR PO (13:38)
[2023-11-25] MEDS: Rivaroxaban 15 MG TABLET PO (16:06)
[2023-11-25] MEDS: Melatonin 3 MG TAB 6 MG PO (20:30)
[2023-11-25] MEDS: Normal Saline Flush 10 ML SYR IVP (20:54)
[2023-11-25] MEDS: LORazepam 1 MG TAB PO (22:04)
[2023-11-26] MEDS: Acetaminophen 500 MG TAB PO ×2 (05:48→11:33)
[2023-11-26 05:53] VITALS: BP 116/65; PULSE 63; RESP 18; TEMP 36; O2SAT 94
[2023-11-26 07:01] LABS: Abs Immature Grans 0.04 10^3/uL (0.0-0.06); Absolute Basophil Count 0.05 10^3/uL (0.0-0.2); Absolute Eosinophil Count 0.11 10^3/uL (0.0-0.7); Absolute Lymphocyte Count 1.11 10^3/uL (1.2-3.4); Absolute Monocyte Count 0.59 10^3/uL (0.1-0.8); Absolute Neutrophil Count 5.28 10^3/uL (1.2-6.7); Basophils % 0.7 %; Eosinophils % 1.5 %; HCT 40.1 % (36.0-46.0); HGB 13.3 g/dL (11.2-15.7); Immature Grans % 0.6 %; Lymphocytes % 15.5 %; MCH 28.3 pg (27.0-33.0); MCHC 33.2 % (32.0-36.0); MCV 85 fL (80-95); Monocytes % 8.2 %; Neutrophils % 73.5 %; RDW 15.4 % (11.7-14.6); RDW-SD 47.6 fL; WBC 7.18 10^3/uL (4.4-10.8)
[2023-11-26 07:19] LABS: Anion Gap 8.1 mmol/L (3-11); BUN 13 mg/dL (7-18); CO2 23.9 mmol/L (21.0-32.0); CREATININE 0.9 mg/dL (0.55-1.02); Calcium 8.8 mg/dL (8.5-10.1); Chloride 105 mmol/L (98-107); Estimated GFR 64.23 (mL/min/1.73m2); Glucose 114 mg/dL (74-106); Sodium 137 mmol/L (136-145)
[2023-11-26] MEDS: Lactobacillus Acidophilus CAP 1 CAP PO (07:56)
[2023-11-26] MEDS: Letrozole 2.5 MG TAB PO (07:57)
[2023-11-26] MEDS: Rosuvastatin 20 MG TAB PO (07:57)
[2023-11-26] MEDS: Calcium 600mg/Vit D 200U TAB 1 TAB PO (07:57)
[2023-11-26] MEDS: Metoprolol CR 50 MG TABCR 75 MG PO (07:58)
[2023-11-26] MEDS: Doxycycline Hyclate 100 MG CAP PO (07:58)
[2023-11-26] MEDS: guaiFENesin 600 MG TABCR PO (07:58)
[2023-11-26] MEDS: Benzonatate 200 MG CAP PO ×2 (07:59→14:26)
[2023-11-26] MEDS: Citalopram 20 MG TAB PO (07:59)
[2023-11-26] MEDS: Meloxicam 15 MG TAB 7.5 MG PO (08:00)
[2023-11-26] MEDS: Cholecalciferol (Vitamin D3) 1,000 UNIT TAB 1000 UNITS PO (08:00)
[2023-11-26] MEDS: Nystatin POWDER 15 GM JAR TP (08:01)
[2023-11-26 08:34] VITALS: BP 125/78; PULSE 77; RESP 18; TEMP 36.2; O2SAT 98
--- NOTE | 2023-11-26 09:00 | PT.INTREAT ---
PT Notes Visit Reasons: Pneumonia Inpatient Physical Therapy Treatment Note [facility] Date: 11/26/23 PRECAUTIONS:Standard SUBJECTIVE: Pt reports that her dizziness is better today. OBJECTIVE: Therapeutic Activities (95293t[1]): Direct one-on-one instruction in dynamic activities to improve functional performance. ? BED MOBILITY/TRANSFERS? Sit-supine: CGA ? Sit-stand: CGA? Stand-sit: CGA? GAIT? Assistive Device: FWW? Weight bearing: Full Assist: CGA ? Distance:? Approx 30 ft? Therapeutic Exercises (44133m[1]): Direct one-on-one instruction in therapeutic exercises to develop strength, endurance, range of motion and flexibility. ? Exercises ? Seated row x 10 Seated flex x 10 Seated horz abd x 10 Seated shoulder circles x 10 Hip abd x 10 Heel slides x 10 LAQ x 10 Ankle pumps x 10 ? ASSESSMENT:? Pt was able to tolerate today's session well with limited complaints of dizziness. Pt tolerated more ambulation today. PLAN: Cont as per PT POC. TREATMENT CODE/TIME: 8:35-9 TA TP (25)
[2023-11-26 09:15] VITALS: BP 105/89
[2023-11-26] MEDS: Metoprolol CR 25 MG TABCR PO (09:21)
[2023-11-26] MEDS: Cefpodoxime 200 MG TAB PO (09:21)
[2023-11-26 11:50] VITALS: BP 110/72; PULSE 62; RESP 17; TEMP 36.7; O2SAT 94
[2023-11-26 11:51] VITALS: BP 104/92; BP 114/79; BP 99/81; PULSE 105; PULSE 117; PULSE 120
--- NOTE | 2023-11-26 13:47 | W.PM.DS.N ---
Date of service: 11/26/23 Time of Service: 13:47 DS: Diagnosis Discharge Diagnosis (1) Pneumonia involving right lung: Status: Acute (2) Atrial fibrillation: Status: Chronic (3) Central stenosis of spinal canal: (4) Hypertension: Status: Chronic (5) Insomnia: Status: Acute (6) Type 2 diabetes mellitus: Status: Chronic Discharge Plan Disposition Patient Disposition: Home W/Home Health Services Condition: Improving Discharge Details Reason For Visit: Pneumonia Admit Date/Time: 11/21/23 10:55 Admit Provider: Andrew Lara Attending Provider: Andrew Lara Primary Care Provider: Marilou Bass Hospital Course Hospital Course: This is an 83 year old with multiple chronic medical illness including afib anticoagulated on rivaroxaban, diabetes mellitus type 2, hypertension, anemia, dyslipidemia who presented to the ED after falling at home, rather sliding off the bed, there was no injury. Family reported that she has had persistent cough for many weeks and seems more short of breath than baseline. work up concerning for pneumonia, she was started on doxycycline and ceftriaxone and hospitalist admission requested. She responded to treatment for her pneumonia had no oxygen requirements and completed a 5-day course. She still had a moist cough but respiratory symptoms were improving and she was afebrile. Respiratory status remained stable and improved but hospital course was complicated with A-fib with RVR which delayed her discharge. Lopressor dosing was increased but she did not respond and blood pressure started trending downward. Cardiology notes from Dr. Elaine reviewed and previous plan if A-fib refractory to Lopressor was to reinitiate amiodarone which she was on previously. Will initiate amiodarone oral bolus dosing at 400 twice daily for 1 week then 400 daily for 1 week and then 200 daily thereafter. She will be referred to cardiology outpatient for further recommendations. Her lisinopril has been placed on hold will defer to outpatient team for further adjustments on dosing and when and if to reinitiate. Discharge discussed with Dr. Hernadez [place] Meds and New Rx's Prescriptions: New benzonatate 200 mg Capsule 200 mg PO TID@0800,1400,2200 Qty: 15 0RF guaifenesin [Mucus Relief ER] 600 mg Tablet Extended Release 12hr 600 mg PO BID Qty: 10 0RF Bio-K plus 50 billion cell capsule,delayed release(DR/EC) 1 cap PO DAILY Qty: 3 0RF amiodarone 200 mg Tablet 400 mg PO BID Qty: 30 0RF Rx Instructions: take 2 tabs twice daily for one week, then 2 tabs daily for one week, then 1 tab daily until discussed with cardiology metoprolol succinate 50 mg tablet extended release 24 hr 50 mg PO DAILY Qty: 30 0RF Continued letrozole [Femara] 2.5 mg tablet 2.5 mg PO DAILY Hold Instructions: Changed by Provider acetaminophen [Tylenol Extra Strength] 500 mg tablet 500 mg PO Q6H PRN cholecalciferol (vitamin D3) 25 mcg (1,000 unit) capsule 25 mcg PO DAILY calcium carbonate-vitamin D3 [Calcium 600 with Vitamin D3] 600 mg(1,500mg) -500 unit capsule 1 cap PO DAILY Januvia 50 mg tablet 50 mg PO DAILY Xarelto 20 mg tablet 20 mg PO DAILY Prolia 60 mg/mL syringe 60 mg subcut [id number] meloxicam 7.5 mg tablet 7.5 mg PO DAILY lorazepam 1 mg tablet 1 mg PO QHS PRN Rx Instructions: take 1-2 hs prn citalopram 20 MG tablet 20 mg PO DAILY rosuvastatin [Crestor] 20 MG tablet 20 mg PO DAILY Held lisinopril 10 mg tablet 10 mg PO DAILY Hold Instructions: Resume on 12/02/23. Continue as per PCP as metoprolol dosing has been increased for A-Fib with RVR control Discontinued metoprolol succinate 25 mg Tablet Extended Release 24 Hr 37.5 mg PO DAILY Qty: 45 0RF Discharge Instructions Instructions: A-fib (Atrial Fibrillation) (DC), Community Acquired Pneumonia (DC) Additional Instructions: you have completed your course of antibiotics to treat your pneumonia so there are no further antibiotics needed at discharge you can continue using the Tessalon Perles and Mucinex if needed for your cough. Your heart rate remains elevated despite increasing your dose of Lopressor. You should resume your usual dose of 50 mg daily of metoprolol succinate (toprol XL). You have been restarted back on your amiodarone. You should take 400 mg (2 tabs) twice daily for 7 days, then take 400 mg (2 tabs) daily for one week, then take 200 mg daily until you see cardiology, then discuss if you should continue. check blood pressure and pulse daily and if needed for symptoms as your medications may need adjustment. change positions slowly to avoid dizziness or fall injury drink 6-8 glasses of water daily to stay well hydrated. Stand Alone Forms: Nursing Discharge Form Referrals: Drea Elaine MD [ [facility] STAFF PHYSICIAN] - (please call them tomorrow to make an appointment ) Marilou Bass [Primary Care Provider] - (F/u with PCP within 7 days of discharge please) Activity:: Activity as Tolerated Equipment/Supplies:: Walker Diet:: heart healthy diabetic Discharge Orders Discharge Orders: Discharge Order (Routine); Ordered 11/26/23 Ordered By: Kathia Claros Discharge Data Discharge Date/Time-TO BE ENTERED AT DEPARTURE: 11/26/23 16:47 DS: Summary Time Spent with Patient providing and/or coordinating discharge services: Greater than 30 minutes Status at Discharge Functional status at discharge: independent ambulation Overall status at discharge: patient is progressing back to baseline Mental Status: mental status grossly normal Speech and Movement: speech and movement normal Mood: congruent mood Affect: normal affect Quality:SDOH Health Related Social Needs: Health related social needs risk of homeless Exam Const General: cooperative, comfortable and no acute distress Nutritional Appearance: average body habitus Orientation: alert, awake and oriented x3 HENMT Head: normal to inspection, normocephalic and atraumatic Mouth: oral mucosae normal Neck Neck: normal visual inspection and full ROM Chest Chest: normal inspection of the chest Resp Effort & Inspection: normal respiratory effort Cardio Rate: regular rate Skin General skin exam: no rashes or lesions noted Neuro General: patient alert, patient awake, patient oriented x3 and no focal motor deficits Extrem General: normal to inspection Psych Appearance: grossly normal Mental Status: mental status grossly normal Speech and Movement: speech and movement normal Mood: congruent mood Affect: normal affect DS: Data Vitals/I&O Vitals and I&O: Vital Signs Temperature 36.7 C 11/26/23 11:50 Temperature Source Tympanic 11/26/23 11:50 Pulse 105 H 11/26/23 11:51 Pulse Rhythm Regular 11/26/23 08:08 Pulse 78 11/21/23 21:01 Respiratory Rate 17 11/26/23 11:50 Respiratory Effort Normal, Non-Labored 11/26/23 08:08 Respiratory Depth Normal 11/26/23 08:08 Respiratory Pattern Normal 05/05/24 08:08 Blood Pressure 114/79 11/26/23 11:51 Blood Pressure Mean 118 11/21/23 21:01 Blood Pressure Position Supine 11/21/23 12:44 Pulse Oximetry 94 11/26/23 11:50 Oxygen Delivery Method Room Air 11/26/23 11:50 Oxygen Flow Rate 0 11/26/23 11:50 Pain Level 0 11/26/23 11:50 Comment pt had no s/sx of dizziness, weakness, or lightheadedness 11/26/23 11:51 Intake & Output 11/25/23 11/26/23 11/26/23 23:59 11:59 23:59 Intake Total 500 / 750 Balance 500 / 550 Intake: IV 260 / 510 Oral 240 / 240 Other: Urine Color Yellow Yellow Yellow Urine Appearance Clear Clear Clear Comment no hat Stool Size Small Small Stool Characteristics Formed Formed Brown Voiding Methods Toilet Toilet Toilet Data Completed and Pending Labs on day of discharge: Labs from last 24 hours 11/26/23 11/26/23 06:22 06:22 WBC 7.18 RBC 4.70 Hgb 13.3 Hct 40.1 MCV 85 MCH 28.3 MCHC 33.2 RDW 15.4 H Plt Count MPV Immature Gran % 0.6 Neutrophils % 73.5 Lymphocytes % 15.5 Monocytes % 8.2 Eosinophils % 1.5 Basophils % 0.7 Nucleated RBC % 0.0 Absolute Neutrophils 5.28 Absolute Lymphocytes 1.11 L Absolute Monocytes 0.59 Absolute Eosinophils 0.11 Absolute Basophils 0.05 Sodium 137 Potassium 4.0 Chloride 105 Carbon Dioxide 23.9 Anion Gap 8.1 BUN 13 Creatinine 0.9 Est GFR (CKD-EPI 2020) 64.23 Glucose 114 H Calcium 8.8 Magnesium Cancelled 2.0 PFSH All Active Problems (Updated 11/27/23 @ 00:08 by DOMINIC CARPENTER) Insomnia (Acute) Pneumonia involving right lung (Acute) TMJ arthritis (Acute) Acquired hypoprothrombinemia (Chronic) Atrial fibrillation with rapid ventricular response (Acute) Encounter for medication monitoring (Acute) Lumbar spinal stenosis (Acute) Trochanteric bursitis, left hip (Acute) Chest pain at rest (Acute) Diverticula of colon (Acute) Incomplete rectal prolapse (Acute) Normal colonoscopy (Acute ~12/14/21) hemorrhoid banding severe diverticula Atrial flutter (Acute) Hypertension (Chronic) Hyperlipidemia (Chronic) Ventricular ectopic activity (Acute) Cataract (Chronic) Type 2 diabetes mellitus (Chronic) Sleep disturbance (Acute) Dyspnea on exertion (Acute) Anxiety (Chronic) Atrial fibrillation (Chronic) Shortness of breath (Acute) High risk medication use (Acute) Hematochezia (Acute) Anemia (Chronic) Medical History (Updated 11/27/23 @ 00:08 by DOMINIC CARPENTER) Discharge planning issues Central stenosis of spinal canal Cataracts, bilateral Adenocarcinoma, breast HX: anticoagulation Diverticular disease Recurrent UTI Sinus bradycardia Osteoarthritis Tremor Gait disturbance, post-stroke Urinary tract infection History of diverticulitis Urinary incontinence Adenocarcinoma of right breast Osteopenia Endometrial carcinoma Surgical History History of mastectomy (~12/22/20) (R) History of colonoscopy (~12/14/21) History of cataract surgery History of cholecystectomy Hx of appendectomy H/O: hysterectomy Family History Maternal Aunt Breast cancer Niece Breast cancer Niece Lung cancer Social History Smoking/Tobacco Use Status: Former Tobacco Use Quit Date: 03/31/69 Tobacco: How many years used: 10 Smoking risk assessment performed?: Yes Alcohol Intake: never Drug use: Never Substance use type: does not use Housing: house What type of physical activity do you participate in: none and independent ambulation Do you feel safe at home: Yes Do you feel safe in your relationship?: Yes Time Spent with Patient Time Spent with Patient: 45-69 minutes Time was spent: preparing to see the patient(eg.review tests), obtaining and/or reviewing separately otained hiistory, ordering medications,tests, procedures, indepentently interpreting results and counseling the patient
[2023-11-26] MEDS: Amiodarone 200 MG TAB 400 MG PO (13:58)
--- NOTE | 2023-11-26 14:47 | PDOC.HHF2F_ITS ---
Home Health Referral Home Health Orders Clinical synopsis of why skilled professionals are needed: Patient will benefit from nursing evaluation for medication oversight as there have been medication changes that will impact patient hemodynamically so close monitoring will help identify changes that will need prompt intervention. also has complex medication tapering instructions. Patient will benefit from home health PT services in order to progress mobility level using FWW, assess home safety, identify additional equipment needs, and establish a functional maintenance program that will increase ability of patient to remain at home. Medical diagnosis necessitation home health referral: afib with rapid ventricular response pneumonia Registered Nurse: Check all that apply Instruct on new or changed medication(s)/assess compliance: Ordered Assess for exacerbation of medical condition, instruct patient/caregivers on signs and symptoms to report for early detection: Ordered Other: Hypertensive in hospital; recommend trending and follow up with PCP for medication recommendations. Physical Therapist: Check all that apply Increase strength & endurance for safe mobility at home: Ordered To design/establish home maintenance program: Ordered Fall reduction therapy program for patient with history of frequent falls: Ordered Home safety evaluation and teaching/gait training including stair management (if applicable): Ordered Occupational Therapist: Evaluate and treat for patient unable to perform ADL/IADL/self-care: Ordered Upper extremity strengthening, range and motion: Ordered Exterior Interior Specialist: Assist with community resources: Ordered Assist with skilled nursing care planning: Ordered Other: Daughter would like assistance finder her skilled nursing care. Home Bound Status Requires the aid of supportive device (check all that apply): Walker Encounter Date and Reason: I certify that a FTF encounter for this patient was performed on November 26, 2023 and that such encounter was related to the primary reason the patient requires home health services. The encounter was conducted in the following manner: * By me as the certifying physician, MEDICARE CONTACT SPECIALIST, PA or * By an inpatient physician, MEDICARE CONTACT SPECIALIST or PA during an inpatient stay who communicated findings to me, Certification And Authentication I certify that I composed the above information based on my clinical judgment relating to this patient's medical condition and, if applicable, clinical findings communicated to me by the NPP or inpatient physician who performed the FTF encounter. Name of Provider that will be monitoring home health services: Marilou Bass
--- NOTE | 2023-11-26 15:53 | CMDISCH_ITS ---
Date of service: 11/26/23 Time of Service: 15:53 LACE Index Scoring Tool Questions: Length of Stay (in days): 4 - 6 Was the patient admitted via the E.D.?: Yes Comorbidities: Cerebrovascular Disease, Diabetes w/o Complication and Any Tumor E.D. Visits: 2 Answers: Total Score: 14 Risk of Readmission: High Risk Care Management Discharge Plan Reason for Hospitalization: Pneumonia Discharge Plan: Alisia will be discharged home with new home health orders for PT, OT, nursing and BUSINESS INSURANCE AGENT. She will follow up with her community providers and plan of care and transport with her son. Patient/Family Education Needs: Review of discharge instructions, importance of monitoring heart rate and B/P, activity, limitations, follow up plan discuss Ask Me Three SDOH Health Related Social Needs: Health related social needs risk of homeless
== END 2023-11-26 16:47 | disposition home health service (06) | DRG 194 ==
LOC: ER 11:32 → ICU 13:02 → MS 11-22 00:19
PROVIDERS: Nurse Practitioner Acute Care; Student in an Organized Health Care Education/Training Program; Admitting Provider Internal Medicine; Emergency Provider Student in an Organized Health Care Education/Training Program; PCP Physician Assistant; Visit Provider Internal Medicine
DX: J18.9 Pneumonia, unspecified organism (principal); D68.2 Hereditary deficiency of other clotting factors; I48.20 Chronic atrial fibrillation, unspecified; I48.92 Unspecified atrial flutter; Z79.01 Long term (current) use of anticoagulants; M48.00 Spinal stenosis, site unspecified; I12.9 Hypertensive chronic kidney disease with stage 1 through stage 4 chronic kidney disease, or unspecified chronic kidney disease; E11.22 Type 2 diabetes mellitus with diabetic chronic kidney disease; N18.31 Chronic kidney disease, stage 3a; G47.00 Insomnia, unspecified; D64.9 Anemia, unspecified; K57.30 Diverticulosis of large intestine without perforation or abscess without bleeding; F41.9 Anxiety disorder, unspecified; E78.5 Hyperlipidemia, unspecified; I95.1 Orthostatic hypotension; Z79.84 Long term (current) use of oral hypoglycemic drugs
CPT/HCPCS: 36410; 00123; 36415; 51798; 74177; 80048; 80053; 84145; 87637; 93005; 96361; 96365; 96367; 97110; 97162; 97530; 99285; 71046; 71260; 81003; 83036; 83605; 83735; 83880; 84484; 85025; 93010; 94640; 94667; 94668; 99222; 99231; 99233; 99239; J0696; J1815; J3475; J3490; J7613; J7620

== ENCOUNTER 2023-12-07 10:12 | Outpatient (CLI) | payer MEDICARE, OTHER, SELFPAY ==
--- NOTE | 2023-12-07 10:00 | RT.EKG_ITS ---
APPROVED REPORT Exam: Resting ECG Reason for Exam: Check rhythm Patient Location: O HR:49 bpm ECG Measurements Heart Rate 49 AXIS LA 222 P 61 QRSd 106 QRS 45 QT 403 T 68 QTc 364 Conclusion Sinus bradycardia...rate< 50 Borderline prolonged LA interval...LA >222, V-rate 30- 49 Probable left atrial enlargement...P >50mS, <-0.10mV V1 Left ventricular hypertrophy...multiple LVH criteria
== END 2023-12-07 10:13 | disposition home or self-care (01) ==
LOC: DI.CARD 10:13
PROVIDERS: PCP Physician Assistant; Visit Provider Internal Medicine Cardiovascular Disease
DX: I48.91 Unspecified atrial fibrillation (principal)
CPT/HCPCS: 93010

== ENCOUNTER → 2023-12-07 11:11 | Outpatient (BNVA) | payer MEDICARE, OTHER, SELFPAY | PROVIDERS: PCP Physician Assistant; Referring Provider Physician Assistant; Visit Provider Internal Medicine Cardiovascular Disease | DX: I48.0 Paroxysmal atrial fibrillation (principal); R94.31 Abnormal electrocardiogram [ECG] [EKG]; I51.7 Cardiomegaly | CPT/HCPCS: 93005; 99213 ==

== ENCOUNTER → 2024-01-12 10:43 | Outpatient (BNVA) | payer MEDICARE, OTHER, SELFPAY | PROVIDERS: PCP Physician Assistant; Referring Provider Physician Assistant; Visit Provider Internal Medicine Cardiovascular Disease | DX: I48.92 Unspecified atrial flutter (principal); I48.0 Paroxysmal atrial fibrillation | CPT/HCPCS: 99213 ==

== ENCOUNTER → 2024-04-12 09:42 | Outpatient (BNVA) | payer MEDICARE, OTHER, SELFPAY | PROVIDERS: PCP Physician Assistant; Visit Provider Internal Medicine Cardiovascular Disease | DX: I48.0 Paroxysmal atrial fibrillation (principal); I10 Essential (primary) hypertension | CPT/HCPCS: 99213 ==

== ENCOUNTER 2024-10-15 08:10 | Outpatient (CLI) | payer MEDICARE, OTHER, SELFPAY ==
--- NOTE | 2024-10-15 08:00 | RT.EKG_ITS ---
APPROVED REPORT Exam: Resting ECG Reason for Exam: aflutter Patient Location: O HR:58 bpm ECG Measurements Heart Rate 58 AXIS DC 226 P 220 QRSd 100 QRS 46 QT 491 T 66 QTc 483 Conclusion Sinus rhythm...P axis (-45,135) Prolonged DC interval...DC >220, V-rate 50- [address] abnormalities
== END 2024-10-15 08:11 | disposition home or self-care (01) ==
LOC: DI.CARD 08:11
PROVIDERS: PCP Physician Assistant; Visit Provider Internal Medicine Cardiovascular Disease
DX: I48.92 Unspecified atrial flutter (principal); I49.3 Ventricular premature depolarization
CPT/HCPCS: 93010

== ENCOUNTER → 2024-10-15 10:21 | Outpatient (BNVA) | payer MEDICARE, OTHER, SELFPAY | PROVIDERS: PCP Physician Assistant; Referring Provider Physician Assistant; Visit Provider Internal Medicine Cardiovascular Disease | DX: I48.0 Paroxysmal atrial fibrillation (principal); I48.92 Unspecified atrial flutter | CPT/HCPCS: 93005; 99213 ==

== ENCOUNTER 2024-10-23 20:15 | Outpatient (REF) | payer MEDICARE, OTHER, SELFPAY ==
[2024-10-23 20:24] LABS: Abs Immature Grans 0.02 10^3/uL (0.0-0.06); Absolute Basophil Count 0.06 10^3/uL (0.0-0.2); Absolute Eosinophil Count 0.06 10^3/uL (0.0-0.7); Absolute Lymphocyte Count 1.01 10^3/uL (1.2-3.4); Absolute Monocyte Count 0.54 10^3/uL (0.1-0.8); Absolute Neutrophil Count 5.37 10^3/uL (1.2-6.7); Basophils % 0.8 %; Eosinophils % 0.8 %; HCT 38.9 % (36.0-46.0); HGB 12.2 g/dL (11.2-15.7); Immature Grans % 0.3 %; Lymphocytes % 14.3 %; MCH 25.8 pg (27.0-33.0); MCHC 31.4 % (32.0-36.0); MCV 82 fL (80-95); MPV 11.5 fL (8.0-11.0); Monocytes % 7.6 %; Neutrophils % 76.2 %; Platelet Count 223 10^3/uL (130-400); RBC 4.72 10^6/uL (3.93-5.22); RDW 16.6 % (11.7-14.6); RDW-SD 50.1 fL; WBC 7.06 10^3/uL (4.4-10.8)
[2024-10-23 20:48] LABS: ALT 42 U/L (14-59); AST 37 U/L (15-37); Albumin 3.9 g/dL (3.4-5.0); Alkaline Phosphatase 124 U/L (46-116); Anion Gap 12.2 mmol/L (3-11); BUN 22 mg/dL (7-18); Bilirubin, Total 0.5 mg/dL (0.2-1.0); CO2 24.8 mmol/L (21.0-32.0); CREATININE 1.3 mg/dL (0.55-1.02); Calcium 9.7 mg/dL (8.5-10.1); Chloride 105 mmol/L (98-107); Estimated GFR 41.06 (mL/min/1.73m2); Glucose 161 mg/dL (74-106); LDL CHOLESTEROL 63 mg/dL (<100); Magnesium 1.9 mg/dL (1.8-2.4); Potassium 5.1 mmol/L (3.5-5.1); Sodium 142 mmol/L (136-145); Total Protein 7.6 g/dL (6.4-8.2)
== END 2024-10-23 20:16 | disposition home or self-care (01) ==
LOC: NCHCN 20:15
PROVIDERS: PCP Physician Assistant; Visit Provider Physician Assistant
DX: E78.5 Hyperlipidemia, unspecified (principal); E83.42 Hypomagnesemia; I10 Essential (primary) hypertension
CPT/HCPCS: 80053; 83721; 83735; 85025

== ENCOUNTER 2024-11-25 15:03 | Outpatient (REF) | payer MEDICARE, OTHER, SELFPAY ==
[2024-11-25 19:41] LABS: Anion Gap 7.9 mmol/L (3-11); BUN 17 mg/dL (7-18); CO2 28.1 mmol/L (21.0-32.0); CREATININE 1.3 mg/dL (0.55-1.02); Calcium 9.2 mg/dL (8.5-10.1); Chloride 104 mmol/L (98-107); Estimated GFR 41.06 (mL/min/1.73m2); Glucose 147 mg/dL (74-106); Potassium 4.4 mmol/L (3.5-5.1); Sodium 140 mmol/L (136-145)
== END 2024-11-25 15:04 | disposition home or self-care (01) ==
LOC: NCHCN 15:03
PROVIDERS: Nurse Practitioner Family; PCP Physician Assistant; Visit Provider Physician Assistant
DX: E78.5 Hyperlipidemia, unspecified (principal)
CPT/HCPCS: 80048

== ENCOUNTER 2025-01-09 14:57 | Outpatient (CLI) | payer MEDICARE, OTHER, SELFPAY ==
--- NOTE | 2025-01-09 14:45 | DI.RAD_ITS ---
Exam(s) XR KNEE LT 4V AP,LAT,VALENTIN,PAT EXAM: XR KNEE LT 4V AP,LAT,VALENTIN,PAT CLINICAL HISTORY: left knee pain. TECHNIQUE: 2D digital imaging was performed of the left knee. Four images were obtained. Merchant,AP, lateral and PA tunnel views were obtained. COMPARISON: There are no priors for comparison. FINDINGS: BONES: No acute fracture is present. No bony destructive lesion is seen. JOINTS: There is marked loss of the medial femoral tibial joint with bone on bone. Osteophytes are seen involving all 3 joint compartments. There is chondrocalcinosis in the femoral tibial joint. There is a very small joint effusion. No loose body. SOFT TISSUE: Atherosclerotic calcification is present. IMPRESSION: Marked osteoarthritis of the left knee. DATA REPOSITORY: RADIATION DOSE DELIVERED:
== END 2025-01-09 14:58 | disposition home or self-care (01) ==
LOC: DIORS 14:57
PROVIDERS: PCP Physician Assistant; Referring Provider Physician Assistant; Visit Provider Physician Assistant
DX: M25.562 Pain in left knee (principal); M17.12 Unilateral primary osteoarthritis, left knee
CPT/HCPCS: J1010; 73564

== ENCOUNTER 2025-01-31 00:27 | Outpatient (CLI) | payer MEDICARE, OTHER, SELFPAY ==
--- NOTE | 2025-01-31 | DI.RAD_ITS ---
Exam(s) RF BARIUM SWALLOW EXAM: RF BARIUM SWALLOW CLINICAL HISTORY: Dysphagia R13.10 TECHNIQUE: 2D and realtime digital imaging was performed. CONTRAST MATERIAL: Oral barium Oral water soluble contrast was administered. COMPARISON: No exams were available for comparison FINDINGS: Study was somewhat less than optimal as the patient was not able to be cooperative enough to drink enough barium for an accurate study. She also had much difficulty with positioning. There is no obvious aspiration evident during this study. There appears to be a tiny Zenker's diverticulum. No obvious fixed lesions seen in the esophagus and GE junction. No hiatal hernia demonstrated. No obvious reflux demonstrated. IMPRESSION: Limited study. There appears to be a small Zenker's diverticulum. Given the patient's history here recommend follow-up modified barium swallow study performed our department in conjunction with the speech therapist. RADIATION DOSE DELIVERED: lady [place]=8.68 mGy
[2025-01-31] MEDS: Barium Sulfate 60% W/V 355 ML BTL PO (11:40)
[2025-01-31] MEDS: Barium Sulfate 98% W/W 140 ML BTL PO (11:40)
== END 2025-01-31 00:47 ==
LOC: DI 00:27
PROVIDERS: PCP Physician Assistant; Visit Provider Nurse Practitioner Family
DX: R13.10 Dysphagia, unspecified (principal)
CPT/HCPCS: 74221; J3490

== ENCOUNTER 2025-03-18 08:29 | Outpatient (CLI) | payer MEDICARE, OTHER, SELFPAY ==
[2025-03-18 10:05] LABS: Abs Immature Grans 0.02 10^3/uL (0.0-0.06); HCT 36.0 % (36.0-46.0); HGB 11.1 g/dL (11.2-15.7); Immature Grans % 0.3 %; MCH 25.7 pg (27.0-33.0); MCHC 30.8 % (32.0-36.0); MCV 83 fL (80-95); MPV 10.4 fL (8.0-11.0); Platelet Count 167 10^3/uL (130-400); RBC 4.32 10^6/uL (3.93-5.22); RDW 18.3 % (11.7-14.6); RDW-SD 55.5 fL; WBC 5.95 10^3/uL (4.4-10.8)
[2025-03-18 10:22] LABS: ALT 40 U/L (14-59); AST 40 U/L (15-37); Albumin 3.3 g/dL (3.4-5.0); Alkaline Phosphatase 98 U/L (46-116); Anion Gap 8.5 mmol/L (3-11); BUN 18 mg/dL (7-18); Bilirubin, Total 0.7 mg/dL (0.2-1.0); CO2 27.5 mmol/L (21.0-32.0); Calcium 8.7 mg/dL (8.5-10.1); Chloride 104 mmol/L (98-107); Estimated GFR 37.56 (mL/min/1.73m2); Glucose 207 mg/dL (74-106); Potassium 4.2 mmol/L (3.5-5.1); Sodium 140 mmol/L (136-145); Total Protein 6.5 g/dL (6.4-8.2)
== END 2025-03-18 08:30 | disposition home or self-care (01) ==
LOC: LBO 08:34
PROVIDERS: PCP Physician Assistant; Visit Provider Nurse Practitioner
DX: C50.411 Malignant neoplasm of upper-outer quadrant of right female breast (principal)
CPT/HCPCS: 36415; 80053; 85025

== ENCOUNTER → 2025-04-25 10:55 | Outpatient (BNVA) | payer MEDICARE, OTHER, SELFPAY | PROVIDERS: PCP Physician Assistant; Referring Provider Physician Assistant; Visit Provider Physician Assistant | DX: M17.0 Bilateral primary osteoarthritis of knee (principal) | CPT/HCPCS: 20610; J1010 ==

== ENCOUNTER → 2025-05-01 12:54 | Outpatient (BNVA) | payer MEDICARE, OTHER, SELFPAY | PROVIDERS: PCP Physician Assistant; Visit Provider Internal Medicine Cardiovascular Disease | DX: I48.0 Paroxysmal atrial fibrillation (principal); Z79.01 Long term (current) use of anticoagulants | CPT/HCPCS: 99213 ==